=== PATIENT | female | born 1940 | race Caucasian/White ===

== ENCOUNTER 2018-10-16 21:54 | Inpatient (IN) | payer MEDICARE, OTHER ==
[2018-10-16] MEDS ORDERED: Albuterol/Ipratropium 3.0-0.5 MG/3 ML Neb Soln NEB ONE (22:42)
[2018-10-16] MEDS ORDERED: Sodium Chloride 0.9% 10 ML Syringe FLUSH PRN (22:42)
[2018-10-16] MEDS ORDERED: methylPREDNISolone Sodium Succinate 125 MG/2 ML SDV IVPUSH ONE (22:43)
--- NOTE | 2018-10-16 23:05 | CRLCR ---
Indication: Shortness of breath Technique: Chest 1 view Comparison: July 19, 2018 Findings/Impression: Stable cardiomediastinal silhouette. Minimal atelectasis versus infiltrate at the right lung base. There may be a trace amount of left pleural fluid. No pneumothorax. Normal pulmonary vasculature. No acute osseous abnormality. Dictated by Shellie Marin MD @ Oct 16 2018 11:04PM Signed by Dr. Shellie Marin @ Oct 16 2018 11:04PM
[2018-10-16] MEDS ORDERED: LORazepam 2 MG/ML SDV IVPUSH ONE (23:38)
--- NOTE | 2018-10-16 23:44 | EDM.PDOC ---
ED HPI GENERAL MEDICAL PROBLEM - General Chief Complaint: Respiratory Problem Stated Complaint: SOB Time Seen by Provider: 10/16/18 22:25 Source of Information: Reports: Patient, Family History Limitations: Reports: No Limitations - History of Present Illness INITIAL COMMENTS - FREE TEXT/NARRATIVE: pt arrived with increased sob and very wheezy She does not have a fever. She has been very tight all day. She is a home without air conditioning so the humidity really bothered the pt. Onset: Gradual, Other ( She has been sob for several days but today was the worst. ) Duration: Hour(s): Location: Reports: Chest Associated Symptoms: Reports: Cough, Shortness of Breath, Other (pt is very wheezy. ) Treatments [employer]ER: Reports: Oxygen - Related Data Allergies Allergy/AdvReac Type Severity Reaction Status Date / Time No Known Allergies Allergy Verified 10/16/18 23:37 Home Meds: Home Meds ARIPiprazole [Abilify] 10 mg PO DAILY 12/23/15 [History] DULoxetine HCl [Duloxetine HCl] 60 mg PO DAILY 12/23/15 [History] Dexlansoprazole [Dexilant] 60 mg PO DAILY 12/23/15 [History] Ondansetron [IJD: Ondansetron ODT] 4 mg PO .EVERY 6 HOURS PRN 12/23/15 [History] QUEtiapine Fumarate [Seroquel Xr] 400 mg PO DAILY 12/23/15 [History] Pantoprazole [ProTONIX] 40 mg PO DAILY 10/16/18 [History] Past Medical History HEENT History: Reports: Impaired Vision Respiratory History: Reports: COPD, SOB Musculoskeletal History: Reports: Arthritis Psychiatric History: Reports: Anxiety, Depression - Infectious Disease History Infectious Disease History: Reports: Chicken Pox - Past Surgical History Head Surgeries/Procedures: Reports: None Female Surgical History: Reports: Section, Hysterectomy Musculoskeletal Surgical History: Reports: Shoulder Surgery, Other (See Below) Other Musculoskeletal Surgeries/Procedures:: toe surgery Social & Family History - Tobacco Use Smoking Status *Q: Current Every Day Smoker Years of Tobacco use: 60 Packs/Tins Daily: 1.5 Used Tobacco, but Quit: No - Caffeine Use Caffeine Use: Reports: Coffee - Recreational Drug Use Recreational Drug Use: No ED ROS GENERAL - Review of Systems Review Of Systems: See Below Constitutional: Reports: No Symptoms HEENT: Reports: No Symptoms Respiratory: Reports: Shortness of Breath, Wheezing, Cough Cardiovascular: Reports: No Symptoms Endocrine: Reports: No Symptoms GI/Abdominal: Reports: No Symptoms : Reports: No Symptoms Musculoskeletal: Reports: No Symptoms Skin: Reports: No Symptoms Neurological: Reports: Other (pt does seem quite vague ) Psychiatric: Reports: Anxiety ED EXAM, GENERAL - Physical Exam Exam: See Below Free Text/Narrative:: pt arrived with increasing sob. She has been struggling all day. She is very wheezy. She has not been running a fever. Exam Limited By: No Limitations General Appearance: Alert, Anxious, Severe Distress Ears: Normal TMs Nose: Normal Inspection Throat/Mouth: Normal Inspection Head: Atraumatic Neck: Normal Inspection Respiratory/Chest: Decreased Breath Sounds, Rhonchi, Wheezing Cardiovascular: Regular Rate, Rhythm, Tachycardia GI/Abdominal: Soft, Non-Tender (Female) Exam: Deferred Rectal (Female) Exam: Deferred Back Exam: Normal Inspection Extremities: Other (no edema) Neurological: Alert, Oriented, Normal Cognition Psychiatric: Anxious Course - Vital Signs Last Recorded V/S: Last Vital Signs Temp 35.7 C 10/16/18 22:27 Pulse 122 H 10/16/18 22:27 Resp 27 H 10/16/18 22:27 BP 158/70 H 10/16/18 22:27 Pulse Ox 96 10/16/18 22:27 - Orders/Labs/Meds Orders: Active Orders 24 hr Category Date Time Status BIPAP Adult [RT BiPAP/CPAP] [RC] ASDIRECTED Care 10/16/18 22:50 Active EKG Documentation Completion [RC] ASDIRECTED Care 10/16/18 23:16 Active Kennedy Catheter Insertion [Insert Urinary Catheter] [OM. Care 10/16/18 23:30 Ordered PC] Q24H RT Aerosol Therapy [RC] ASDIRECTED Care 10/16/18 22:42 Active RT Aerosol Therapy [RC] ASDIRECTED Care 10/16/18 23:55 Ordered Urinary Catheter Assessment [RC] ASDIRECTED Care 10/16/18 23:17 Active UA W/MICROSCOPIC [URIN] Urgent Lab 10/16/18 22:34 Ordered Sodium Chloride 0.9% [Saline Flush] Med 10/16/18 22:42 Active 10 ml FLUSH ASDIRECTED PRN Saline Lock Insert [OM.PC] Routine Oth 10/16/18 22:42 Ordered EKG 12 Lead [EK] Routine Ther 10/16/18 23:15 Ordered Medication Orders Sodium Chloride (Saline Flush) 10 ml FLUSH ASDIRECTED PRN PRN Reason: Keep Vein Open Last Admin: 10/16/18 22:55 Dose: 10 ml Labs: Laboratory Tests 10/16/18 10/16/18 10/16/18 Range/Units 22:40 22:40 22:40 WBC 9.0 (4.5-11.0) K/uL RBC 4.09 (3.30-5.50) M/uL Hgb 12.4 (12.0-15.0) g/dL Hct 38.4 (36.0-48.0) % MCV 94 (80-98) fL MCH 30 (27-31) pg MCHC 32 (32-36) % Plt Count 185 (150-400) K/uL Neut % (Auto) 81 H (36-66) % Lymph % (Auto) 13 L (24-44) % [place] % (Auto) 6 (2-6) % Eos % (Auto) 0 L (2-4) % Baso % (Auto) 0 (0-1) % Puncture Site L radial ABG pH 7.246 L (7.350-7.450) ABG pCO2 83.2 H* (35.0-42.0) mmHg ABG pO2 74.9 L (75.0-100.0) mmHg ABG HCO3 34.9 H (22.0-26.0) mmol/L ABG Total CO2 32.6 H (21.0-25.0) mmol/L ABG O2 Saturation 92.8 L (95.0-98.0) % ABG O2 Content 15.7 (15.0-23.0) %vol ABG Base Excess 5.2 mm/L ABG Hemoglobin 12.7 (12.0-16.0) g/dL ABG Oxyhemoglobin 88.1 % ABG Carboxyhemoglobin 4.1 H (0.0-1.6) % ABG Methemoglobin 1.0 % Timmy Test Ok O2 Delivery Device Room air Oxygen Flow Rate 3 L Sodium 135 L (140-148) mmol/L Potassium 4.2 (3.6-5.2) mmol/L Chloride 95 L (100-108) mmol/L Carbon Dioxide 35 H (21-32) mmol/L Anion Gap 9.2 (5.0-14.0) mmol/L BUN 5 L (7-18) mg/dL Creatinine 0.4 L (0.6-1.0) mg/dL Est Cr Clr Drug Dosing 81.92 mL/min Estimated GFR (MDRD) > 60 (>60) Glucose 155 H (74-106) mg/dL Calcium 9.0 (8.5-10.1) mg/dL Total Bilirubin 0.3 (0.2-1.0) mg/dL AST 19 (15-37) U/L ALT 21 (12-78) U/L Alkaline Phosphatase 44 L (46-116) U/L Troponin I (0.000-0.056) ng/mL NT-Pro-B Natriuret Pep (5-450) pg/mL Total Protein 7.3 (6.4-8.2) g/dL Albumin 3.3 L (3.4-5.0) g/dL Globulin 4.0 H (2.3-3.5) g/dL Albumin/Globulin Ratio 0.8 L (1.2-2.2) 10/16/18 10/16/18 Range/Units 22:40 23:25 WBC (4.5-11.0) K/uL RBC (3.30-5.50) M/uL Hgb (12.0-15.0) g/dL Hct (36.0-48.0) % MCV (80-98) fL MCH (27-31) pg MCHC (32-36) % Plt Count (150-400) K/uL Neut % (Auto) (36-66) % Lymph % (Auto) (24-44) % [place] % (Auto) (2-6) % Eos % (Auto) (2-4) % Baso % (Auto) (0-1) % Puncture Site ABG pH (7.350-7.450) ABG pCO2 (35.0-42.0) mmHg ABG pO2 (75.0-100.0) mmHg ABG HCO3 (22.0-26.0) mmol/L ABG Total CO2 (21.0-25.0) mmol/L ABG O2 Saturation (95.0-98.0) % ABG O2 Content (15.0-23.0) %vol ABG Base Excess mm/L ABG Hemoglobin (12.0-16.0) g/dL ABG Oxyhemoglobin % ABG Carboxyhemoglobin (0.0-1.6) % ABG Methemoglobin % Timmy Test O2 Delivery Device Oxygen Flow Rate L Sodium (140-148) mmol/L Potassium (3.6-5.2) mmol/L Chloride (100-108) mmol/L Carbon Dioxide (21-32) mmol/L Anion Gap (5.0-14.0) mmol/L BUN (7-18) mg/dL Creatinine (0.6-1.0) mg/dL Est Cr Clr Drug Dosing mL/min Estimated GFR (MDRD) (>60) Glucose (74-106) mg/dL Calcium (8.5-10.1) mg/dL Total Bilirubin (0.2-1.0) mg/dL AST (15-37) U/L ALT (12-78) U/L Alkaline Phosphatase (46-116) U/L Troponin I < 0.017 (0.000-0.056) ng/mL NT-Pro-B Natriuret Pep 336 (5-450) pg/mL Total Protein (6.4-8.2) g/dL Albumin (3.4-5.0) g/dL Globulin (2.3-3.5) g/dL Albumin/Globulin Ratio (1.2-2.2) Meds: Medications Generic Name Dose Route Start Last Admin Trade Name Freq PRN Reason Stop Dose Admin Sodium Chloride 10 ml 10/16/18 22:42 10/16/18 22:55 Saline Flush FLUSH 10 ml ASDIRECTED PRN Administration Keep Vein Open Discontinued Medications Generic Name Dose Route Start Last Admin Trade Name Freq PRN Reason Stop Dose Admin Albuterol 2.5 mg 10/16/18 23:55 Proventil Neb Soln [facility] 10/16/18 23:56 ONETIME ONE Albuterol/Ipratropium 3 ml 10/16/18 22:42 10/16/18 22:47 Duoneb 3.0-0.5 Mg/3 Ml [facility] 10/16/18 22:43 3 ml ONETIME ONE Administration Lorazepam 0.5 mg 10/16/18 23:38 10/16/18 23:44 Ativan IVPUSH 10/16/18 23:39 0.5 mg ONETIME ONE Administration Methylprednisolone Sodium Succinate 125 mg 10/16/18 22:43 10/16/18 22:55 Solu-Medrol IVPUSH 10/16/18 22:44 125 mg ONETIME ONE Administration - Re-Assessments/Exams Free Text/Narrative Re-Assessment/Exam: 10/16/18 23:47 pt had blood gases with a pco2 greater than 80. She does not have a fever. Her wbc is normal. Her chest xray does not have definite infiltrate. 10/16/18 23:56 pt was placed on bipap and she contiues to struggle to maintain her o2 sats. She was given a duoneb and will starte a albuterol neb. Departure - Departure Time of Disposition: 23:48 Disposition: Admitted As Inpatient 65 Condition: Fair Clinical Impression: Respiratory failure, COPD (chronic obstructive pulmonary disease) - Discharge Information Referrals: Rich Lopez Sr, MD [Primary Care Provider] - Forms: ED Department Discharge Care Plan Goals: admit to Dr Lopez - My Orders Last 24 Hours: My Active Orders 10/16/18 22:34 UA W/MICROSCOPIC [URIN] Urgent 10/16/18 22:42 RT Aerosol Therapy [RC] ASDIRECTED Sodium Chloride 0.9% [Saline Flush] 10 ml FLUSH ASDIRECTED PRN Saline Lock Insert [OM.PC] Routine 10/16/18 22:50 BIPAP Adult [RT BiPAP/CPAP] [RC] ASDIRECTED 10/16/18 23:15 EKG 12 Lead [EK] Routine 10/16/18 23:16 EKG Documentation Completion [RC] ASDIRECTED 10/16/18 23:17 Urinary Catheter Assessment [RC] ASDIRECTED 10/16/18 23:30 Kennedy Catheter Insertion [Insert Urinary Catheter] [OM.PC] Q24H 10/16/18 23:55 RT Aerosol Therapy [RC] ASDIRECTED - Assessment/Plan Last 24 Hours: My Active Orders 10/16/18 22:34 UA W/MICROSCOPIC [URIN] Urgent 10/16/18 22:42 RT Aerosol Therapy [RC] ASDIRECTED Sodium Chloride 0.9% [Saline Flush] 10 ml FLUSH ASDIRECTED PRN Saline Lock Insert [OM.PC] Routine 10/16/18 22:50 BIPAP Adult [RT BiPAP/CPAP] [RC] ASDIRECTED 10/16/18 23:15 EKG 12 Lead [EK] Routine 10/16/18 23:16 EKG Documentation Completion [RC] ASDIRECTED 10/16/18 23:17 Urinary Catheter Assessment [RC] ASDIRECTED 10/16/18 23:30 Kennedy Catheter Insertion [Insert Urinary Catheter] [OM.PC] Q24H 10/16/18 23:55 RT Aerosol Therapy [RC] ASDIRECTED
[2018-10-16] MEDS ORDERED: Albuterol 0.083% 2.5 MG/3 ML Neb Soln NEB ONE (23:55)
[2018-10-16] MEDS ORDERED: Albuterol 0.021% 0.63 MG/3 ML Neb Soln ONE (23:55)
[2018-10-17] MEDS ORDERED: Ondansetron 4 MG Tab.DIS PO PRN (00:35)
--- NOTE | 2018-10-17 00:43 | PCM.HP ---
H&P History of Present Illness - General Date of Service: 10/17/18 Admit Problem/Dx: Admission Diagnosis/Problem Admission Diagnosis/Problem Respiratory failure Source of Information: EMS, Family History Limitations: Reports: Respiratory Distress - History of Present Illness Initial Comments - Free Text/Narative: This is a 78 year old female with a history of COPD brought on by smoking for years. recently 1/2 + pack/day and is on 24 hr oxygen. I had seen her in the office 12 hrs ago and she wanted to change her inhaler so gave her Stiolto Resimat 2 puffs/24 hrs. She became increased Shortness of breath and was brought to the ER and was admitted. Onset of Symptoms: Reports: Gradual Symptom Onset Date: 10/16/18 Duration of Symptoms: Reports: Day(s): Location: Reports: Chest Associated Symptoms: Reports: Cough - Related Data Allergies/Adverse Reactions: Allergies Allergy/AdvReac Type Severity Reaction Status Date / Time No Known Allergies Allergy Verified 10/16/18 23:37 Home Medications: Home Meds ARIPiprazole [Abilify] 10 mg PO DAILY 12/23/15 [History] DULoxetine HCl [Duloxetine HCl] 60 mg PO DAILY 12/23/15 [History] Dexlansoprazole [Dexilant] 60 mg PO DAILY 12/23/15 [History] Ondansetron [IJD: Ondansetron ODT] 4 mg PO .EVERY 6 HOURS PRN 12/23/15 [History] QUEtiapine Fumarate [Seroquel Xr] 400 mg PO DAILY 12/23/15 [History] Pantoprazole [ProTONIX] 40 mg PO DAILY 10/16/18 [History] Past Medical History HEENT History: Reports: Impaired Vision Respiratory History: Reports: COPD, SOB Musculoskeletal History: Reports: Arthritis Psychiatric History: Reports: Anxiety, Depression - Infectious Disease History Infectious Disease History: Reports: Chicken Pox - Past Surgical History Head Surgeries/Procedures: Reports: None Female Surgical History: Reports: Section, Hysterectomy Musculoskeletal Surgical History: Reports: Shoulder Surgery, Other (See Below) Other Musculoskeletal Surgeries/Procedures:: toe surgery Social & Family History - Tobacco Use Smoking Status *Q: Current Every Day Smoker Years of Tobacco use: 60 Packs/Tins Daily: 1.5 Used Tobacco, but Quit: No - Caffeine Use Caffeine Use: Reports: Coffee - Recreational Drug Use Recreational Drug Use: No H&P Review of Systems - Review of Systems: Review Of Systems: See Below General: Reports: Weakness, Fatigue HEENT: Reports: Post Nasal Drip, Sore Throat Pulmonary: Reports: Shortness of Breath, Wheezing, Cough Cardiovascular: Reports: No Symptoms Gastrointestinal: Reports: No Symptoms Genitourinary: Reports: No Symptoms Musculoskeletal: Reports: No Symptoms Skin: Reports: No Symptoms Psychiatric: Reports: Anxiety Neurological: Reports: Trouble Speaking, Difficulty Walking, Weakness Exam - Exam Exam: See Below - Vital Signs Vital Signs: Last Vital Signs Temp 96.3 F 10/16/18 22:27 Pulse 139 H 10/17/18 00:15 Resp 22 H 10/17/18 00:15 BP 207/62 H 10/17/18 00:15 Pulse Ox 91 L 10/17/18 00:15 Weight: 145 lb - Exam General: Oriented, Cooperative, Severe Distress, Lethargic HEENT: PERRLA, Hearing Intact, Mucosa Moist & [place], Nares Patent, Normal Nasal Septum, Posterior Pharynx Clear, Conjunctiva Clear, EOMI, EACs Clear, TMs Clear Neck: Supple, Trachea Midline, 2 Lungs: Decreased Breath Sounds, Wheezing Cardiovascular: Regular Rate, Tachycardia GI/Abdominal Exam: Normal Bowel Sounds, Soft, No Distention Extremities: Normal Inspection Peripheral Pulses: 1+: Radial (L), Radial (R) Skin: Warm, Dry Neurological: Cranial Nerves Intact, Reflexes Equal Bilateral, Strength Equal Bilateral, Abnormal Gait Neuro Extensive - Mental Status: Other (In respiratory distress) DTR: 1+: Bicep (L), Bicep (R) Psychiatric: Anxious - Patient Data Lab Results Last 24 hrs: Laboratory Results - last 24 hr 10/16/18 10/16/18 10/16/18 Range/Units 22:40 22:40 22:40 WBC 9.0 (4.5-11.0) K/uL RBC 4.09 (3.30-5.50) M/uL Hgb 12.4 (12.0-15.0) g/dL Hct 38.4 (36.0-48.0) % MCV 94 (80-98) fL MCH 30 (27-31) pg MCHC 32 (32-36) % Plt Count 185 (150-400) K/uL Neut % (Auto) 81 H (36-66) % Lymph % (Auto) 13 L (24-44) % [place] % (Auto) 6 (2-6) % Eos % (Auto) 0 L (2-4) % Baso % (Auto) 0 (0-1) % Puncture Site L radial ABG pH 7.246 L (7.350-7.450) ABG pCO2 83.2 H* (35.0-42.0) mmHg ABG pO2 74.9 L (75.0-100.0) mmHg ABG HCO3 34.9 H (22.0-26.0) mmol/L ABG Total CO2 32.6 H (21.0-25.0) mmol/L ABG O2 Saturation 92.8 L (95.0-98.0) % ABG O2 Content 15.7 (15.0-23.0) %vol ABG Base Excess 5.2 mm/L ABG Hemoglobin 12.7 (12.0-16.0) g/dL ABG Oxyhemoglobin 88.1 % ABG Carboxyhemoglobin 4.1 H (0.0-1.6) % ABG Methemoglobin 1.0 % Timmy Test Ok O2 Delivery Device Room air Oxygen Flow Rate 3 L Sodium 135 L (140-148) mmol/L Potassium 4.2 (3.6-5.2) mmol/L Chloride 95 L (100-108) mmol/L Carbon Dioxide 35 H (21-32) mmol/L Anion Gap 9.2 (5.0-14.0) mmol/L BUN 5 L (7-18) mg/dL Creatinine 0.4 L (0.6-1.0) mg/dL Est Cr Clr Drug Dosing 81.92 mL/min Estimated GFR (MDRD) > 60 (>60) Glucose 155 H (74-106) mg/dL Calcium 9.0 (8.5-10.1) mg/dL Total Bilirubin 0.3 (0.2-1.0) mg/dL AST 19 (15-37) U/L ALT 21 (12-78) U/L Alkaline Phosphatase 44 L (46-116) U/L Troponin I (0.000-0.056) ng/mL NT-Pro-B Natriuret Pep (5-450) pg/mL Total Protein 7.3 (6.4-8.2) g/dL Albumin 3.3 L (3.4-5.0) g/dL Globulin 4.0 H (2.3-3.5) g/dL Albumin/Globulin Ratio 0.8 L (1.2-2.2) Urine Color Urine Appearance Urine pH (4.5-8.0) Ur Specific [place] (1.008-1.030) Urine Protein (NEGATIVE) mg/dL Urine Glucose (UA) (NEGATIVE) mg/dL Urine Ketones (NEGATIVE) mg/dL Urine Occult Blood (NEGATIVE) Urine Nitrite (NEGATIVE) Urine Bilirubin (NEGATIVE) Urine Urobilinogen (NORMAL) mg/dL Ur Leukocyte Esterase (NEGATIVE) Urine RBC (0-5) Urine WBC (0-5) Ur Epithelial Cells Amorphous Sediment Urine Bacteria Urine Mucus 10/16/18 10/16/18 10/17/18 Range/Units 22:40 23:25 00:11 WBC (4.5-11.0) K/uL RBC (3.30-5.50) M/uL Hgb (12.0-15.0) g/dL Hct (36.0-48.0) % MCV (80-98) fL MCH (27-31) pg MCHC (32-36) % Plt Count (150-400) K/uL Neut % (Auto) (36-66) % Lymph % (Auto) (24-44) % [place] % (Auto) (2-6) % Eos % (Auto) (2-4) % Baso % (Auto) (0-1) % Puncture Site ABG pH (7.350-7.450) ABG pCO2 (35.0-42.0) mmHg ABG pO2 (75.0-100.0) mmHg ABG HCO3 (22.0-26.0) mmol/L ABG Total CO2 (21.0-25.0) mmol/L ABG O2 Saturation (95.0-98.0) % ABG O2 Content (15.0-23.0) %vol ABG Base Excess mm/L ABG Hemoglobin (12.0-16.0) g/dL ABG Oxyhemoglobin % ABG Carboxyhemoglobin (0.0-1.6) % ABG Methemoglobin % Timmy Test O2 Delivery Device Oxygen Flow Rate L Sodium (140-148) mmol/L Potassium (3.6-5.2) mmol/L Chloride (100-108) mmol/L Carbon Dioxide (21-32) mmol/L Anion Gap (5.0-14.0) mmol/L BUN (7-18) mg/dL Creatinine (0.6-1.0) mg/dL Est Cr Clr Drug Dosing mL/min Estimated GFR (MDRD) (>60) Glucose (74-106) mg/dL Calcium (8.5-10.1) mg/dL Total Bilirubin (0.2-1.0) mg/dL AST (15-37) U/L ALT (12-78) U/L Alkaline Phosphatase (46-116) U/L Troponin I < 0.017 (0.000-0.056) ng/mL NT-Pro-B Natriuret Pep 336 (5-450) pg/mL Total Protein (6.4-8.2) g/dL Albumin (3.4-5.0) g/dL Globulin (2.3-3.5) g/dL Albumin/Globulin Ratio (1.2-2.2) Urine Color Yellow Urine Appearance Clear Urine pH 6.5 (4.5-8.0) Ur Specific [place] 1.020 (1.008-1.030) Urine Protein 100 H (NEGATIVE) mg/dL Urine Glucose (UA) 100 H (NEGATIVE) mg/dL Urine Ketones Negative (NEGATIVE) mg/dL Urine Occult Blood Moderate (NEGATIVE) Urine Nitrite Negative (NEGATIVE) Urine Bilirubin Negative (NEGATIVE) Urine Urobilinogen Normal (NORMAL) mg/dL Ur Leukocyte Esterase Negative (NEGATIVE) Urine RBC 0-5 (0-5) Urine WBC 0-5 (0-5) Ur Epithelial Cells Rare Amorphous Sediment Few Urine Bacteria Few Urine Mucus Not seen Result Diagrams: 10/17/18 05:14 10/17/18 05:14 Problem List Initiated/Reviewed/Updated: Yes Orders Last 24hrs: Active Orders 24 hr Category Date Time Status Admission Status [Patient Status] [ADT] Routine ADT 10/16/18 23:50 Active Patient Status [ADT] Routine ADT 10/17/18 00:21 Ordered BIPAP Adult [RT BiPAP/CPAP] [RC] ASDIRECTED Care 10/16/18 22:50 Active Bedrest Bedside Commode [RC] ASDIRECTED Care 10/17/18 00:21 Ordered EKG Documentation Completion [RC] ASDIRECTED Care 10/16/18 23:16 Active Kennedy Catheter Insertion [Insert Urinary Catheter] [OM. Care 10/16/18 23:30 Ordered PC] Q24H Height and Weight [RC] UPON Care 10/17/18 00:21 Ordered Intake and Output [RC] QSHIFT Care 10/17/18 00:25 Ordered Oxygen Therapy [RC] PRN Care 10/17/18 00:21 Ordered RT Aerosol Therapy [RC] ASDIRECTED Care 10/16/18 22:42 Active RT Aerosol Therapy [RC] ASDIRECTED Care 10/16/18 23:55 Active Up With Assistance [RC] ASDIRECTED Care 10/17/18 00:21 Ordered Up to Chair [RC] QID Care 10/17/18 00:21 Ordered Urinary Catheter Assessment [RC] ASDIRECTED Care 10/16/18 23:17 Active VTE/DVT Education [RC] Per Unit Routine Care 10/17/18 00:21 Ordered Vital Signs [RC] Q4H Care 10/17/18 00:21 Ordered Regular Diet [DIET] Diet 10/17/18 Breakfast Ordered BASIC METABOLIC PANEL,BMP [CHEM] Routine Lab 10/17/18 05:11 Ordered CBC WITH AUTO DIFF [HEME] Routine Lab 10/17/18 05:11 Ordered ARIPiprazole [Abilify] Med 10/17/18 09:00 Ordered 10 mg PO DAILY DULoxetine HCl [Duloxetine HCl] Med 10/17/18 09:00 Ordered 60 mg PO DAILY Dexlansoprazole [Dexilant] Med 10/17/18 09:00 Ordered 60 mg PO DAILY Ondansetron [Zofran ODT] Med 10/17/18 00:35 Ordered 4 mg PO .EVERY 6 HOURS PRN QUEtiapine Fumarate [Seroquel Xr] Med 10/17/18 09:00 Ordered 400 mg PO DAILY Sodium Chloride 0.9% [Normal Saline] 1,000 ml Med 10/17/18 00:30 Ordered IV ASDIRECTED Sodium Chloride 0.9% [Saline Flush] Med 10/16/18 22:42 Active 10 ml FLUSH ASDIRECTED PRN Saline Lock Insert [OM.PC] Routine Oth 10/16/18 22:42 Ordered Sequential Compression Device [OM.PC] Per Unit Routine Oth 10/17/18 00:25 Ordered Resuscitation Status Routine Resus Stat 10/17/18 00:21 Ordered EKG 12 Lead [EK] Routine Ther 10/16/18 23:15 Ordered Medication Orders Sodium Chloride (Saline Flush) 10 ml FLUSH ASDIRECTED PRN PRN Reason: Keep Vein Open Last Admin: 10/16/18 22:55 Dose: 10 ml Assessment/Plan Comment:: Assessment/Plan: #1. COPD: She will be in the ICU on Bipap and will monitor O2 levels and respiratory stasis. Continue with steroids. #2. Emphysema: #3. Hypothyroidism: Continue with meds. #4. Nicotine addiction:
[2018-10-17] MEDS ORDERED: methylPREDNISolone Sodium Succinate 125 MG/2 ML SDV IVPUSH SCH (01:00)
[2018-10-17] MEDS: Sodium Chloride 0.9% 1,000 ML IV SCH ×2 (01:30→13:54)
[2018-10-17] MEDS ORDERED: Sodium Chloride 0.9% 500 ML IV ONE (05:28)
[2018-10-17] MEDS ORDERED: Heparin Sodium 5,000 Units/ML Vial IVPUSH ONE (05:31)
[2018-10-17] MEDS: methylPREDNISolone Sodium Succinate 125 MG/2 ML SDV IVPUSH SCH ×4 (05:45→23:45)
--- NOTE | 2018-10-17 06:16 | PCM.HP ---
H&P History of Present Illness - General Admit Problem/Dx: Admission Diagnosis/Problem Admission Diagnosis/Problem Respiratory failure - Related Data Allergies/Adverse Reactions: Allergies Allergy/AdvReac Type Severity Reaction Status Date / Time No Known Allergies Allergy Verified 10/16/18 23:37 Home Medications: Home Meds ARIPiprazole [Abilify] 10 mg PO DAILY 12/23/15 [History] DULoxetine HCl [Duloxetine HCl] 60 mg PO DAILY 12/23/15 [History] Dexlansoprazole [Dexilant] 60 mg PO DAILY 12/23/15 [History] Ondansetron [IJD: Ondansetron ODT] 4 mg PO .EVERY 6 HOURS PRN 12/23/15 [History] QUEtiapine Fumarate [Seroquel Xr] 400 mg PO DAILY 12/23/15 [History] Pantoprazole [ProTONIX] 40 mg PO DAILY 10/16/18 [History] Past Medical History HEENT History: Reports: Impaired Vision Respiratory History: Reports: COPD, SOB Musculoskeletal History: Reports: Arthritis Psychiatric History: Reports: Anxiety, Depression - Infectious Disease History Infectious Disease History: Reports: Chicken Pox - Past Surgical History Head Surgeries/Procedures: Reports: None Female Surgical History: Reports: Section, Hysterectomy Musculoskeletal Surgical History: Reports: Shoulder Surgery, Other (See Below) Other Musculoskeletal Surgeries/Procedures:: toe surgery Social & Family History - Tobacco Use Smoking Status *Q: Current Every Day Smoker Years of Tobacco use: 60 Packs/Tins Daily: 1.5 Used Tobacco, but Quit: No - Caffeine Use Caffeine Use: Reports: Coffee - Recreational Drug Use Recreational Drug Use: No H&P Review of Systems - Review of Systems: Review Of Systems: See Below Exam - Exam Exam: See Below - Vital Signs Vital Signs: Last Vital Signs Temp 98 F 10/17/18 05:00 Pulse 139 H 10/17/18 00:15 Resp 17 10/17/18 05:00 BP 129/75 10/17/18 05:00 Pulse Ox 94 L 10/17/18 05:00 Weight: 145 lb - Exam General: Moderate Distress HEENT: Pupils Equal Neck: Supple Lungs: Decreased Breath Sounds, Wheezing Cardiovascular: Regular Rate GI/Abdominal Exam: Soft Back Exam: Normal Inspection Extremities: Normal Inspection Peripheral Pulses: 1+: Radial (L), Radial (R) Skin: Warm, Dry, Intact Neurological: Cranial Nerves Intact DTR: 1+: Bicep (L), Bicep (R) Psychiatric: Anxious - Patient Data Lab Results Last 24 hrs: Laboratory Results - last 24 hr 10/16/18 10/16/18 10/16/18 Range/Units 22:40 22:40 22:40 WBC 9.0 (4.5-11.0) K/uL RBC 4.09 (3.30-5.50) M/uL Hgb 12.4 (12.0-15.0) g/dL Hct 38.4 (36.0-48.0) % MCV 94 (80-98) fL MCH 30 (27-31) pg MCHC 32 (32-36) % Plt Count 185 (150-400) K/uL Neut % (Auto) 81 H (36-66) % Lymph % (Auto) 13 L (24-44) % [place] % (Auto) 6 (2-6) % Eos % (Auto) 0 L (2-4) % Baso % (Auto) 0 (0-1) % Puncture Site L radial ABG pH 7.246 L (7.350-7.450) ABG pCO2 83.2 H* (35.0-42.0) mmHg ABG pO2 74.9 L (75.0-100.0) mmHg ABG HCO3 34.9 H (22.0-26.0) mmol/L ABG Total CO2 32.6 H (21.0-25.0) mmol/L ABG O2 Saturation 92.8 L (95.0-98.0) % ABG O2 Content 15.7 (15.0-23.0) %vol ABG Base Excess 5.2 mm/L ABG Hemoglobin 12.7 (12.0-16.0) g/dL ABG Oxyhemoglobin 88.1 % ABG Carboxyhemoglobin 4.1 H (0.0-1.6) % ABG Methemoglobin 1.0 % Timmy Test Ok O2 Delivery Device Room air Oxygen Flow Rate 3 L Sodium 135 L (140-148) mmol/L Potassium 4.2 (3.6-5.2) mmol/L Chloride 95 L (100-108) mmol/L Carbon Dioxide 35 H (21-32) mmol/L Anion Gap 9.2 (5.0-14.0) mmol/L BUN 5 L (7-18) mg/dL Creatinine 0.4 L (0.6-1.0) mg/dL Est Cr Clr Drug Dosing 81.92 mL/min Estimated GFR (MDRD) > 60 (>60) Glucose 155 H (74-106) mg/dL Calcium 9.0 (8.5-10.1) mg/dL Total Bilirubin 0.3 (0.2-1.0) mg/dL AST 19 (15-37) U/L ALT 21 (12-78) U/L Alkaline Phosphatase 44 L (46-116) U/L Troponin I (0.000-0.056) ng/mL NT-Pro-B Natriuret Pep (5-450) pg/mL Total Protein 7.3 (6.4-8.2) g/dL Albumin 3.3 L (3.4-5.0) g/dL Globulin 4.0 H (2.3-3.5) g/dL Albumin/Globulin Ratio 0.8 L (1.2-2.2) Urine Color Urine Appearance Urine pH (4.5-8.0) Ur Specific [place] (1.008-1.030) Urine Protein (NEGATIVE) mg/dL Urine Glucose (UA) (NEGATIVE) mg/dL Urine Ketones (NEGATIVE) mg/dL Urine Occult Blood (NEGATIVE) Urine Nitrite (NEGATIVE) Urine Bilirubin (NEGATIVE) Urine Urobilinogen (NORMAL) mg/dL Ur Leukocyte Esterase (NEGATIVE) Urine RBC (0-5) Urine WBC (0-5) Ur Epithelial Cells Amorphous Sediment Urine Bacteria Urine Mucus 10/16/18 10/16/18 10/17/18 Range/Units 22:40 23:25 00:11 WBC (4.5-11.0) K/uL RBC (3.30-5.50) M/uL Hgb (12.0-15.0) g/dL Hct (36.0-48.0) % MCV (80-98) fL MCH (27-31) pg MCHC (32-36) % Plt Count (150-400) K/uL Neut % (Auto) (36-66) % Lymph % (Auto) (24-44) % [place] % (Auto) (2-6) % Eos % (Auto) (2-4) % Baso % (Auto) (0-1) % Puncture Site ABG pH (7.350-7.450) ABG pCO2 (35.0-42.0) mmHg ABG pO2 (75.0-100.0) mmHg ABG HCO3 (22.0-26.0) mmol/L ABG Total CO2 (21.0-25.0) mmol/L ABG O2 Saturation (95.0-98.0) % ABG O2 Content (15.0-23.0) %vol ABG Base Excess mm/L ABG Hemoglobin (12.0-16.0) g/dL ABG Oxyhemoglobin % ABG Carboxyhemoglobin (0.0-1.6) % ABG Methemoglobin % Timmy Test O2 Delivery Device Oxygen Flow Rate L Sodium (140-148) mmol/L Potassium (3.6-5.2) mmol/L Chloride (100-108) mmol/L Carbon Dioxide (21-32) mmol/L Anion Gap (5.0-14.0) mmol/L BUN (7-18) mg/dL Creatinine (0.6-1.0) mg/dL Est Cr Clr Drug Dosing mL/min Estimated GFR (MDRD) (>60) Glucose (74-106) mg/dL Calcium (8.5-10.1) mg/dL Total Bilirubin (0.2-1.0) mg/dL AST (15-37) U/L ALT (12-78) U/L Alkaline Phosphatase (46-116) U/L Troponin I < 0.017 (0.000-0.056) ng/mL NT-Pro-B Natriuret Pep 336 (5-450) pg/mL Total Protein (6.4-8.2) g/dL Albumin (3.4-5.0) g/dL Globulin (2.3-3.5) g/dL Albumin/Globulin Ratio (1.2-2.2) Urine Color Yellow Urine Appearance Clear Urine pH 6.5 (4.5-8.0) Ur Specific [place] 1.020 (1.008-1.030) Urine Protein 100 H (NEGATIVE) mg/dL Urine Glucose (UA) 100 H (NEGATIVE) mg/dL Urine Ketones Negative (NEGATIVE) mg/dL Urine Occult Blood Moderate (NEGATIVE) Urine Nitrite Negative (NEGATIVE) Urine Bilirubin Negative (NEGATIVE) Urine Urobilinogen Normal (NORMAL) mg/dL Ur Leukocyte Esterase Negative (NEGATIVE) Urine RBC 0-5 (0-5) Urine WBC 0-5 (0-5) Ur Epithelial Cells Rare Amorphous Sediment Few Urine Bacteria Few Urine Mucus Not seen 10/17/18 10/17/18 10/17/18 Range/Units 05:14 05:14 05:14 WBC 9.4 (4.5-11.0) K/uL RBC 3.90 (3.30-5.50) M/uL Hgb 11.8 L (12.0-15.0) g/dL Hct 37.8 (36.0-48.0) % MCV 97 (80-98) fL MCH 30 (27-31) pg MCHC 31 L (32-36) % Plt Count 239 (150-400) K/uL Neut % (Auto) 97 H (36-66) % Lymph % (Auto) 2 L (24-44) % [place] % (Auto) 1 L (2-6) % Eos % (Auto) 0 L (2-4) % Baso % (Auto) 0 (0-1) % Puncture Site R radial ABG pH 7.184 L* (7.350-7.450) ABG pCO2 102.0 H* (35.0-42.0) mmHg ABG pO2 67.7 L (75.0-100.0) mmHg ABG HCO3 37.0 H (22.0-26.0) mmol/L ABG Total CO2 35.4 H (21.0-25.0) mmol/L ABG O2 Saturation 90.4 L (95.0-98.0) % ABG O2 Content 14.8 L (15.0-23.0) %vol ABG Base Excess 5.6 mm/L ABG Hemoglobin 12.1 (12.0-16.0) g/dL ABG Oxyhemoglobin 87.0 % ABG Carboxyhemoglobin 2.6 H (0.0-1.6) % ABG Methemoglobin 1.2 % Timmy Test Ok O2 Delivery Device Bipap Oxygen Flow Rate L Sodium 136 L (140-148) mmol/L Potassium 4.6 (3.6-5.2) mmol/L Chloride 97 L (100-108) mmol/L Carbon Dioxide 34 H (21-32) mmol/L Anion Gap 9.6 (5.0-14.0) mmol/L BUN 7 (7-18) mg/dL Creatinine 0.5 L (0.6-1.0) mg/dL Est Cr Clr Drug Dosing 65.53 mL/min Estimated GFR (MDRD) > 60 (>60) Glucose 133 H (74-106) mg/dL Calcium 8.9 (8.5-10.1) mg/dL Total Bilirubin (0.2-1.0) mg/dL AST (15-37) U/L ALT (12-78) U/L Alkaline Phosphatase (46-116) U/L Troponin I (0.000-0.056) ng/mL NT-Pro-B Natriuret Pep (5-450) pg/mL Total Protein (6.4-8.2) g/dL Albumin (3.4-5.0) g/dL Globulin (2.3-3.5) g/dL Albumin/Globulin Ratio (1.2-2.2) Urine Color Urine Appearance Urine pH (4.5-8.0) Ur Specific [place] (1.008-1.030) Urine Protein (NEGATIVE) mg/dL Urine Glucose (UA) (NEGATIVE) mg/dL Urine Ketones (NEGATIVE) mg/dL Urine Occult Blood (NEGATIVE) Urine Nitrite (NEGATIVE) Urine Bilirubin (NEGATIVE) Urine Urobilinogen (NORMAL) mg/dL Ur Leukocyte Esterase (NEGATIVE) Urine RBC (0-5) Urine WBC (0-5) Ur Epithelial Cells Amorphous Sediment Urine Bacteria Urine Mucus Result Diagrams: 10/17/18 05:14 10/17/18 05:14 Orders Last 24hrs: Active Orders 24 hr Category Date Time Status Admission Status [Patient Status] [ADT] Routine ADT 10/16/18 23:50 Active Patient Status [ADT] Routine ADT 10/17/18 00:21 Active BIPAP Adult [RT BiPAP/CPAP] [RC] ASDIRECTED Care 10/16/18 22:50 Active Bedrest Bedside Commode [RC] ASDIRECTED Care 10/17/18 00:21 Active [place] Catheter Insertion [Insert Urinary Catheter] [OM. Care 10/16/18 23:30 Ordered PC] Q24H Height and Weight [RC] UPON Care 10/17/18 00:21 Active Intake and Output [RC] QSHIFT Care 10/17/18 00:25 Active Oxygen Therapy [RC] PRN Care 10/17/18 00:21 Active RASS Sedation Scale [RC] ASDIRECTED Care 10/17/18 06:00 Ordered RT Aerosol Therapy [RC] ASDIRECTED Care 10/16/18 22:42 Active RT Aerosol Therapy [RC] ASDIRECTED Care 10/16/18 23:55 Active Up With Assistance [RC] ASDIRECTED Care 10/17/18 00:21 Active Up to Chair [RC] QID Care 10/17/18 00:21 Active Urinary Catheter Assessment [RC] ASDIRECTED Care 10/16/18 23:17 Active Vital Signs [RC] Q4H Care 10/17/18 00:21 Active Regular Diet [DIET] Diet 10/17/18 Breakfast Active Chest 1V Frontal [CR] Routine Exams 10/17/18 05:32 Ordered ARIPiprazole [Abilify] Med 10/17/18 09:00 Active 10 mg PO DAILY DULoxetine [Cymbalta] Med 10/17/18 09:00 Active 60 mg PO DAILY LORazepam [Ativan] Med 10/17/18 01:10 Active 0.25 mg IVPUSH Q2H PRN Levothyroxine Med 10/17/18 07:30 Active 112 mcg PO ACBREAKFAST Ondansetron [Zofran ODT] Med 10/17/18 00:35 Active 4 mg PO Q6H PRN Pantoprazole [ProTONIX] Med 10/17/18 07:30 Active 40 mg PO ACBREAKFAST Pneumococcal Polyvalent-23 Vac [Pneumovax 23] Med 10/20/18 08:00 Once 0.5 ml IM .ONCE ONE Propofol Drip @ 5 MCG/KG/MIN(100ml) Med 10/17/18 06:00 Ordered Propofol [Diprivan 100 ML] 100 ml IV TITRATE QUEtiapine [SEROquel XR] Med 10/17/18 09:00 Active 400 mg PO DAILY Sodium Chloride 0.9% [Normal Saline] 1,000 ml Med 10/17/18 00:30 Active IV ASDIRECTED Sodium Chloride 0.9% [Normal Saline] 500 ml Med 10/17/18 05:28 Active IV .BOLUS Sodium Chloride 0.9% [Saline Flush] Med 10/16/18 22:42 Active 10 ml FLUSH ASDIRECTED PRN methylPREDNISolone Sod Succ [Solu-MEDROL] Med 10/17/18 06:00 Active 125 mg IVPUSH Q6H Arterial Line Insertion [OM.PC] Stat Ot 10/17/18 05:27 Ordered Arterial Line Management [OM.PC] Routine Oth 10/17/18 05:27 Ordered Desired Level of Sedation (RASS) [AST] Click to Edit Oth 10/17/18 06:00 Ordered Saline Lock Insert [OM.PC] Routine Oth 10/16/18 22:42 Ordered Sequential Compression Device [OM.PC] Per Unit Routine Oth 10/17/18 00:25 Ordered Resuscitation Status Routine Resus Stat 10/17/18 00:21 Ordered EKG 12 Lead [EK] Routine Ther 10/16/18 23:15 Ordered Medication Orders Aripiprazole (Abilify) 10 mg PO DAILY OLAMIDE Duloxetine HCl (Cymbalta) 60 mg PO DAILY OLAMIDE Sodium Chloride (Normal Saline) 1,000 mls @ 75 mls/hr IV ASDIRECTED OLAMIDE Last Admin: 10/17/18 01:30 Dose: 75 mls/hr Sodium Chloride (Normal Saline) 500 mls @ 1 mls/hr IV .BOLUS ONE Stop: 11/07/18 01:27 Last Admin: 10/17/18 05:47 Dose: 1 mls/hr Propofol (Diprivan 100 Ml) 100 mls @ 1.973 mls/hr IV TITRATE OLAMIDE; Protocol Levothyroxine Sodium (Levothyroxine) 112 mcg PO ACBREAKFAST OLAMIDE Lorazepam (Ativan) 0.25 mg IVPUSH Q2H PRN PRN Reason: Anxiety Methylprednisolone Sodium Succinate (Solu-Medrol) 125 mg IVPUSH Q6H OLAMIDE Last Admin: 10/17/18 05:45 Dose: 125 mg Ondansetron HCl (Zofran Odt) 4 mg PO Q6H PRN PRN Reason: Nausea Pantoprazole Sodium (Protonix) 40 mg PO ACBREAKFAST OLAMIDE Pneumococcal Polyvalent Vaccine (Pneumovax 23) 0.5 ml IM .ONCE ONE Stop: 10/20/18 08:01 Quetiapine Fumarate (Seroquel Xr) 400 mg PO DAILY OLAMIDE Sodium Chloride (Saline Flush) 10 ml FLUSH ASDIRECTED PRN PRN Reason: Keep Vein Open Last Admin: 10/16/18 22:55 Dose: 10 ml Assessment/Plan Comment:: Assessment/Plan: #1. COPD: She will be in the ICU on Bipap and will monitor O2 levels and respiratory stasis. Continue with steroids. #2. Emphysema: #3. Hypothyroidism: Continue with meds. #4. Nicotine addiction:
--- NOTE | 2018-10-17 06:21 | PCM.PN ---
- General Info Date of Service: 10/17/18 Subjective Update: Patient lethergic and PCO2 102. Was lethergic without Ativan. - Review of Systems HEENT: Reports: No Symptoms Pulmonary: Reports: Wheezing Cardiovascular: Reports: No Symptoms Gastrointestinal: Reports: No Symptoms Genitourinary: Reports: No Symptoms Musculoskeletal: Reports: No Symptoms Neurological: Reports: No Symptoms Psychiatric: Reports: Anxiety - Patient Data Vitals - Most Recent: Last Vital Signs Temp 98 F 10/17/18 05:00 Pulse 139 H 10/17/18 00:15 Resp 17 10/17/18 05:00 BP 129/75 10/17/18 05:00 Pulse Ox 94 L 10/17/18 05:00 Weight - Most Recent: 145 lb Lab Results Last 24 Hours: Laboratory Results - last 24 hr 10/16/18 10/16/18 10/16/18 Range/Units 22:40 22:40 22:40 WBC 9.0 (4.5-11.0) K/uL RBC 4.09 (3.30-5.50) M/uL Hgb 12.4 (12.0-15.0) g/dL Hct 38.4 (36.0-48.0) % MCV 94 (80-98) fL MCH 30 (27-31) pg MCHC 32 (32-36) % Plt Count 185 (150-400) K/uL Neut % (Auto) 81 H (36-66) % Lymph % (Auto) 13 L (24-44) % [place] % (Auto) 6 (2-6) % Eos % (Auto) 0 L (2-4) % Baso % (Auto) 0 (0-1) % Puncture Site L radial ABG pH 7.246 L (7.350-7.450) ABG pCO2 83.2 H* (35.0-42.0) mmHg ABG pO2 74.9 L (75.0-100.0) mmHg ABG HCO3 34.9 H (22.0-26.0) mmol/L ABG Total CO2 32.6 H (21.0-25.0) mmol/L ABG O2 Saturation 92.8 L (95.0-98.0) % ABG O2 Content 15.7 (15.0-23.0) %vol ABG Base Excess 5.2 mm/L ABG Hemoglobin 12.7 (12.0-16.0) g/dL ABG Oxyhemoglobin 88.1 % ABG Carboxyhemoglobin 4.1 H (0.0-1.6) % ABG Methemoglobin 1.0 % Timmy Test Ok O2 Delivery Device Room air Oxygen Flow Rate 3 L Sodium 135 L (140-148) mmol/L Potassium 4.2 (3.6-5.2) mmol/L Chloride 95 L (100-108) mmol/L Carbon Dioxide 35 H (21-32) mmol/L Anion Gap 9.2 (5.0-14.0) mmol/L BUN 5 L (7-18) mg/dL Creatinine 0.4 L (0.6-1.0) mg/dL Est Cr Clr Drug Dosing 81.92 mL/min Estimated GFR (MDRD) > 60 (>60) Glucose 155 H (74-106) mg/dL Calcium 9.0 (8.5-10.1) mg/dL Total Bilirubin 0.3 (0.2-1.0) mg/dL AST 19 (15-37) U/L ALT 21 (12-78) U/L Alkaline Phosphatase 44 L (46-116) U/L Troponin I (0.000-0.056) ng/mL NT-Pro-B Natriuret Pep (5-450) pg/mL Total Protein 7.3 (6.4-8.2) g/dL Albumin 3.3 L (3.4-5.0) g/dL Globulin 4.0 H (2.3-3.5) g/dL Albumin/Globulin Ratio 0.8 L (1.2-2.2) Urine Color Urine Appearance Urine pH (4.5-8.0) Ur Specific [place] (1.008-1.030) Urine Protein (NEGATIVE) mg/dL Urine Glucose (UA) (NEGATIVE) mg/dL Urine Ketones (NEGATIVE) mg/dL Urine Occult Blood (NEGATIVE) Urine Nitrite (NEGATIVE) Urine Bilirubin (NEGATIVE) Urine Urobilinogen (NORMAL) mg/dL Ur Leukocyte Esterase (NEGATIVE) Urine RBC (0-5) Urine WBC (0-5) Ur Epithelial Cells Amorphous Sediment Urine Bacteria Urine Mucus 10/16/18 10/16/18 10/17/18 Range/Units 22:40 23:25 00:11 WBC (4.5-11.0) K/uL RBC (3.30-5.50) M/uL Hgb (12.0-15.0) g/dL Hct (36.0-48.0) % MCV (80-98) fL MCH (27-31) pg MCHC (32-36) % Plt Count (150-400) K/uL Neut % (Auto) (36-66) % Lymph % (Auto) (24-44) % [place] % (Auto) (2-6) % Eos % (Auto) (2-4) % Baso % (Auto) (0-1) % Puncture Site ABG pH (7.350-7.450) ABG pCO2 (35.0-42.0) mmHg ABG pO2 (75.0-100.0) mmHg ABG HCO3 (22.0-26.0) mmol/L ABG Total CO2 (21.0-25.0) mmol/L ABG O2 Saturation (95.0-98.0) % ABG O2 Content (15.0-23.0) %vol ABG Base Excess mm/L ABG Hemoglobin (12.0-16.0) g/dL ABG Oxyhemoglobin % ABG Carboxyhemoglobin (0.0-1.6) % ABG Methemoglobin % Timmy Test O2 Delivery Device Oxygen Flow Rate L Sodium (140-148) mmol/L Potassium (3.6-5.2) mmol/L Chloride (100-108) mmol/L Carbon Dioxide (21-32) mmol/L Anion Gap (5.0-14.0) mmol/L BUN (7-18) mg/dL Creatinine (0.6-1.0) mg/dL Est Cr Clr Drug Dosing mL/min Estimated GFR (MDRD) (>60) Glucose (74-106) mg/dL Calcium (8.5-10.1) mg/dL Total Bilirubin (0.2-1.0) mg/dL AST (15-37) U/L ALT (12-78) U/L Alkaline Phosphatase (46-116) U/L Troponin I < 0.017 (0.000-0.056) ng/mL NT-Pro-B Natriuret Pep 336 (5-450) pg/mL Total Protein (6.4-8.2) g/dL Albumin (3.4-5.0) g/dL Globulin (2.3-3.5) g/dL Albumin/Globulin Ratio (1.2-2.2) Urine Color Yellow Urine Appearance Clear Urine pH 6.5 (4.5-8.0) Ur Specific [place] 1.020 (1.008-1.030) Urine Protein 100 H (NEGATIVE) mg/dL Urine Glucose (UA) 100 H (NEGATIVE) mg/dL Urine Ketones Negative (NEGATIVE) mg/dL Urine Occult Blood Moderate (NEGATIVE) Urine Nitrite Negative (NEGATIVE) Urine Bilirubin Negative (NEGATIVE) Urine Urobilinogen Normal (NORMAL) mg/dL Ur Leukocyte Esterase Negative (NEGATIVE) Urine RBC 0-5 (0-5) Urine WBC 0-5 (0-5) Ur Epithelial Cells Rare Amorphous Sediment Few Urine Bacteria Few Urine Mucus Not seen 10/17/18 10/17/18 10/17/18 Range/Units 05:14 05:14 05:14 WBC 9.4 (4.5-11.0) K/uL RBC 3.90 (3.30-5.50) M/uL Hgb 11.8 L (12.0-15.0) g/dL Hct 37.8 (36.0-48.0) % MCV 97 (80-98) fL MCH 30 (27-31) pg MCHC 31 L (32-36) % Plt Count 239 (150-400) K/uL Neut % (Auto) 97 H (36-66) % Lymph % (Auto) 2 L (24-44) % [place] % (Auto) 1 L (2-6) % Eos % (Auto) 0 L (2-4) % Baso % (Auto) 0 (0-1) % Puncture Site R radial ABG pH 7.184 L* (7.350-7.450) ABG pCO2 102.0 H* (35.0-42.0) mmHg ABG pO2 67.7 L (75.0-100.0) mmHg ABG HCO3 37.0 H (22.0-26.0) mmol/L ABG Total CO2 35.4 H (21.0-25.0) mmol/L ABG O2 Saturation 90.4 L (95.0-98.0) % ABG O2 Content 14.8 L (15.0-23.0) %vol ABG Base Excess 5.6 mm/L ABG Hemoglobin 12.1 (12.0-16.0) g/dL ABG Oxyhemoglobin 87.0 % ABG Carboxyhemoglobin 2.6 H (0.0-1.6) % ABG Methemoglobin 1.2 % Timmy Test Ok O2 Delivery Device Bipap Oxygen Flow Rate L Sodium 136 L (140-148) mmol/L Potassium 4.6 (3.6-5.2) mmol/L Chloride 97 L (100-108) mmol/L Carbon Dioxide 34 H (21-32) mmol/L Anion Gap 9.6 (5.0-14.0) mmol/L BUN 7 (7-18) mg/dL Creatinine 0.5 L (0.6-1.0) mg/dL Est Cr Clr Drug Dosing 65.53 mL/min Estimated GFR (MDRD) > 60 (>60) Glucose 133 H (74-106) mg/dL Calcium 8.9 (8.5-10.1) mg/dL Total Bilirubin (0.2-1.0) mg/dL AST (15-37) U/L ALT (12-78) U/L Alkaline Phosphatase (46-116) U/L Troponin I (0.000-0.056) ng/mL NT-Pro-B Natriuret Pep (5-450) pg/mL Total Protein (6.4-8.2) g/dL Albumin (3.4-5.0) g/dL Globulin (2.3-3.5) g/dL Albumin/Globulin Ratio (1.2-2.2) Urine Color Urine Appearance Urine pH (4.5-8.0) Ur Specific [place] (1.008-1.030) Urine Protein (NEGATIVE) mg/dL Urine Glucose (UA) (NEGATIVE) mg/dL Urine Ketones (NEGATIVE) mg/dL Urine Occult Blood (NEGATIVE) Urine Nitrite (NEGATIVE) Urine Bilirubin (NEGATIVE) Urine Urobilinogen (NORMAL) mg/dL Ur Leukocyte Esterase (NEGATIVE) Urine RBC (0-5) Urine WBC (0-5) Ur Epithelial Cells Amorphous Sediment Urine Bacteria Urine Mucus Med Orders - Current: Current Medications Aripiprazole (Abilify) 10 mg PO DAILY [facility] Duloxetine HCl (Cymbalta) 60 mg PO DAILY OLAMIDE Sodium Chloride (Normal Saline) 1,000 mls @ 75 mls/hr IV ASDIRECTED OLAMIDE Last Admin: 10/17/18 01:30 Dose: 75 mls/hr Sodium Chloride (Normal Saline) 500 mls @ 1 mls/hr IV .BOLUS ONE Stop: 11/07/18 01:27 Last Admin: 10/17/18 05:47 Dose: 1 mls/hr Propofol (Diprivan 100 Ml) 100 mls @ 1.973 mls/hr IV TITRATE OLAMIDE; Protocol Levothyroxine Sodium (Levothyroxine) 112 mcg PO ACBREAKFAST OLAMIDE Lorazepam (Ativan) 0.25 mg IVPUSH Q2H PRN PRN Reason: Anxiety Methylprednisolone Sodium Succinate (Solu-Medrol) 125 mg IVPUSH Q6H OLAMIDE Last Admin: 10/17/18 05:45 Dose: 125 mg Ondansetron HCl (Zofran Odt) 4 mg PO Q6H PRN PRN Reason: Nausea Pantoprazole Sodium (Protonix) 40 mg PO ACBREAKFAST [facility] Pneumococcal Polyvalent Vaccine (Pneumovax 23) 0.5 ml IM .ONCE ONE Stop: 10/20/18 08:01 Quetiapine Fumarate (Seroquel Xr) 400 mg PO DAILY [facility] Sodium Chloride (Saline Flush) 10 ml FLUSH ASDIRECTED PRN PRN Reason: Keep Vein Open Last Admin: 10/16/18 22:55 Dose: 10 ml Discontinued Medications Albuterol (Proventil Neb Soln) 2.5 mg NEB ONETIME ONE Stop: 10/16/18 23:56 Last Admin: 10/16/18 23:57 Dose: 2.5 mg Albuterol (Proventil Neb Soln) Confirm Administered Dose 0.63 mg .ROUTE .STK- MED ONE Stop: 10/16/18 23:56 Last Admin: 10/17/18 02:24 Dose: Not Given Albuterol/Ipratropium (Duoneb 3.0-0.5 Mg/3 Ml) 3 ml NEB ONETIME ONE Stop: 10/16/18 22:43 Last Admin: 10/16/18 22:47 Dose: 3 ml Heparin Sodium (Porcine) (Heparin Sodium) 5,000 units IVPUSH ONETIME ONE Stop: 10/17/18 05:32 Last Admin: 10/17/18 05:46 Dose: 5,000 units Lorazepam (Ativan) 0.5 mg IVPUSH ONETIME ONE Stop: 10/16/18 23:39 Last Admin: 10/16/18 23:44 Dose: 0.5 mg Methylprednisolone Sodium Succinate (Solu-Medrol) 125 mg IVPUSH ONETIME ONE Stop: 10/16/18 22:44 Last Admin: 10/16/18 22:55 Dose: 125 mg Methylprednisolone Sodium Succinate (Solu-Medrol) 125 mg IVPUSH Q6H OLAMIDE - Exam General: Severe Distress, Obtunded HEENT: Other (pupils pin point) Lungs: Wheezing Cardiovascular: Regular Rate GI/Abdominal Exam: Distended Extremities: Normal Inspection Peripheral Pulses: 1+: Radial (L), Radial (R) Skin: Warm, Dry Neurological: Other (lethergic) - Problem List Review Problem List Initiated/Reviewed/Updated: Yes - My Orders Last 24 Hours: My Active Orders 10/16/18 23:50 Admission Status [Patient Status] [ADT] Routine 10/17/18 00:21 Patient Status [ADT] Routine Bedrest Bedside Commode [RC] ASDIRECTED Height and Weight [RC] UPON Oxygen Therapy [RC] PRN Up With Assistance [RC] ASDIRECTED Up to Chair [RC] QID Vital Signs [RC] Q4H Resuscitation Status Routine 10/17/18 00:25 Intake and Output [RC] QSHIFT Sequential Compression Device [OM.PC] Per Unit Routine 10/17/18 00:30 Sodium Chloride 0.9% [Normal Saline] 1,000 ml IV ASDIRECTED 10/17/18 00:35 Ondansetron [Zofran ODT] 4 mg PO Q6H PRN 10/17/18 01:10 LORazepam [Ativan] 0.25 mg IVPUSH Q2H PRN 10/17/18 05:27 Arterial Line Insertion [OM.PC] Stat Arterial Line Management [OM.PC] Routine 10/17/18 05:28 Sodium Chloride 0.9% [Normal Saline] 500 ml IV .BOLUS 10/17/18 05:32 Chest 1V Frontal [CR] Routine 10/17/18 06:00 RASS Sedation Scale [RC] ASDIRECTED Propofol Drip @ 5 MCG/KG/MIN(100ml) Propofol [Diprivan 100 ML] 100 ml IV TITRATE methylPREDNISolone Sod Succ [Solu-MEDROL] 125 mg IVPUSH Q6H Desired Level of Sedation (RASS) [AST] Click to Edit 10/17/18 07:30 Levothyroxine 112 mcg PO ACBREAKFAST Pantoprazole [ProTONIX] 40 mg PO ACBREAKFAST 10/17/18 09:00 ARIPiprazole [Abilify] 10 mg PO DAILY DULoxetine [Cymbalta] 60 mg PO DAILY QUEtiapine [SEROquel XR] 400 mg PO DAILY 10/17/18 Breakfast Regular Diet [DIET] 10/20/18 08:00 Pneumococcal Polyvalent-23 Vac [Pneumovax 23] 0.5 ml IM .ONCE ONE - Plan Plan:: Assessment/Plan: #1. COPD: PCO2 was 102 so have intubated her. She is a chronic retainer of CO2. While intubation she aspirated a large amount of stomach material. Will culture the material from the lung and start antibiotics. Will check ABG in 1/2 hour. #2. Emphysema: #3. Hypothyroidism: Continue with meds. #4. Nicotine addiction: 1 1/2 hr spent from 5:30 to 6:45 AM.
[2018-10-17] MEDS ORDERED: Propofol 200 MG/20 ML SDV ONE (06:28)
--- NOTE | 2018-10-17 06:55 | CRLCR ---
Indication: Intubation Technique: Chest 1 view Comparison: October 16, 2018 Findings/Impression: Cardiovascular and mediastinum: Endotracheal tube is 3 cm above the mushtaq. NG tube is seen into the stomach. Heart size and pulmonary vasculature are normal. Lungs and pleural space: Lungs are clear. No sign of infiltrate or mass. No sign of pleural effusion. No pneumothorax. Bones and soft tissues: No acute findings. Dictated by Lewis Martinez MD @ Oct 17 2018 6:45AM Signed by Dr. Lewis Martinez @ Oct 17 2018 6:53AM
--- NOTE | 2018-10-17 07:15 | ANES ---
DATE OF SERVICE: 10/17/2018 PROCEDURE PERFORMED: Emergency intubation and an arterial line placement. TECHNIQUE: I was called to the ICU for a stat intubation on a 78-year-old female who was admitted to the ICU for COPD exacerbation. The patient was only responsive to painful stimuli, was on BiPAP and was saturating 93% on arrival. Heart rate was in the one teens. Blood pressure was stable. The room was set up. Suction was at the ready, endotracheal tube was styletted and ready, proceeded to bag-valve mask the patient using 10 L oxygen, O2 saturation did creep up to 95%. A 50 mg of propofol was given and then direct laryngoscopy was done. As soon as direct laryngoscopy was initiated, the patient coughed and immediately had brown gastric contents coming up. The patient was coughing and continual gastric contents came up. The patient was suctioned immediately, O2 saturation did drop down to 72%. The patient mask again using the bag-valve mask at 10 L a minute. O2 saturation was increased to 95%. Second direct laryngoscopy done. The patient did have some more gastric contents coming out, but was able to get a 7.5 endotracheal tube through the vocal cords. Positive change noted on the CO2 monitor. O2 saturation immediately [place] to 100% using the bag-valve mask at 10 L a minute. Bilateral breath sounds were noted even though they were decreased and slightly diminished. Endotracheal tube was immediately suctioned too after confirmation in the right spot. Did get some brown what I would call gastric contents out of the tube. Did suction until it was pretty clear, which was 3 times. Endotracheal tube was secured at 22 at the lip. O2 saturations were anywhere from 91% to 93% on 35% FiO2. The patient was hooked up to the ventilator via respiratory therapy. I then turned my attention to arterial line placement. Right radial pulse was easily palpable. Right wrist was cleaned with chlorhexidine. Sterile gloves were donned. A 22-gauge Arrow catheter was inserted in her right radial pulse attempt x1. Good blood return. Blood pressure tubing hooked up. It was noticed that the correct arterial waveform was on the monitor. A line secured with using 2-0 Prolene and taped down using Tegaderm and tape. Dr. Rich Lopez is aware of the patient's aspiration. Chest x-ray was done. Endotracheal tube look like it was in the correct position. We will monitor the patient as needed. Dax Peña CRNA /[id number]
[2018-10-17] MEDS ORDERED: Pantoprazole 40 MG Tab.CR PO SCH (07:30)
[2018-10-17] MEDS: Levothyroxine 112 MCG Tab PO SCH (07:36)
[2018-10-17] MEDS ORDERED: Heparin Sodium 5,000 UNITS in Sodium Chloride 0.9% 500 ML IV SCH (07:45)
[2018-10-17] MEDS: Piperacillin/Tazobactam 4.5 GM in Sodium Chloride 0.9% 100 ML IV SCH ×3 (07:46→23:48)
[2018-10-17] MEDS: ARIPiprazole 10 MG Tab PO SCH (09:03)
[2018-10-17] MEDS: QUEtiapine 50 MG Tab.SR PO SCH (09:03)
[2018-10-17] MEDS: DULoxetine 30 MG Cap PO SCH (09:03)
[2018-10-17] MEDS ORDERED: Albuterol 0.083% 2.5 MG/3 ML Neb Soln NEB PRN (10:11)
[2018-10-17] MEDS: Albuterol/Ipratropium 3.0-0.5 MG/3 ML Neb Soln NEB SCH ×3 (10:39→21:15)
--- NOTE | 2018-10-17 13:30 | PCM.PN ---
- General Info Date of Service: 10/17/18 Functional Status: Reports: Pain Controlled - Review of Systems General: Reports: No Symptoms HEENT: Reports: No Symptoms Pulmonary: Reports: Wheezing Cardiovascular: Reports: No Symptoms Gastrointestinal: Reports: No Symptoms Genitourinary: Reports: No Symptoms Musculoskeletal: Reports: No Symptoms Skin: Reports: No Symptoms Neurological: Reports: No Symptoms Psychiatric: Reports: Other (She is intubated and on Propofol) - Patient Data Vitals - Most Recent: Last Vital Signs Temp 98.3 F 10/17/18 13:00 Pulse 108 H 10/17/18 13:00 Resp 12 10/17/18 13:00 BP 119/56 L 10/17/18 13:00 Pulse Ox 92 L 10/17/18 13:00 Weight - Most Recent: 145 lb I&O - Last 24 Hours: Intake & Output 10/16/18 10/17/18 10/17/18 22:59 06:59 14:59 Output Total 1225 Balance -1225 Lab Results Last 24 Hours: Laboratory Results - last 24 hr 10/16/18 10/16/18 10/16/18 Range/Units 22:40 22:40 22:40 WBC 9.0 (4.5-11.0) K/uL RBC 4.09 (3.30-5.50) M/uL Hgb 12.4 (12.0-15.0) g/dL Hct 38.4 (36.0-48.0) % MCV 94 (80-98) fL MCH 30 (27-31) pg MCHC 32 (32-36) % Plt Count 185 (150-400) K/uL Neut % (Auto) 81 H (36-66) % Lymph % (Auto) 13 L (24-44) % [place] % (Auto) 6 (2-6) % Eos % (Auto) 0 L (2-4) % Baso % (Auto) 0 (0-1) % Puncture Site L radial ABG pH 7.246 L (7.350-7.450) ABG pCO2 83.2 H* (35.0-42.0) mmHg ABG pO2 74.9 L (75.0-100.0) mmHg ABG HCO3 34.9 H (22.0-26.0) mmol/L ABG Total CO2 32.6 H (21.0-25.0) mmol/L ABG O2 Saturation 92.8 L (95.0-98.0) % ABG O2 Content 15.7 (15.0-23.0) %vol ABG Base Excess 5.2 mm/L ABG Hemoglobin 12.7 (12.0-16.0) g/dL ABG Oxyhemoglobin 88.1 % ABG Carboxyhemoglobin 4.1 H (0.0-1.6) % ABG Methemoglobin 1.0 % Timmy Test Ok O2 Delivery Device Room air Oxygen Flow Rate 3 L Sodium 135 L (140-148) mmol/L Potassium 4.2 (3.6-5.2) mmol/L Chloride 95 L (100-108) mmol/L Carbon Dioxide 35 H (21-32) mmol/L Anion Gap 9.2 (5.0-14.0) mmol/L BUN 5 L (7-18) mg/dL Creatinine 0.4 L (0.6-1.0) mg/dL Est Cr Clr Drug Dosing 81.92 mL/min Estimated GFR (MDRD) > 60 (>60) Glucose 155 H (74-106) mg/dL Calcium 9.0 (8.5-10.1) mg/dL Total Bilirubin 0.3 (0.2-1.0) mg/dL AST 19 (15-37) U/L ALT 21 (12-78) U/L Alkaline Phosphatase 44 L (46-116) U/L Troponin I (0.000-0.056) ng/mL NT-Pro-B Natriuret Pep (5-450) pg/mL Total Protein 7.3 (6.4-8.2) g/dL Albumin 3.3 L (3.4-5.0) g/dL Globulin 4.0 H (2.3-3.5) g/dL Albumin/Globulin Ratio 0.8 L (1.2-2.2) Urine Color Urine Appearance Urine pH (4.5-8.0) Ur Specific [place] (1.008-1.030) Urine Protein (NEGATIVE) mg/dL Urine Glucose (UA) (NEGATIVE) mg/dL Urine Ketones (NEGATIVE) mg/dL Urine Occult Blood (NEGATIVE) Urine Nitrite (NEGATIVE) Urine Bilirubin (NEGATIVE) Urine Urobilinogen (NORMAL) mg/dL Ur Leukocyte Esterase (NEGATIVE) Urine RBC (0-5) Urine WBC (0-5) Ur Epithelial Cells Amorphous Sediment Urine Bacteria Urine Mucus 10/16/18 10/16/18 10/17/18 Range/Units 22:40 23:25 00:11 WBC (4.5-11.0) K/uL RBC (3.30-5.50) M/uL Hgb (12.0-15.0) g/dL Hct (36.0-48.0) % MCV (80-98) fL MCH (27-31) pg MCHC (32-36) % Plt Count (150-400) K/uL Neut % (Auto) (36-66) % Lymph % (Auto) (24-44) % [place] % (Auto) (2-6) % Eos % (Auto) (2-4) % Baso % (Auto) (0-1) % Puncture Site ABG pH (7.350-7.450) ABG pCO2 (35.0-42.0) mmHg ABG pO2 (75.0-100.0) mmHg ABG HCO3 (22.0-26.0) mmol/L ABG Total CO2 (21.0-25.0) mmol/L ABG O2 Saturation (95.0-98.0) % ABG O2 Content (15.0-23.0) %vol ABG Base Excess mm/L ABG Hemoglobin (12.0-16.0) g/dL ABG Oxyhemoglobin % ABG Carboxyhemoglobin (0.0-1.6) % ABG Methemoglobin % Timmy Test O2 Delivery Device Oxygen Flow Rate L Sodium (140-148) mmol/L Potassium (3.6-5.2) mmol/L Chloride (100-108) mmol/L Carbon Dioxide (21-32) mmol/L Anion Gap (5.0-14.0) mmol/L BUN (7-18) mg/dL Creatinine (0.6-1.0) mg/dL Est Cr Clr Drug Dosing mL/min Estimated GFR (MDRD) (>60) Glucose (74-106) mg/dL Calcium (8.5-10.1) mg/dL Total Bilirubin (0.2-1.0) mg/dL AST (15-37) U/L ALT (12-78) U/L Alkaline Phosphatase (46-116) U/L Troponin I < 0.017 (0.000-0.056) ng/mL NT-Pro-B Natriuret Pep 336 (5-450) pg/mL Total Protein (6.4-8.2) g/dL Albumin (3.4-5.0) g/dL Globulin (2.3-3.5) g/dL Albumin/Globulin Ratio (1.2-2.2) Urine Color Yellow Urine Appearance Clear Urine pH 6.5 (4.5-8.0) Ur Specific [place] 1.020 (1.008-1.030) Urine Protein 100 H (NEGATIVE) mg/dL Urine Glucose (UA) 100 H (NEGATIVE) mg/dL Urine Ketones Negative (NEGATIVE) mg/dL Urine Occult Blood Moderate (NEGATIVE) Urine Nitrite Negative (NEGATIVE) Urine Bilirubin Negative (NEGATIVE) Urine Urobilinogen Normal (NORMAL) mg/dL Ur Leukocyte Esterase Negative (NEGATIVE) Urine RBC 0-5 (0-5) Urine WBC 0-5 (0-5) Ur Epithelial Cells Rare Amorphous Sediment Few Urine Bacteria Few Urine Mucus Not seen 10/17/18 10/17/18 10/17/18 Range/Units 04:30 05:14 05:14 WBC 9.4 (4.5-11.0) K/uL RBC 3.90 (3.30-5.50) M/uL Hgb 11.8 L (12.0-15.0) g/dL Hct 37.8 (36.0-48.0) % MCV 97 (80-98) fL MCH 30 (27-31) pg MCHC 31 L (32-36) % Plt Count 239 (150-400) K/uL Neut % (Auto) 97 H (36-66) % Lymph % (Auto) 2 L (24-44) % [place] % (Auto) 1 L (2-6) % Eos % (Auto) 0 L (2-4) % Baso % (Auto) 0 (0-1) % Puncture Site ABG pH (7.350-7.450) ABG pCO2 (35.0-42.0) mmHg ABG pO2 (75.0-100.0) mmHg ABG HCO3 (22.0-26.0) mmol/L ABG Total CO2 (21.0-25.0) mmol/L ABG O2 Saturation (95.0-98.0) % ABG O2 Content (15.0-23.0) %vol ABG Base Excess mm/L ABG Hemoglobin (12.0-16.0) g/dL ABG Oxyhemoglobin % ABG Carboxyhemoglobin (0.0-1.6) % ABG Methemoglobin % Timmy Test O2 Delivery Device Oxygen Flow Rate L Sodium 136 L (140-148) mmol/L Potassium 4.6 (3.6-5.2) mmol/L Chloride 97 L (100-108) mmol/L Carbon Dioxide 34 H (21-32) mmol/L Anion Gap 9.6 (5.0-14.0) mmol/L BUN 7 (7-18) mg/dL Creatinine 0.5 L (0.6-1.0) mg/dL Est Cr Clr Drug Dosing 65.53 mL/min Estimated GFR (MDRD) > 60 (>60) Glucose 133 H (74-106) mg/dL Calcium 8.9 (8.5-10.1) mg/dL Total Bilirubin (0.2-1.0) mg/dL AST (15-37) U/L ALT (12-78) U/L Alkaline Phosphatase (46-116) U/L Troponin I < 0.017 (0.000-0.056) ng/mL NT-Pro-B Natriuret Pep (5-450) pg/mL Total Protein (6.4-8.2) g/dL Albumin (3.4-5.0) g/dL Globulin (2.3-3.5) g/dL Albumin/Globulin Ratio (1.2-2.2) Urine Color Urine Appearance Urine pH (4.5-8.0) Ur Specific [place] (1.008-1.030) Urine Protein (NEGATIVE) mg/dL Urine Glucose (UA) (NEGATIVE) mg/dL Urine Ketones (NEGATIVE) mg/dL Urine Occult Blood (NEGATIVE) Urine Nitrite (NEGATIVE) Urine Bilirubin (NEGATIVE) Urine Urobilinogen (NORMAL) mg/dL Ur Leukocyte Esterase (NEGATIVE) Urine RBC (0-5) Urine WBC (0-5) Ur Epithelial Cells Amorphous Sediment Urine Bacteria Urine Mucus 10/17/18 10/17/18 Range/Units 05:14 07:09 WBC (4.5-11.0) K/uL RBC (3.30-5.50) M/uL Hgb (12.0-15.0) g/dL Hct (36.0-48.0) % MCV (80-98) fL MCH (27-31) pg MCHC (32-36) % Plt Count (150-400) K/uL Neut % (Auto) (36-66) % Lymph % (Auto) (24-44) % [place] % (Auto) (2-6) % Eos % (Auto) (2-4) % Baso % (Auto) (0-1) % Puncture Site R radial A-line ABG pH 7.184 L* 7.339 L (7.350-7.450) ABG pCO2 102.0 H* 67.4 H (35.0-42.0) mmHg ABG pO2 67.7 L 59.6 L (75.0-100.0) mmHg ABG HCO3 37.0 H 35.3 H (22.0-26.0) mmol/L ABG Total CO2 35.4 H 32.6 H (21.0-25.0) mmol/L ABG O2 Saturation 90.4 L 91.2 L (95.0-98.0) % ABG O2 Content 14.8 L 14.5 L (15.0-23.0) %vol ABG Base Excess 5.6 7.9 mm/L ABG Hemoglobin 12.1 11.7 L (12.0-16.0) g/dL ABG Oxyhemoglobin 87.0 88.1 % ABG Carboxyhemoglobin 2.6 H 2.4 H (0.0-1.6) % ABG Methemoglobin 1.2 1.0 % Timmy Test Ok A-line O2 Delivery Device Bipap Ventilator Oxygen Flow Rate L Sodium (140-148) mmol/L Potassium (3.6-5.2) mmol/L Chloride (100-108) mmol/L Carbon Dioxide (21-32) mmol/L Anion Gap (5.0-14.0) mmol/L BUN (7-18) mg/dL Creatinine (0.6-1.0) mg/dL Est Cr Clr Drug Dosing mL/min Estimated GFR (MDRD) (>60) Glucose (74-106) mg/dL Calcium (8.5-10.1) mg/dL Total Bilirubin (0.2-1.0) mg/dL AST (15-37) U/L ALT (12-78) U/L Alkaline Phosphatase (46-116) U/L Troponin I (0.000-0.056) ng/mL NT-Pro-B Natriuret Pep (5-450) pg/mL Total Protein (6.4-8.2) g/dL Albumin (3.4-5.0) g/dL Globulin (2.3-3.5) g/dL Albumin/Globulin Ratio (1.2-2.2) Urine Color Urine Appearance Urine pH (4.5-8.0) Ur Specific [place] (1.008-1.030) Urine Protein (NEGATIVE) mg/dL Urine Glucose (UA) (NEGATIVE) mg/dL Urine Ketones (NEGATIVE) mg/dL Urine Occult Blood (NEGATIVE) Urine Nitrite (NEGATIVE) Urine Bilirubin (NEGATIVE) Urine Urobilinogen (NORMAL) mg/dL Ur Leukocyte Esterase (NEGATIVE) Urine RBC (0-5) Urine WBC (0-5) Ur Epithelial Cells Amorphous Sediment Urine Bacteria Urine Mucus Med Orders - Current: Current Medications Albuterol (Proventil Neb Soln) 2.5 mg NEB Q4H PRN PRN Reason: Cough Albuterol/Ipratropium (Duoneb 3.0-0.5 Mg/3 Ml) 3 ml NEB QIDRT [facility] Last Admin: 10/17/18 10:39 Dose: 3 ml Aripiprazole (Abilify) 10 mg PO DAILY [facility] Last Admin: 10/17/18 09:03 Dose: Not Given Duloxetine HCl (Cymbalta) 60 mg PO DAILY [facility] Last Admin: 10/17/18 09:03 Dose: Not Given Sodium Chloride (Normal Saline) 1,000 mls @ 75 mls/hr IV ASDIRECTED [facility] Last Admin: 10/17/18 01:30 Dose: 75 mls/hr Propofol (Diprivan 100 Ml) 100 mls @ 1.973 mls/hr IV TITRATE [facility]AM[facility]; Protocol Last Titration: 10/17/18 10:08 Dose: 20 mcg/kg/min, 7.893 mls/hr Piperacillin Sod/Tazobactam (Sod 4.5 gm/ Sodium Chloride) 100 mls @ 200 mls/hr IV Q8H [facility] Last Admin: 10/17/18 07:46 Dose: 200 mls/hr Vancomycin HCl 1 gm/ Sodium (Chloride) 250 mls @ 250 mls/hr IV Q12H [facility] Last Admin: 10/17/18 08:21 Dose: 250 mls/hr Heparin Sodium (Porcine) 5,000 (units/ Sodium Chloride) 501 mls @ 0 mls/hr IV ASDIRECTED [facility]; Protocol Levothyroxine Sodium (Levothyroxine) 112 mcg PO ACBREAKFAST [facility] Last Admin: 10/17/18 07:36 Dose: Not Given Lorazepam (Ativan) 0.25 mg IVPUSH Q2H PRN PRN Reason: Anxiety Methylprednisolone Sodium Succinate (Solu-Medrol) 125 mg IVPUSH Q6H [facility] Last Admin: 10/17/18 11:50 Dose: 125 mg Ondansetron HCl (Zofran Odt) 4 mg PO Q6H PRN PRN Reason: Nausea Pantoprazole Sodium (Protonix) 40 mg PO ACBREAKFAST [facility] Last Admin: 10/17/18 07:36 Dose: Not Given Pantoprazole Sodium (Protonix Iv) 40 mg IVPUSH Q12H [facility] Pneumococcal Polyvalent Vaccine (Pneumovax 23) 0.5 ml IM .ONCE ONE Stop: 10/20/18 08:01 Quetiapine Fumarate (Seroquel Xr) 400 mg PO DAILY [facility] Last Admin: 10/17/18 09:03 Dose: Not Given Sodium Chloride (Saline Flush) 10 ml FLUSH ASDIRECTED PRN PRN Reason: Keep Vein Open Last Admin: 10/16/18 22:55 Dose: 10 ml Discontinued Medications Albuterol (Proventil Neb Soln) 2.5 mg NEB ONETIME ONE Stop: 10/16/18 23:56 Last Admin: 10/16/18 23:57 Dose: 2.5 mg Albuterol (Proventil Neb Soln) Confirm Administered Dose 0.63 mg .ROUTE .STK- MED ONE Stop: 10/16/18 23:56 Last Admin: 10/17/18 02:24 Dose: Not Given Albuterol/Ipratropium (Duoneb 3.0-0.5 Mg/3 Ml) 3 ml NEB ONETIME ONE Stop: 10/16/18 22:43 Last Admin: 10/16/18 22:47 Dose: 3 ml Heparin Sodium (Porcine) (Heparin Sodium) 5,000 units IVPUSH ONETIME ONE Stop: 10/17/18 05:32 Last Admin: 10/17/18 05:46 Dose: 5,000 units Sodium Chloride (Normal Saline) 500 mls @ 1 mls/hr IV .BOLUS ONE Stop: 11/07/18 01:27 Last Admin: 10/17/18 05:47 Dose: 1 mls/hr Lorazepam (Ativan) 0.5 mg IVPUSH ONETIME ONE Stop: 10/16/18 23:39 Last Admin: 10/16/18 23:44 Dose: 0.5 mg Methylprednisolone Sodium Succinate (Solu-Medrol) 125 mg IVPUSH ONETIME ONE Stop: 10/16/18 22:44 Last Admin: 10/16/18 22:55 Dose: 125 mg Methylprednisolone Sodium Succinate (Solu-Medrol) 125 mg IVPUSH Q6H [facility] Propofol (Diprivan 20 Ml) Confirm Administered Dose 200 mg .ROUTE .STK-MED ONE Stop: 10/17/18 06:29 - Problem List Review Problem List Initiated/Reviewed/Updated: Yes - My Orders Last 24 Hours: My Active Orders 10/16/18 23:50 Admission Status [Patient Status] [ADT] Routine 10/17/18 00:21 Patient Status [ADT] Routine Bedrest Bedside Commode [RC] ASDIRECTED Height and Weight [RC] UPON Oxygen Therapy [RC] PRN Up With Assistance [RC] ASDIRECTED Up to Chair [RC] QID Vital Signs [RC] Q1H Resuscitation Status Routine 10/17/18 00:25 Intake and Output [RC] Q6H Sequential Compression Device [OM.PC] Per Unit Routine 10/17/18 00:30 Sodium Chloride 0.9% [Normal Saline] 1,000 ml IV ASDIRECTED 10/17/18 00:35 Ondansetron [Zofran ODT] 4 mg PO Q6H PRN 10/17/18 01:10 LORazepam [Ativan] 0.25 mg IVPUSH Q2H PRN 10/17/18 05:27 Arterial Line Insertion [OM.PC] Stat Arterial Line Management [OM.PC] Routine 10/17/18 06:00 RASS Sedation Scale [RC] ASDIRECTED Propofol [Diprivan 100 ML] 100 ml IV TITRATE methylPREDNISolone Sod Succ [Solu-MEDROL] 125 mg IVPUSH Q6H Desired Level of Sedation (RASS) [AST] Click to Edit 10/17/18 07:30 Levothyroxine 112 mcg PO ACBREAKFAST Pantoprazole [ProTONIX] 40 mg PO ACBREAKFAST 10/17/18 07:45 Heparin Sodium 5,000 units Sodium Chloride 0.9% [Normal Saline] 500 ml IV ASDIRECTED 10/17/18 08:00 Piperacillin/Tazobactam [Zosyn] 4.5 gm Sodium Chloride 0.9% [Normal Saline] 100 ml IV Q8H 10/17/18 08:10 EKG 12 Lead [EK] Routine 10/17/18 09:00 ARIPiprazole [Abilify] 10 mg PO DAILY DULoxetine [Cymbalta] 60 mg PO DAILY QUEtiapine [SEROquel XR] 400 mg PO DAILY Vancomycin 1 gm Sodium Chloride 0.9% [Normal Saline] 250 ml IV Q12H 10/17/18 10:08 RT Aerosol Therapy [RC] ASDIRECTED Albuterol [Proventil Neb Soln] 2.5 mg NEB Q4H PRN 10/17/18 10:09 RT Aerosol Therapy [RC] ASDIRECTED 10/17/18 10:11 RT Aerosol Therapy [RC] ASDIRECTED 10/17/18 11:00 Albuterol/Ipratropium [DuoNeb 3.0-0.5 MG/3 ML] 3 ml NEB QIDRT 10/17/18 13:21 CULTURE RESPIRATORY + SMEAR [RM] Routine 10/17/18 13:30 Pantoprazole [ProTONIX IV] 40 mg IVPUSH Q12H 10/17/18 Breakfast Regular Diet [DIET] 10/20/18 08:00 Pneumococcal Polyvalent-23 Vac [Pneumovax 23] 0.5 ml IM .ONCE ONE - Plan Plan:: Assessment/Plan: #1. COPD: PCO2 was 102 now 67. She is a chronic retainer of CO2. While intubation she aspirated a large amount of stomach material. Culture the material from the lung if pending. Will check ABG at 6 PM #2. Emphysema: #3. Hypothyroidism: Continue with meds. #4. Nicotine addiction: This is afternoon rounds.
[2018-10-17] MEDS: Pantoprazole 40 MG Vial IVPUSH SCH (14:52)
[2018-10-18] MEDS: LORazepam 2 MG/ML SDV IVPUSH PRN ×2 (02:16→13:54)
[2018-10-18] MEDS: Sodium Chloride 0.9% 1,000 ML IV SCH ×3 (02:41→19:56)
--- NOTE | 2018-10-18 03:16 | CRLCR ---
INDICATION: Intubated TECHNIQUE: Chest 1 views COMPARISON: Chest x-ray 10/17/2018 FINDINGS: Cardiovascular and mediastinum: Upper normal heart size with endotracheal tube at the distal trachea. Orogastric tube extends below the hemidiaphragm. Lungs and pleural spaces: Minimal basilar discoid atelectasis. No pneumothorax. Bones and soft tissues: No significant findings. IMPRESSION: 1. Basilar discoid atelectasis, no significant interval change compared to the study of 1 day prior. Dictated by Tapan Shaw MD @ Oct 18 2018 3:12AM Signed by Dr. Tapan Shaw @ Oct 18 2018 3:13AM
[2018-10-18] MEDS: Pantoprazole 40 MG Vial IVPUSH SCH ×2 (03:22→14:02)
[2018-10-18] MEDS: Albuterol/Ipratropium 3.0-0.5 MG/3 ML Neb Soln NEB SCH ×4 (07:03→20:35)
[2018-10-18] MEDS: methylPREDNISolone Sodium Succinate 125 MG/2 ML SDV IVPUSH SCH ×4 (07:25→23:17)
[2018-10-18] MEDS: Levothyroxine 112 MCG Tab PO SCH (07:50)
[2018-10-18] MEDS: Piperacillin/Tazobactam 4.5 GM in Sodium Chloride 0.9% 100 ML IV SCH (07:57)
[2018-10-18] MEDS: ARIPiprazole 10 MG Tab PO SCH (09:15)
[2018-10-18] MEDS: DULoxetine 30 MG Cap PO SCH (09:15)
[2018-10-18] MEDS: QUEtiapine 50 MG Tab.SR PO SCH (09:16)
--- NOTE | 2018-10-18 12:26 | PCM.PN ---
- General Info Date of Service: 10/18/18 Admission Dx/Problem (Free Text): She is on medication for pain so is not responsive Functional Status: Reports: Pain Controlled - Review of Systems General: Reports: Weakness HEENT: Reports: No Symptoms Pulmonary: Reports: Wheezing Cardiovascular: Reports: No Symptoms Genitourinary: Reports: No Symptoms Musculoskeletal: Reports: No Symptoms Skin: Reports: No Symptoms Neurological: Reports: No Symptoms - Patient Data Vitals - Most Recent: Last Vital Signs Temp 97.4 F 10/18/18 12:00 Pulse 95 10/18/18 12:00 Resp 16 10/18/18 12:00 BP 159/71 H 10/18/18 12:00 Pulse Ox 95 10/18/18 12:00 Weight - Most Recent: 145 lb I&O - Last 24 Hours: Intake & Output 10/17/18 10/18/18 10/18/18 22:59 06:59 14:59 Intake Total 1383 1489 Output Total 575 600 40 Balance 808 889 -40 Lab Results Last 24 Hours: Laboratory Results - last 24 hr 10/17/18 10/18/18 Range/Units 17:56 06:00 Puncture Site Line A-line ABG pH 7.428 7.441 (7.350-7.450) ABG pCO2 52.0 H 48.3 H (35.0-42.0) mmHg ABG pO2 67.3 L 69.0 L (75.0-100.0) mmHg ABG HCO3 33.7 H 32.4 H (22.0-26.0) mmol/L ABG Total CO2 30.6 H 29.5 H (21.0-25.0) mmol/L ABG O2 Saturation 93.8 L 93.8 L (95.0-98.0) % ABG O2 Content 14.8 L 14.2 L (15.0-23.0) %vol ABG Base Excess 8.4 7.6 mm/L ABG Hemoglobin 11.5 L 10.9 L (12.0-16.0) g/dL ABG Oxyhemoglobin 91.8 92.2 % ABG Carboxyhemoglobin 1.1 0.7 (0.0-1.6) % ABG Methemoglobin 1.0 1.0 % Timmy Test TNP A-line O2 Delivery Device Ventilator Ventilator Oxygen Flow Rate L Castro Results Last 24 Hours: Microbiology 10/17/18 13:21 Gram Stain - Final Endotrachael Aspirate Med Orders - Current: Current Medications Albuterol (Proventil Neb Soln) 2.5 mg NEB Q4H PRN PRN Reason: Cough Albuterol/Ipratropium (Duoneb 3.0-0.5 Mg/3 Ml) 3 ml NEB QIDRT [facility] Last Admin: 10/18/18 10:56 Dose: 3 ml Aripiprazole (Abilify) 10 mg PO DAILY [facility] Last Admin: 10/18/18 09:15 Dose: Not Given Duloxetine HCl (Cymbalta) 60 mg PO DAILY [facility] Last Admin: 10/18/18 09:15 Dose: Not Given Propofol (Diprivan 100 Ml) 100 mls @ 1.973 mls/hr IV TITRATE [facility]; Protocol Last Admin: 10/18/18 09:50 Dose: 50 mcg/kg/min, 19.731 mls/hr Vancomycin HCl 1 gm/ Sodium (Chloride) 250 mls @ 250 mls/hr IV Q12H [facility] Last Admin: 10/18/18 03:00 Dose: 250 mls/hr Heparin Sodium (Porcine) 5,000 (units/ Sodium Chloride) 501 mls @ 0 mls/hr IV ASDIRECTED [facility]; Protocol Sodium Chloride (Normal Saline) 1,000 mls @ 125 mls/hr IV ASDIRECTED [facility] Piperacillin/Tazobactam/ (Dextrose 4.5 gm/ Premix) 100 mls @ 200 mls/hr IV Q8H [facility] Levothyroxine Sodium (Levothyroxine) 112 mcg PO ACBREAKFAST [facility] Last Admin: 10/18/18 07:50 Dose: Not Given Lorazepam (Ativan) 0.25 mg IVPUSH Q2H PRN PRN Reason: Anxiety Last Admin: 10/18/18 02:16 Dose: 0.25 mg Methylprednisolone Sodium Succinate (Solu-Medrol) 125 mg IVPUSH Q6H [facility] Last Admin: 10/18/18 11:21 Dose: 125 mg Ondansetron HCl (Zofran Odt) 4 mg PO Q6H PRN PRN Reason: Nausea Pantoprazole Sodium (Protonix Iv) 40 mg IVPUSH Q12H [facility] Last Admin: 10/18/18 03:22 Dose: 40 mg Pneumococcal Polyvalent Vaccine (Pneumovax 23) 0.5 ml IM .ONCE ONE Stop: 10/20/18 08:01 Quetiapine Fumarate (Seroquel Xr) 400 mg PO DAILY [facility] Last Admin: 10/18/18 09:16 Dose: Not Given Sodium Chloride (Saline Flush) 10 ml FLUSH ASDIRECTED PRN PRN Reason: Keep Vein Open Last Admin: 10/16/18 22:55 Dose: 10 ml Discontinued Medications Albuterol (Proventil Neb Soln) 2.5 mg NEB ONETIME ONE Stop: 10/16/18 23:56 Last Admin: 10/16/18 23:57 Dose: 2.5 mg Albuterol (Proventil Neb Soln) Confirm Administered Dose 0.63 mg .ROUTE .STK- MED ONE Stop: 10/16/18 23:56 Last Admin: 10/17/18 02:24 Dose: Not Given Albuterol/Ipratropium (Duoneb 3.0-0.5 Mg/3 Ml) 3 ml NEB ONETIME ONE Stop: 10/16/18 22:43 Last Admin: 10/16/18 22:47 Dose: 3 ml Heparin Sodium (Porcine) (Heparin Sodium) 5,000 units IVPUSH ONETIME ONE Stop: 10/17/18 05:32 Last Admin: 10/17/18 05:46 Dose: 5,000 units Sodium Chloride (Normal Saline) 1,000 mls @ 75 mls/hr IV ASDIRECTED [facility] Last Admin: 10/18/18 02:41 Dose: 75 mls/hr Sodium Chloride (Normal Saline) 500 mls @ 1 mls/hr IV .BOLUS ONE Stop: 11/07/18 01:27 Last Admin: 10/17/18 05:47 Dose: 1 mls/hr Piperacillin Sod/Tazobactam (Sod 4.5 gm/ Sodium Chloride) 100 mls @ 200 mls/hr IV Q8H [facility] Last Admin: 10/18/18 07:57 Dose: 200 mls/hr Lorazepam (Ativan) 0.5 mg IVPUSH ONETIME ONE Stop: 10/16/18 23:39 Last Admin: 10/16/18 23:44 Dose: 0.5 mg Methylprednisolone Sodium Succinate (Solu-Medrol) 125 mg IVPUSH ONETIME ONE Stop: 10/16/18 22:44 Last Admin: 10/16/18 22:55 Dose: 125 mg Methylprednisolone Sodium Succinate (Solu-Medrol) 125 mg IVPUSH Q6H [facility] Pantoprazole Sodium (Protonix) 40 mg PO ACBREAKFAST [facility] Last Admin: 10/17/18 07:36 Dose: Not Given Propofol (Diprivan 20 Ml) Confirm Administered Dose 200 mg .ROUTE .STK-MED ONE Stop: 10/17/18 06:29 - Exam General: Sedated HEENT: Other (pin point pupils) Lungs: Wheezing GI/Abdominal Exam: Normal Bowel Sounds, Soft, Non-Tender, No Organomegaly, No Distention, No Abnormal Bruit, No Mass, Pelvis Stable Extremities: Normal Inspection, No Pedal Edema Peripheral Pulses: 1+: Radial (L), Radial (R) Skin: Warm, Dry, Intact - Problem List Review Problem List Initiated/Reviewed/Updated: Yes - My Orders Last 24 Hours: My Active Orders 10/17/18 13:21 CULTURE RESPIRATORY + SMEAR [RM] Routine 10/17/18 15:00 Pantoprazole [ProTONIX IV] 40 mg IVPUSH Q12H 10/18/18 08:45 Sodium Chloride 0.9% [Normal Saline] 1,000 ml IV ASDIRECTED 10/18/18 16:00 Piperacillin/Tazobactam/Dext [Zosyn in Dextrose Iso-Osmotic] 4.5 gm Premix Bag 1 bag IV Q8H 10/19/18 08:30 CREATININE W/GFR [CHEM] Routine VANCOMYCIN TROUGH [CHEM] Timed 10/20/18 08:00 Pneumococcal Polyvalent-23 Vac [Pneumovax 23] 0.5 ml IM .ONCE ONE - Plan Plan:: Assessment/Plan: #1. COPD: PCO2 was 48 today on AControl. She is a chronic retainer of CO2. While intubation she aspirated a large amount of stomach material. Culture the material from the lung if pending. #2. Emphysema: #3. Hypothyroidism: Continue with meds. #4. Nicotine addiction: Unable to extubate today. Will try tomorrow again.
[2018-10-18] MEDS: Piperacillin/Tazobactam/Dext 4.5 GM in Premix Bag 1 BAG IV SCH ×2 (15:37→23:18)
[2018-10-18] MEDS ORDERED: Diltiazem 25 MG/5 ML SDV IVPUSH SCH (22:00)
[2018-10-19] MEDS: Pantoprazole 40 MG Vial IVPUSH SCH ×2 (02:07→15:00)
[2018-10-19] MEDS: Sodium Chloride 0.9% 1,000 ML IV SCH ×2 (03:54→11:51)
--- NOTE | 2018-10-19 04:14 | CRLCR ---
INDICATION: Intubated TECHNIQUE: Chest 1 views COMPARISON: Chest x-ray 10/18/2018 FINDINGS: Cardiovascular and mediastinum: Upper normal heart size with endotracheal tube at the distal trachea. Orogastric tube extends below the hemidiaphragm. Lungs and pleural spaces: Trace bilateral pleural effusions with minimal bibasilar airspace disease. Bones and soft tissues: No significant findings. IMPRESSION: 1. Trace bilateral pleural effusions with bibasilar airspace disease, likely atelectasis. This is minimally increased compared to the prior exam. Dictated by Tapan Shaw MD @ Oct 19 2018 4:12AM Signed by Dr. Tapan Shaw @ Oct 19 2018 4:13AM
[2018-10-19] MEDS: methylPREDNISolone Sodium Succinate 125 MG/2 ML SDV IVPUSH SCH ×3 (05:37→18:04)
[2018-10-19] MEDS: Albuterol/Ipratropium 3.0-0.5 MG/3 ML Neb Soln NEB SCH ×4 (06:58→20:52)
[2018-10-19] MEDS ORDERED: methylPREDNISolone Sodium Succinate 125 MG/2 ML SDV IVPUSH SCH (07:00)
[2018-10-19] MEDS: Levothyroxine 112 MCG Tab PO SCH (07:31)
[2018-10-19] MEDS: Piperacillin/Tazobactam/Dext 4.5 GM in Premix Bag 1 BAG IV SCH ×2 (07:33→15:50)
[2018-10-19] MEDS ORDERED: Diltiazem 25 MG/5 ML SDV IVPUSH SCH (08:00)
[2018-10-19] MEDS: ARIPiprazole 10 MG Tab PO SCH (08:32)
[2018-10-19] MEDS: DULoxetine 30 MG Cap PO SCH (08:32)
[2018-10-19] MEDS: QUEtiapine 50 MG Tab.SR PO SCH (08:32)
[2018-10-19] MEDS ORDERED: hydrALAZINE 20 MG/ML SDV IVPUSH SCH (12:00)
--- NOTE | 2018-10-19 13:50 | PCM.PN ---
- General Info Date of Service: 10/19/18 Functional Status: Reports: Pain Controlled - Review of Systems General: Reports: Other (she is intubated and on Propofol) HEENT: Reports: No Symptoms Pulmonary: Reports: No Symptoms Cardiovascular: Reports: No Symptoms Gastrointestinal: Reports: No Symptoms - Patient Data Vitals - Most Recent: Last Vital Signs Temp 98.3 F 10/19/18 13:00 Pulse 91 10/19/18 10:39 Resp 25 H 10/19/18 13:00 BP 148/72 H 10/19/18 13:00 Pulse Ox 92 L 10/19/18 13:00 Weight - Most Recent: 172 lb 6.424 oz I&O - Last 24 Hours: Intake & Output 10/18/18 10/19/18 10/19/18 22:59 06:59 14:59 Intake Total 2064 2043 Output Total 103 354 7941 Balance 1489 1693 -1200 Lab Results Last 24 Hours: Laboratory Results - last 24 hr 10/19/18 10/19/18 Range/Units 07:01 08:46 Puncture Site A-line ABG pH 7.447 (7.350-7.450) ABG pCO2 43.7 H (35.0-42.0) mmHg ABG pO2 60.6 L (75.0-100.0) mmHg ABG HCO3 29.7 H (22.0-26.0) mmol/L ABG Total CO2 26.9 H (21.0-25.0) mmol/L ABG O2 Saturation 90.6 L (95.0-98.0) % ABG O2 Content 14.3 L (15.0-23.0) %vol ABG Base Excess 5.4 mm/L ABG Hemoglobin 11.3 L (12.0-16.0) g/dL ABG Oxyhemoglobin 89.3 % ABG Carboxyhemoglobin 0.5 (0.0-1.6) % ABG Methemoglobin 0.9 % Timmy Test A-line O2 Delivery Device Ventilator Oxygen Flow Rate L Creatinine 0.5 L (0.6-1.0) mg/dL Est Cr Clr Drug Dosing 65.53 mL/min Estimated GFR (MDRD) > 60 (>60) Vancomycin Trough 9.9 L (10.0-20.0) ug/mL Castro Results Last 24 Hours: Microbiology 10/17/18 13:21 Gram Stain - Final Endotrachael Aspirate Respiratory Culture - Preliminary Yeast Isolated Med Orders - Current: Current Medications Albuterol (Proventil Neb Soln) 2.5 mg NEB Q4H PRN PRN Reason: Cough Albuterol/Ipratropium (Duoneb 3.0-0.5 Mg/3 Ml) 3 ml NEB QIDRT [facility] Last Admin: 10/19/18 10:39 Dose: 3 ml Aripiprazole (Abilify) 10 mg PO DAILY [facility] Last Admin: 10/19/18 08:32 Dose: Not Given Duloxetine HCl (Cymbalta) 60 mg PO DAILY [facility] Last Admin: 10/19/18 08:32 Dose: Not Given Hydralazine HCl (Apresoline) 10 mg IVPUSH Q4H [facility] Last Admin: 10/19/18 11:32 Dose: 10 mg Propofol (Diprivan 100 Ml) 100 mls @ 1.973 mls/hr IV TITRATE [facility]; Protocol Last Admin: 10/19/18 12:18 Dose: 60 mcg/kg/min, 23.678 mls/hr Heparin Sodium (Porcine) 5,000 (units/ Sodium Chloride) 501 mls @ 0 mls/hr IV ASDIRECTED [facility]; Protocol Sodium Chloride (Normal Saline) 1,000 mls @ 125 mls/hr IV ASDIRECTED [facility] Last Admin: 10/19/18 11:51 Dose: 125 mls/hr Piperacillin/Tazobactam/ (Dextrose 4.5 gm/ Premix) 100 mls @ 200 mls/hr IV Q8H [facility] Last Admin: 10/19/18 07:33 Dose: 200 mls/hr Vancomycin HCl 1.25 gm/ Sodium (Chloride) 250 mls @ 250 mls/hr IV Q12H [facility] Levothyroxine Sodium (Levothyroxine) 112 mcg PO ACBREAKFAST [facility] Last Admin: 10/19/18 07:31 Dose: Not Given Lorazepam (Ativan) 0.25 mg IVPUSH Q2H PRN PRN Reason: Anxiety Last Admin: 10/18/18 13:54 Dose: 0.25 mg Methylprednisolone Sodium Succinate (Solu-Medrol) 100 mg IVPUSH Q6H [facility] Last Admin: 10/19/18 11:23 Dose: 100 mg Ondansetron HCl (Zofran Odt) 4 mg PO Q6H PRN PRN Reason: Nausea Pantoprazole Sodium (Protonix Iv) 40 mg IVPUSH Q12H [facility] Last Admin: 10/19/18 02:07 Dose: 40 mg Pneumococcal Polyvalent Vaccine (Pneumovax 23) 0.5 ml IM .ONCE ONE Stop: 10/20/18 08:01 Quetiapine Fumarate (Seroquel Xr) 400 mg PO DAILY [facility] Last Admin: 10/19/18 08:32 Dose: Not Given Sodium Chloride (Saline Flush) 10 ml FLUSH ASDIRECTED PRN PRN Reason: Keep Vein Open Last Admin: 10/16/18 22:55 Dose: 10 ml Discontinued Medications Albuterol (Proventil Neb Soln) 2.5 mg NEB ONETIME ONE Stop: 10/16/18 23:56 Last Admin: 10/16/18 23:57 Dose: 2.5 mg Albuterol (Proventil Neb Soln) Confirm Administered Dose 0.63 mg .ROUTE .STK- MED ONE Stop: 10/16/18 23:56 Last Admin: 10/17/18 02:24 Dose: Not Given Albuterol/Ipratropium (Duoneb 3.0-0.5 Mg/3 Ml) 3 ml NEB ONETIME ONE Stop: 10/16/18 22:43 Last Admin: 10/16/18 22:47 Dose: 3 ml Diltiazem HCl (Diltiazem) 20 mg IVPUSH Q12H [facility] Last Admin: 10/18/18 22:00 Dose: 20 mg Diltiazem HCl (Diltiazem) 20 mg IVPUSH Q6H [facility] Last Admin: 10/19/18 08:08 Dose: 20 mg Heparin Sodium (Porcine) (Heparin Sodium) 5,000 units IVPUSH ONETIME ONE Stop: 10/17/18 05:32 Last Admin: 10/17/18 05:46 Dose: 5,000 units Sodium Chloride (Normal Saline) 1,000 mls @ 75 mls/hr IV ASDIRECTED [facility] Last Admin: 10/18/18 02:41 Dose: 75 mls/hr Sodium Chloride (Normal Saline) 500 mls @ 1 mls/hr IV .BOLUS ONE Stop: 11/07/18 01:27 Last Admin: 10/17/18 05:47 Dose: 1 mls/hr Piperacillin Sod/Tazobactam (Sod 4.5 gm/ Sodium Chloride) 100 mls @ 200 mls/hr IV Q8H [facility] Last Admin: 10/18/18 07:57 Dose: 200 mls/hr Vancomycin HCl 1 gm/ Sodium (Chloride) 250 mls @ 250 mls/hr IV Q12H [facility] Last Admin: 10/19/18 09:57 Dose: 250 mls/hr Lorazepam (Ativan) 0.5 mg IVPUSH ONETIME ONE Stop: 10/16/18 23:39 Last Admin: 10/16/18 23:44 Dose: 0.5 mg Methylprednisolone Sodium Succinate (Solu-Medrol) 125 mg IVPUSH ONETIME ONE Stop: 10/16/18 22:44 Last Admin: 10/16/18 22:55 Dose: 125 mg Methylprednisolone Sodium Succinate (Solu-Medrol) 125 mg IVPUSH Q6H [facility] Methylprednisolone Sodium Succinate (Solu-Medrol) 125 mg IVPUSH Q6H [facility] Last Admin: 10/19/18 05:37 Dose: 125 mg Methylprednisolone Sodium Succinate (Solu-Medrol) 100 mg IVPUSH Q6H [facility] Last Admin: 10/19/18 08:46 Dose: Not Given Pantoprazole Sodium (Protonix) 40 mg PO ACBREAKFAST [facility] Last Admin: 10/17/18 07:36 Dose: Not Given Propofol (Diprivan 20 Ml) Confirm Administered Dose 200 mg .ROUTE .STK-MED ONE Stop: 10/17/18 06:29 - Exam General: Sedated HEENT: Pupils Equal, Pupils Reactive, EOMI, Mucous Membr. Moist/[place] Neck: Supple Lungs: Clear to Auscultation Cardiovascular: Regular Rate GI/Abdominal Exam: Normal Bowel Sounds Extremities: Normal Inspection Peripheral Pulses: 1+: Radial (L), Radial (R) Skin: Warm, Dry, Intact Neurological: No New Focal Deficit Psy/Mental Status: Other (sedated) - Problem List Review Problem List Initiated/Reviewed/Updated: Yes - My Orders Last 24 Hours: My Active Orders 10/18/18 16:00 Piperacillin/Tazobactam/Dext [Zosyn in Dextrose Iso-Osmotic] 4.5 gm Premix Bag 1 bag IV Q8H 10/19/18 12:00 hydrALAZINE [Apresoline] 10 mg IVPUSH Q4H methylPREDNISolone Sod Succ [Solu-MEDROL] 100 mg IVPUSH Q6H 10/19/18 20:00 Vancomycin 1.25 gm Sodium Chloride 0.9% [Normal Saline] 250 ml IV Q12H 10/20/18 04:00 CXR [Chest 1V Frontal] [CR] DAILY 10/20/18 08:00 Pneumococcal Polyvalent-23 Vac [Pneumovax 23] 0.5 ml IM .ONCE ONE 10/21/18 04:00 CXR [Chest 1V Frontal] [CR] DAILY 10/22/18 04:00 CXR [Chest 1V Frontal] [CR] DAILY - Plan Plan:: Assessment/Plan: #1. COPD: PCO2 stable on AControl. She is a chronic retainer of CO2. While intubation she aspirated a large amount of stomach material. Culture the material from the lung if pending. #2. Emphysema: #3. Hypothyroidism: Continue with meds. #4. Nicotine addiction: Unable to extubate today. Will get perimeters daily.
[2018-10-19] MEDS: Diltiazem 125 MG in Sodium Chloride 0.9% 100 ML IV SCH (15:05)
[2018-10-19] MEDS ORDERED: Furosemide 20 MG/2 ML VIAL IVPUSH ONE (17:00)
[2018-10-20] MEDS: methylPREDNISolone Sodium Succinate 125 MG/2 ML SDV IVPUSH SCH ×4 (00:09→17:37)
[2018-10-20] MEDS: Piperacillin/Tazobactam/Dext 4.5 GM in Premix Bag 1 BAG IV SCH ×3 (00:09→15:48)
[2018-10-20] MEDS: Diltiazem 125 MG in Sodium Chloride 0.9% 100 ML IV SCH ×3 (00:44→17:37)
[2018-10-20] MEDS: Sodium Chloride 0.9% 1,000 ML IV SCH (01:40)
[2018-10-20] MEDS: Pantoprazole 40 MG Vial IVPUSH SCH ×2 (02:56→14:04)
--- NOTE | 2018-10-20 04:49 | CRLCR ---
INDICATION: Intubation, COPD exacerbation. TECHNIQUE: Chest 1 views COMPARISON: Chest x-ray 10/19/2018 FINDINGS: Cardiovascular and mediastinum: Upper normal heart size with endotracheal tube at the mid trachea an orogastric tube in the body of the stomach. Atherosclerosis. Lungs and pleural spaces: Trace bilateral pleural effusions with bibasilar airspace opacities. Bones and soft tissues: No significant findings. IMPRESSION: Trace bilateral pleural effusion with bilateral basilar airspace opacities, slightly improved in the right lung base and slightly worsened in the left lung base compared to the prior exam. Dictated by Tapan Shaw MD @ Oct 20 2018 4:46AM Signed by Dr. Tapan Shaw @ Oct 20 2018 4:47AM
[2018-10-20] MEDS ORDERED: [UNRECOGNIZED DRUG - OTHER] IV SCH (06:00)
[2018-10-20] MEDS ORDERED: POTASSIUM CHLORIDE IV SCH ×2 (06:00)
--- NOTE | 2018-10-20 06:51 | PCM.PN ---
- General Info Date of Service: 10/20/18 Admission Dx/Problem (Free Text): She is getting Propofol and is unresponsive. - Patient Data Vitals - Most Recent: Last Vital Signs Temp 96.6 F 10/20/18 04:28 Pulse 78 10/20/18 06:00 Resp 17 10/20/18 06:00 BP 145/65 H 10/20/18 06:00 Pulse Ox 91 L 10/20/18 06:00 Weight - Most Recent: 169 lb 4.8 oz I&O - Last 24 Hours: Intake & Output 10/19/18 10/19/18 10/20/18 14:59 22:59 06:59 Intake Total 2087 1634 Output Total 1200 3300 1150 Balance -1200 -923 484 Lab Results Last 24 Hours: Laboratory Results - last 24 hr 10/19/18 10/19/18 10/20/18 Range/Units 07:01 08:46 04:37 WBC 9.7 (4.5-11.0) K/uL RBC 3.84 (3.30-5.50) M/uL Hgb 11.2 L (12.0-15.0) g/dL Hct 36.2 (36.0-48.0) % MCV 94 (80-98) fL MCH 29 (27-31) pg MCHC 31 L (32-36) % Plt Count 282 (150-400) K/uL Puncture Site A-line ABG pH 7.447 (7.350-7.450) ABG pCO2 43.7 H (35.0-42.0) mmHg ABG pO2 60.6 L (75.0-100.0) mmHg ABG HCO3 29.7 H (22.0-26.0) mmol/L ABG Total CO2 26.9 H (21.0-25.0) mmol/L ABG O2 Saturation 90.6 L (95.0-98.0) % ABG O2 Content 14.3 L (15.0-23.0) %vol ABG Base Excess 5.4 mm/L ABG Hemoglobin 11.3 L (12.0-16.0) g/dL ABG Oxyhemoglobin 89.3 % ABG Carboxyhemoglobin 0.5 (0.0-1.6) % ABG Methemoglobin 0.9 % Timmy Test A-line O2 Delivery Device Ventilator Oxygen Flow Rate L Sodium (140-148) mmol/L Potassium (3.6-5.2) mmol/L Chloride (100-108) mmol/L Carbon Dioxide (21-32) mmol/L Anion Gap (5.0-14.0) mmol/L BUN (7-18) mg/dL Creatinine 0.5 L (0.6-1.0) mg/dL Est Cr Clr Drug Dosing 65.53 mL/min Estimated GFR (MDRD) > 60 (>60) Glucose (74-106) mg/dL Calcium (8.5-10.1) mg/dL Vancomycin Trough 9.9 L (10.0-20.0) ug/mL 10/20/18 10/20/18 Range/Units 04:37 04:37 WBC (4.5-11.0) K/uL RBC (3.30-5.50) M/uL Hgb (12.0-15.0) g/dL Hct (36.0-48.0) % MCV (80-98) fL MCH (27-31) pg MCHC (32-36) % Plt Count (150-400) K/uL Puncture Site Line ABG pH 7.519 H (7.350-7.450) ABG pCO2 39.5 (35.0-42.0) mmHg ABG pO2 69.0 L (75.0-100.0) mmHg ABG HCO3 32.0 H (22.0-26.0) mmol/L ABG Total CO2 28.5 H (21.0-25.0) mmol/L ABG O2 Saturation 94.3 L (95.0-98.0) % ABG O2 Content 15.0 (15.0-23.0) %vol ABG Base Excess 8.6 mm/L ABG Hemoglobin 11.5 L (12.0-16.0) g/dL ABG Oxyhemoglobin 92.5 % ABG Carboxyhemoglobin 0.9 (0.0-1.6) % ABG Methemoglobin 1.0 % Timmy Test O2 Delivery Device Ventilator Oxygen Flow Rate L Sodium 148 (140-148) mmol/L Potassium 2.2 L* (3.6-5.2) mmol/L Chloride 108 (100-108) mmol/L Carbon Dioxide 31 (21-32) mmol/L Anion Gap 11.2 (5.0-14.0) mmol/L BUN 13 D (7-18) mg/dL Creatinine 0.6 (0.6-1.0) mg/dL Est Cr Clr Drug Dosing 54.61 mL/min Estimated GFR (MDRD) > 60 (>60) Glucose 137 H (74-106) mg/dL Calcium 7.1 L D (8.5-10.1) mg/dL Vancomycin Trough (10.0-20.0) ug/mL Castro Results Last 24 Hours: Microbiology 10/17/18 13:21 Gram Stain - Final Endotrachael Aspirate Respiratory Culture - Final Yeast Isolated Med Orders - Current: Current Medications Albuterol (Proventil Neb Soln) 2.5 mg NEB Q4H PRN PRN Reason: Cough Albuterol/Ipratropium (Duoneb 3.0-0.5 Mg/3 Ml) 3 ml NEB QIDRT [facility] Last Admin: 10/19/18 20:52 Dose: 3 ml Aripiprazole (Abilify) 10 mg PO DAILY [facility] Last Admin: 10/19/18 08:32 Dose: Not Given Duloxetine HCl (Cymbalta) 60 mg PO DAILY [facility] Last Admin: 10/19/18 08:32 Dose: Not Given Propofol (Diprivan 100 Ml) 100 mls @ 1.973 mls/hr IV TITRATE [facility]; Protocol Last Titration: 10/20/18 06:06 Dose: 55 mcg/kg/min, 21.704 mls/hr Heparin Sodium (Porcine) 5,000 (units/ Sodium Chloride) 501 mls @ 0 mls/hr IV ASDIRECTED [facility]; Protocol Sodium Chloride (Normal Saline) 1,000 mls @ 75 mls/hr IV ASDIRECTED [facility] Last Admin: 10/20/18 01:40 Dose: 125 mls/hr Piperacillin/Tazobactam/ (Dextrose 4.5 gm/ Premix) 100 mls @ 200 mls/hr IV Q8H [facility] Last Admin: 10/20/18 00:09 Dose: 200 mls/hr Vancomycin HCl 1.25 gm/ Sodium (Chloride) 250 mls @ 250 mls/hr IV Q12H [facility] Last Admin: 10/19/18 20:17 Dose: 250 mls/hr Diltiazem HCl 125 mg/ Sodium (Chloride) 125 mls @ 5 mls/hr IV TITRATE [facility]; Protocol Last Admin: 10/20/18 00:44 Dose: 15 mg/hr, 15 mls/hr Premix 1 bag/ Potassium (Chloride) 100 mls @ 50 mls/hr IV Q2H [facility] Stop: 10/20/18 15:59 Last Admin: 10/20/18 05:54 Dose: 50 mls/hr Levothyroxine Sodium (Levothyroxine) 112 mcg PO ACBREAKFAST [facility] Last Admin: 10/19/18 07:31 Dose: Not Given Lorazepam (Ativan) 0.25 mg IVPUSH Q2H PRN PRN Reason: Anxiety Last Admin: 10/18/18 13:54 Dose: 0.25 mg Methylprednisolone Sodium Succinate (Solu-Medrol) 100 mg IVPUSH Q6H [facility] Last Admin: 10/20/18 05:41 Dose: 100 mg Ondansetron HCl (Zofran Odt) 4 mg PO Q6H PRN PRN Reason: Nausea Pantoprazole Sodium (Protonix Iv) 40 mg IVPUSH Q12H [facility] Last Admin: 10/20/18 02:56 Dose: 40 mg Pneumococcal Polyvalent Vaccine (Pneumovax 23) 0.5 ml IM .ONCE ONE Stop: 10/20/18 08:01 Quetiapine Fumarate (Seroquel Xr) 400 mg PO DAILY [facility] Last Admin: 10/19/18 08:32 Dose: Not Given Sodium Chloride (Saline Flush) 10 ml FLUSH ASDIRECTED PRN PRN Reason: Keep Vein Open Last Admin: 10/16/18 22:55 Dose: 10 ml Discontinued Medications Albuterol (Proventil Neb Soln) 2.5 mg NEB ONETIME ONE Stop: 10/16/18 23:56 Last Admin: 10/16/18 23:57 Dose: 2.5 mg Albuterol (Proventil Neb Soln) Confirm Administered Dose 0.63 mg .ROUTE .STK- MED ONE Stop: 10/16/18 23:56 Last Admin: 10/17/18 02:24 Dose: Not Given Albuterol/Ipratropium (Duoneb 3.0-0.5 Mg/3 Ml) 3 ml NEB ONETIME ONE Stop: 10/16/18 22:43 Last Admin: 10/16/18 22:47 Dose: 3 ml Diltiazem HCl (Diltiazem) 20 mg IVPUSH Q12H [facility] Last Admin: 10/18/18 22:00 Dose: 20 mg Diltiazem HCl (Diltiazem) 20 mg IVPUSH Q6H [facility] Last Admin: 10/19/18 08:08 Dose: 20 mg Furosemide (Lasix) 20 mg IVPUSH ONETIME ONE Stop: 10/19/18 17:01 Last Admin: 10/19/18 17:12 Dose: 20 mg Heparin Sodium (Porcine) (Heparin Sodium) 5,000 units IVPUSH ONETIME ONE Stop: 10/17/18 05:32 Last Admin: 10/17/18 05:46 Dose: 5,000 units Hydralazine HCl (Apresoline) 10 mg IVPUSH Q4H [facility] Last Admin: 10/19/18 11:32 Dose: 10 mg Sodium Chloride (Normal Saline) 1,000 mls @ 75 mls/hr IV ASDIRECTED [facility] Last Admin: 10/18/18 02:41 Dose: 75 mls/hr Sodium Chloride (Normal Saline) 500 mls @ 1 mls/hr IV .BOLUS ONE Stop: 11/07/18 01:27 Last Admin: 10/17/18 05:47 Dose: 1 mls/hr Piperacillin Sod/Tazobactam (Sod 4.5 gm/ Sodium Chloride) 100 mls @ 200 mls/hr IV Q8H [facility] Last Admin: 10/18/18 07:57 Dose: 200 mls/hr Vancomycin HCl 1 gm/ Sodium (Chloride) 250 mls @ 250 mls/hr IV Q12H [facility] Last Admin: 10/19/18 09:57 Dose: 250 mls/hr Potassium Chloride 20 meq/ (Premix) 0 mls @ 50 mls/hr IV ONETIME [facility] Stop: 10/24/18 06:01 Lidocaine HCl (Xylocaine-Mpf 1%) 2 ml INJECT ONETIME ONE Stop: 10/20/18 05:30 Last Admin: 10/20/18 05:54 Dose: 2 ml Lorazepam (Ativan) 0.5 mg IVPUSH ONETIME ONE Stop: 10/16/18 23:39 Last Admin: 10/16/18 23:44 Dose: 0.5 mg Methylprednisolone Sodium Succinate (Solu-Medrol) 125 mg IVPUSH ONETIME ONE Stop: 10/16/18 22:44 Last Admin: 10/16/18 22:55 Dose: 125 mg Methylprednisolone Sodium Succinate (Solu-Medrol) 125 mg IVPUSH Q6H [facility] Methylprednisolone Sodium Succinate (Solu-Medrol) 125 mg IVPUSH Q6H [facility] Last Admin: 10/19/18 05:37 Dose: 125 mg Methylprednisolone Sodium Succinate (Solu-Medrol) 100 mg IVPUSH Q6H [facility] Last Admin: 10/19/18 08:46 Dose: Not Given Pantoprazole Sodium (Protonix) 40 mg PO ACBREAKFAST [facility] Last Admin: 10/17/18 07:36 Dose: Not Given Propofol (Diprivan 20 Ml) Confirm Administered Dose 200 mg .ROUTE .STK-MED ONE Stop: 10/17/18 06:29 - Exam General: Sedated HEENT: Other ([place] and equal) Lungs: Clear to Auscultation Cardiovascular: Regular Rate Peripheral Pulses: 1+: Radial (L), Radial (R) Skin: Warm, Dry, Intact - Problem List Review Problem List Initiated/Reviewed/Updated: Yes - My Orders Last 24 Hours: My Active Orders 10/19/18 12:00 methylPREDNISolone Sod Succ [Solu-MEDROL] 100 mg IVPUSH Q6H 10/19/18 14:45 Diltiazem 125 mg Sodium Chloride 0.9% [Normal Saline] 100 ml IV TITRATE 10/19/18 16:15 Code Status [Resuscitation Status] Routine 10/19/18 20:00 Vancomycin 1.25 gm Sodium Chloride 0.9% [Normal Saline] 250 ml IV Q12H 10/20/18 06:00 Premix Bag 1 bag Potassium Chloride [KCL 20 MEQ in Water 100 ML] 100 ml IV Q2H 10/20/18 08:00 Pneumococcal Polyvalent-23 Vac [Pneumovax 23] 0.5 ml IM .ONCE ONE 10/21/18 04:00 CXR [Chest 1V Frontal] [CR] DAILY 10/22/18 04:00 CXR [Chest 1V Frontal] [CR] DAILY - Plan Plan:: Assessment/Plan: #1. COPD: PCO2 stable on AControl. She is a chronic retainer of CO2. While intubation she aspirated a large amount of stomach material. Culture the material from the lung grew out fungus. #2. Emphysema: #3. Hypothyroidism: Continue with meds. #4. Nicotine addiction: Will get perimeters daily.
[2018-10-20] MEDS: Albuterol/Ipratropium 3.0-0.5 MG/3 ML Neb Soln NEB SCH ×4 (07:06→20:44)
[2018-10-20] MEDS: Levothyroxine 112 MCG Tab PO SCH (07:24)
[2018-10-20] MEDS: Potassium Chloride 20 MEQ, Lidocaine 1% 2 ML in Sodium Chloride 0.9% 100 ML IV SCH ×4 (07:57→14:04)
[2018-10-20] MEDS ORDERED: Pneumococcal Polyvalent-23 Vaccine 0.5 ML SDV IM ONE (08:00)
[2018-10-20] MEDS: ARIPiprazole 10 MG Tab PO SCH (08:25)
[2018-10-20] MEDS: QUEtiapine 50 MG Tab.SR PO SCH (08:26)
[2018-10-20] MEDS: DULoxetine 30 MG Cap PO SCH (08:26)
[2018-10-20] MEDS: Potassium Chloride 20 MEQ in Premix Bag 1 BAG IV SCH ×3 (18:16→22:22)
[2018-10-20] MEDS: Lidocaine 1% 50 ML MDV INJECT PRN ×2 (20:00→22:23)
[2018-10-20] MEDS: Ketorolac 30 MG/ML SDV IVPUSH PRN (22:26)
[2018-10-21] MEDS: methylPREDNISolone Sodium Succinate 125 MG/2 ML SDV IVPUSH SCH ×5 (01:03→23:17)
[2018-10-21] MEDS: Potassium Chloride 20 MEQ in Premix Bag 1 BAG IV SCH ×2 (01:06→03:17)
[2018-10-21] MEDS: Piperacillin/Tazobactam/Dext 4.5 GM in Premix Bag 1 BAG IV SCH ×4 (01:06→23:17)
[2018-10-21] MEDS: Lidocaine 1% 50 ML MDV INJECT PRN ×2 (01:07→03:17)
[2018-10-21] MEDS: Diltiazem 125 MG in Sodium Chloride 0.9% 100 ML IV SCH ×2 (01:40→09:55)
[2018-10-21] MEDS: Pantoprazole 40 MG Vial IVPUSH SCH (03:16)
--- NOTE | 2018-10-21 04:49 | CRLCR ---
INDICATION: Intubation, COPD exacerbation. TECHNIQUE: Chest 1 views COMPARISON: Chest x-ray 10/20/2018 FINDINGS: Cardiovascular and mediastinum: Normal heart size with endotracheal tube at the distal trachea. Orogastric tube in the proximal stomach. Atherosclerosis. Lungs and pleural spaces: Trace bilateral pleural effusions with mild bibasilar opacities. Bones and soft tissues: No significant findings. IMPRESSION: Trace bilateral pleural effusions with bibasilar opacities, similar to the study 1 day prior. Dictated by Tapan Shaw MD @ Oct 21 2018 4:45AM Signed by Dr. Tapan Shaw @ Oct 21 2018 4:47AM
[2018-10-21] MEDS: Albuterol/Ipratropium 3.0-0.5 MG/3 ML Neb Soln NEB SCH ×4 (07:08→20:55)
[2018-10-21] MEDS: Levothyroxine 112 MCG Tab PO SCH ×2 (07:49→11:20)
--- NOTE | 2018-10-21 10:13 | PCM.PN ---
- General Info Date of Service: 10/21/18 Subjective Update: She is intubated and will extubate Functional Status: Reports: Pain Controlled - Review of Systems General: Reports: Weakness - Patient Data Vitals - Most Recent: Last Vital Signs Temp 98.9 F 10/21/18 07:00 Pulse 102 H 10/21/18 07:08 Resp 23 H 10/21/18 09:00 BP 157/74 H 10/21/18 09:00 Pulse Ox 93 L 10/21/18 09:00 Weight - Most Recent: 185 lb 10.067 oz I&O - Last 24 Hours: Intake & Output 10/20/18 10/21/18 10/21/18 22:59 06:59 14:59 Intake Total 2591 1548 Output Total 1300 1150 Balance 1291 398 Lab Results Last 24 Hours: Laboratory Results - last 24 hr 10/20/18 10/20/18 10/21/18 Range/Units 16:53 18:13 04:15 WBC 7.9 (4.5-11.0) K/uL RBC 4.03 (3.30-5.50) M/uL Hgb 11.9 L (12.0-15.0) g/dL Hct 38.0 (36.0-48.0) % MCV 94 (80-98) fL MCH 30 (27-31) pg MCHC 31 L (32-36) % Plt Count 286 (150-400) K/uL Neut % (Auto) 91 H (36-66) % Lymph % (Auto) 5 L (24-44) % [place] % (Auto) 4 (2-6) % Eos % (Auto) 0 L (2-4) % Baso % (Auto) 0 (0-1) % Puncture Site ABG pH (7.350-7.450) ABG pCO2 (35.0-42.0) mmHg ABG pO2 (75.0-100.0) mmHg ABG HCO3 (22.0-26.0) mmol/L ABG Total CO2 (21.0-25.0) mmol/L ABG O2 Saturation (95.0-98.0) % ABG O2 Content (15.0-23.0) %vol ABG Base Excess mm/L ABG Hemoglobin (12.0-16.0) g/dL ABG Oxyhemoglobin % ABG Carboxyhemoglobin (0.0-1.6) % ABG Methemoglobin % O2 Delivery Device Oxygen Flow Rate L Sodium (140-148) mmol/L Potassium 2.9 L* (3.6-5.2) mmol/L Chloride (100-108) mmol/L Carbon Dioxide (21-32) mmol/L Anion Gap (5.0-14.0) mmol/L BUN (7-18) mg/dL Creatinine (0.6-1.0) mg/dL Est Cr Clr Drug Dosing mL/min Estimated GFR (MDRD) (>60) Glucose (74-106) mg/dL Calcium (8.5-10.1) mg/dL Magnesium 2.0 (1.8-2.4) mg/dL 10/21/18 10/21/18 Range/Units 04:15 04:15 WBC (4.5-11.0) K/uL RBC (3.30-5.50) M/uL Hgb (12.0-15.0) g/dL Hct (36.0-48.0) % MCV (80-98) fL MCH (27-31) pg MCHC (32-36) % Plt Count (150-400) K/uL Neut % (Auto) (36-66) % Lymph % (Auto) (24-44) % [place] % (Auto) (2-6) % Eos % (Auto) (2-4) % Baso % (Auto) (0-1) % Puncture Site Line ABG pH 7.491 H (7.350-7.450) ABG pCO2 36.4 (35.0-42.0) mmHg ABG pO2 74.5 L (75.0-100.0) mmHg ABG HCO3 27.6 H (22.0-26.0) mmol/L ABG Total CO2 24.4 (21.0-25.0) mmol/L ABG O2 Saturation 95.0 (95.0-98.0) % ABG O2 Content 16.1 (15.0-23.0) %vol ABG Base Excess 4.5 mm/L ABG Hemoglobin 12.2 (12.0-16.0) g/dL ABG Oxyhemoglobin 93.2 % ABG Carboxyhemoglobin 0.6 (0.0-1.6) % ABG Methemoglobin 1.3 % O2 Delivery Device Ventilator Oxygen Flow Rate L Sodium 147 (140-148) mmol/L Potassium 3.8 (3.6-5.2) mmol/L Chloride 111 H (100-108) mmol/L Carbon Dioxide 28 (21-32) mmol/L Anion Gap 11.8 (5.0-14.0) mmol/L BUN 17 (7-18) mg/dL Creatinine 0.5 L (0.6-1.0) mg/dL Est Cr Clr Drug Dosing 65.53 mL/min Estimated GFR (MDRD) > 60 (>60) Glucose 139 H (74-106) mg/dL Calcium 7.1 L (8.5-10.1) mg/dL Magnesium (1.8-2.4) mg/dL Castro Results Last 24 Hours: Microbiology 10/17/18 13:21 Gram Stain - Final Endotrachael Aspirate Respiratory Culture - Final Yeast Isolated Med Orders - Current: Current Medications Albuterol (Proventil Neb Soln) 2.5 mg NEB Q4H PRN PRN Reason: Cough Albuterol/Ipratropium (Duoneb 3.0-0.5 Mg/3 Ml) 3 ml NEB QIDRT [facility] Last Admin: 10/21/18 07:08 Dose: 3 ml Aripiprazole (Abilify) 10 mg PO DAILY [facility] Last Admin: 10/20/18 08:25 Dose: Not Given Duloxetine HCl (Cymbalta) 60 mg PO DAILY [facility] Last Admin: 10/20/18 08:26 Dose: Not Given Propofol (Diprivan 100 Ml) 100 mls @ 1.973 mls/hr IV TITRATE [facility]; Protocol Last Titration: 10/21/18 06:52 Dose: 20 mcg/kg/min, 7.893 mls/hr Heparin Sodium (Porcine) 5,000 (units/ Sodium Chloride) 501 mls @ 0 mls/hr IV ASDIRECTED [facility]; Protocol Last Admin: 10/20/18 09:48 Dose: 1 unit/hr, 0.1 mls/hr Sodium Chloride (Normal Saline) 1,000 mls @ 75 mls/hr IV ASDIRECTED [facility] Last Admin: 10/20/18 01:40 Dose: 125 mls/hr Piperacillin/Tazobactam/ (Dextrose 4.5 gm/ Premix) 100 mls @ 200 mls/hr IV Q8H [facility] Last Admin: 10/21/18 07:49 Dose: 200 mls/hr Vancomycin HCl 1.25 gm/ Sodium (Chloride) 250 mls @ 250 mls/hr IV Q12H [facility] Last Admin: 10/21/18 08:09 Dose: 250 mls/hr Diltiazem HCl 125 mg/ Sodium (Chloride) 125 mls @ 5 mls/hr IV TITRATE [facility]; Protocol Last Admin: 10/21/18 09:55 Dose: 15 mg/hr, 15 mls/hr Ketorolac Tromethamine (Toradol) 30 mg IVPUSH Q8H PRN PRN Reason: Pain Stop: 10/25/18 08:15 Last Admin: 10/20/18 22:26 Dose: 30 mg Levothyroxine Sodium (Levothyroxine) 112 mcg PO ACBREAKFAST [facility] Last Admin: 10/21/18 07:49 Dose: Not Given Lidocaine HCl (Xylocaine 1%) 2 ml INJECT ASDIRECTED PRN PRN Reason: add to potassium Last Admin: 10/21/18 03:17 Dose: 2 ml Lorazepam (Ativan) 0.25 mg IVPUSH Q2H PRN PRN Reason: Anxiety Last Admin: 10/18/18 13:54 Dose: 0.25 mg Methylprednisolone Sodium Succinate (Solu-Medrol) 100 mg IVPUSH Q6H [facility] Last Admin: 10/21/18 05:39 Dose: 100 mg Ondansetron HCl (Zofran Odt) 4 mg PO Q6H PRN PRN Reason: Nausea Pantoprazole Sodium (Protonix Iv) 40 mg IVPUSH Q12H [facility] Last Admin: 10/21/18 03:16 Dose: 40 mg Pneumococcal Polyvalent Vaccine (Pneumovax 23) 0.5 ml IM .ONCE ONE Stop: 10/23/18 11:01 Quetiapine Fumarate (Seroquel Xr) 400 mg PO DAILY [facility] Last Admin: 10/20/18 08:26 Dose: Not Given Sodium Chloride (Saline Flush) 10 ml FLUSH ASDIRECTED PRN PRN Reason: Keep Vein Open Last Admin: 10/16/18 22:55 Dose: 10 ml Discontinued Medications Albuterol (Proventil Neb Soln) 2.5 mg NEB ONETIME ONE Stop: 10/16/18 23:56 Last Admin: 10/16/18 23:57 Dose: 2.5 mg Albuterol (Proventil Neb Soln) Confirm Administered Dose 0.63 mg .ROUTE .STK- MED ONE Stop: 10/16/18 23:56 Last Admin: 10/17/18 02:24 Dose: Not Given Albuterol/Ipratropium (Duoneb 3.0-0.5 Mg/3 Ml) 3 ml NEB ONETIME ONE Stop: 10/16/18 22:43 Last Admin: 10/16/18 22:47 Dose: 3 ml Diltiazem HCl (Diltiazem) 20 mg IVPUSH Q12H [facility] Last Admin: 10/18/18 22:00 Dose: 20 mg Diltiazem HCl (Diltiazem) 20 mg IVPUSH Q6H [facility] Last Admin: 10/19/18 08:08 Dose: 20 mg Furosemide (Lasix) 20 mg IVPUSH ONETIME ONE Stop: 10/19/18 17:01 Last Admin: 10/19/18 17:12 Dose: 20 mg Heparin Sodium (Porcine) (Heparin Sodium) 5,000 units IVPUSH ONETIME ONE Stop: 10/17/18 05:32 Last Admin: 10/17/18 05:46 Dose: 5,000 units Hydralazine HCl (Apresoline) 10 mg IVPUSH Q4H [facility] Last Admin: 10/19/18 11:32 Dose: 10 mg Sodium Chloride (Normal Saline) 1,000 mls @ 75 mls/hr IV ASDIRECTED [facility] Last Admin: 10/18/18 02:41 Dose: 75 mls/hr Sodium Chloride (Normal Saline) 500 mls @ 1 mls/hr IV .BOLUS ONE Stop: 11/07/18 01:27 Last Admin: 10/17/18 05:47 Dose: 1 mls/hr Piperacillin Sod/Tazobactam (Sod 4.5 gm/ Sodium Chloride) 100 mls @ 200 mls/hr IV Q8H [facility] Last Admin: 10/18/18 07:57 Dose: 200 mls/hr Vancomycin HCl 1 gm/ Sodium (Chloride) 250 mls @ 250 mls/hr IV Q12H [facility] Last Admin: 10/19/18 09:57 Dose: 250 mls/hr Potassium Chloride 20 meq/ (Premix) 0 mls @ 50 mls/hr IV ONETIME [facility] Stop: 10/24/18 06:01 Premix 1 bag/ Potassium (Chloride) 100 mls @ 50 mls/hr IV Q2H [facility] Stop: 10/20/18 15:59 Last Admin: 10/20/18 05:54 Dose: 50 mls/hr Potassium Chloride 20 meq/Lidocaine HCl 2 ml/ Sodium Chloride 112 mls @ 56 mls/ hr IV Q2H [facility] Stop: 10/20/18 15:59 Last Admin: 10/20/18 14:04 Dose: 56 mls/hr Potassium Chloride 20 meq/ (Premix) 100 mls @ 50 mls/hr IV Q2H [facility] Stop: 10/21/18 03:59 Last Admin: 10/21/18 03:17 Dose: 50 mls/hr Lidocaine HCl (Xylocaine-Mpf 1%) 2 ml INJECT ONETIME ONE Stop: 10/20/18 05:30 Last Admin: 10/20/18 05:54 Dose: 2 ml Lorazepam (Ativan) 0.5 mg IVPUSH ONETIME ONE Stop: 10/16/18 23:39 Last Admin: 10/16/18 23:44 Dose: 0.5 mg Methylprednisolone Sodium Succinate (Solu-Medrol) 125 mg IVPUSH ONETIME ONE Stop: 10/16/18 22:44 Last Admin: 10/16/18 22:55 Dose: 125 mg Methylprednisolone Sodium Succinate (Solu-Medrol) 125 mg IVPUSH Q6H [facility] Methylprednisolone Sodium Succinate (Solu-Medrol) 125 mg IVPUSH Q6H [facility] Last Admin: 10/19/18 05:37 Dose: 125 mg Methylprednisolone Sodium Succinate (Solu-Medrol) 100 mg IVPUSH Q6H [facility] Last Admin: 10/19/18 08:46 Dose: Not Given Pantoprazole Sodium (Protonix) 40 mg PO ACBREAKFAST [facility] Last Admin: 10/17/18 07:36 Dose: Not Given Pneumococcal Polyvalent Vaccine (Pneumovax 23) 0.5 ml IM .ONCE ONE Stop: 10/20/18 08:01 Last Admin: 10/20/18 08:25 Dose: Not Given Propofol (Diprivan 20 Ml) Confirm Administered Dose 200 mg .ROUTE .STK-MED ONE Stop: 10/17/18 06:29 - Exam General: Sedated HEENT: Pupils Equal, Pupils Reactive, EOMI, Mucous Membr. Moist/[place] Neck: Supple Lungs: Clear to Auscultation, Normal Respiratory Effort Cardiovascular: Regular Rate, Regular Rhythm GI/Abdominal Exam: Normal Bowel Sounds, Soft, Non-Tender, No Organomegaly, No Distention, No Abnormal Bruit, No Mass, Pelvis Stable Peripheral Pulses: 1+: Radial (L), Radial (R) Skin: Warm, Dry, Intact - Problem List Review Problem List Initiated/Reviewed/Updated: Yes - My Orders Last 24 Hours: My Active Orders 10/20/18 20:00 Lidocaine 1% [Xylocaine 1%] 2 ml INJECT ASDIRECTED PRN 10/22/18 04:00 CXR [Chest 1V Frontal] [CR] DAILY 10/23/18 11:00 Pneumococcal Polyvalent-23 Vac [Pneumovax 23] 0.5 ml IM .ONCE ONE - Plan Plan:: Assessment/Plan: #1. COPD: Has been extubated and appears alert and has no complaints. She is glad the tube is out. She is a chronic retainer of CO2. The NG tube has been removed as well. #2. Emphysema: #3. Hypothyroidism: Continue with meds. #4. Nicotine addiction: She is stable and mentally stable presently. The amily are all here.
[2018-10-21] MEDS: QUEtiapine 50 MG Tab.SR PO SCH (11:20)
[2018-10-21] MEDS: Diltiazem 180 MG Cap.CD PO SCH ×2 (11:20→20:55)
[2018-10-21] MEDS: DULoxetine 30 MG Cap PO SCH (11:20)
[2018-10-21] MEDS: ARIPiprazole 10 MG Tab PO SCH (11:20)
[2018-10-21] MEDS: LORazepam 0.5 MG Tab PO PRN ×2 (13:41→20:55)
[2018-10-21] MEDS: Nicotine 14 MG/24 Hr Patch TRDERM SCH (13:42)
[2018-10-21] MEDS: Sodium Chloride 0.9% 1,000 ML IV SCH (14:37)
[2018-10-21] MEDS: Morphine 2 MG/ML Syringe IVPUSH PRN ×5 (15:01→22:24)
[2018-10-21] MEDS: LORazepam 2 MG/ML SDV IVPUSH PRN (22:43)
[2018-10-21] MEDS: Albuterol 0.083% 2.5 MG/3 ML Neb Soln NEB PRN (23:17)
[2018-10-22] MEDS: LORazepam 2 MG/ML SDV IVPUSH PRN ×3 (00:47→21:05)
[2018-10-22] MEDS: Morphine 2 MG/ML Syringe IVPUSH PRN ×2 (01:12→05:56)
[2018-10-22] MEDS: methylPREDNISolone Sodium Succinate 125 MG/2 ML SDV IVPUSH SCH ×3 (05:24→17:39)
[2018-10-22] MEDS: Sodium Chloride 0.9% 1,000 ML IV SCH ×2 (06:06→21:05)
[2018-10-22] MEDS: Albuterol/Ipratropium 3.0-0.5 MG/3 ML Neb Soln NEB SCH ×4 (07:51→20:38)
[2018-10-22] MEDS: Piperacillin/Tazobactam/Dext 4.5 GM in Premix Bag 1 BAG IV SCH (08:06)
[2018-10-22] MEDS: Pantoprazole 40 MG Tab.CR PO SCH (08:08)
[2018-10-22] MEDS: Levothyroxine 112 MCG Tab PO SCH (08:08)
[2018-10-22] MEDS: ARIPiprazole 10 MG Tab PO SCH (08:09)
[2018-10-22] MEDS: Diltiazem 180 MG Cap.CD PO SCH ×2 (08:09→20:37)
[2018-10-22] MEDS: Nicotine 14 MG/24 Hr Patch TRDERM SCH (08:09)
[2018-10-22] MEDS: DULoxetine 30 MG Cap PO SCH (08:09)
[2018-10-22] MEDS: QUEtiapine 50 MG Tab.SR PO SCH (08:09)
[2018-10-22] MEDS: Albuterol 0.083% 2.5 MG/3 ML Neb Soln NEB PRN (09:25)
[2018-10-22] MEDS ORDERED: Magnesium Hydroxide 400 MG/5 ML Susp 30 ML Cup PO PRN (09:55)
[2018-10-22] MEDS ORDERED: Diltiazem 120 MG Cap.CD PO SCH (10:30)
[2018-10-22] MEDS: Potassium Chloride 10 MEQ Cap.ER PO SCH ×2 (14:18→20:38)
[2018-10-22] MEDS: Piperacillin/Tazobactam 4.5 GM in Sodium Chloride 0.9% 100 ML IV SCH (17:03)
--- NOTE | 2018-10-22 18:32 | PCM.PN ---
- General Info Date of Service: 10/22/18 Subjective Update: She is resting but on a bi-pap Functional Status: Reports: Pain Controlled - Review of Systems General: Reports: Weakness HEENT: Reports: No Symptoms Pulmonary: Reports: Shortness of Breath, Wheezing Cardiovascular: Reports: No Symptoms Gastrointestinal: Reports: No Symptoms Genitourinary: Reports: No Symptoms Musculoskeletal: Reports: No Symptoms Skin: Reports: No Symptoms Neurological: Reports: No Symptoms Psychiatric: Reports: Anxiety - Patient Data Vitals - Most Recent: Last Vital Signs Temp 96.6 F 10/22/18 14:00 Pulse 96 10/22/18 16:51 Resp 22 H 10/22/18 16:51 BP 131/52 L 10/22/18 16:51 Pulse Ox 94 L 10/22/18 16:51 Weight - Most Recent: 172 lb 6.424 oz I&O - Last 24 Hours: Intake & Output 10/22/18 10/22/18 10/22/18 06:59 14:59 22:59 Intake Total 1586 710 990 Output Total 1325 850 Balance 261 710 140 Lab Results Last 24 Hours: Laboratory Results - last 24 hr 10/21/18 10/22/18 10/22/18 Range/Units 18:03 07:45 07:45 WBC 18.0 H (4.5-11.0) K/uL RBC 4.13 (3.30-5.50) M/uL Hgb 12.1 (12.0-15.0) g/dL Hct 39.5 (36.0-48.0) % MCV 96 (80-98) fL MCH 29 (27-31) pg MCHC 31 L (32-36) % Plt Count 265 (150-400) K/uL Puncture Site ABG pH (7.350-7.450) ABG pCO2 (35.0-42.0) mmHg ABG pO2 (75.0-100.0) mmHg ABG HCO3 (22.0-26.0) mmol/L ABG Total CO2 (21.0-25.0) mmol/L ABG O2 Saturation (95.0-98.0) % ABG O2 Content (15.0-23.0) %vol ABG Base Excess mm/L ABG Hemoglobin (12.0-16.0) g/dL ABG Oxyhemoglobin % ABG Carboxyhemoglobin (0.0-1.6) % ABG Methemoglobin % Timmy Test O2 Delivery Device Sodium 148 147 (140-148) mmol/L Potassium 3.2 L 3.2 L (3.6-5.2) mmol/L Chloride 109 H 108 (100-108) mmol/L Carbon Dioxide 29 31 (21-32) mmol/L Anion Gap 13.2 11.2 (5.0-14.0) mmol/L BUN 17 21 H (7-18) mg/dL Creatinine 0.5 L 0.5 L (0.6-1.0) mg/dL Est Cr Clr Drug Dosing 65.53 65.53 mL/min Estimated GFR (MDRD) > 60 > 60 (>60) Glucose 149 H 134 H (74-106) mg/dL Calcium 7.4 L 7.1 L (8.5-10.1) mg/dL Vancomycin Trough (10.0-20.0) ug/mL 10/22/18 10/22/18 Range/Units 07:47 09:52 WBC (4.5-11.0) K/uL RBC (3.30-5.50) M/uL Hgb (12.0-15.0) g/dL Hct (36.0-48.0) % MCV (80-98) fL MCH (27-31) pg MCHC (32-36) % Plt Count (150-400) K/uL Puncture Site A-line ABG pH 7.375 (7.350-7.450) ABG pCO2 53.0 H (35.0-42.0) mmHg ABG pO2 80.6 (75.0-100.0) mmHg ABG HCO3 30.3 H (22.0-26.0) mmol/L ABG Total CO2 27.5 H (21.0-25.0) mmol/L ABG O2 Saturation 94.8 L (95.0-98.0) % ABG O2 Content 15.8 (15.0-23.0) %vol ABG Base Excess 4.5 mm/L ABG Hemoglobin 12.0 (12.0-16.0) g/dL ABG Oxyhemoglobin 93.3 % ABG Carboxyhemoglobin 0.6 (0.0-1.6) % ABG Methemoglobin 1.0 % Timmy Test Not performed O2 Delivery Device Bipap Sodium (140-148) mmol/L Potassium (3.6-5.2) mmol/L Chloride (100-108) mmol/L Carbon Dioxide (21-32) mmol/L Anion Gap (5.0-14.0) mmol/L BUN (7-18) mg/dL Creatinine (0.6-1.0) mg/dL Est Cr Clr Drug Dosing mL/min Estimated GFR (MDRD) (>60) Glucose (74-106) mg/dL Calcium (8.5-10.1) mg/dL Vancomycin Trough 11.3 (10.0-20.0) ug/mL Med Orders - Current: Current Medications Albuterol (Proventil Neb Soln) 2.5 mg NEB Q4H PRN PRN Reason: Cough Last Admin: 10/22/18 09:25 Dose: 2.5 mg Albuterol/Ipratropium (Duoneb 3.0-0.5 Mg/3 Ml) 3 ml NEB QIDRT [facility] Last Admin: 10/22/18 14:06 Dose: 3 ml Aripiprazole (Abilify) 10 mg PO DAILY [facility] Last Admin: 10/22/18 08:09 Dose: 10 mg Diltiazem HCl (Cardizem Cd) 240 mg PO BID [facility] Last Admin: 10/22/18 10:36 Dose: Not Given Duloxetine HCl (Cymbalta) 60 mg PO DAILY [facility] Last Admin: 10/22/18 08:09 Dose: 60 mg Heparin Sodium (Porcine) 5,000 (units/ Sodium Chloride) 501 mls @ 0 mls/hr IV ASDIRECTED [facility]; Protocol Last Admin: 10/20/18 09:48 Dose: 1 unit/hr, 0.1 mls/hr Sodium Chloride (Normal Saline) 1,000 mls @ 75 mls/hr IV ASDIRECTED [facility] Last Admin: 10/22/18 06:06 Dose: 125 mls/hr Vancomycin HCl 1.5 gm/ Sodium (Chloride) 250 mls @ 250 mls/hr IV Q12H [facility] Piperacillin Sod/Tazobactam (Sod 4.5 gm/ Sodium Chloride) 100 mls @ 200 mls/hr IV Q8H [facility] Last Admin: 10/22/18 17:03 Dose: 200 mls/hr Ketorolac Tromethamine (Toradol) 30 mg IVPUSH Q8H PRN PRN Reason: Pain Stop: 10/25/18 08:15 Last Admin: 10/20/18 22:26 Dose: 30 mg Levothyroxine Sodium (Levothyroxine) 112 mcg PO ACBREAKFAST [facility] Last Admin: 10/22/18 08:08 Dose: 112 mcg Lorazepam (Ativan) 0.5 mg PO Q4H PRN PRN Reason: Anxiety Last Admin: 10/21/18 20:55 Dose: 0.5 mg Lorazepam (Ativan) 0.5 mg IVPUSH Q2H PRN PRN Reason: Anxiety Last Admin: 10/22/18 11:06 Dose: 0.5 mg Magnesium Hydroxide (Milk Of Magnesia) 30 ml PO DAILY PRN PRN Reason: Constipation Methylprednisolone Sodium Succinate (Solu-Medrol) 100 mg IVPUSH Q8H [facility] Stop: 10/23/18 18:01 Methylprednisolone Sodium Succinate (Solu-Medrol) 100 mg IVPUSH Q12H [facility] Stop: 10/24/18 18:01 Morphine Sulfate (Morphine) 2 mg IVPUSH Q1H PRN PRN Reason: Pain Last Admin: 10/22/18 05:56 Dose: 2 mg Nicotine (Habitrol) 14 mg TRDERM DAILY [facility] Last Admin: 10/22/18 08:09 Dose: 14 mg Ondansetron HCl (Zofran Odt) 4 mg PO Q6H PRN PRN Reason: Nausea Pantoprazole Sodium (Protonix) 40 mg PO ACBREAKFAST [facility] Last Admin: 10/22/18 08:08 Dose: 40 mg Pneumococcal Polyvalent Vaccine (Pneumovax 23) 0.5 ml IM .ONCE ONE Stop: 10/23/18 11:01 Potassium Chloride (Potassium Chloride) 20 meq PO BID [facility] Last Admin: 10/22/18 14:18 Dose: 20 meq Quetiapine Fumarate (Seroquel Xr) 400 mg PO DAILY [facility] Last Admin: 10/22/18 08:09 Dose: 400 mg Sodium Chloride (Saline Flush) 10 ml FLUSH ASDIRECTED PRN PRN Reason: Keep Vein Open Last Admin: 10/16/18 22:55 Dose: 10 ml Discontinued Medications Albuterol (Proventil Neb Soln) 2.5 mg NEB ONETIME ONE Stop: 10/16/18 23:56 Last Admin: 10/16/18 23:57 Dose: 2.5 mg Albuterol (Proventil Neb Soln) Confirm Administered Dose 0.63 mg .ROUTE .STK- MED ONE Stop: 10/16/18 23:56 Last Admin: 10/17/18 02:24 Dose: Not Given Albuterol/Ipratropium (Duoneb 3.0-0.5 Mg/3 Ml) 3 ml NEB ONETIME ONE Stop: 10/16/18 22:43 Last Admin: 10/16/18 22:47 Dose: 3 ml Diltiazem HCl (Diltiazem) 20 mg IVPUSH Q12H [facility] Last Admin: 10/18/18 22:00 Dose: 20 mg Diltiazem HCl (Diltiazem) 20 mg IVPUSH Q6H [facility] Last Admin: 10/19/18 08:08 Dose: 20 mg Diltiazem HCl (Cardizem Cd) 180 mg PO BID [facility] Last Admin: 10/22/18 08:09 Dose: 180 mg Furosemide (Lasix) 20 mg IVPUSH ONETIME ONE Stop: 10/19/18 17:01 Last Admin: 10/19/18 17:12 Dose: 20 mg Heparin Sodium (Porcine) (Heparin Sodium) 5,000 units IVPUSH ONETIME ONE Stop: 10/17/18 05:32 Last Admin: 10/17/18 05:46 Dose: 5,000 units Hydralazine HCl (Apresoline) 10 mg IVPUSH Q4H [facility] Last Admin: 10/19/18 11:32 Dose: 10 mg Sodium Chloride (Normal Saline) 1,000 mls @ 75 mls/hr IV ASDIRECTED [facility] Last Admin: 10/18/18 02:41 Dose: 75 mls/hr Sodium Chloride (Normal Saline) 500 mls @ 1 mls/hr IV .BOLUS ONE Stop: 11/07/18 01:27 Last Admin: 10/17/18 05:47 Dose: 1 mls/hr Propofol (Diprivan 100 Ml) 100 mls @ 1.973 mls/hr IV TITRATE [facility]; Protocol Last Titration: 10/21/18 06:52 Dose: 20 mcg/kg/min, 7.893 mls/hr Piperacillin Sod/Tazobactam (Sod 4.5 gm/ Sodium Chloride) 100 mls @ 200 mls/hr IV Q8H [facility] Last Admin: 10/18/18 07:57 Dose: 200 mls/hr Vancomycin HCl 1 gm/ Sodium (Chloride) 250 mls @ 250 mls/hr IV Q12H [facility] Last Admin: 10/19/18 09:57 Dose: 250 mls/hr Piperacillin/Tazobactam/ (Dextrose 4.5 gm/ Premix) 100 mls @ 200 mls/hr IV Q8H [facility] Last Admin: 10/22/18 08:06 Dose: 200 mls/hr Vancomycin HCl 1.25 gm/ Sodium (Chloride) 250 mls @ 250 mls/hr IV Q12H [facility] Stop: 10/22/18 12:00 Last Admin: 10/22/18 08:10 Dose: 250 mls/hr Diltiazem HCl 125 mg/ Sodium (Chloride) 125 mls @ 5 mls/hr IV TITRATE [facility]; Protocol Last Titration: 10/21/18 12:21 Dose: 0 mg/hr, 0 mls/hr Potassium Chloride 20 meq/ (Premix) 0 mls @ 50 mls/hr IV ONETIME [facility] Stop: 10/24/18 06:01 Premix 1 bag/ Potassium (Chloride) 100 mls @ 50 mls/hr IV Q2H [facility] Stop: 10/20/18 15:59 Last Admin: 10/20/18 05:54 Dose: 50 mls/hr Potassium Chloride 20 meq/Lidocaine HCl 2 ml/ Sodium Chloride 112 mls @ 56 mls/ hr IV Q2H [facility] Stop: 10/20/18 15:59 Last Admin: 10/20/18 14:04 Dose: 56 mls/hr Potassium Chloride 20 meq/ (Premix) 100 mls @ 50 mls/hr IV Q2H [facility] Stop: 10/21/18 03:59 Last Admin: 10/21/18 03:17 Dose: 50 mls/hr Lidocaine HCl (Xylocaine-Mpf 1%) 2 ml INJECT ONETIME ONE Stop: 10/20/18 05:30 Last Admin: 10/20/18 05:54 Dose: 2 ml Lidocaine HCl (Xylocaine 1%) 2 ml INJECT ASDIRECTED PRN PRN Reason: add to potassium Last Admin: 10/21/18 03:17 Dose: 2 ml Lorazepam (Ativan) 0.5 mg IVPUSH ONETIME ONE Stop: 10/16/18 23:39 Last Admin: 10/16/18 23:44 Dose: 0.5 mg Lorazepam (Ativan) 0.25 mg IVPUSH Q2H PRN PRN Reason: Anxiety Last Admin: 10/18/18 13:54 Dose: 0.25 mg Methylprednisolone Sodium Succinate (Solu-Medrol) 125 mg IVPUSH ONETIME ONE Stop: 10/16/18 22:44 Last Admin: 10/16/18 22:55 Dose: 125 mg Methylprednisolone Sodium Succinate (Solu-Medrol) 125 mg IVPUSH Q6H [facility] Methylprednisolone Sodium Succinate (Solu-Medrol) 125 mg IVPUSH Q6H [facility] Last Admin: 10/19/18 05:37 Dose: 125 mg Methylprednisolone Sodium Succinate (Solu-Medrol) 100 mg IVPUSH Q6H [facility] Last Admin: 10/19/18 08:46 Dose: Not Given Methylprednisolone Sodium Succinate (Solu-Medrol) 100 mg IVPUSH Q6H [facility] Last Admin: 10/22/18 17:39 Dose: 100 mg Pantoprazole Sodium (Protonix) 40 mg PO ACBREAKFAST [facility] Last Admin: 10/17/18 07:36 Dose: Not Given Pantoprazole Sodium (Protonix Iv) 40 mg IVPUSH Q12H [facility] Last Admin: 10/21/18 03:16 Dose: 40 mg Pneumococcal Polyvalent Vaccine (Pneumovax 23) 0.5 ml IM .ONCE ONE Stop: 10/20/18 08:01 Last Admin: 10/20/18 08:25 Dose: Not Given Propofol (Diprivan 20 Ml) Confirm Administered Dose 200 mg .ROUTE .STK-MED ONE Stop: 10/17/18 06:29 - Exam General: Alert, Oriented Neck: Supple Lungs: Wheezing Cardiovascular: Regular Rate GI/Abdominal Exam: Soft Extremities: Normal Inspection Skin: Warm, Dry, Intact Psy/Mental Status: Anxious, Depressed - Problem List Review Problem List Initiated/Reviewed/Updated: Yes - My Orders Last 24 Hours: My Active Orders 10/22/18 07:30 Pantoprazole [ProTONIX] 40 mg PO ACBREAKFAST 10/22/18 09:55 Magnesium Hydroxide [Milk of Magnesia] 30 ml PO DAILY PRN 10/22/18 10:30 Diltiazem [Cardizem CD] 240 mg PO BID 10/22/18 12:00 Potassium Chloride 20 meq PO BID 10/22/18 14:36 Consult to Physical Therapy [PT Evaluation and Treatment] [CONS] Routine 10/22/18 16:00 Piperacillin/Tazobactam [Zosyn] 4.5 gm Sodium Chloride 0.9% [Normal Saline] 100 ml IV Q8H 10/22/18 18:21 Code Status [Resuscitation Status] Routine 10/22/18 20:00 Vancomycin 1.5 gm Sodium Chloride 0.9% [Normal Saline] 250 ml IV Q12H 10/23/18 02:00 methylPREDNISolone Sod Succ [Solu-MEDROL] 100 mg IVPUSH Q8H 10/23/18 05:00 ABG [BLOOD GAS ARTERIAL] [BG] Routine BASIC METABOLIC PANEL,BMP [CHEM] Routine CBC W/O DIFF,HEMOGRAM [HEME] Routine 10/23/18 11:00 Pneumococcal Polyvalent-23 Vac [Pneumovax 23] 0.5 ml IM .ONCE ONE 10/24/18 06:00 methylPREDNISolone Sod Succ [Solu-MEDROL] 100 mg IVPUSH Q12H - Plan Plan:: Assessment/Plan: #1. COPD: Has been extubated and appears alert and has no complaints. She is a chronic retainer of CO2. The NG tube has been removed as well. She is off and on Bi-Pap. She asked never to be intubated again. Will start to [place] cortisone. #2. Emphysema: #3. Hypothyroidism: Continue with meds. #4. Nicotine addiction: She is stable and mentally stable presently.
[2018-10-23] MEDS: Piperacillin/Tazobactam 4.5 GM in Sodium Chloride 0.9% 100 ML IV SCH ×4 (00:19→23:35)
[2018-10-23] MEDS: methylPREDNISolone Sodium Succinate 125 MG/2 ML SDV IVPUSH SCH ×3 (02:25→17:06)
[2018-10-23] MEDS: LORazepam 2 MG/ML SDV IVPUSH PRN ×3 (02:31→23:35)
[2018-10-23] MEDS: Albuterol 0.083% 2.5 MG/3 ML Neb Soln NEB PRN (02:31)
[2018-10-23] MEDS: Albuterol/Ipratropium 3.0-0.5 MG/3 ML Neb Soln NEB SCH ×4 (07:04→22:06)
--- NOTE | 2018-10-23 07:29 | PCM.PN ---
- General Info Date of Service: 10/23/18 Functional Status: Reports: Pain Controlled - Review of Systems General: Reports: Weakness HEENT: Reports: No Symptoms Pulmonary: Reports: Wheezing Cardiovascular: Reports: No Symptoms Gastrointestinal: Reports: Decreased Appetite Genitourinary: Reports: No Symptoms Neurological: Reports: Trouble Speaking Psychiatric: Reports: Anxiety - Patient Data Vitals - Most Recent: Last Vital Signs Temp 95.7 F 10/23/18 04:00 Pulse 84 10/23/18 07:12 Resp 20 10/23/18 06:00 BP 122/49 L 10/23/18 06:00 Pulse Ox 93 L 10/23/18 06:00 Weight - Most Recent: 172 lb 6.424 oz I&O - Last 24 Hours: Intake & Output 10/22/18 10/23/18 10/23/18 22:59 06:59 14:59 Intake Total 990 1227 Output Total 1150 600 Balance -160 627 Lab Results Last 24 Hours: Laboratory Results - last 24 hr 10/22/18 10/22/18 10/22/18 Range/Units 07:45 07:45 07:47 WBC 18.0 H (4.5-11.0) K/uL RBC 4.13 (3.30-5.50) M/uL Hgb 12.1 (12.0-15.0) g/dL Hct 39.5 (36.0-48.0) % MCV 96 (80-98) fL MCH 29 (27-31) pg MCHC 31 L (32-36) % Plt Count 265 (150-400) K/uL Puncture Site ABG pH (7.350-7.450) ABG pCO2 (35.0-42.0) mmHg ABG pO2 (75.0-100.0) mmHg ABG HCO3 (22.0-26.0) mmol/L ABG Total CO2 (21.0-25.0) mmol/L ABG O2 Saturation (95.0-98.0) % ABG O2 Content (15.0-23.0) %vol ABG Base Excess mm/L ABG Hemoglobin (12.0-16.0) g/dL ABG Oxyhemoglobin % ABG Carboxyhemoglobin (0.0-1.6) % ABG Methemoglobin % Timmy Test O2 Delivery Device Oxygen Flow Rate L Sodium 147 (140-148) mmol/L Potassium 3.2 L (3.6-5.2) mmol/L Chloride 108 (100-108) mmol/L Carbon Dioxide 31 (21-32) mmol/L Anion Gap 11.2 (5.0-14.0) mmol/L BUN 21 H (7-18) mg/dL Creatinine 0.5 L (0.6-1.0) mg/dL Est Cr Clr Drug Dosing 65.53 mL/min Estimated GFR (MDRD) > 60 (>60) Glucose 134 H (74-106) mg/dL Calcium 7.1 L (8.5-10.1) mg/dL Vancomycin Trough 11.3 (10.0-20.0) ug/mL 10/22/18 10/23/18 10/23/18 Range/Units 09:52 04:10 04:10 WBC 11.7 H (4.5-11.0) K/uL RBC 3.93 (3.30-5.50) M/uL Hgb 11.5 L (12.0-15.0) g/dL Hct 37.2 (36.0-48.0) % MCV 95 (80-98) fL MCH 29 (27-31) pg MCHC 31 L (32-36) % Plt Count 256 (150-400) K/uL Puncture Site A-line A-line ABG pH 7.375 7.449 (7.350-7.450) ABG pCO2 53.0 H 44.2 H (35.0-42.0) mmHg ABG pO2 80.6 80.7 (75.0-100.0) mmHg ABG HCO3 30.3 H 30.2 H (22.0-26.0) mmol/L ABG Total CO2 27.5 H 27.2 H (21.0-25.0) mmol/L ABG O2 Saturation 94.8 L 96.2 (95.0-98.0) % ABG O2 Content 15.8 15.6 (15.0-23.0) %vol ABG Base Excess 4.5 5.9 mm/L ABG Hemoglobin 12.0 11.7 L (12.0-16.0) g/dL ABG Oxyhemoglobin 93.3 93.9 % ABG Carboxyhemoglobin 0.6 1.4 (0.0-1.6) % ABG Methemoglobin 1.0 1.0 % Timmy Test Not performed A-line O2 Delivery Device Bipap Bipap Oxygen Flow Rate L Sodium (140-148) mmol/L Potassium (3.6-5.2) mmol/L Chloride (100-108) mmol/L Carbon Dioxide (21-32) mmol/L Anion Gap (5.0-14.0) mmol/L BUN (7-18) mg/dL Creatinine (0.6-1.0) mg/dL Est Cr Clr Drug Dosing mL/min Estimated GFR (MDRD) (>60) Glucose (74-106) mg/dL Calcium (8.5-10.1) mg/dL Vancomycin Trough (10.0-20.0) ug/mL 10/23/18 Range/Units 04:10 WBC (4.5-11.0) K/uL RBC (3.30-5.50) M/uL Hgb (12.0-15.0) g/dL Hct (36.0-48.0) % MCV (80-98) fL MCH (27-31) pg MCHC (32-36) % Plt Count (150-400) K/uL Puncture Site ABG pH (7.350-7.450) ABG pCO2 (35.0-42.0) mmHg ABG pO2 (75.0-100.0) mmHg ABG HCO3 (22.0-26.0) mmol/L ABG Total CO2 (21.0-25.0) mmol/L ABG O2 Saturation (95.0-98.0) % ABG O2 Content (15.0-23.0) %vol ABG Base Excess mm/L ABG Hemoglobin (12.0-16.0) g/dL ABG Oxyhemoglobin % ABG Carboxyhemoglobin (0.0-1.6) % ABG Methemoglobin % Timmy Test O2 Delivery Device Oxygen Flow Rate L Sodium 148 (140-148) mmol/L Potassium 3.2 L (3.6-5.2) mmol/L Chloride 110 H (100-108) mmol/L Carbon Dioxide 30 (21-32) mmol/L Anion Gap 11.2 (5.0-14.0) mmol/L BUN 21 H (7-18) mg/dL Creatinine 0.4 L (0.6-1.0) mg/dL Est Cr Clr Drug Dosing 81.92 mL/min Estimated GFR (MDRD) > 60 (>60) Glucose 145 H (74-106) mg/dL Calcium 7.3 L (8.5-10.1) mg/dL Vancomycin Trough (10.0-20.0) ug/mL Med Orders - Current: Current Medications Albuterol (Proventil Neb Soln) 2.5 mg NEB Q4H PRN PRN Reason: Cough Last Admin: 10/23/18 02:31 Dose: 2.5 mg Albuterol/Ipratropium (Duoneb 3.0-0.5 Mg/3 Ml) 3 ml NEB QIDRT [facility] Last Admin: 10/23/18 07:04 Dose: 3 ml Aripiprazole (Abilify) 10 mg PO DAILY [facility] Last Admin: 10/22/18 08:09 Dose: 10 mg Diltiazem HCl (Cardizem Cd) 180 mg PO BID [facility] Last Admin: 10/22/18 20:37 Dose: 180 mg Duloxetine HCl (Cymbalta) 60 mg PO DAILY [facility] Last Admin: 10/22/18 08:09 Dose: 60 mg Heparin Sodium (Porcine) 5,000 (units/ Sodium Chloride) 501 mls @ 0 mls/hr IV ASDIRECTED [facility]; Protocol Last Admin: 10/20/18 09:48 Dose: 1 unit/hr, 0.1 mls/hr Sodium Chloride (Normal Saline) 1,000 mls @ 75 mls/hr IV ASDIRECTED [facility] Last Admin: 10/22/18 21:05 Dose: 125 mls/hr Vancomycin HCl 1.5 gm/ Sodium (Chloride) 250 mls @ 250 mls/hr IV Q12H [facility] Last Admin: 10/22/18 19:55 Dose: 250 mls/hr Piperacillin Sod/Tazobactam (Sod 4.5 gm/ Sodium Chloride) 100 mls @ 200 mls/hr IV Q8H [facility] Last Admin: 10/23/18 00:19 Dose: 200 mls/hr Ketorolac Tromethamine (Toradol) 30 mg IVPUSH Q8H PRN PRN Reason: Pain Stop: 10/25/18 08:15 Last Admin: 10/20/18 22:26 Dose: 30 mg Levothyroxine Sodium (Levothyroxine) 112 mcg PO ACBREAKFAST [facility] Last Admin: 10/22/18 08:08 Dose: 112 mcg Lorazepam (Ativan) 0.5 mg PO Q4H PRN PRN Reason: Anxiety Last Admin: 10/21/18 20:55 Dose: 0.5 mg Lorazepam (Ativan) 0.5 mg IVPUSH Q2H PRN PRN Reason: Anxiety Last Admin: 10/23/18 02:31 Dose: 0.5 mg Magnesium Hydroxide (Milk Of Magnesia) 30 ml PO DAILY PRN PRN Reason: Constipation Methylprednisolone Sodium Succinate (Solu-Medrol) 100 mg IVPUSH Q8H [facility] Stop: 10/23/18 18:01 Last Admin: 10/23/18 02:25 Dose: 100 mg Methylprednisolone Sodium Succinate (Solu-Medrol) 100 mg IVPUSH Q12H [facility] Stop: 10/24/18 18:01 Morphine Sulfate (Morphine) 2 mg IVPUSH Q1H PRN PRN Reason: Pain Last Admin: 10/22/18 05:56 Dose: 2 mg Nicotine (Habitrol) 14 mg TRDERM DAILY [facility] Last Admin: 10/22/18 08:09 Dose: 14 mg Ondansetron HCl (Zofran Odt) 4 mg PO Q6H PRN PRN Reason: Nausea Pantoprazole Sodium (Protonix) 40 mg PO ACBREAKFAST [facility] Last Admin: 10/22/18 08:08 Dose: 40 mg Pneumococcal Polyvalent Vaccine (Pneumovax 23) 0.5 ml IM .ONCE ONE Stop: 10/23/18 11:01 Potassium Chloride (Potassium Chloride) 20 meq PO BID [facility] Last Admin: 10/22/18 20:38 Dose: 20 meq Quetiapine Fumarate (Seroquel Xr) 400 mg PO DAILY [facility] Last Admin: 10/22/18 08:09 Dose: 400 mg Sodium Chloride (Saline Flush) 10 ml FLUSH ASDIRECTED PRN PRN Reason: Keep Vein Open Last Admin: 10/16/18 22:55 Dose: 10 ml Discontinued Medications Albuterol (Proventil Neb Soln) 2.5 mg NEB ONETIME ONE Stop: 10/16/18 23:56 Last Admin: 10/16/18 23:57 Dose: 2.5 mg Albuterol (Proventil Neb Soln) Confirm Administered Dose 0.63 mg .ROUTE .STK- MED ONE Stop: 10/16/18 23:56 Last Admin: 10/17/18 02:24 Dose: Not Given Albuterol/Ipratropium (Duoneb 3.0-0.5 Mg/3 Ml) 3 ml NEB ONETIME ONE Stop: 10/16/18 22:43 Last Admin: 10/16/18 22:47 Dose: 3 ml Diltiazem HCl (Diltiazem) 20 mg IVPUSH Q12H [facility] Last Admin: 10/18/18 22:00 Dose: 20 mg Diltiazem HCl (Diltiazem) 20 mg IVPUSH Q6H [facility] Last Admin: 10/19/18 08:08 Dose: 20 mg Diltiazem HCl (Cardizem Cd) 180 mg PO BID [facility] Last Admin: 10/22/18 08:09 Dose: 180 mg Diltiazem HCl (Cardizem Cd) 240 mg PO BID [facility] Last Admin: 10/22/18 10:36 Dose: Not Given Furosemide (Lasix) 20 mg IVPUSH ONETIME ONE Stop: 10/19/18 17:01 Last Admin: 10/19/18 17:12 Dose: 20 mg Heparin Sodium (Porcine) (Heparin Sodium) 5,000 units IVPUSH ONETIME ONE Stop: 10/17/18 05:32 Last Admin: 10/17/18 05:46 Dose: 5,000 units Hydralazine HCl (Apresoline) 10 mg IVPUSH Q4H [facility] Last Admin: 10/19/18 11:32 Dose: 10 mg Sodium Chloride (Normal Saline) 1,000 mls @ 75 mls/hr IV ASDIRECTED [facility] Last Admin: 10/18/18 02:41 Dose: 75 mls/hr Sodium Chloride (Normal Saline) 500 mls @ 1 mls/hr IV .BOLUS ONE Stop: 11/07/18 01:27 Last Admin: 10/17/18 05:47 Dose: 1 mls/hr Propofol (Diprivan 100 Ml) 100 mls @ 1.973 mls/hr IV TITRATE [facility]; Protocol Last Titration: 10/21/18 06:52 Dose: 20 mcg/kg/min, 7.893 mls/hr Piperacillin Sod/Tazobactam (Sod 4.5 gm/ Sodium Chloride) 100 mls @ 200 mls/hr IV Q8H [facility] Last Admin: 10/18/18 07:57 Dose: 200 mls/hr Vancomycin HCl 1 gm/ Sodium (Chloride) 250 mls @ 250 mls/hr IV Q12H [facility] Last Admin: 10/19/18 09:57 Dose: 250 mls/hr Piperacillin/Tazobactam/ (Dextrose 4.5 gm/ Premix) 100 mls @ 200 mls/hr IV Q8H [facility] Last Admin: 10/22/18 08:06 Dose: 200 mls/hr Vancomycin HCl 1.25 gm/ Sodium (Chloride) 250 mls @ 250 mls/hr IV Q12H [facility] Stop: 10/22/18 12:00 Last Admin: 10/22/18 08:10 Dose: 250 mls/hr Diltiazem HCl 125 mg/ Sodium (Chloride) 125 mls @ 5 mls/hr IV TITRATE [facility]; Protocol Last Titration: 10/21/18 12:21 Dose: 0 mg/hr, 0 mls/hr Potassium Chloride 20 meq/ (Premix) 0 mls @ 50 mls/hr IV ONETIME [facility] Stop: 10/24/18 06:01 Premix 1 bag/ Potassium (Chloride) 100 mls @ 50 mls/hr IV Q2H [facility] Stop: 10/20/18 15:59 Last Admin: 10/20/18 05:54 Dose: 50 mls/hr Potassium Chloride 20 meq/Lidocaine HCl 2 ml/ Sodium Chloride 112 mls @ 56 mls/ hr IV Q2H [facility] Stop: 10/20/18 15:59 Last Admin: 10/20/18 14:04 Dose: 56 mls/hr Potassium Chloride 20 meq/ (Premix) 100 mls @ 50 mls/hr IV Q2H [facility] Stop: 10/21/18 03:59 Last Admin: 10/21/18 03:17 Dose: 50 mls/hr Lidocaine HCl (Xylocaine-Mpf 1%) 2 ml INJECT ONETIME ONE Stop: 10/20/18 05:30 Last Admin: 10/20/18 05:54 Dose: 2 ml Lidocaine HCl (Xylocaine 1%) 2 ml INJECT ASDIRECTED PRN PRN Reason: add to potassium Last Admin: 10/21/18 03:17 Dose: 2 ml Lorazepam (Ativan) 0.5 mg IVPUSH ONETIME ONE Stop: 10/16/18 23:39 Last Admin: 10/16/18 23:44 Dose: 0.5 mg Lorazepam (Ativan) 0.25 mg IVPUSH Q2H PRN PRN Reason: Anxiety Last Admin: 10/18/18 13:54 Dose: 0.25 mg Methylprednisolone Sodium Succinate (Solu-Medrol) 125 mg IVPUSH ONETIME ONE Stop: 10/16/18 22:44 Last Admin: 10/16/18 22:55 Dose: 125 mg Methylprednisolone Sodium Succinate (Solu-Medrol) 125 mg IVPUSH Q6H [facility] Methylprednisolone Sodium Succinate (Solu-Medrol) 125 mg IVPUSH Q6H [facility] Last Admin: 10/19/18 05:37 Dose: 125 mg Methylprednisolone Sodium Succinate (Solu-Medrol) 100 mg IVPUSH Q6H [facility] Last Admin: 10/19/18 08:46 Dose: Not Given Methylprednisolone Sodium Succinate (Solu-Medrol) 100 mg IVPUSH Q6H [facility] Last Admin: 10/22/18 17:39 Dose: 100 mg Pantoprazole Sodium (Protonix) 40 mg PO ACBREAKFAST [facility] Last Admin: 10/17/18 07:36 Dose: Not Given Pantoprazole Sodium (Protonix Iv) 40 mg IVPUSH Q12H [facility] Last Admin: 10/21/18 03:16 Dose: 40 mg Pneumococcal Polyvalent Vaccine (Pneumovax 23) 0.5 ml IM .ONCE ONE Stop: 10/20/18 08:01 Last Admin: 10/20/18 08:25 Dose: Not Given Propofol (Diprivan 20 Ml) Confirm Administered Dose 200 mg .ROUTE .STK-MED ONE Stop: 10/17/18 06:29 - Exam General: Cooperative, Moderate Distress HEENT: Pupils Equal Neck: No JVD Lungs: Wheezing Cardiovascular: Regular Rate GI/Abdominal Exam: Normal Bowel Sounds Back Exam: Normal Inspection, Full Range of Motion Extremities: Normal Inspection Skin: Warm, Dry, Intact Neurological: No New Focal Deficit Psy/Mental Status: Anxious - Problem List Review Problem List Initiated/Reviewed/Updated: Yes - My Orders Last 24 Hours: My Active Orders 10/22/18 07:30 Pantoprazole [ProTONIX] 40 mg PO ACBREAKFAST 10/22/18 09:55 Magnesium Hydroxide [Milk of Magnesia] 30 ml PO DAILY PRN 10/22/18 12:00 Potassium Chloride 20 meq PO BID 10/22/18 14:36 Consult to Physical Therapy [PT Evaluation and Treatment] [CONS] Routine 10/22/18 16:00 Piperacillin/Tazobactam [Zosyn] 4.5 gm Sodium Chloride 0.9% [Normal Saline] 100 ml IV Q8H 10/22/18 18:21 Code Status [Resuscitation Status] Routine 10/22/18 18:43 Communication Order [RC] ASDIRECTED 10/22/18 20:00 Vancomycin 1.5 gm Sodium Chloride 0.9% [Normal Saline] 250 ml IV Q12H 10/22/18 21:00 Diltiazem [Cardizem CD] 180 mg PO BID 10/23/18 02:00 methylPREDNISolone Sod Succ [Solu-MEDROL] 100 mg IVPUSH Q8H 10/23/18 11:00 Pneumococcal Polyvalent-23 Vac [Pneumovax 23] 0.5 ml IM .ONCE ONE 10/24/18 06:00 methylPREDNISolone Sod Succ [Solu-MEDROL] 100 mg IVPUSH Q12H - Plan Plan:: Assessment/Plan: #1. COPD: Appears alert and has no complaints. She is a chronic retainer of CO2. She is off and on Bi-Pap. She asked never to be intubated again. Will continue to kaleigh cortisone. #2. Emphysema: #3. Hypothyroidism: Continue with meds. #4. Nicotine addiction: She is stable and mentally stable presently.
[2018-10-23] MEDS: Pantoprazole 40 MG Tab.CR PO SCH (07:51)
[2018-10-23] MEDS: Levothyroxine 112 MCG Tab PO SCH (07:51)
[2018-10-23] MEDS: DULoxetine 30 MG Cap PO SCH (08:13)
[2018-10-23] MEDS: Nicotine 14 MG/24 Hr Patch TRDERM SCH (08:13)
[2018-10-23] MEDS: ARIPiprazole 10 MG Tab PO SCH (08:13)
[2018-10-23] MEDS: QUEtiapine 50 MG Tab.SR PO SCH (08:14)
[2018-10-23] MEDS: Potassium Chloride 10 MEQ Cap.ER PO SCH ×4 (08:14→22:06)
[2018-10-23] MEDS: Diltiazem 180 MG Cap.CD PO SCH ×2 (09:51→22:06)
[2018-10-23] MEDS ORDERED: Pneumococcal Polyvalent-23 Vaccine 0.5 ML SDV IM ONE (11:00)
[2018-10-23] MEDS: Sodium Chloride 0.9% 1,000 ML IV SCH (12:26)
[2018-10-23] MEDS: Morphine 2 MG/ML Syringe IVPUSH PRN (12:30)
[2018-10-24] MEDS: Sodium Chloride 0.9% 1,000 ML IV SCH (03:39)
--- NOTE | 2018-10-24 05:08 | CRLCR ---
INDICATION: Congestion. Oxygen requirement. COMPARISON: 10/21/2018. FINDINGS/IMPRESSION: Interval removal of previously seen endotracheal tube and nasogastric tube. No significant change in bibasilar opacities consistent with mild atelectasis and/or consolidation. Unchanged blunting of the costophrenic angles suggesting trace bilateral pleural effusions. Stable upper normal heart size. No acute osseous findings. Dictated by Dipak Roberts MD @ 10/24/2018 5:08:05 AM Dictated by: Dipak Roberts MD @ 10/24/2018 05:08:11 (Electronically Signed)
[2018-10-24] MEDS ORDERED: methylPREDNISolone Sodium Succinate 125 MG/2 ML SDV IVPUSH SCH (06:00)
[2018-10-24] MEDS: LORazepam 2 MG/ML SDV IVPUSH PRN ×2 (06:20→23:50)
[2018-10-24] MEDS: Albuterol/Ipratropium 3.0-0.5 MG/3 ML Neb Soln NEB SCH ×4 (07:04→20:13)
[2018-10-24] MEDS: Piperacillin/Tazobactam 4.5 GM in Sodium Chloride 0.9% 100 ML IV SCH (07:29)
[2018-10-24] MEDS ORDERED: Potassium Chloride 10 MEQ Cap.ER PO SCH (08:00)
[2018-10-24] MEDS: Pantoprazole 40 MG Tab.CR PO SCH (08:11)
[2018-10-24] MEDS: Levothyroxine 112 MCG Tab PO SCH (08:12)
[2018-10-24] MEDS: Nicotine 14 MG/24 Hr Patch TRDERM SCH (08:12)
[2018-10-24] MEDS: QUEtiapine 50 MG Tab.SR PO SCH (08:18)
[2018-10-24] MEDS: methylPREDNISolone Sodium Succinate 125 MG/2 ML SDV IVPUSH SCH ×2 (08:19→20:11)
[2018-10-24] MEDS: Potassium Chloride 10 MEQ Cap.ER PO SCH ×4 (08:19→22:51)
[2018-10-24] MEDS: ARIPiprazole 10 MG Tab PO SCH (08:20)
[2018-10-24] MEDS: Furosemide 20 MG/2 ML VIAL IVPUSH SCH ×2 (08:21→20:14)
[2018-10-24] MEDS: Diltiazem 180 MG Cap.CD PO SCH ×2 (08:21→22:54)
[2018-10-24] MEDS: DULoxetine 30 MG Cap PO SCH (08:21)
[2018-10-24] MEDS: cefTRIAXone 1 GM in Sodium Chloride 0.9% 50 ML IV SCH (16:45)
[2018-10-24] MEDS: LORazepam 0.5 MG Tab PO PRN (17:49)
--- NOTE | 2018-10-24 19:26 | PCM.PN ---
- General Info Date of Service: 10/24/18 Admission Dx/Problem (Free Text): Has been on bipap today and does better in the mornings. She is more fatigued in the morning. Functional Status: Reports: Pain Controlled, Tolerating Diet - Review of Systems General: Reports: Weakness HEENT: Reports: No Symptoms Pulmonary: Reports: Shortness of Breath, Wheezing Cardiovascular: Reports: No Symptoms Gastrointestinal: Reports: No Symptoms, Decreased Appetite Genitourinary: Reports: No Symptoms Musculoskeletal: Reports: Joint Pain Skin: Reports: No Symptoms Neurological: Reports: No Symptoms Psychiatric: Reports: Depression - Patient Data Vitals - Most Recent: Last Vital Signs Temp 97.6 F 10/24/18 17:51 Pulse 103 H 10/24/18 17:51 Resp 30 H 10/24/18 17:51 BP 137/63 10/24/18 16:00 Pulse Ox 85 L 10/24/18 17:51 Weight - Most Recent: 178 lb 11.2 oz I&O - Last 24 Hours: Intake & Output 10/24/18 10/24/18 10/24/18 06:59 14:59 22:59 Intake Total 946 550 862 Output Total 525 1825 475 Balance 421 -0666 387 Lab Results Last 24 Hours: Laboratory Results - last 24 hr 10/24/18 10/24/18 10/24/18 Range/Units 05:00 05:00 05:40 WBC 17.2 H (4.5-11.0) K/uL RBC 3.97 (3.30-5.50) M/uL Hgb 11.5 L (12.0-15.0) g/dL Hct 37.8 (36.0-48.0) % MCV 95 (80-98) fL MCH 29 (27-31) pg MCHC 30 L (32-36) % Plt Count 256 (150-400) K/uL Puncture Site Rt radial ABG pH 7.401 (7.350-7.450) ABG pCO2 52.5 H (35.0-42.0) mmHg ABG pO2 59.2 L (75.0-100.0) mmHg ABG HCO3 31.9 H (22.0-26.0) mmol/L ABG Total CO2 29.1 H (21.0-25.0) mmol/L ABG O2 Saturation 89.4 L (95.0-98.0) % ABG O2 Content 14.4 L (15.0-23.0) %vol ABG Base Excess 6.4 mm/L ABG Hemoglobin 11.7 L (12.0-16.0) g/dL ABG Oxyhemoglobin 87.9 % ABG Carboxyhemoglobin 0.7 (0.0-1.6) % ABG Methemoglobin 1.0 % Timmy Test Pass O2 Delivery Device Bipap Oxygen Flow Rate L Sodium 149 H (140-148) mmol/L Potassium 3.5 L (3.6-5.2) mmol/L Chloride 111 H (100-108) mmol/L Carbon Dioxide 32 (21-32) mmol/L Anion Gap 9.5 (5.0-14.0) mmol/L BUN 22 H (7-18) mg/dL Creatinine 0.6 (0.6-1.0) mg/dL Est Cr Clr Drug Dosing 54.61 mL/min Estimated GFR (MDRD) > 60 (>60) Glucose 146 H (74-106) mg/dL Calcium 7.4 L (8.5-10.1) mg/dL Med Orders - Current: Current Medications Albuterol (Proventil Neb Soln) 2.5 mg NEB Q4H PRN PRN Reason: Cough Last Admin: 10/23/18 02:31 Dose: 2.5 mg Albuterol/Ipratropium (Duoneb 3.0-0.5 Mg/3 Ml) 3 ml NEB QIDRT [facility] Last Admin: 10/24/18 14:26 Dose: 3 ml Aripiprazole (Abilify) 10 mg PO DAILY [facility] Last Admin: 10/24/18 08:20 Dose: 10 mg Azithromycin (Zithromax) 500 mg PO DAILY [facility] Diltiazem HCl (Cardizem Cd) 180 mg PO BID [facility] Last Admin: 10/24/18 08:21 Dose: 180 mg Duloxetine HCl (Cymbalta) 60 mg PO DAILY [facility] Last Admin: 10/24/18 08:21 Dose: 60 mg Furosemide (Lasix) 20 mg IVPUSH BID [facility] Stop: 10/25/18 21:01 Last Admin: 10/24/18 08:21 Dose: 20 mg Sodium Chloride (Normal Saline) 1,000 mls @ 0 mls/hr IV ASDIRECTED [facility] Last Admin: 10/24/18 03:39 Dose: 125 mls/hr Ceftriaxone Sodium 1 gm/ (Sodium Chloride) 50 mls @ 100 mls/hr IV Q24H [facility] Last Admin: 10/24/18 16:45 Dose: 100 mls/hr Ketorolac Tromethamine (Toradol) 30 mg IVPUSH Q8H PRN PRN Reason: Pain Stop: 10/25/18 08:15 Last Admin: 10/20/18 22:26 Dose: 30 mg Levothyroxine Sodium (Levothyroxine) 112 mcg PO ACBREAKFAST [facility] Last Admin: 10/24/18 08:12 Dose: 112 mcg Lorazepam (Ativan) 0.5 mg PO Q4H PRN PRN Reason: Anxiety Last Admin: 10/24/18 17:49 Dose: 0.5 mg Lorazepam (Ativan) 0.5 mg IVPUSH Q2H PRN PRN Reason: Anxiety Last Admin: 10/24/18 06:20 Dose: 0.5 mg Magnesium Hydroxide (Milk Of Magnesia) 30 ml PO DAILY PRN PRN Reason: Constipation Last Admin: 10/23/18 07:51 Dose: 30 ml Methylprednisolone Sodium Succinate (Solu-Medrol) 75 mg IVPUSH Q12H [facility] Stop: 10/24/18 20:01 Last Admin: 10/24/18 08:19 Dose: 75 mg Methylprednisolone Sodium Succinate (Solu-Medrol) 50 mg IVPUSH Q12H [facility] Stop: 10/25/18 20:01 Morphine Sulfate (Morphine) 2 mg IVPUSH Q1H PRN PRN Reason: Pain Last Admin: 10/23/18 12:30 Dose: 2 mg Nicotine (Habitrol) 14 mg TRDERM DAILY [facility] Last Admin: 10/24/18 08:12 Dose: 14 mg Ondansetron HCl (Zofran Odt) 4 mg PO Q6H PRN PRN Reason: Nausea Pantoprazole Sodium (Protonix) 40 mg PO ACBREAKFAST [facility] Last Admin: 10/24/18 08:11 Dose: 40 mg Pneumococcal Polyvalent Vaccine (Pneumovax 23) 0.5 ml IM .ONCE ONE Stop: 10/25/18 10:01 Potassium Chloride (Potassium Chloride) 20 meq PO QID [facility] Last Admin: 10/24/18 16:38 Dose: 20 meq Quetiapine Fumarate (Seroquel Xr) 400 mg PO DAILY [facility] Last Admin: 10/24/18 08:18 Dose: 400 mg Sodium Chloride (Saline Flush) 10 ml FLUSH ASDIRECTED PRN PRN Reason: Keep Vein Open Last Admin: 10/16/18 22:55 Dose: 10 ml Discontinued Medications Albuterol (Proventil Neb Soln) 2.5 mg NEB ONETIME ONE Stop: 10/16/18 23:56 Last Admin: 10/16/18 23:57 Dose: 2.5 mg Albuterol (Proventil Neb Soln) Confirm Administered Dose 0.63 mg .ROUTE .STK- MED ONE Stop: 10/16/18 23:56 Last Admin: 10/17/18 02:24 Dose: Not Given Albuterol/Ipratropium (Duoneb 3.0-0.5 Mg/3 Ml) 3 ml NEB ONETIME ONE Stop: 10/16/18 22:43 Last Admin: 10/16/18 22:47 Dose: 3 ml Diltiazem HCl (Diltiazem) 20 mg IVPUSH Q12H [facility] Last Admin: 10/18/18 22:00 Dose: 20 mg Diltiazem HCl (Diltiazem) 20 mg IVPUSH Q6H [facility] Last Admin: 10/19/18 08:08 Dose: 20 mg Diltiazem HCl (Cardizem Cd) 180 mg PO BID [facility] Last Admin: 10/22/18 08:09 Dose: 180 mg Diltiazem HCl (Cardizem Cd) 240 mg PO BID [facility] Last Admin: 10/22/18 10:36 Dose: Not Given Furosemide (Lasix) 20 mg IVPUSH ONETIME ONE Stop: 10/19/18 17:01 Last Admin: 10/19/18 17:12 Dose: 20 mg Heparin Sodium (Porcine) (Heparin Sodium) 5,000 units IVPUSH ONETIME ONE Stop: 10/17/18 05:32 Last Admin: 10/17/18 05:46 Dose: 5,000 units Hydralazine HCl (Apresoline) 10 mg IVPUSH Q4H [facility] Last Admin: 10/19/18 11:32 Dose: 10 mg Sodium Chloride (Normal Saline) 1,000 mls @ 75 mls/hr IV ASDIRECTED [facility] Last Admin: 10/18/18 02:41 Dose: 75 mls/hr Sodium Chloride (Normal Saline) 500 mls @ 1 mls/hr IV .BOLUS ONE Stop: 11/07/18 01:27 Last Admin: 10/17/18 05:47 Dose: 1 mls/hr Propofol (Diprivan 100 Ml) 100 mls @ 1.973 mls/hr IV TITRATE [facility]; Protocol Last Titration: 10/21/18 06:52 Dose: 20 mcg/kg/min, 7.893 mls/hr Piperacillin Sod/Tazobactam (Sod 4.5 gm/ Sodium Chloride) 100 mls @ 200 mls/hr IV Q8H [facility] Last Admin: 10/18/18 07:57 Dose: 200 mls/hr Vancomycin HCl 1 gm/ Sodium (Chloride) 250 mls @ 250 mls/hr IV Q12H [facility] Last Admin: 10/19/18 09:57 Dose: 250 mls/hr Heparin Sodium (Porcine) 5,000 (units/ Sodium Chloride) 501 mls @ 0 mls/hr IV ASDIRECTED [facility]; Protocol Last Admin: 10/20/18 09:48 Dose: 1 unit/hr, 0.1 mls/hr Piperacillin/Tazobactam/ (Dextrose 4.5 gm/ Premix) 100 mls @ 200 mls/hr IV Q8H [facility] Last Admin: 10/22/18 08:06 Dose: 200 mls/hr Vancomycin HCl 1.25 gm/ Sodium (Chloride) 250 mls @ 250 mls/hr IV Q12H [facility] Stop: 10/22/18 12:00 Last Admin: 10/22/18 08:10 Dose: 250 mls/hr Diltiazem HCl 125 mg/ Sodium (Chloride) 125 mls @ 5 mls/hr IV TITRATE [facility]; Protocol Last Titration: 10/21/18 12:21 Dose: 0 mg/hr, 0 mls/hr Potassium Chloride 20 meq/ (Premix) 0 mls @ 50 mls/hr IV ONETIME [facility] Stop: 10/24/18 06:01 Premix 1 bag/ Potassium (Chloride) 100 mls @ 50 mls/hr IV Q2H [facility] Stop: 10/20/18 15:59 Last Admin: 10/20/18 05:54 Dose: 50 mls/hr Potassium Chloride 20 meq/Lidocaine HCl 2 ml/ Sodium Chloride 112 mls @ 56 mls/ hr IV Q2H [facility] Stop: 10/20/18 15:59 Last Admin: 10/20/18 14:04 Dose: 56 mls/hr Potassium Chloride 20 meq/ (Premix) 100 mls @ 50 mls/hr IV Q2H [facility] Stop: 10/21/18 03:59 Last Admin: 10/21/18 03:17 Dose: 50 mls/hr Vancomycin HCl 1.5 gm/ Sodium (Chloride) 250 mls @ 250 mls/hr IV Q12H [facility] Last Admin: 10/24/18 08:05 Dose: 250 mls/hr Piperacillin Sod/Tazobactam (Sod 4.5 gm/ Sodium Chloride) 100 mls @ 200 mls/hr IV Q8H [facility] Last Admin: 10/24/18 07:29 Dose: 200 mls/hr Lidocaine HCl (Xylocaine-Mpf 1%) 2 ml INJECT ONETIME ONE Stop: 10/20/18 05:30 Last Admin: 10/20/18 05:54 Dose: 2 ml Lidocaine HCl (Xylocaine 1%) 2 ml INJECT ASDIRECTED PRN PRN Reason: add to potassium Last Admin: 10/21/18 03:17 Dose: 2 ml Lorazepam (Ativan) 0.5 mg IVPUSH ONETIME ONE Stop: 10/16/18 23:39 Last Admin: 10/16/18 23:44 Dose: 0.5 mg Lorazepam (Ativan) 0.25 mg IVPUSH Q2H PRN PRN Reason: Anxiety Last Admin: 10/18/18 13:54 Dose: 0.25 mg Methylprednisolone Sodium Succinate (Solu-Medrol) 125 mg IVPUSH ONETIME ONE Stop: 10/16/18 22:44 Last Admin: 10/16/18 22:55 Dose: 125 mg Methylprednisolone Sodium Succinate (Solu-Medrol) 125 mg IVPUSH Q6H [facility] Methylprednisolone Sodium Succinate (Solu-Medrol) 125 mg IVPUSH Q6H [facility] Last Admin: 10/19/18 05:37 Dose: 125 mg Methylprednisolone Sodium Succinate (Solu-Medrol) 100 mg IVPUSH Q6H [facility] Last Admin: 10/19/18 08:46 Dose: Not Given Methylprednisolone Sodium Succinate (Solu-Medrol) 100 mg IVPUSH Q6H [facility] Last Admin: 10/22/18 17:39 Dose: 100 mg Methylprednisolone Sodium Succinate (Solu-Medrol) 100 mg IVPUSH Q8H [facility] Stop: 10/23/18 18:01 Last Admin: 10/23/18 17:06 Dose: 100 mg Methylprednisolone Sodium Succinate (Solu-Medrol) 100 mg IVPUSH Q12H [facility] Stop: 10/24/18 18:01 Last Admin: 10/24/18 06:06 Dose: 100 mg Pantoprazole Sodium (Protonix) 40 mg PO ACBREAKFAST [facility] Last Admin: 10/17/18 07:36 Dose: Not Given Pantoprazole Sodium (Protonix Iv) 40 mg IVPUSH Q12H [facility] Last Admin: 10/21/18 03:16 Dose: 40 mg Pneumococcal Polyvalent Vaccine (Pneumovax 23) 0.5 ml IM .ONCE ONE Stop: 10/20/18 08:01 Last Admin: 10/20/18 08:25 Dose: Not Given Potassium Chloride (Potassium Chloride) 20 meq PO BID [facility] Last Admin: 10/22/18 20:38 Dose: 20 meq Potassium Chloride (Potassium Chloride) 20 meq PO TID [facility] Last Admin: 10/23/18 22:06 Dose: 20 meq Potassium Chloride (Potassium Chloride) 20 meq PO QID [facility] Propofol (Diprivan 20 Ml) Confirm Administered Dose 200 mg .ROUTE .STK-MED ONE Stop: 10/17/18 06:29 - Exam General: Cooperative, Moderate Distress HEENT: Pupils Equal, Pupils Reactive Neck: No JVD Lungs: Wheezing Cardiovascular: Regular Rate GI/Abdominal Exam: Normal Bowel Sounds, Soft, Non-Tender, No Organomegaly, No Distention Peripheral Pulses: 1+: Carotid (L), Carotid (R), Radial (L), Radial (R) Skin: Warm, Dry, Intact Neurological: No New Focal Deficit Psy/Mental Status: Anxious - Problem List Review Problem List Initiated/Reviewed/Updated: Yes - My Orders Last 24 Hours: My Active Orders 10/24/18 08:00 methylPREDNISolone Sod Succ [Solu-MEDROL] 75 mg IVPUSH Q12H 10/24/18 08:15 Potassium Chloride 20 meq PO QID 10/24/18 09:00 Furosemide [Lasix] 20 mg IVPUSH BID 10/24/18 10:34 Dietary Supplements [RC] BIDMEALS 10/24/18 16:00 cefTRIAXone [Rocephin] 1 gm Sodium Chloride 0.9% [Normal Saline] 50 ml IV Q24H 10/25/18 05:11 BLOOD GAS ARTERIAL [BG] Routine CBC WITH AUTO DIFF [HEME] Routine COMPREHENSIVE METABOLIC PN,CMP [CHEM] Routine 10/25/18 08:00 methylPREDNISolone Sod Succ [Solu-MEDROL] 50 mg IVPUSH Q12H 10/25/18 09:00 Azithromycin [Zithromax] 500 mg PO DAILY 10/25/18 10:00 Pneumococcal Polyvalent-23 Vac [Pneumovax 23] 0.5 ml IM .ONCE ONE - Plan Plan:: Assessment/Plan: #1. COPD: Appears alert and has no complaints. She is a chronic retainer of CO2. She is off and on Bi-Pap. She asked never to be intubated again. Will continue to kaleigh cortisone. #2. Emphysema: #3. Hypothyroidism: Continue with meds. #4. Nicotine addiction: She is stable and mentally stable presently. She was over loaded with fluid but stable presently and meds. The CXR Showed no significant change in bibasilar opacities consistent with mild atelectasis and/or consolidation. Unchanged blunting of the costophrenic angles suggesting trace bilateral pleural effusions. I & O showed O/I at 652/ 457. WBC up to 17.2 with Hb 11.5. K up to 3.5 creat. stable. Overall prognosis guarded. She will need more care than what she can get at home.
[2018-10-24] MEDS: Morphine 2 MG/ML Syringe IVPUSH PRN (22:50)
[2018-10-25] MEDS: Morphine 2 MG/ML Syringe IVPUSH PRN ×5 (01:11→13:20)
[2018-10-25] MEDS: LORazepam 2 MG/ML SDV IVPUSH PRN ×3 (02:00→22:57)
[2018-10-25] MEDS: Potassium Chloride 10 MEQ Cap.ER PO SCH ×4 (06:06→20:08)
[2018-10-25] MEDS: Albuterol/Ipratropium 3.0-0.5 MG/3 ML Neb Soln NEB SCH ×4 (07:02→20:19)
[2018-10-25] MEDS: Levothyroxine 112 MCG Tab PO SCH (08:15)
[2018-10-25] MEDS: Pantoprazole 40 MG Tab.CR PO SCH (08:15)
[2018-10-25] MEDS: methylPREDNISolone Sodium Succinate 125 MG/2 ML SDV IVPUSH SCH ×2 (08:20→20:10)
[2018-10-25] MEDS: LORazepam 0.5 MG Tab PO PRN ×2 (08:23→20:09)
[2018-10-25] MEDS: DULoxetine 30 MG Cap PO SCH (08:51)
[2018-10-25] MEDS: ARIPiprazole 10 MG Tab PO SCH (08:51)
[2018-10-25] MEDS: Azithromycin 250 MG Tab PO SCH (08:51)
[2018-10-25] MEDS: Nicotine 14 MG/24 Hr Patch TRDERM SCH (08:52)
[2018-10-25] MEDS: Furosemide 20 MG/2 ML VIAL IVPUSH SCH ×2 (08:56→20:16)
[2018-10-25] MEDS: QUEtiapine 50 MG Tab.SR PO SCH (08:59)
[2018-10-25] MEDS: Ketorolac 30 MG/ML SDV IVPUSH PRN ×3 (09:10→22:58)
[2018-10-25] MEDS: Diltiazem 120 MG Cap.CD PO SCH ×2 (09:51→20:09)
[2018-10-25] MEDS: Sodium Chloride 0.9% 1,000 ML IV SCH (09:52)
[2018-10-25] MEDS ORDERED: Pneumococcal Polyvalent-23 Vaccine 0.5 ML SDV IM ONE (10:00)
[2018-10-25] MEDS: cefTRIAXone 1 GM in Sodium Chloride 0.9% 50 ML IV SCH (15:58)
--- NOTE | 2018-10-25 17:25 | PCM.PN ---
- General Info Date of Service: 10/25/18 Admission Dx/Problem (Free Text): She is very weak with little energy. Unable to get out of bed without help. Functional Status: Reports: Pain Controlled - Review of Systems General: Reports: Weakness, Fatigue HEENT: Reports: No Symptoms Pulmonary: Reports: No Symptoms, Shortness of Breath, Wheezing Cardiovascular: Reports: No Symptoms Gastrointestinal: Reports: No Symptoms Genitourinary: Reports: No Symptoms Neurological: Reports: Weakness, Gait Disturbance - Patient Data Vitals - Most Recent: Last Vital Signs Temp 97.0 F 10/25/18 15:59 Pulse 97 10/25/18 15:59 Resp 16 10/25/18 15:59 BP 152/65 H 10/25/18 15:59 Pulse Ox 92 L 10/25/18 15:59 Weight - Most Recent: 194 lb 0.208 oz I&O - Last 24 Hours: Intake & Output 10/25/18 10/25/18 10/25/18 06:59 14:59 22:59 Intake Total 306 30 Output Total 2550 1800 Balance -2244 -1770 Lab Results Last 24 Hours: Laboratory Results - last 24 hr 10/25/18 10/25/18 10/25/18 Range/Units 05:11 05:30 05:30 WBC 17.7 H (4.5-11.0) K/uL RBC 3.67 (3.30-5.50) M/uL Hgb 11.0 L (12.0-15.0) g/dL Hct 34.5 L (36.0-48.0) % MCV 94 (80-98) fL MCH 30 (27-31) pg MCHC 32 (32-36) % Plt Count 255 (150-400) K/uL Neut % (Auto) 93 H (36-66) % Lymph % (Auto) 2 L (24-44) % [place] % (Auto) 5 (2-6) % Eos % (Auto) 0 L (2-4) % Baso % (Auto) 0 (0-1) % Puncture Site R radial ABG pH 7.440 (7.350-7.450) ABG pCO2 55.1 H (35.0-42.0) mmHg ABG pO2 57.4 L (75.0-100.0) mmHg ABG HCO3 36.8 H (22.0-26.0) mmol/L ABG Total CO2 33.5 H (21.0-25.0) mmol/L ABG O2 Saturation 88.8 L (95.0-98.0) % ABG O2 Content 13.6 L (15.0-23.0) %vol ABG Base Excess 11.1 mm/L ABG Hemoglobin 11.1 L (12.0-16.0) g/dL ABG Oxyhemoglobin 87.2 % ABG Carboxyhemoglobin 0.8 (0.0-1.6) % ABG Methemoglobin 1.0 % Timmy Test Ok O2 Delivery Device Bipap Oxygen Flow Rate L Sodium 150 H (140-148) mmol/L Potassium 3.3 L (3.6-5.2) mmol/L Chloride 110 H (100-108) mmol/L Carbon Dioxide 36 H (21-32) mmol/L Anion Gap 7.3 (5.0-14.0) mmol/L BUN 24 H (7-18) mg/dL Creatinine 0.6 (0.6-1.0) mg/dL Est Cr Clr Drug Dosing 54.61 mL/min Estimated GFR (MDRD) > 60 (>60) Glucose 150 H (74-106) mg/dL Calcium 7.7 L (8.5-10.1) mg/dL Total Bilirubin 0.6 D (0.2-1.0) mg/dL AST 33 (15-37) U/L ALT 121 H (12-78) U/L Alkaline Phosphatase 26 L (46-116) U/L Total Protein 5.7 L (6.4-8.2) g/dL Albumin 2.4 L (3.4-5.0) g/dL Globulin 3.3 (2.3-3.5) g/dL Albumin/Globulin Ratio 0.7 L (1.2-2.2) Med Orders - Current: Current Medications Albuterol (Proventil Neb Soln) 2.5 mg NEB Q4H PRN PRN Reason: Cough Last Admin: 10/23/18 02:31 Dose: 2.5 mg Albuterol/Ipratropium (Duoneb 3.0-0.5 Mg/3 Ml) 3 ml NEB QIDRT [facility] Last Admin: 10/25/18 14:43 Dose: 3 ml Aripiprazole (Abilify) 10 mg PO DAILY [facility] Last Admin: 10/25/18 08:51 Dose: 10 mg Azithromycin (Zithromax) 500 mg PO DAILY [facility] Last Admin: 10/25/18 08:51 Dose: 500 mg Diltiazem HCl (Cardizem Cd) 240 mg PO BID [facility] Last Admin: 10/25/18 09:51 Dose: 240 mg Duloxetine HCl (Cymbalta) 60 mg PO DAILY [facility] Last Admin: 10/25/18 08:51 Dose: 60 mg Furosemide (Lasix) 20 mg IVPUSH BID [facility] Stop: 10/25/18 21:01 Last Admin: 10/25/18 08:56 Dose: 20 mg Sodium Chloride (Normal Saline) 1,000 mls @ 0 mls/hr IV ASDIRECTED [facility] Last Admin: 10/25/18 09:52 Dose: 125 mls/hr Ceftriaxone Sodium 1 gm/ (Sodium Chloride) 50 mls @ 100 mls/hr IV Q24H [facility] Last Admin: 10/25/18 15:58 Dose: 100 mls/hr Ketorolac Tromethamine (Toradol) 30 mg IVPUSH Q6H PRN PRN Reason: pain Stop: 10/30/18 13:08 Last Admin: 10/25/18 16:10 Dose: 30 mg Levothyroxine Sodium (Levothyroxine) 112 mcg PO ACBREAKFAST [facility] Last Admin: 10/25/18 08:15 Dose: 112 mcg Lorazepam (Ativan) 0.5 mg PO Q4H PRN PRN Reason: Anxiety Last Admin: 10/25/18 08:23 Dose: 0.5 mg Lorazepam (Ativan) 0.5 mg IVPUSH Q2H PRN PRN Reason: Anxiety Last Admin: 10/25/18 06:06 Dose: 0.5 mg Magnesium Hydroxide (Milk Of Magnesia) 30 ml PO DAILY PRN PRN Reason: Constipation Last Admin: 10/23/18 07:51 Dose: 30 ml Methylprednisolone Sodium Succinate (Solu-Medrol) 50 mg IVPUSH Q12H [facility] Stop: 10/25/18 20:01 Last Admin: 10/25/18 08:20 Dose: 50 mg Morphine Sulfate (Morphine) 2 mg IVPUSH Q1H PRN PRN Reason: Pain Last Admin: 10/25/18 13:20 Dose: 2 mg Nicotine (Habitrol) 14 mg TRDERM DAILY [facility] Last Admin: 10/25/18 08:52 Dose: 14 mg Ondansetron HCl (Zofran Odt) 4 mg PO Q6H PRN PRN Reason: Nausea Pantoprazole Sodium (Protonix) 40 mg PO ACBREAKFAST [facility] Last Admin: 10/25/18 08:15 Dose: 40 mg Pneumococcal Polyvalent Vaccine (Pneumovax 23) 0.5 ml IM .ONCE ONE Stop: 10/27/18 14:01 Potassium Chloride (Potassium Chloride) 20 meq PO QID [facility] Last Admin: 10/25/18 15:52 Dose: 20 meq Quetiapine Fumarate (Seroquel Xr) 400 mg PO DAILY [facility] Last Admin: 10/25/18 08:59 Dose: 400 mg Sodium Chloride (Saline Flush) 10 ml FLUSH ASDIRECTED PRN PRN Reason: Keep Vein Open Last Admin: 10/16/18 22:55 Dose: 10 ml Discontinued Medications Albuterol (Proventil Neb Soln) 2.5 mg NEB ONETIME ONE Stop: 10/16/18 23:56 Last Admin: 10/16/18 23:57 Dose: 2.5 mg Albuterol (Proventil Neb Soln) Confirm Administered Dose 0.63 mg .ROUTE .STK- MED ONE Stop: 10/16/18 23:56 Last Admin: 10/17/18 02:24 Dose: Not Given Albuterol/Ipratropium (Duoneb 3.0-0.5 Mg/3 Ml) 3 ml NEB ONETIME ONE Stop: 10/16/18 22:43 Last Admin: 10/16/18 22:47 Dose: 3 ml Diltiazem HCl (Diltiazem) 20 mg IVPUSH Q12H [facility] Last Admin: 10/18/18 22:00 Dose: 20 mg Diltiazem HCl (Diltiazem) 20 mg IVPUSH Q6H [facility] Last Admin: 10/19/18 08:08 Dose: 20 mg Diltiazem HCl (Cardizem Cd) 180 mg PO BID [facility] Last Admin: 10/22/18 08:09 Dose: 180 mg Diltiazem HCl (Cardizem Cd) 240 mg PO BID [facility] Last Admin: 10/22/18 10:36 Dose: Not Given Diltiazem HCl (Cardizem Cd) 180 mg PO BID [facility] Last Admin: 10/24/18 22:54 Dose: 180 mg Furosemide (Lasix) 20 mg IVPUSH ONETIME ONE Stop: 10/19/18 17:01 Last Admin: 10/19/18 17:12 Dose: 20 mg Heparin Sodium (Porcine) (Heparin Sodium) 5,000 units IVPUSH ONETIME ONE Stop: 10/17/18 05:32 Last Admin: 10/17/18 05:46 Dose: 5,000 units Hydralazine HCl (Apresoline) 10 mg IVPUSH Q4H [facility] Last Admin: 10/19/18 11:32 Dose: 10 mg Sodium Chloride (Normal Saline) 1,000 mls @ 75 mls/hr IV ASDIRECTED [facility] Last Admin: 10/18/18 02:41 Dose: 75 mls/hr Sodium Chloride (Normal Saline) 500 mls @ 1 mls/hr IV .BOLUS ONE Stop: 11/07/18 01:27 Last Admin: 10/17/18 05:47 Dose: 1 mls/hr Propofol (Diprivan 100 Ml) 100 mls @ 1.973 mls/hr IV TITRATE [facility]; Protocol Last Titration: 10/21/18 06:52 Dose: 20 mcg/kg/min, 7.893 mls/hr Piperacillin Sod/Tazobactam (Sod 4.5 gm/ Sodium Chloride) 100 mls @ 200 mls/hr IV Q8H [facility] Last Admin: 10/18/18 07:57 Dose: 200 mls/hr Vancomycin HCl 1 gm/ Sodium (Chloride) 250 mls @ 250 mls/hr IV Q12H [facility] Last Admin: 10/19/18 09:57 Dose: 250 mls/hr Heparin Sodium (Porcine) 5,000 (units/ Sodium Chloride) 501 mls @ 0 mls/hr IV ASDIRECTED [facility]; Protocol Last Admin: 10/20/18 09:48 Dose: 1 unit/hr, 0.1 mls/hr Piperacillin/Tazobactam/ (Dextrose 4.5 gm/ Premix) 100 mls @ 200 mls/hr IV Q8H [facility] Last Admin: 10/22/18 08:06 Dose: 200 mls/hr Vancomycin HCl 1.25 gm/ Sodium (Chloride) 250 mls @ 250 mls/hr IV Q12H [facility] Stop: 10/22/18 12:00 Last Admin: 10/22/18 08:10 Dose: 250 mls/hr Diltiazem HCl 125 mg/ Sodium (Chloride) 125 mls @ 5 mls/hr IV TITRATE [facility]; Protocol Last Titration: 10/21/18 12:21 Dose: 0 mg/hr, 0 mls/hr Potassium Chloride 20 meq/ (Premix) 0 mls @ 50 mls/hr IV ONETIME [facility] Stop: 10/24/18 06:01 Premix 1 bag/ Potassium (Chloride) 100 mls @ 50 mls/hr IV Q2H [facility] Stop: 10/20/18 15:59 Last Admin: 10/20/18 05:54 Dose: 50 mls/hr Potassium Chloride 20 meq/Lidocaine HCl 2 ml/ Sodium Chloride 112 mls @ 56 mls/ hr IV Q2H [facility] Stop: 10/20/18 15:59 Last Admin: 10/20/18 14:04 Dose: 56 mls/hr Potassium Chloride 20 meq/ (Premix) 100 mls @ 50 mls/hr IV Q2H [facility] Stop: 10/21/18 03:59 Last Admin: 10/21/18 03:17 Dose: 50 mls/hr Vancomycin HCl 1.5 gm/ Sodium (Chloride) 250 mls @ 250 mls/hr IV Q12H [facility] Last Admin: 10/24/18 08:05 Dose: 250 mls/hr Piperacillin Sod/Tazobactam (Sod 4.5 gm/ Sodium Chloride) 100 mls @ 200 mls/hr IV Q8H [facility] Last Admin: 10/24/18 07:29 Dose: 200 mls/hr Ketorolac Tromethamine (Toradol) 30 mg IVPUSH Q8H PRN PRN Reason: Pain Stop: 10/25/18 08:15 Last Admin: 10/25/18 09:10 Dose: 30 mg Lidocaine HCl (Xylocaine-Mpf 1%) 2 ml INJECT ONETIME ONE Stop: 10/20/18 05:30 Last Admin: 10/20/18 05:54 Dose: 2 ml Lidocaine HCl (Xylocaine 1%) 2 ml INJECT ASDIRECTED PRN PRN Reason: add to potassium Last Admin: 10/21/18 03:17 Dose: 2 ml Lorazepam (Ativan) 0.5 mg IVPUSH ONETIME ONE Stop: 10/16/18 23:39 Last Admin: 10/16/18 23:44 Dose: 0.5 mg Lorazepam (Ativan) 0.25 mg IVPUSH Q2H PRN PRN Reason: Anxiety Last Admin: 10/18/18 13:54 Dose: 0.25 mg Methylprednisolone Sodium Succinate (Solu-Medrol) 125 mg IVPUSH ONETIME ONE Stop: 10/16/18 22:44 Last Admin: 10/16/18 22:55 Dose: 125 mg Methylprednisolone Sodium Succinate (Solu-Medrol) 125 mg IVPUSH Q6H [facility] Methylprednisolone Sodium Succinate (Solu-Medrol) 125 mg IVPUSH Q6H [facility] Last Admin: 10/19/18 05:37 Dose: 125 mg Methylprednisolone Sodium Succinate (Solu-Medrol) 100 mg IVPUSH Q6H [facility] Last Admin: 10/19/18 08:46 Dose: Not Given Methylprednisolone Sodium Succinate (Solu-Medrol) 100 mg IVPUSH Q6H [facility] Last Admin: 10/22/18 17:39 Dose: 100 mg Methylprednisolone Sodium Succinate (Solu-Medrol) 100 mg IVPUSH Q8H [facility] Stop: 10/23/18 18:01 Last Admin: 10/23/18 17:06 Dose: 100 mg Methylprednisolone Sodium Succinate (Solu-Medrol) 100 mg IVPUSH Q12H [facility] Stop: 10/24/18 18:01 Last Admin: 10/24/18 06:06 Dose: 100 mg Methylprednisolone Sodium Succinate (Solu-Medrol) 75 mg IVPUSH Q12H [facility] Stop: 10/24/18 20:01 Last Admin: 10/24/18 20:11 Dose: 75 mg Pantoprazole Sodium (Protonix) 40 mg PO ACBREAKFAST [facility] Last Admin: 10/17/18 07:36 Dose: Not Given Pantoprazole Sodium (Protonix Iv) 40 mg IVPUSH Q12H [facility] Last Admin: 10/21/18 03:16 Dose: 40 mg Pneumococcal Polyvalent Vaccine (Pneumovax 23) 0.5 ml IM .ONCE ONE Stop: 10/20/18 08:01 Last Admin: 10/20/18 08:25 Dose: Not Given Pneumococcal Polyvalent Vaccine (Pneumovax 23) 0.5 ml IM .ONCE ONE Stop: 10/25/18 10:01 Last Admin: 10/25/18 12:50 Dose: Not Given Potassium Chloride (Potassium Chloride) 20 meq PO BID [facility] Last Admin: 10/22/18 20:38 Dose: 20 meq Potassium Chloride (Potassium Chloride) 20 meq PO TID [facility] Last Admin: 10/23/18 22:06 Dose: 20 meq Potassium Chloride (Potassium Chloride) 20 meq PO QID [facility] Propofol (Diprivan 20 Ml) Confirm Administered Dose 200 mg .ROUTE .STK-MED ONE Stop: 10/17/18 06:29 - Exam General: Cooperative HEENT: Pupils Equal, Pupils Reactive Neck: Supple Lungs: Decreased Breath Sounds, Wheezing Cardiovascular: Regular Rhythm GI/Abdominal Exam: Normal Bowel Sounds, Soft, No Abnormal Bruit Extremities: Normal Inspection Peripheral Pulses: 1+: Brachial (L), Brachial (R) Skin: Warm, Dry, Intact Psy/Mental Status: Normal Affect - Problem List Review Problem List Initiated/Reviewed/Updated: Yes - My Orders Last 24 Hours: My Active Orders 10/25/18 08:00 methylPREDNISolone Sod Succ [Solu-MEDROL] 50 mg IVPUSH Q12H 10/25/18 09:00 Azithromycin [Zithromax] 500 mg PO DAILY Diltiazem [Cardizem CD] 240 mg PO BID Ketorolac [Toradol] 30 mg IVPUSH Q6H PRN 10/25/18 09:54 Admission Status [Patient Status] [ADT] Routine Cardiac Monitoring [RC] .As Directed 10/27/18 14:00 Pneumococcal Polyvalent-23 Vac [Pneumovax 23] 0.5 ml IM .ONCE ONE - Plan Plan:: Assessment/Plan: #1. COPD: Appears alert and has no complaints. She is a chronic retainer of CO2. She is off and on Bi-Pap. She asked never to be intubated again. Will continue to [place] cortisone. #2. Emphysema: #3. Hypothyroidism: Continue with meds. #4. Nicotine addiction: She is stable and mentally stable presently. She was over loaded with fluid but stable presently and meds. The CXR Showed no significant change in bibasilar opacities consistent with mild atelectasis and/or consolidation. Unchanged blunting of the costophrenic angles suggesting trace bilateral pleural effusions. I & O showed O/I good output. WBC up to 17.7 with Hb 11.5. K up to 3.5 creat. stable. Overall prognosis guarded. She will need more care than what she can get at home.
[2018-10-26] MEDS: Morphine 2 MG/ML Syringe IVPUSH PRN ×4 (00:32→22:42)
[2018-10-26] MEDS: LORazepam 2 MG/ML SDV IVPUSH PRN ×2 (02:54→23:24)
[2018-10-26] MEDS: Albuterol/Ipratropium 3.0-0.5 MG/3 ML Neb Soln NEB SCH ×4 (07:02→20:36)
[2018-10-26] MEDS: Sodium Chloride 0.9% 1,000 ML IV SCH (08:00)
[2018-10-26] MEDS: Levothyroxine 112 MCG Tab PO SCH (08:12)
[2018-10-26] MEDS: Pantoprazole 40 MG Tab.CR PO SCH (08:12)
[2018-10-26] MEDS: Azithromycin 250 MG Tab PO SCH (08:13)
[2018-10-26] MEDS: Diltiazem 120 MG Cap.CD PO SCH ×2 (08:15→20:26)
[2018-10-26] MEDS: QUEtiapine 50 MG Tab.SR PO SCH (08:17)
[2018-10-26] MEDS: LORazepam 0.5 MG Tab PO PRN (08:29)
[2018-10-26] MEDS: ARIPiprazole 10 MG Tab PO SCH (08:48)
[2018-10-26] MEDS: DULoxetine 30 MG Cap PO SCH (08:48)
[2018-10-26] MEDS: Nicotine 14 MG/24 Hr Patch TRDERM SCH (08:49)
[2018-10-26] MEDS: Potassium Chloride 10 MEQ Cap.ER PO SCH ×3 (08:49→20:26)
[2018-10-26] MEDS ORDERED: Docusate Sodium 100 MG Cap PO PRN (09:04)
[2018-10-26] MEDS: Doxazosin 4 MG Tab PO SCH (09:18)
[2018-10-26] MEDS: Magnesium Hydroxide 400 MG/5 ML Susp 30 ML Cup PO PRN ×2 (09:19→14:59)
[2018-10-26] MEDS: Ketorolac 30 MG/ML SDV IVPUSH PRN (11:04)
[2018-10-26] MEDS: cefTRIAXone 1 GM in Sodium Chloride 0.9% 50 ML IV SCH (15:00)
--- NOTE | 2018-10-26 15:15 | PCM.PN ---
- General Info Date of Service: 10/26/18 Subjective Update: She is laying in bed very difficult for her to get up she can stand she can't even move around in the bed without at least 2 people helping her. - Review of Systems General: Reports: Weakness, Fatigue HEENT: Reports: Dysphasia Pulmonary: Reports: Shortness of Breath, Wheezing Cardiovascular: Reports: No Symptoms Gastrointestinal: Reports: No Symptoms Skin: Reports: No Symptoms Neurological: Reports: Difficulty Walking, Gait Disturbance Psychiatric: Reports: Depression - Patient Data Vitals - Most Recent: Last Vital Signs Temp 97.7 F 10/26/18 12:00 Pulse 107 H 10/26/18 14:27 Resp 17 10/26/18 12:00 BP 139/80 10/26/18 12:00 Pulse Ox 96 10/26/18 12:00 Weight - Most Recent: 184 lb 8 oz I&O - Last 24 Hours: Intake & Output 10/26/18 10/26/18 10/26/18 06:59 14:59 22:59 Intake Total 734 Output Total 2350 Balance -1616 Med Orders - Current: Current Medications Albuterol (Proventil Neb Soln) 2.5 mg NEB Q4H PRN PRN Reason: Cough Last Admin: 10/23/18 02:31 Dose: 2.5 mg Albuterol/Ipratropium (Duoneb 3.0-0.5 Mg/3 Ml) 3 ml NEB QIDRT [facility] Last Admin: 10/26/18 14:27 Dose: 3 ml Aripiprazole (Abilify) 10 mg PO DAILY [facility] [place] Last Admin: 10/26/18 08:48 Dose: 10 mg Azithromycin (Zithromax) 500 mg PO DAILY [facility] [place] Last Admin: 10/26/18 08:13 Dose: 500 mg Diltiazem HCl (Cardizem Cd) 240 mg PO BID [facility] [place] Last Admin: 10/26/18 08:15 Dose: 240 mg Docusate Sodium (Colace) 100 mg PO BID PRN PRN Reason: Constipation Last Admin: 10/26/18 09:19 Dose: 100 mg Doxazosin Mesylate (Cardura) 2 mg PO DAILY [facility] [place] Last Admin: 10/26/18 09:18 Dose: 2 mg Duloxetine HCl (Cymbalta) 60 mg PO DAILY [facility] [place] Last Admin: 10/26/18 08:48 Dose: 60 mg Sodium Chloride (Normal Saline) 1,000 mls @ 0 mls/hr IV ASDIRECTED [facility] [place] Last Admin: 10/25/18 09:52 Dose: 125 mls/hr Ceftriaxone Sodium 1 gm/ (Sodium Chloride) 50 mls @ 100 mls/hr IV Q24H [facility] [place] Last Admin: 10/26/18 15:00 Dose: 100 mls/hr Ketorolac Tromethamine (Toradol) 30 mg IVPUSH Q6H PRN PRN Reason: pain Stop: 10/30/18 13:08 Last Admin: 10/26/18 11:04 Dose: 30 mg Levothyroxine Sodium (Levothyroxine) 112 mcg PO ACBREAKFAST [facility] [place] Last Admin: 10/26/18 08:12 Dose: 112 mcg Lorazepam (Ativan) 0.5 mg PO Q4H PRN PRN Reason: Anxiety Last Admin: 10/26/18 08:29 Dose: 0.5 mg Lorazepam (Ativan) 0.5 mg IVPUSH Q2H PRN PRN Reason: Anxiety Last Admin: 10/26/18 02:54 Dose: 0.5 mg Magnesium Hydroxide (Milk Of Magnesia) 30 ml PO BID PRN PRN Reason: Constipation Last Admin: 10/26/18 14:59 Dose: 30 ml Morphine Sulfate (Morphine) 2 mg IVPUSH Q1H PRN PRN Reason: Pain Last Admin: 10/26/18 14:40 Dose: 2 mg Nicotine (Habitrol) 14 mg TRDERM DAILY [facility] [place] Last Admin: 10/26/18 08:49 Dose: 14 mg Ondansetron HCl (Zofran Odt) 4 mg PO Q6H PRN PRN Reason: Nausea Pantoprazole Sodium (Protonix) 40 mg PO ACBREAKFAST [facility] [place] Last Admin: 10/26/18 08:12 Dose: 40 mg Pneumococcal Polyvalent Vaccine (Pneumovax 23) 0.5 ml IM .ONCE ONE Stop: 10/27/18 14:01 Potassium Chloride (Potassium Chloride) 40 meq PO TID [facility] [place] Last Admin: 10/26/18 14:47 Dose: 40 meq Quetiapine Fumarate (Seroquel Xr) 400 mg PO DAILY [facility] [place] Last Admin: 10/26/18 08:17 Dose: 400 mg Sodium Chloride (Saline Flush) 10 ml FLUSH ASDIRECTED PRN PRN Reason: Keep Vein Open Last Admin: 10/16/18 22:55 Dose: 10 ml Discontinued Medications Albuterol (Proventil Neb Soln) 2.5 mg NEB ONETIME ONE Stop: 10/16/18 23:56 Last Admin: 10/16/18 23:57 Dose: 2.5 mg Albuterol (Proventil Neb Soln) Confirm Administered Dose 0.63 mg .ROUTE .STK- MED ONE Stop: 10/16/18 23:56 Last Admin: 10/17/18 02:24 Dose: Not Given Albuterol/Ipratropium (Duoneb 3.0-0.5 Mg/3 Ml) 3 ml NEB ONETIME ONE Stop: 10/16/18 22:43 Last Admin: 10/16/18 22:47 Dose: 3 ml Diltiazem HCl (Diltiazem) 20 mg IVPUSH Q12H [facility] [place] Last Admin: 10/18/18 22:00 Dose: 20 mg Diltiazem HCl (Diltiazem) 20 mg IVPUSH Q6H [facility] [place] Last Admin: 10/19/18 08:08 Dose: 20 mg Diltiazem HCl (Cardizem Cd) 180 mg PO BID [facility] [place] Last Admin: 10/22/18 08:09 Dose: 180 mg Diltiazem HCl (Cardizem Cd) 240 mg PO BID [facility] [place] Last Admin: 10/22/18 10:36 Dose: Not Given Diltiazem HCl (Cardizem Cd) 180 mg PO BID [facility] [place] Last Admin: 10/24/18 22:54 Dose: 180 mg Furosemide (Lasix) 20 mg IVPUSH ONETIME ONE Stop: 10/19/18 17:01 Last Admin: 10/19/18 17:12 Dose: 20 mg Furosemide (Lasix) 20 mg IVPUSH BID [facility] Stop: 10/25/18 21:01 Last Admin: 10/25/18 20:16 Dose: 20 mg Heparin Sodium (Porcine) (Heparin Sodium) 5,000 units IVPUSH ONETIME ONE Stop: 10/17/18 05:32 Last Admin: 10/17/18 05:46 Dose: 5,000 units Hydralazine HCl (Apresoline) 10 mg IVPUSH Q4H [facility] [place] Last Admin: 10/19/18 11:32 Dose: 10 mg Sodium Chloride (Normal Saline) 1,000 mls @ 75 mls/hr IV ASDIRECTED [facility] Last Admin: 10/18/18 02:41 Dose: 75 mls/hr Sodium Chloride (Normal Saline) 500 mls @ 1 mls/hr IV .BOLUS ONE Stop: 11/07/18 01:27 Last Admin: 10/17/18 05:47 Dose: 1 mls/hr Propofol (Diprivan 100 Ml) 100 mls @ 1.973 mls/hr IV TITRATE [facility]; Protocol Last Titration: 10/21/18 06:52 Dose: 20 mcg/kg/min, 7.893 mls/hr Piperacillin Sod/Tazobactam (Sod 4.5 gm/ Sodium Chloride) 100 mls @ 200 mls/hr IV Q8H [facility] Last Admin: 10/18/18 07:57 Dose: 200 mls/hr Vancomycin HCl 1 gm/ Sodium (Chloride) 250 mls @ 250 mls/hr IV Q12H [facility] Last Admin: 10/19/18 09:57 Dose: 250 mls/hr Heparin Sodium (Porcine) 5,000 (units/ Sodium Chloride) 501 mls @ 0 mls/hr IV ASDIRECTED [facility]; Protocol Last Admin: 10/20/18 09:48 Dose: 1 unit/hr, 0.1 mls/hr Piperacillin/Tazobactam/ (Dextrose 4.5 gm/ Premix) 100 mls @ 200 mls/hr IV Q8H [facility] Last Admin: 10/22/18 08:06 Dose: 200 mls/hr Vancomycin HCl 1.25 gm/ Sodium (Chloride) 250 mls @ 250 mls/hr IV Q12H [facility] Stop: 10/22/18 12:00 Last Admin: 10/22/18 08:10 Dose: 250 mls/hr Diltiazem HCl 125 mg/ Sodium (Chloride) 125 mls @ 5 mls/hr IV TITRATE [facility]; Protocol Last Titration: 10/21/18 12:21 Dose: 0 mg/hr, 0 mls/hr Potassium Chloride 20 meq/ (Premix) 0 mls @ 50 mls/hr IV ONETIME [facility] Stop: 10/24/18 06:01 Premix 1 bag/ Potassium (Chloride) 100 mls @ 50 mls/hr IV Q2H [facility] Stop: 10/20/18 15:59 Last Admin: 10/20/18 05:54 Dose: 50 mls/hr Potassium Chloride 20 meq/Lidocaine HCl 2 ml/ Sodium Chloride 112 mls @ 56 mls/ hr IV Q2H [facility] [place] Stop: 10/20/18 15:59 Last Admin: 10/20/18 14:04 Dose: 56 mls/hr Potassium Chloride 20 meq/ (Premix) 100 mls @ 50 mls/hr IV Q2H [facility] Stop: 10/21/18 03:59 Last Admin: 10/21/18 03:17 Dose: 50 mls/hr Vancomycin HCl 1.5 gm/ Sodium (Chloride) 250 mls @ 250 mls/hr IV Q12H [facility] Last Admin: 10/24/18 08:05 Dose: 250 mls/hr Piperacillin Sod/Tazobactam (Sod 4.5 gm/ Sodium Chloride) 100 mls @ 200 mls/hr IV Q8H [facility] Last Admin: 10/24/18 07:29 Dose: 200 mls/hr Ketorolac Tromethamine (Toradol) 30 mg IVPUSH Q8H PRN PRN Reason: Pain Stop: 10/25/18 08:15 Last Admin: 10/25/18 09:10 Dose: 30 mg Lidocaine HCl (Xylocaine-Mpf 1%) 2 ml INJECT ONETIME ONE Stop: 10/20/18 05:30 Last Admin: 10/20/18 05:54 Dose: 2 ml Lidocaine HCl (Xylocaine 1%) 2 ml INJECT ASDIRECTED PRN PRN Reason: add to potassium Last Admin: 10/21/18 03:17 Dose: 2 ml Lorazepam (Ativan) 0.5 mg IVPUSH ONETIME ONE Stop: 10/16/18 23:39 Last Admin: 10/16/18 23:44 Dose: 0.5 mg Lorazepam (Ativan) 0.25 mg IVPUSH Q2H PRN PRN Reason: Anxiety Last Admin: 10/18/18 13:54 Dose: 0.25 mg Magnesium Hydroxide (Milk Of Magnesia) 30 ml PO DAILY PRN PRN Reason: Constipation Last Admin: 10/23/18 07:51 Dose: 30 ml Methylprednisolone Sodium Succinate (Solu-Medrol) 125 mg IVPUSH ONETIME ONE Stop: 10/16/18 22:44 Last Admin: 10/16/18 22:55 Dose: 125 mg Methylprednisolone Sodium Succinate (Solu-Medrol) 125 mg IVPUSH Q6H [facility] Methylprednisolone Sodium Succinate (Solu-Medrol) 125 mg IVPUSH Q6H [facility] [place] Last Admin: 10/19/18 05:37 Dose: 125 mg Methylprednisolone Sodium Succinate (Solu-Medrol) 100 mg IVPUSH Q6H [facility] [place] Last Admin: 10/19/18 08:46 Dose: Not Given Methylprednisolone Sodium Succinate (Solu-Medrol) 100 mg IVPUSH Q6H [facility] [place] Last Admin: 10/22/18 17:39 Dose: 100 mg Methylprednisolone Sodium Succinate (Solu-Medrol) 100 mg IVPUSH Q8H [facility] [place] Stop: 10/23/18 18:01 Last Admin: 10/23/18 17:06 Dose: 100 mg Methylprednisolone Sodium Succinate (Solu-Medrol) 100 mg IVPUSH Q12H [facility] [place] Stop: 10/24/18 18:01 Last Admin: 10/24/18 06:06 Dose: 100 mg Methylprednisolone Sodium Succinate (Solu-Medrol) 75 mg IVPUSH Q12H [facility] [place] Stop: 10/24/18 20:01 Last Admin: 10/24/18 20:11 Dose: 75 mg Methylprednisolone Sodium Succinate (Solu-Medrol) 50 mg IVPUSH Q12H [facility] [place] Stop: 10/25/18 20:01 Last Admin: 10/25/18 20:10 Dose: 50 mg Pantoprazole Sodium (Protonix) 40 mg PO ACBREAKFAST [facility] [place] Last Admin: 10/17/18 07:36 Dose: Not Given Pantoprazole Sodium (Protonix Iv) 40 mg IVPUSH Q12H [facility] [place] Last Admin: 10/21/18 03:16 Dose: 40 mg Pneumococcal Polyvalent Vaccine (Pneumovax 23) 0.5 ml IM .ONCE ONE Stop: 10/20/18 08:01 Last Admin: 10/20/18 08:25 Dose: Not Given Pneumococcal Polyvalent Vaccine (Pneumovax 23) 0.5 ml IM .ONCE ONE Stop: 10/25/18 10:01 Last Admin: 10/25/18 12:50 Dose: Not Given Potassium Chloride (Potassium Chloride) 20 meq PO BID [facility] [place] Last Admin: 10/22/18 20:38 Dose: 20 meq Potassium Chloride (Potassium Chloride) 20 meq PO TID [facility] [place] Last Admin: 10/23/18 22:06 Dose: 20 meq Potassium Chloride (Potassium Chloride) 20 meq PO QID [facility] Potassium Chloride (Potassium Chloride) 20 meq PO QID [facility] Last Admin: 10/25/18 15:52 Dose: 20 meq Propofol (Diprivan 20 Ml) Confirm Administered Dose 200 mg .ROUTE .STK-MED ONE Stop: 10/17/18 06:29 - Problem List Review Problem List Initiated/Reviewed/Updated: Yes - My Orders Last 24 Hours: My Active Orders 10/25/18 21:00 Potassium Chloride 40 meq PO TID 10/26/18 09:00 Doxazosin [Cardura] 2 mg PO DAILY 10/26/18 09:02 Magnesium Hydroxide [Milk of Magnesia] 30 ml PO BID PRN 10/26/18 09:04 Docusate Sodium [Colace] 100 mg PO BID PRN 10/27/18 14:00 Pneumococcal Polyvalent-23 Vac [Pneumovax 23] 0.5 ml IM .ONCE ONE - Plan Plan:: Assessment/Plan: #1. COPD: Appears alert and has no complaints. She is a chronic retainer of CO2. She is off and on Bi-Pap. She asked never to be intubated again. Will continue to [place] cortisone. #2. Emphysema: #3. Hypothyroidism: Continue with meds. #4. Nicotine addiction: She is stable and mentally stable presently. She was over loaded with fluid but stable presently and meds. The CXR Showed no significant change in bibasilar opacities consistent with mild atelectasis and/or consolidation. Unchanged blunting of the costophrenic angles suggesting trace bilateral pleural effusions. I & O showed O/I good output. WBC up to 17.7 with Hb 11.5. K up to 3.5 creat. stable. Overall prognosis guarded. She will need more care than what she can get at home. We'll schedule a meeting next week and try to make some difficult decisions with the family.
[2018-10-27] MEDS: LORazepam 2 MG/ML SDV IVPUSH PRN ×2 (02:39→21:47)
[2018-10-27] MEDS: Morphine 2 MG/ML Syringe IVPUSH PRN (03:23)
[2018-10-27] MEDS: Albuterol/Ipratropium 3.0-0.5 MG/3 ML Neb Soln NEB SCH ×4 (07:25→20:49)
[2018-10-27] MEDS: Levothyroxine 112 MCG Tab PO SCH (08:20)
[2018-10-27] MEDS: Pantoprazole 40 MG Tab.CR PO SCH (08:20)
[2018-10-27] MEDS: ARIPiprazole 10 MG Tab PO SCH (08:50)
[2018-10-27] MEDS: DULoxetine 30 MG Cap PO SCH (08:51)
[2018-10-27] MEDS: Diltiazem 120 MG Cap.CD PO SCH ×2 (08:52→20:45)
[2018-10-27] MEDS: Doxazosin 4 MG Tab PO SCH (08:53)
[2018-10-27] MEDS: Azithromycin 250 MG Tab PO SCH (08:54)
[2018-10-27] MEDS: Nicotine 14 MG/24 Hr Patch TRDERM SCH (08:55)
[2018-10-27] MEDS: QUEtiapine 50 MG Tab.SR PO SCH (08:56)
[2018-10-27] MEDS: Potassium Chloride 10 MEQ Cap.ER PO SCH (09:34)
[2018-10-27] MEDS: LORazepam 0.5 MG Tab PO PRN (11:53)
--- NOTE | 2018-10-27 13:32 | PCM.PN ---
- General Info Date of Service: 10/27/18 Admission Dx/Problem (Free Text): SheIs on the BiPAP less than she was yesterday she appears a little bit more alert. Functional Status: Reports: Pain Controlled - Review of Systems General: Reports: Weakness, Fatigue HEENT: Reports: No Symptoms Pulmonary: Reports: Shortness of Breath Cardiovascular: Reports: Dyspnea on Exertion Gastrointestinal: Reports: No Symptoms Genitourinary: Reports: No Symptoms Musculoskeletal: Reports: No Symptoms Skin: Reports: No Symptoms Neurological: Reports: No Symptoms Psychiatric: Reports: No Symptoms - Patient Data Vitals - Most Recent: Last Vital Signs Temp 97.8 F 10/27/18 12:00 Pulse 103 H 10/27/18 12:00 Resp 22 H 10/27/18 12:00 BP 106/42 L 10/27/18 12:00 Pulse Ox 92 L 10/27/18 12:00 Weight - Most Recent: 194 lb 0.208 oz I&O - Last 24 Hours: Intake & Output 10/26/18 10/27/18 10/27/18 22:59 06:59 14:59 Intake Total 550 771 Output Total 850 2550 Balance -300 -1779 Lab Results Last 24 Hours: Laboratory Results - last 24 hr 10/27/18 10/27/18 10/27/18 Range/Units 07:05 07:05 07:05 WBC Cancelled RBC Cancelled Hgb Cancelled Hct Cancelled MCV Cancelled MCH Cancelled MCHC Cancelled Plt Count Cancelled Add Manual Diff Neutrophils % (Manual) (36-66) % Band Neutrophils % (5-11) % Lymphocytes % (Manual) (24-44) % Monocytes % (Manual) (2-6) % Puncture Site Left radial ABG pH 7.489 H (7.350-7.450) ABG pCO2 41.1 (35.0-42.0) mmHg ABG pO2 73.9 L (75.0-100.0) mmHg ABG HCO3 30.9 H (22.0-26.0) mmol/L ABG Total CO2 28.4 H (21.0-25.0) mmol/L ABG O2 Saturation 95.6 (95.0-98.0) % ABG O2 Content 12.7 L (15.0-23.0) %vol ABG Base Excess 7.2 mm/L ABG Hemoglobin 9.6 L (12.0-16.0) g/dL ABG Oxyhemoglobin 93.6 % ABG Carboxyhemoglobin 1.4 (0.0-1.6) % ABG Methemoglobin 0.7 % Timmy Test Passed O2 Delivery Device Bipap Oxygen Flow Rate 30 L Sodium 154 H (140-148) mmol/L Potassium 5.0 (3.6-5.2) mmol/L Chloride 117 H (100-108) mmol/L Carbon Dioxide 31 (21-32) mmol/L Anion Gap 11.0 (5.0-14.0) mmol/L BUN 20 H (7-18) mg/dL Creatinine 0.6 (0.6-1.0) mg/dL Est Cr Clr Drug Dosing 54.61 mL/min Estimated GFR (MDRD) > 60 (>60) Glucose 120 H (74-106) mg/dL Calcium 8.3 L (8.5-10.1) mg/dL Total Bilirubin 0.5 (0.2-1.0) mg/dL AST 26 (15-37) U/L ALT 88 H (12-78) U/L Alkaline Phosphatase 29 L (46-116) U/L Total Protein 6.1 L (6.4-8.2) g/dL Albumin 2.8 L (3.4-5.0) g/dL Globulin 3.3 (2.3-3.5) g/dL Albumin/Globulin Ratio 0.9 L (1.2-2.2) 10/27/18 10/27/18 Range/Units 08:30 09:38 WBC 21.3 H RBC 3.21 L Hgb 9.5 L Hct 31.7 L MCV 99 H MCH 30 MCHC 30 L Plt Count 144 L Add Manual Diff Yes Neutrophils % (Manual) 89 H (36-66) % Band Neutrophils % 2 L (5-11) % Lymphocytes % (Manual) 5 L (24-44) % Monocytes % (Manual) 4 (2-6) % Puncture Site Lt brachial ABG pH 7.475 H (7.350-7.450) ABG pCO2 43.8 H (35.0-42.0) mmHg ABG pO2 53.0 L (75.0-100.0) mmHg ABG HCO3 31.9 H (22.0-26.0) mmol/L ABG Total CO2 29.5 H (21.0-25.0) mmol/L ABG O2 Saturation 87.7 L (95.0-98.0) % ABG O2 Content 11.6 L (15.0-23.0) %vol ABG Base Excess 7.8 mm/L ABG Hemoglobin 9.6 L (12.0-16.0) g/dL ABG Oxyhemoglobin 86.2 % ABG Carboxyhemoglobin 0.9 (0.0-1.6) % ABG Methemoglobin 0.8 % Timmy Test Not performed O2 Delivery Device Nasal cannula Oxygen Flow Rate 3 L Sodium (140-148) mmol/L Potassium (3.6-5.2) mmol/L Chloride (100-108) mmol/L Carbon Dioxide (21-32) mmol/L Anion Gap (5.0-14.0) mmol/L BUN (7-18) mg/dL Creatinine (0.6-1.0) mg/dL Est Cr Clr Drug Dosing mL/min Estimated GFR (MDRD) (>60) Glucose (74-106) mg/dL Calcium (8.5-10.1) mg/dL Total Bilirubin (0.2-1.0) mg/dL AST (15-37) U/L ALT (12-78) U/L Alkaline Phosphatase (46-116) U/L Total Protein (6.4-8.2) g/dL Albumin (3.4-5.0) g/dL Globulin (2.3-3.5) g/dL Albumin/Globulin Ratio (1.2-2.2) Med Orders - Current: Current Medications Albuterol (Proventil Neb Soln) 2.5 mg NEB Q4H PRN PRN Reason: Cough Last Admin: 10/23/18 02:31 Dose: 2.5 mg Albuterol/Ipratropium (Duoneb 3.0-0.5 Mg/3 Ml) 3 ml NEB QIDRT [facility] Last Admin: 10/27/18 10:55 Dose: 3 ml Aripiprazole (Abilify) 10 mg PO DAILY [facility] Last Admin: 10/27/18 08:50 Dose: 10 mg Azithromycin (Zithromax) 500 mg PO DAILY [facility] Last Admin: 10/27/18 08:54 Dose: 500 mg Diltiazem HCl (Cardizem Cd) 240 mg PO BID [facility] Last Admin: 10/27/18 08:52 Dose: 240 mg Docusate Sodium (Colace) 100 mg PO BID PRN PRN Reason: Constipation Last Admin: 10/26/18 09:19 Dose: 100 mg Doxazosin Mesylate (Cardura) 2 mg PO DAILY [facility] Last Admin: 10/27/18 08:53 Dose: 2 mg Duloxetine HCl (Cymbalta) 60 mg PO DAILY [facility] Last Admin: 10/27/18 08:51 Dose: 60 mg Sodium Chloride (Normal Saline) 1,000 mls @ 0 mls/hr IV ASDIRECTED [facility] Last Admin: 10/26/18 08:00 Dose: 125 mls/hr Ceftriaxone Sodium 1 gm/ (Sodium Chloride) 50 mls @ 100 mls/hr IV Q24H [facility] Last Admin: 10/26/18 15:00 Dose: 100 mls/hr Ketorolac Tromethamine (Toradol) 30 mg IVPUSH Q6H PRN PRN Reason: pain Stop: 10/30/18 13:08 Last Admin: 10/26/18 11:04 Dose: 30 mg Levothyroxine Sodium (Levothyroxine) 112 mcg PO ACBREAKFAST [facility] Last Admin: 10/27/18 08:20 Dose: 112 mcg Lorazepam (Ativan) 0.5 mg PO Q4H PRN PRN Reason: Anxiety Last Admin: 10/27/18 11:53 Dose: 0.5 mg Lorazepam (Ativan) 0.5 mg IVPUSH Q2H PRN PRN Reason: Anxiety Last Admin: 10/27/18 02:39 Dose: 0.5 mg Magnesium Hydroxide (Milk Of Magnesia) 30 ml PO BID PRN PRN Reason: Constipation Last Admin: 10/26/18 14:59 Dose: 30 ml Morphine Sulfate (Morphine) 2 mg IVPUSH Q1H PRN PRN Reason: Pain Last Admin: 10/27/18 03:23 Dose: 2 mg Nicotine (Habitrol) 14 mg TRDERM DAILY [facility] Last Admin: 10/27/18 08:55 Dose: 14 mg Ondansetron HCl (Zofran Odt) 4 mg PO Q6H PRN PRN Reason: Nausea Pantoprazole Sodium (Protonix) 40 mg PO ACBREAKFAST [facility] Last Admin: 10/27/18 08:20 Dose: 40 mg Pneumococcal Polyvalent Vaccine (Pneumovax 23) 0.5 ml IM .ONCE ONE Stop: 10/29/18 14:01 Potassium Chloride (Klor-Con M20) 40 meq PO DAILY [facility] Quetiapine Fumarate (Seroquel Xr) 400 mg PO DAILY [facility] Last Admin: 10/27/18 08:56 Dose: 400 mg Sodium Chloride (Saline Flush) 10 ml FLUSH ASDIRECTED PRN PRN Reason: Keep Vein Open Last Admin: 10/16/18 22:55 Dose: 10 ml Discontinued Medications Albuterol (Proventil Neb Soln) 2.5 mg NEB ONETIME ONE Stop: 10/16/18 23:56 Last Admin: 10/16/18 23:57 Dose: 2.5 mg Albuterol (Proventil Neb Soln) Confirm Administered Dose 0.63 mg .ROUTE .STK- MED ONE Stop: 10/16/18 23:56 Last Admin: 10/17/18 02:24 Dose: Not Given Albuterol/Ipratropium (Duoneb 3.0-0.5 Mg/3 Ml) 3 ml NEB ONETIME ONE Stop: 10/16/18 22:43 Last Admin: 10/16/18 22:47 Dose: 3 ml Diltiazem HCl (Diltiazem) 20 mg IVPUSH Q12H [facility] Last Admin: 10/18/18 22:00 Dose: 20 mg Diltiazem HCl (Diltiazem) 20 mg IVPUSH Q6H [facility] Last Admin: 10/19/18 08:08 Dose: 20 mg Diltiazem HCl (Cardizem Cd) 180 mg PO BID [facility] Last Admin: 10/22/18 08:09 Dose: 180 mg Diltiazem HCl (Cardizem Cd) 240 mg PO BID [facility] Last Admin: 10/22/18 10:36 Dose: Not Given Diltiazem HCl (Cardizem Cd) 180 mg PO BID [facility] Last Admin: 10/24/18 22:54 Dose: 180 mg Furosemide (Lasix) 20 mg IVPUSH ONETIME ONE Stop: 10/19/18 17:01 Last Admin: 10/19/18 17:12 Dose: 20 mg Furosemide (Lasix) 20 mg IVPUSH BID [facility] Stop: 10/25/18 21:01 Last Admin: 10/25/18 20:16 Dose: 20 mg Heparin Sodium (Porcine) (Heparin Sodium) 5,000 units IVPUSH ONETIME ONE Stop: 10/17/18 05:32 Last Admin: 10/17/18 05:46 Dose: 5,000 units Hydralazine HCl (Apresoline) 10 mg IVPUSH Q4H [facility] Last Admin: 10/19/18 11:32 Dose: 10 mg Sodium Chloride (Normal Saline) 1,000 mls @ 75 mls/hr IV ASDIRECTED [facility] Last Admin: 10/18/18 02:41 Dose: 75 mls/hr Sodium Chloride (Normal Saline) 500 mls @ 1 mls/hr IV .BOLUS ONE Stop: 11/07/18 01:27 Last Admin: 10/17/18 05:47 Dose: 1 mls/hr Propofol (Diprivan 100 Ml) 100 mls @ 1.973 mls/hr IV TITRATE [facility]; Protocol Last Titration: 10/21/18 06:52 Dose: 20 mcg/kg/min, 7.893 mls/hr Piperacillin Sod/Tazobactam (Sod 4.5 gm/ Sodium Chloride) 100 mls @ 200 mls/hr IV Q8H [facility] Last Admin: 10/18/18 07:57 Dose: 200 mls/hr Vancomycin HCl 1 gm/ Sodium (Chloride) 250 mls @ 250 mls/hr IV Q12H [facility] Last Admin: 10/19/18 09:57 Dose: 250 mls/hr Heparin Sodium (Porcine) 5,000 (units/ Sodium Chloride) 501 mls @ 0 mls/hr IV ASDIRECTED [facility]; Protocol Last Admin: 10/20/18 09:48 Dose: 1 unit/hr, 0.1 mls/hr Piperacillin/Tazobactam/ (Dextrose 4.5 gm/ Premix) 100 mls @ 200 mls/hr IV Q8H [facility] Last Admin: 10/22/18 08:06 Dose: 200 mls/hr Vancomycin HCl 1.25 gm/ Sodium (Chloride) 250 mls @ 250 mls/hr IV Q12H [facility] Stop: 10/22/18 12:00 Last Admin: 10/22/18 08:10 Dose: 250 mls/hr Diltiazem HCl 125 mg/ Sodium (Chloride) 125 mls @ 5 mls/hr IV TITRATE [facility]; Protocol Last Titration: 10/21/18 12:21 Dose: 0 mg/hr, 0 mls/hr Potassium Chloride 20 meq/ (Premix) 0 mls @ 50 mls/hr IV ONETIME [facility] Stop: 10/24/18 06:01 Premix 1 bag/ Potassium (Chloride) 100 mls @ 50 mls/hr IV Q2H [facility] Stop: 10/20/18 15:59 Last Admin: 10/20/18 05:54 Dose: 50 mls/hr Potassium Chloride 20 meq/Lidocaine HCl 2 ml/ Sodium Chloride 112 mls @ 56 mls/ hr IV Q2H [facility] Stop: 10/20/18 15:59 Last Admin: 10/20/18 14:04 Dose: 56 mls/hr Potassium Chloride 20 meq/ (Premix) 100 mls @ 50 mls/hr IV Q2H [facility] Stop: 10/21/18 03:59 Last Admin: 10/21/18 03:17 Dose: 50 mls/hr Vancomycin HCl 1.5 gm/ Sodium (Chloride) 250 mls @ 250 mls/hr IV Q12H [facility] Last Admin: 10/24/18 08:05 Dose: 250 mls/hr Piperacillin Sod/Tazobactam (Sod 4.5 gm/ Sodium Chloride) 100 mls @ 200 mls/hr IV Q8H [facility] Last Admin: 10/24/18 07:29 Dose: 200 mls/hr Ketorolac Tromethamine (Toradol) 30 mg IVPUSH Q8H PRN PRN Reason: Pain Stop: 10/25/18 08:15 Last Admin: 10/25/18 09:10 Dose: 30 mg Lidocaine HCl (Xylocaine-Mpf 1%) 2 ml INJECT ONETIME ONE Stop: 10/20/18 05:30 Last Admin: 10/20/18 05:54 Dose: 2 ml Lidocaine HCl (Xylocaine 1%) 2 ml INJECT ASDIRECTED PRN PRN Reason: add to potassium Last Admin: 10/21/18 03:17 Dose: 2 ml Lorazepam (Ativan) 0.5 mg IVPUSH ONETIME ONE Stop: 10/16/18 23:39 Last Admin: 10/16/18 23:44 Dose: 0.5 mg Lorazepam (Ativan) 0.25 mg IVPUSH Q2H PRN PRN Reason: Anxiety Last Admin: 10/18/18 13:54 Dose: 0.25 mg Magnesium Hydroxide (Milk Of Magnesia) 30 ml PO DAILY PRN PRN Reason: Constipation Last Admin: 10/23/18 07:51 Dose: 30 ml Methylprednisolone Sodium Succinate (Solu-Medrol) 125 mg IVPUSH ONETIME ONE Stop: 10/16/18 22:44 Last Admin: 10/16/18 22:55 Dose: 125 mg Methylprednisolone Sodium Succinate (Solu-Medrol) 125 mg IVPUSH Q6H [facility] Methylprednisolone Sodium Succinate (Solu-Medrol) 125 mg IVPUSH Q6H [facility] Last Admin: 10/19/18 05:37 Dose: 125 mg Methylprednisolone Sodium Succinate (Solu-Medrol) 100 mg IVPUSH Q6H [facility] Last Admin: 10/19/18 08:46 Dose: Not Given Methylprednisolone Sodium Succinate (Solu-Medrol) 100 mg IVPUSH Q6H [facility] Last Admin: 10/22/18 17:39 Dose: 100 mg Methylprednisolone Sodium Succinate (Solu-Medrol) 100 mg IVPUSH Q8H [facility] Stop: 10/23/18 18:01 Last Admin: 10/23/18 17:06 Dose: 100 mg Methylprednisolone Sodium Succinate (Solu-Medrol) 100 mg IVPUSH Q12H [facility] Stop: 10/24/18 18:01 Last Admin: 10/24/18 06:06 Dose: 100 mg Methylprednisolone Sodium Succinate (Solu-Medrol) 75 mg IVPUSH Q12H [facility] Stop: 10/24/18 20:01 Last Admin: 10/24/18 20:11 Dose: 75 mg Methylprednisolone Sodium Succinate (Solu-Medrol) 50 mg IVPUSH Q12H [facility] Stop: 10/25/18 20:01 Last Admin: 10/25/18 20:10 Dose: 50 mg Pantoprazole Sodium (Protonix) 40 mg PO ACBREAKFAST [facility] Last Admin: 10/17/18 07:36 Dose: Not Given Pantoprazole Sodium (Protonix Iv) 40 mg IVPUSH Q12H [facility] Last Admin: 10/21/18 03:16 Dose: 40 mg Pneumococcal Polyvalent Vaccine (Pneumovax 23) 0.5 ml IM .ONCE ONE Stop: 10/20/18 08:01 Last Admin: 10/20/18 08:25 Dose: Not Given Pneumococcal Polyvalent Vaccine (Pneumovax 23) 0.5 ml IM .ONCE ONE Stop: 10/25/18 10:01 Last Admin: 10/25/18 12:50 Dose: Not Given Potassium Chloride (Potassium Chloride) 20 meq PO BID [facility] Last Admin: 10/22/18 20:38 Dose: 20 meq Potassium Chloride (Potassium Chloride) 20 meq PO TID [facility] Last Admin: 10/23/18 22:06 Dose: 20 meq Potassium Chloride (Potassium Chloride) 20 meq PO QID [facility] Potassium Chloride (Potassium Chloride) 20 meq PO QID [facility] Last Admin: 10/25/18 15:52 Dose: 20 meq Potassium Chloride (Potassium Chloride) 40 meq PO TID [facility] Last Admin: 10/27/18 09:34 Dose: 40 meq Propofol (Diprivan 20 Ml) Confirm Administered Dose 200 mg .ROUTE .STK-MED ONE Stop: 10/17/18 06:29 - Exam General: Alert, Oriented HEENT: Pupils Equal, Pupils Reactive, EOMI, Mucous Membr. Moist/[place] Neck: Supple Lungs: Wheezing Cardiovascular: Regular Rate, Regular Rhythm GI/Abdominal Exam: Normal Bowel Sounds, Soft, Non-Tender, No Organomegaly, No Distention, No Abnormal Bruit, No Mass, Pelvis Stable Back Exam: Normal Inspection, Full Range of Motion Extremities: Normal Inspection, Normal Range of Motion, Non-Tender, No Pedal Edema, Normal Capillary Refill Peripheral Pulses: 1+: Radial (L), Radial (R) Skin: Warm, Dry, Intact Neurological: No New Focal Deficit Psy/Mental Status: Depressed - Problem List Review Problem List Initiated/Reviewed/Updated: Yes - My Orders Last 24 Hours: My Active Orders 10/28/18 09:00 Potassium Chloride [Klor-Con M20] 40 meq PO DAILY 10/29/18 14:00 Pneumococcal Polyvalent-23 Vac [Pneumovax 23] 0.5 ml IM .ONCE ONE - Plan Plan:: Assessment/Plan: #1. COPD: Appears alert and has no complaints. She is a chronic retainer of CO2. She is off and on Bi-Pap. She asked never to be intubated again. Will continue to kaleigh cortisone. #2. Emphysema: #3. Hypothyroidism: Continue with meds. #4. Nicotine addiction: She is stable and mentally stable presently. . I & O showed O/I good output. WBC up to 21.3 with Hb 9.5. K up to 5.0 creat. is 0.6. Overall prognosis guarded. She will need more care than what she can get at home.
[2018-10-27] MEDS ORDERED: Pneumococcal Polyvalent-23 Vaccine 0.5 ML SDV IM ONE (14:00)
[2018-10-27] MEDS ORDERED: Sodium Chloride 0.9% 1,000 ML IV SCH (14:45)
[2018-10-27] MEDS ORDERED: Acetaminophen 325 MG Tab PO PRN (20:33)
[2018-10-27] MEDS ORDERED: traMADol 50 MG Tab PO PRN (20:34)
[2018-10-28] MEDS: Albuterol/Ipratropium 3.0-0.5 MG/3 ML Neb Soln NEB SCH ×4 (08:00→20:43)
[2018-10-28] MEDS: Levothyroxine 112 MCG Tab PO SCH (08:14)
[2018-10-28] MEDS: ARIPiprazole 10 MG Tab PO SCH (08:14)
[2018-10-28] MEDS: Pantoprazole 40 MG Tab.CR PO SCH (08:15)
[2018-10-28] MEDS: Potassium Chloride 20 MEQ Tab.ER PO SCH (09:01)
[2018-10-28] MEDS: Diltiazem 120 MG Cap.CD PO SCH ×2 (09:04→20:43)
[2018-10-28] MEDS: Doxazosin 4 MG Tab PO SCH (09:08)
[2018-10-28] MEDS: DULoxetine 30 MG Cap PO SCH (09:09)
[2018-10-28] MEDS: QUEtiapine 50 MG Tab.SR PO SCH (09:10)
[2018-10-28] MEDS: Nicotine 14 MG/24 Hr Patch TRDERM SCH (09:27)
[2018-10-28] MEDS ORDERED: Doxazosin 4 MG Tab PO ONE (09:45)
[2018-10-28] MEDS ORDERED: Dimethicone 20%/Zinc Oxide 25% 56 GM Spray Bottle TOP PRN (23:12)
[2018-10-29] MEDS ORDERED: Dimethicone 20%/Zinc Oxide 25% 56 GM Spray Bottle TOP PRN (07:06)
[2018-10-29] MEDS: Albuterol/Ipratropium 3.0-0.5 MG/3 ML Neb Soln NEB SCH ×4 (07:18→20:29)
[2018-10-29] MEDS: Diltiazem 120 MG Cap.CD PO SCH ×2 (08:01→20:28)
[2018-10-29] MEDS: Levothyroxine 112 MCG Tab PO SCH (08:01)
[2018-10-29] MEDS: Doxazosin 4 MG Tab PO SCH ×2 (08:01→08:02)
[2018-10-29] MEDS: QUEtiapine 50 MG Tab.SR PO SCH (08:01)
[2018-10-29] MEDS: Pantoprazole 40 MG Tab.CR PO SCH (08:01)
[2018-10-29] MEDS: ARIPiprazole 10 MG Tab PO SCH (08:01)
[2018-10-29] MEDS: DULoxetine 30 MG Cap PO SCH (08:02)
[2018-10-29] MEDS: Nicotine 14 MG/24 Hr Patch TRDERM SCH (08:02)
[2018-10-29] MEDS: Potassium Chloride 20 MEQ Tab.ER PO SCH (08:02)
--- NOTE | 2018-10-29 08:46 | PCM.PN ---
- General Info Date of Service: 10/28/18 Functional Status: Reports: Pain Controlled - Review of Systems General: Reports: Weakness, Fatigue HEENT: Reports: No Symptoms Pulmonary: Reports: Shortness of Breath, Wheezing Cardiovascular: Reports: No Symptoms Gastrointestinal: Reports: No Symptoms Genitourinary: Reports: No Symptoms Musculoskeletal: Reports: Leg Pain, Joint Pain Skin: Reports: No Symptoms Neurological: Reports: Difficulty Walking, Weakness Psychiatric: Reports: Depression - Patient Data Vitals - Most Recent: Last Vital Signs Temp 96.2 F 10/29/18 07:54 Pulse 113 H 10/29/18 08:01 Resp 18 10/29/18 07:54 BP 106/50 L 10/29/18 08:02 Pulse Ox 97 10/29/18 07:54 Weight - Most Recent: 194 lb 0.208 oz I&O - Last 24 Hours: Intake & Output 10/28/18 10/29/18 10/29/18 22:59 06:59 14:59 Intake Total 870 Output Total 1000 900 Balance -130 -900 Lab Results Last 24 Hours: Laboratory Results - last 24 hr 10/28/18 10/28/18 10/28/18 Range/Units 09:50 09:50 09:50 WBC 18.3 H (4.5-11.0) K/uL RBC 2.78 L (3.30-5.50) M/uL Hgb 8.4 L (12.0-15.0) g/dL Hct 27.4 L (36.0-48.0) % MCV 99 H (80-98) fL MCH 30 (27-31) pg MCHC 31 L (32-36) % Plt Count 248 (150-400) K/uL Add Manual Diff Yes Neutrophils % (Manual) 90 H (36-66) % Band Neutrophils % 3 L (5-11) % Lymphocytes % (Manual) 3 L (24-44) % Monocytes % (Manual) 3 (2-6) % Eosinophils % (Manual) 1 L (2-4) % Percent Retic 0.9 (0.5-1.5) % Puncture Site ABG pH (7.350-7.450) ABG pCO2 (35.0-42.0) mmHg ABG pO2 (75.0-100.0) mmHg ABG HCO3 (22.0-26.0) mmol/L ABG Total CO2 (21.0-25.0) mmol/L ABG O2 Saturation (95.0-98.0) % ABG O2 Content (15.0-23.0) %vol ABG Base Excess mm/L ABG Hemoglobin (12.0-16.0) g/dL ABG Oxyhemoglobin % ABG Carboxyhemoglobin (0.0-1.6) % ABG Methemoglobin % Timmy Test O2 Delivery Device Oxygen Flow Rate L Sodium 151 H (140-148) mmol/L Potassium 4.2 (3.6-5.2) mmol/L Chloride 111 H (100-108) mmol/L Carbon Dioxide 35 H (21-32) mmol/L Anion Gap 9.2 (5.0-14.0) mmol/L BUN 16 (7-18) mg/dL Creatinine 0.7 (0.6-1.0) mg/dL Est Cr Clr Drug Dosing 46.81 mL/min Estimated GFR (MDRD) > 60 (>60) Glucose 139 H (74-106) mg/dL Calcium 8.5 (8.5-10.1) mg/dL Urine Color Urine Appearance Urine pH (4.5-8.0) Ur Specific [place] (1.008-1.030) Urine Protein (NEGATIVE) mg/dL Urine Glucose (UA) (NEGATIVE) mg/dL Urine Ketones (NEGATIVE) mg/dL Urine Occult Blood (NEGATIVE) Urine Nitrite (NEGATIVE) Urine Bilirubin (NEGATIVE) Urine Urobilinogen (NORMAL) mg/dL Ur Leukocyte Esterase (NEGATIVE) Urine RBC (0-5) Urine WBC (0-5) Ur Epithelial Cells Amorphous Sediment Urine Bacteria Urine Mucus Urine Other 10/29/18 10/29/18 Range/Units 06:00 06:09 WBC (4.5-11.0) K/uL RBC (3.30-5.50) M/uL Hgb (12.0-15.0) g/dL Hct (36.0-48.0) % MCV (80-98) fL MCH (27-31) pg MCHC (32-36) % Plt Count (150-400) K/uL Add Manual Diff Neutrophils % (Manual) (36-66) % Band Neutrophils % (5-11) % Lymphocytes % (Manual) (24-44) % Monocytes % (Manual) (2-6) % Eosinophils % (Manual) (2-4) % Percent Retic (0.5-1.5) % Puncture Site R radial ABG pH 7.512 H (7.350-7.450) ABG pCO2 39.0 (35.0-42.0) mmHg ABG pO2 93.1 (75.0-100.0) mmHg ABG HCO3 31.0 H (22.0-26.0) mmol/L ABG Total CO2 28.8 H (21.0-25.0) mmol/L ABG O2 Saturation 97.7 (95.0-98.0) % ABG O2 Content 11.7 L (15.0-23.0) %vol ABG Base Excess 7.7 mm/L ABG Hemoglobin 8.6 L (12.0-16.0) g/dL ABG Oxyhemoglobin 95.0 % ABG Carboxyhemoglobin 2.1 H (0.0-1.6) % ABG Methemoglobin 0.7 % Timmy Test Pass O2 Delivery Device Nasal cannula Oxygen Flow Rate 2 L Sodium (140-148) mmol/L Potassium (3.6-5.2) mmol/L Chloride (100-108) mmol/L Carbon Dioxide (21-32) mmol/L Anion Gap (5.0-14.0) mmol/L BUN (7-18) mg/dL Creatinine (0.6-1.0) mg/dL Est Cr Clr Drug Dosing mL/min Estimated GFR (MDRD) (>60) Glucose (74-106) mg/dL Calcium (8.5-10.1) mg/dL Urine Color Yellow Urine Appearance Clear Urine pH 8.0 (4.5-8.0) Ur Specific [place] 1.005 L (1.008-1.030) Urine Protein Negative (NEGATIVE) mg/dL Urine Glucose (UA) Normal (NEGATIVE) mg/dL Urine Ketones Negative (NEGATIVE) mg/dL Urine Occult Blood Moderate (NEGATIVE) Urine Nitrite Negative (NEGATIVE) Urine Bilirubin Negative (NEGATIVE) Urine Urobilinogen Normal (NORMAL) mg/dL Ur Leukocyte Esterase Small (NEGATIVE) Urine RBC 0-5 (0-5) Urine WBC 0-5 (0-5) Ur Epithelial Cells Rare Amorphous Sediment Not seen Urine Bacteria Rare Urine Mucus Not seen Urine Other [place] Results Last 24 Hours: Microbiology 10/27/18 20:15 Aerobic Blood Culture - Preliminary Blood - Arm, Left NO GROWTH AFTER 1 DAY Anaerobic Blood Culture - Preliminary NO GROWTH AFTER 1 DAY 10/27/18 20:10 Aerobic Blood Culture - Preliminary Blood - Arm, Left NO GROWTH AFTER 1 DAY Anaerobic Blood Culture - Preliminary NO GROWTH AFTER 1 DAY Med Orders - Current: Current Medications Acetaminophen (Tylenol) 650 mg PO Q4H PRN PRN Reason: Pain Albuterol (Proventil Neb Soln) 2.5 mg NEB Q4H PRN PRN Reason: Cough Last Admin: 10/23/18 02:31 Dose: 2.5 mg Albuterol/Ipratropium (Duoneb 3.0-0.5 Mg/3 Ml) 3 ml NEB QIDRT [facility] Last Admin: 10/29/18 07:18 Dose: 3 ml Aripiprazole (Abilify) 10 mg PO DAILY [facility] Last Admin: 10/29/18 08:01 Dose: 10 mg Diltiazem HCl (Cardizem Cd) 240 mg PO BID [facility] Last Admin: 10/29/18 08:01 Dose: 240 mg Dimethicone/Zinc Oxide (Rash Relief-Zinc Oxide [place]) 0 gm TOP ASDIRECTED PRN PRN Reason: Rash Docusate Sodium (Colace) 100 mg PO BID PRN PRN Reason: Constipation Last Admin: 10/26/18 09:19 Dose: 100 mg Doxazosin Mesylate (Cardura) 4 mg PO DAILY [facility] Last Admin: 10/29/18 08:02 Dose: 4 mg Duloxetine HCl (Cymbalta) 60 mg PO DAILY [facility] Last Admin: 10/29/18 08:02 Dose: 60 mg Ketorolac Tromethamine (Toradol) 30 mg IVPUSH Q6H PRN PRN Reason: pain Stop: 10/30/18 13:08 Last Admin: 10/26/18 11:04 Dose: 30 mg Levothyroxine Sodium (Levothyroxine) 112 mcg PO ACBREAKFAST [facility] Last Admin: 10/29/18 08:01 Dose: 112 mcg Lorazepam (Ativan) 0.5 mg PO Q4H PRN PRN Reason: Anxiety Last Admin: 10/27/18 11:53 Dose: 0.5 mg Lorazepam (Ativan) 0.5 mg IVPUSH Q2H PRN PRN Reason: Anxiety Last Admin: 10/27/18 21:47 Dose: 0.5 mg Magnesium Hydroxide (Milk Of Magnesia) 30 ml PO BID PRN PRN Reason: Constipation Last Admin: 10/26/18 14:59 Dose: 30 ml Morphine Sulfate (Morphine) 2 mg IVPUSH Q1H PRN PRN Reason: Pain Last Admin: 10/27/18 03:23 Dose: 2 mg Nicotine (Habitrol) 14 mg TRDERM DAILY [facility] Last Admin: 10/29/18 08:02 Dose: 14 mg Ondansetron HCl (Zofran Odt) 4 mg PO Q6H PRN PRN Reason: Nausea Pantoprazole Sodium (Protonix) 40 mg PO ACBREAKFAST [facility] Last Admin: 10/29/18 08:01 Dose: 40 mg Pneumococcal Polyvalent Vaccine (Pneumovax 23) 0.5 ml IM .ONCE ONE Stop: 10/29/18 14:01 Potassium Chloride (Klor-Con M20) 40 meq PO DAILY [facility] Last Admin: 10/29/18 08:02 Dose: 40 meq Quetiapine Fumarate (Seroquel Xr) 400 mg PO DAILY [facility] Last Admin: 10/29/18 08:01 Dose: 400 mg Sodium Chloride (Saline Flush) 10 ml FLUSH ASDIRECTED PRN PRN Reason: Keep Vein Open Last Admin: 10/16/18 22:55 Dose: 10 ml Tramadol HCl (Ultram) 50 mg PO Q6H PRN PRN Reason: Pain Last Admin: 10/27/18 21:20 Dose: 50 mg Discontinued Medications Albuterol (Proventil Neb Soln) 2.5 mg NEB ONETIME ONE Stop: 10/16/18 23:56 Last Admin: 10/16/18 23:57 Dose: 2.5 mg Albuterol (Proventil Neb Soln) Confirm Administered Dose 0.63 mg .ROUTE .STK- MED ONE Stop: 10/16/18 23:56 Last Admin: 10/17/18 02:24 Dose: Not Given Albuterol/Ipratropium (Duoneb 3.0-0.5 Mg/3 Ml) 3 ml NEB ONETIME ONE Stop: 10/16/18 22:43 Last Admin: 10/16/18 22:47 Dose: 3 ml Azithromycin (Zithromax) 500 mg PO DAILY [facility] Last Admin: 10/27/18 08:54 Dose: 500 mg Diltiazem HCl (Diltiazem) 20 mg IVPUSH Q12H [facility] Last Admin: 10/18/18 22:00 Dose: 20 mg Diltiazem HCl (Diltiazem) 20 mg IVPUSH Q6H [facility] Last Admin: 10/19/18 08:08 Dose: 20 mg Diltiazem HCl (Cardizem Cd) 180 mg PO BID [facility] Last Admin: 10/22/18 08:09 Dose: 180 mg Diltiazem HCl (Cardizem Cd) 240 mg PO BID [facility] Last Admin: 10/22/18 10:36 Dose: Not Given Diltiazem HCl (Cardizem Cd) 180 mg PO BID [facility] Last Admin: 10/24/18 22:54 Dose: 180 mg Dimethicone/Zinc Oxide (Rash Relief-Zinc Oxide [place]) 15 gm TOP ASDIRECTED PRN PRN Reason: Rash Doxazosin Mesylate (Cardura) 2 mg PO DAILY [facility] Last Admin: 10/28/18 09:08 Dose: 2 mg Doxazosin Mesylate (Cardura) 2 mg PO ONETIME ONE Stop: 10/28/18 09:46 Last Admin: 10/28/18 12:20 Dose: Not Given Furosemide (Lasix) 20 mg IVPUSH ONETIME ONE Stop: 10/19/18 17:01 Last Admin: 10/19/18 17:12 Dose: 20 mg Furosemide (Lasix) 20 mg IVPUSH BID [facility] Stop: 10/25/18 21:01 Last Admin: 10/25/18 20:16 Dose: 20 mg Heparin Sodium (Porcine) (Heparin Sodium) 5,000 units IVPUSH ONETIME ONE Stop: 10/17/18 05:32 Last Admin: 10/17/18 05:46 Dose: 5,000 units Hydralazine HCl (Apresoline) 10 mg IVPUSH Q4H [facility] Last Admin: 10/19/18 11:32 Dose: 10 mg Sodium Chloride (Normal Saline) 1,000 mls @ 75 mls/hr IV ASDIRECTED [facility] Last Admin: 10/18/18 02:41 Dose: 75 mls/hr Sodium Chloride (Normal Saline) 500 mls @ 1 mls/hr IV .BOLUS ONE Stop: 11/07/18 01:27 Last Admin: 10/17/18 05:47 Dose: 1 mls/hr Propofol (Diprivan 100 Ml) 100 mls @ 1.973 mls/hr IV TITRATE [facility]; Protocol Last Titration: 10/21/18 06:52 Dose: 20 mcg/kg/min, 7.893 mls/hr Piperacillin Sod/Tazobactam (Sod 4.5 gm/ Sodium Chloride) 100 mls @ 200 mls/hr IV Q8H [facility] Last Admin: 10/18/18 07:57 Dose: 200 mls/hr Vancomycin HCl 1 gm/ Sodium (Chloride) 250 mls @ 250 mls/hr IV Q12H [facility] Last Admin: 10/19/18 09:57 Dose: 250 mls/hr Heparin Sodium (Porcine) 5,000 (units/ Sodium Chloride) 501 mls @ 0 mls/hr IV ASDIRECTED [facility]; Protocol Last Admin: 10/20/18 09:48 Dose: 1 unit/hr, 0.1 mls/hr Sodium Chloride (Normal Saline) 1,000 mls @ 0 mls/hr IV ASDIRECTED [facility] Last Admin: 10/26/18 08:00 Dose: 125 mls/hr Piperacillin/Tazobactam/ (Dextrose 4.5 gm/ Premix) 100 mls @ 200 mls/hr IV Q8H [facility] Last Admin: 10/22/18 08:06 Dose: 200 mls/hr Vancomycin HCl 1.25 gm/ Sodium (Chloride) 250 mls @ 250 mls/hr IV Q12H [facility] Stop: 10/22/18 12:00 Last Admin: 10/22/18 08:10 Dose: 250 mls/hr Diltiazem HCl 125 mg/ Sodium (Chloride) 125 mls @ 5 mls/hr IV TITRATE [facility]; Protocol Last Titration: 10/21/18 12:21 Dose: 0 mg/hr, 0 mls/hr Potassium Chloride 20 meq/ (Premix) 0 mls @ 50 mls/hr IV ONETIME [facility] Stop: 10/24/18 06:01 Premix 1 bag/ Potassium (Chloride) 100 mls @ 50 mls/hr IV Q2H [facility] Stop: 10/20/18 15:59 Last Admin: 10/20/18 05:54 Dose: 50 mls/hr Potassium Chloride 20 meq/Lidocaine HCl 2 ml/ Sodium Chloride 112 mls @ 56 mls/ hr IV Q2H [facility] Stop: 10/20/18 15:59 Last Admin: 10/20/18 14:04 Dose: 56 mls/hr Potassium Chloride 20 meq/ (Premix) 100 mls @ 50 mls/hr IV Q2H [facility] Stop: 10/21/18 03:59 Last Admin: 10/21/18 03:17 Dose: 50 mls/hr Vancomycin HCl 1.5 gm/ Sodium (Chloride) 250 mls @ 250 mls/hr IV Q12H [facility] Last Admin: 10/24/18 08:05 Dose: 250 mls/hr Piperacillin Sod/Tazobactam (Sod 4.5 gm/ Sodium Chloride) 100 mls @ 200 mls/hr IV Q8H [facility] Last Admin: 10/24/18 07:29 Dose: 200 mls/hr Ceftriaxone Sodium 1 gm/ (Sodium Chloride) 50 mls @ 100 mls/hr IV Q24H [facility] Last Admin: 10/26/18 15:00 Dose: 100 mls/hr Sodium Chloride (Normal Saline) 1,000 mls @ 25 mls/hr IV ASDIRECTED [facility] Ketorolac Tromethamine (Toradol) 30 mg IVPUSH Q8H PRN PRN Reason: Pain Stop: 10/25/18 08:15 Last Admin: 10/25/18 09:10 Dose: 30 mg Lidocaine HCl (Xylocaine-Mpf 1%) 2 ml INJECT ONETIME ONE Stop: 10/20/18 05:30 Last Admin: 10/20/18 05:54 Dose: 2 ml Lidocaine HCl (Xylocaine 1%) 2 ml INJECT ASDIRECTED PRN PRN Reason: add to potassium Last Admin: 10/21/18 03:17 Dose: 2 ml Lorazepam (Ativan) 0.5 mg IVPUSH ONETIME ONE Stop: 10/16/18 23:39 Last Admin: 10/16/18 23:44 Dose: 0.5 mg Lorazepam (Ativan) 0.25 mg IVPUSH Q2H PRN PRN Reason: Anxiety Last Admin: 10/18/18 13:54 Dose: 0.25 mg Magnesium Hydroxide (Milk Of Magnesia) 30 ml PO DAILY PRN PRN Reason: Constipation Last Admin: 10/23/18 07:51 Dose: 30 ml Methylprednisolone Sodium Succinate (Solu-Medrol) 125 mg IVPUSH ONETIME ONE Stop: 10/16/18 22:44 Last Admin: 10/16/18 22:55 Dose: 125 mg Methylprednisolone Sodium Succinate (Solu-Medrol) 125 mg IVPUSH Q6H [facility] Methylprednisolone Sodium Succinate (Solu-Medrol) 125 mg IVPUSH Q6H [facility] Last Admin: 10/19/18 05:37 Dose: 125 mg Methylprednisolone Sodium Succinate (Solu-Medrol) 100 mg IVPUSH Q6H [facility] Last Admin: 10/19/18 08:46 Dose: Not Given Methylprednisolone Sodium Succinate (Solu-Medrol) 100 mg IVPUSH Q6H [facility] Last Admin: 10/22/18 17:39 Dose: 100 mg Methylprednisolone Sodium Succinate (Solu-Medrol) 100 mg IVPUSH Q8H [facility] Stop: 10/23/18 18:01 Last Admin: 10/23/18 17:06 Dose: 100 mg Methylprednisolone Sodium Succinate (Solu-Medrol) 100 mg IVPUSH Q12H [facility] Stop: 10/24/18 18:01 Last Admin: 10/24/18 06:06 Dose: 100 mg Methylprednisolone Sodium Succinate (Solu-Medrol) 75 mg IVPUSH Q12H [facility] Stop: 10/24/18 20:01 Last Admin: 10/24/18 20:11 Dose: 75 mg Methylprednisolone Sodium Succinate (Solu-Medrol) 50 mg IVPUSH Q12H [facility] Stop: 10/25/18 20:01 Last Admin: 10/25/18 20:10 Dose: 50 mg Pantoprazole Sodium (Protonix) 40 mg PO ACBREAKFAST [facility] Last Admin: 10/17/18 07:36 Dose: Not Given Pantoprazole Sodium (Protonix Iv) 40 mg IVPUSH Q12H [facility] Last Admin: 10/21/18 03:16 Dose: 40 mg Pneumococcal Polyvalent Vaccine (Pneumovax 23) 0.5 ml IM .ONCE ONE Stop: 10/20/18 08:01 Last Admin: 10/20/18 08:25 Dose: Not Given Pneumococcal Polyvalent Vaccine (Pneumovax 23) 0.5 ml IM .ONCE ONE Stop: 10/25/18 10:01 Last Admin: 10/25/18 12:50 Dose: Not Given Potassium Chloride (Potassium Chloride) 20 meq PO BID [facility] Last Admin: 10/22/18 20:38 Dose: 20 meq Potassium Chloride (Potassium Chloride) 20 meq PO TID [facility] Last Admin: 10/23/18 22:06 Dose: 20 meq Potassium Chloride (Potassium Chloride) 20 meq PO QID [facility] Potassium Chloride (Potassium Chloride) 20 meq PO QID [facility] Last Admin: 10/25/18 15:52 Dose: 20 meq Potassium Chloride (Potassium Chloride) 40 meq PO TID [facility] Last Admin: 10/27/18 09:34 Dose: 40 meq Propofol (Diprivan 20 Ml) Confirm Administered Dose 200 mg .ROUTE .STK-MED ONE Stop: 10/17/18 06:29 - Exam General: Cooperative HEENT: Pupils Equal, Pupils Reactive, EOMI, Mucous Membr. Moist/[place] Neck: Supple Lungs: Clear to Auscultation, Normal Respiratory Effort Cardiovascular: Regular Rate, Regular Rhythm GI/Abdominal Exam: Normal Bowel Sounds Back Exam: Normal Inspection, Full Range of Motion Extremities: Normal Inspection, Normal Range of Motion, Non-Tender, No Pedal Edema, Normal Capillary Refill Peripheral Pulses: 1+: Radial (L), Radial (R) Skin: Warm, Dry, Intact Psy/Mental Status: Labile Mood - Problem List Review Problem List Initiated/Reviewed/Updated: Yes - My Orders Last 24 Hours: My Active Orders 10/28/18 09:00 Potassium Chloride [Klor-Con M20] 40 meq PO DAILY 10/28/18 21:03 Transfer Patient (Change bed) [ADT] Routine 10/29/18 07:06 Dimethicone/Zinc Oxide [Rash Relief-Zinc Oxide [place]] 0 gm TOP ASDIRECTED PRN 10/29/18 08:45 CBC WITH AUTO DIFF [HEME] Routine COMPREHENSIVE METABOLIC PN,CMP [CHEM] Routine 10/29/18 09:00 Doxazosin [Cardura] 4 mg PO DAILY 10/29/18 14:00 Pneumococcal Polyvalent-23 Vac [Pneumovax 23] 0.5 ml IM .ONCE ONE - Plan Plan:: Assessment/Plan: #1. COPD: Appears alert and has no complaints. She is a chronic retainer of CO2. She is off and on Bi-Pap. She asked never to be intubated again. Will continue to [place] cortisone. Will not continue with the bi-pap unless necessary. #2. Emphysema: #3. Hypothyroidism: Continue with meds. #4. Nicotine addiction: She is stable and mentally stable presently. . I & O showed O/I good output. WBC up to 18,000 with Hb 8.4 K 4.1 creat. is 0.5. Overall prognosis guarded. She will need more care than what she can get at home.
[2018-10-29] MEDS: LORazepam 2 MG/ML SDV IVPUSH PRN (12:24)
[2018-10-29] MEDS ORDERED: Pneumococcal Polyvalent-23 Vaccine 0.5 ML SDV IM ONE (14:00)
[2018-10-30] MEDS: Albuterol/Ipratropium 3.0-0.5 MG/3 ML Neb Soln NEB SCH ×2 (07:29→10:27)
[2018-10-30] MEDS: Nicotine 14 MG/24 Hr Patch TRDERM SCH (08:18)
[2018-10-30] MEDS: Potassium Chloride 20 MEQ Tab.ER PO SCH (08:18)
[2018-10-30] MEDS: QUEtiapine 50 MG Tab.SR PO SCH (08:18)
[2018-10-30] MEDS: Pantoprazole 40 MG Tab.CR PO SCH (08:18)
[2018-10-30] MEDS: Levothyroxine 112 MCG Tab PO SCH (08:22)
[2018-10-30] MEDS: DULoxetine 30 MG Cap PO SCH (08:22)
[2018-10-30] MEDS: ARIPiprazole 10 MG Tab PO SCH (08:22)
[2018-10-30] MEDS: Diltiazem 120 MG Cap.CD PO SCH (08:23)
--- NOTE | 2018-10-30 11:42 | PCM.PN ---
- General Info Date of Service: 10/30/18 Functional Status: Reports: Pain Controlled - Review of Systems General: Reports: Weakness HEENT: Reports: No Symptoms Pulmonary: Reports: Shortness of Breath, Wheezing Cardiovascular: Reports: Dyspnea on Exertion Gastrointestinal: Reports: No Symptoms Genitourinary: Reports: No Symptoms Musculoskeletal: Reports: Joint Pain Skin: Reports: No Symptoms Neurological: Reports: No Symptoms - Patient Data Vitals - Most Recent: Last Vital Signs Temp 97.5 F 10/30/18 07:46 Pulse 124 H 10/30/18 10:27 Resp 18 10/30/18 07:46 BP 104/58 L 10/30/18 07:46 Pulse Ox 92 L 10/30/18 10:27 Weight - Most Recent: 194 lb 0.208 oz I&O - Last 24 Hours: Intake & Output 10/29/18 10/30/18 10/30/18 22:59 06:59 14:59 Intake Total 0 Balance 0 Lab Results Last 24 Hours: Laboratory Results - last 24 hr 10/30/18 10/30/18 Range/Units 09:28 09:28 WBC 14.1 H (4.5-11.0) K/uL RBC 2.82 L (3.30-5.50) M/uL Hgb 8.3 L (12.0-15.0) g/dL Hct 27.1 L (36.0-48.0) % MCV 96 (80-98) fL MCH 29 (27-31) pg MCHC 31 L (32-36) % Plt Count 196 (150-400) K/uL Neut % (Auto) 88 H (36-66) % Lymph % (Auto) 6 L (24-44) % Sac % (Auto) 4 (2-6) % Eos % (Auto) 2 (2-4) % Baso % (Auto) 0 (0-1) % Sodium 141 (140-148) mmol/L Potassium 4.1 (3.6-5.2) mmol/L Chloride 103 (100-108) mmol/L Carbon Dioxide 33 H (21-32) mmol/L Anion Gap 9.1 (5.0-14.0) mmol/L BUN 16 (7-18) mg/dL Creatinine 0.7 (0.6-1.0) mg/dL Est Cr Clr Drug Dosing 46.81 mL/min Estimated GFR (MDRD) > 60 (>60) Glucose 173 H (74-106) mg/dL Calcium 8.1 L (8.5-10.1) mg/dL Castro Results Last 24 Hours: Microbiology 10/27/18 20:10 Aerobic Blood Culture - Preliminary Blood - Arm, Left NO GROWTH AFTER 2 DAYS Anaerobic Blood Culture - Preliminary NO GROWTH AFTER 2 DAYS 10/27/18 20:15 Aerobic Blood Culture - Preliminary Blood - Arm, Left NO GROWTH AFTER 2 DAYS Anaerobic Blood Culture - Preliminary NO GROWTH AFTER 2 DAYS Med Orders - Current: Current Medications Discontinued Medications Acetaminophen (Tylenol) 650 mg PO Q4H PRN PRN Reason: Pain Albuterol (Proventil Neb Soln) 2.5 mg NEB ONETIME ONE Stop: 10/16/18 23:56 Last Admin: 10/16/18 23:57 Dose: 2.5 mg Albuterol (Proventil Neb Soln) Confirm Administered Dose 0.63 mg .ROUTE .STK- MED ONE Stop: 10/16/18 23:56 Last Admin: 10/17/18 02:24 Dose: Not Given Albuterol (Proventil Neb Soln) 2.5 mg NEB Q4H PRN PRN Reason: Cough Last Admin: 10/23/18 02:31 Dose: 2.5 mg Albuterol/Ipratropium (Duoneb 3.0-0.5 Mg/3 Ml) 3 ml NEB ONETIME ONE Stop: 10/16/18 22:43 Last Admin: 10/16/18 22:47 Dose: 3 ml Albuterol/Ipratropium (Duoneb 3.0-0.5 Mg/3 Ml) 3 ml NEB QIDRT [facility] Last Admin: 10/30/18 10:27 Dose: 3 ml Aripiprazole (Abilify) 10 mg PO DAILY [facility] Last Admin: 10/30/18 08:22 Dose: 10 mg Azithromycin (Zithromax) 500 mg PO DAILY [facility] Last Admin: 10/27/18 08:54 Dose: 500 mg Diltiazem HCl (Diltiazem) 20 mg IVPUSH Q12H [facility] Last Admin: 10/18/18 22:00 Dose: 20 mg Diltiazem HCl (Diltiazem) 20 mg IVPUSH Q6H [facility] Last Admin: 10/19/18 08:08 Dose: 20 mg Diltiazem HCl (Cardizem Cd) 180 mg PO BID [facility] Last Admin: 10/22/18 08:09 Dose: 180 mg Diltiazem HCl (Cardizem Cd) 240 mg PO BID [facility] Last Admin: 10/22/18 10:36 Dose: Not Given Diltiazem HCl (Cardizem Cd) 180 mg PO BID [facility] Last Admin: 10/24/18 22:54 Dose: 180 mg Diltiazem HCl (Cardizem Cd) 240 mg PO BID [facility] Last Admin: 10/30/18 08:23 Dose: Not Given Dimethicone/Zinc Oxide (Rash Relief-Zinc Oxide Welch) 15 gm TOP ASDIRECTED PRN PRN Reason: Rash Dimethicone/Zinc Oxide (Rash Relief-Zinc Oxide Welch) 0 gm TOP ASDIRECTED PRN PRN Reason: Rash Docusate Sodium (Colace) 100 mg PO BID PRN PRN Reason: Constipation Last Admin: 10/26/18 09:19 Dose: 100 mg Doxazosin Mesylate (Cardura) 2 mg PO DAILY [facility] Last Admin: 10/28/18 09:08 Dose: 2 mg Doxazosin Mesylate (Cardura) 4 mg PO DAILY [facility] Last Admin: 10/29/18 08:02 Dose: 4 mg Doxazosin Mesylate (Cardura) 2 mg PO ONETIME ONE Stop: 10/28/18 09:46 Last Admin: 10/28/18 12:20 Dose: Not Given Duloxetine HCl (Cymbalta) 60 mg PO DAILY [facility] Last Admin: 10/30/18 08:22 Dose: 60 mg Furosemide (Lasix) 20 mg IVPUSH ONETIME ONE Stop: 10/19/18 17:01 Last Admin: 10/19/18 17:12 Dose: 20 mg Furosemide (Lasix) 20 mg IVPUSH BID [facility] Stop: 10/25/18 21:01 Last Admin: 10/25/18 20:16 Dose: 20 mg Heparin Sodium (Porcine) (Heparin Sodium) 5,000 units IVPUSH ONETIME ONE Stop: 10/17/18 05:32 Last Admin: 10/17/18 05:46 Dose: 5,000 units Hydralazine HCl (Apresoline) 10 mg IVPUSH Q4H [facility] Last Admin: 10/19/18 11:32 Dose: 10 mg Sodium Chloride (Normal Saline) 1,000 mls @ 75 mls/hr IV ASDIRECTED OLAMIDE Last Admin: 10/18/18 02:41 Dose: 75 mls/hr Sodium Chloride (Normal Saline) 500 mls @ 1 mls/hr IV .BOLUS ONE Stop: 11/07/18 01:27 Last Admin: 10/17/18 05:47 Dose: 1 mls/hr Propofol (Diprivan 100 Ml) 100 mls @ 1.973 mls/hr IV TITRATE OLAMIDE; Protocol Last Titration: 10/21/18 06:52 Dose: 20 mcg/kg/min, 7.893 mls/hr Piperacillin Sod/Tazobactam (Sod 4.5 gm/ Sodium Chloride) 100 mls @ 200 mls/hr IV Q8H [facility] Last Admin: 10/18/18 07:57 Dose: 200 mls/hr Vancomycin HCl 1 gm/ Sodium (Chloride) 250 mls @ 250 mls/hr IV Q12H [facility] Last Admin: 10/19/18 09:57 Dose: 250 mls/hr Heparin Sodium (Porcine) 5,000 (units/ Sodium Chloride) 501 mls @ 0 mls/hr IV ASDIRECTED OLAMIDE; Protocol Last Admin: 10/20/18 09:48 Dose: 1 unit/hr, 0.1 mls/hr Sodium Chloride (Normal Saline) 1,000 mls @ 0 mls/hr IV ASDIRECTED OLAMIDE Last Admin: 10/26/18 08:00 Dose: 125 mls/hr Piperacillin/Tazobactam/ (Dextrose 4.5 gm/ Premix) 100 mls @ 200 mls/hr IV Q8H [facility] Last Admin: 10/22/18 08:06 Dose: 200 mls/hr Vancomycin HCl 1.25 gm/ Sodium (Chloride) 250 mls @ 250 mls/hr IV Q12H [facility] Stop: 10/22/18 12:00 Last Admin: 10/22/18 08:10 Dose: 250 mls/hr Diltiazem HCl 125 mg/ Sodium (Chloride) 125 mls @ 5 mls/hr IV TITRATE OLAMIDE; Protocol Last Titration: 10/21/18 12:21 Dose: 0 mg/hr, 0 mls/hr Potassium Chloride 20 meq/ (Premix) 0 mls @ 50 mls/hr IV ONETIME [facility] Stop: 10/24/18 06:01 Premix 1 bag/ Potassium (Chloride) 100 mls @ 50 mls/hr IV Q2H [facility] Stop: 10/20/18 15:59 Last Admin: 10/20/18 05:54 Dose: 50 mls/hr Potassium Chloride 20 meq/Lidocaine HCl 2 ml/ Sodium Chloride 112 mls @ 56 mls/ hr IV Q2H [facility] Stop: 10/20/18 15:59 Last Admin: 10/20/18 14:04 Dose: 56 mls/hr Potassium Chloride 20 meq/ (Premix) 100 mls @ 50 mls/hr IV Q2H [facility] Stop: 10/21/18 03:59 Last Admin: 10/21/18 03:17 Dose: 50 mls/hr Vancomycin HCl 1.5 gm/ Sodium (Chloride) 250 mls @ 250 mls/hr IV Q12H [facility] Last Admin: 10/24/18 08:05 Dose: 250 mls/hr Piperacillin Sod/Tazobactam (Sod 4.5 gm/ Sodium Chloride) 100 mls @ 200 mls/hr IV Q8H [facility] Last Admin: 10/24/18 07:29 Dose: 200 mls/hr Ceftriaxone Sodium 1 gm/ (Sodium Chloride) 50 mls @ 100 mls/hr IV Q24H [facility] Last Admin: 10/26/18 15:00 Dose: 100 mls/hr Sodium Chloride (Normal Saline) 1,000 mls @ 25 mls/hr IV ASDIRECTED [facility] Ketorolac Tromethamine (Toradol) 30 mg IVPUSH Q8H PRN PRN Reason: Pain Stop: 10/25/18 08:15 Last Admin: 10/25/18 09:10 Dose: 30 mg Ketorolac Tromethamine (Toradol) 30 mg IVPUSH Q6H PRN PRN Reason: pain Stop: 10/30/18 13:08 Last Admin: 10/26/18 11:04 Dose: 30 mg Levothyroxine Sodium (Levothyroxine) 112 mcg PO ACBREAKFAST [facility] Last Admin: 10/30/18 08:22 Dose: 112 mcg Lidocaine HCl (Xylocaine-Mpf 1%) 2 ml INJECT ONETIME ONE Stop: 10/20/18 05:30 Last Admin: 10/20/18 05:54 Dose: 2 ml Lidocaine HCl (Xylocaine 1%) 2 ml INJECT ASDIRECTED PRN PRN Reason: add to potassium Last Admin: 10/21/18 03:17 Dose: 2 ml Lorazepam (Ativan) 0.5 mg IVPUSH ONETIME ONE Stop: 10/16/18 23:39 Last Admin: 10/16/18 23:44 Dose: 0.5 mg Lorazepam (Ativan) 0.25 mg IVPUSH Q2H PRN PRN Reason: Anxiety Last Admin: 10/18/18 13:54 Dose: 0.25 mg Lorazepam (Ativan) 0.5 mg PO Q4H PRN PRN Reason: Anxiety Last Admin: 10/27/18 11:53 Dose: 0.5 mg Lorazepam (Ativan) 0.5 mg IVPUSH Q2H PRN PRN Reason: Anxiety Last Admin: 10/29/18 12:24 Dose: 0.5 mg Magnesium Hydroxide (Milk Of Magnesia) 30 ml PO DAILY PRN PRN Reason: Constipation Last Admin: 10/23/18 07:51 Dose: 30 ml Magnesium Hydroxide (Milk Of Magnesia) 30 ml PO BID PRN PRN Reason: Constipation Last Admin: 10/26/18 14:59 Dose: 30 ml Methylprednisolone Sodium Succinate (Solu-Medrol) 125 mg IVPUSH ONETIME ONE Stop: 10/16/18 22:44 Last Admin: 10/16/18 22:55 Dose: 125 mg Methylprednisolone Sodium Succinate (Solu-Medrol) 125 mg IVPUSH Q6H [facility] Methylprednisolone Sodium Succinate (Solu-Medrol) 125 mg IVPUSH Q6H [facility] Last Admin: 10/19/18 05:37 Dose: 125 mg Methylprednisolone Sodium Succinate (Solu-Medrol) 100 mg IVPUSH Q6H [facility] Last Admin: 10/19/18 08:46 Dose: Not Given Methylprednisolone Sodium Succinate (Solu-Medrol) 100 mg IVPUSH Q6H [facility] Last Admin: 10/22/18 17:39 Dose: 100 mg Methylprednisolone Sodium Succinate (Solu-Medrol) 100 mg IVPUSH Q8H [facility] Stop: 10/23/18 18:01 Last Admin: 10/23/18 17:06 Dose: 100 mg Methylprednisolone Sodium Succinate (Solu-Medrol) 100 mg IVPUSH Q12H [facility] Stop: 10/24/18 18:01 Last Admin: 10/24/18 06:06 Dose: 100 mg Methylprednisolone Sodium Succinate (Solu-Medrol) 75 mg IVPUSH Q12H [facility] Stop: 10/24/18 20:01 Last Admin: 10/24/18 20:11 Dose: 75 mg Methylprednisolone Sodium Succinate (Solu-Medrol) 50 mg IVPUSH Q12H [facility] Stop: 10/25/18 20:01 Last Admin: 10/25/18 20:10 Dose: 50 mg Morphine Sulfate (Morphine) 2 mg IVPUSH Q1H PRN PRN Reason: Pain Last Admin: 10/27/18 03:23 Dose: 2 mg Nicotine (Habitrol) 14 mg TRDERM DAILY [facility] Last Admin: 10/30/18 08:18 Dose: 14 mg Ondansetron HCl (Zofran Odt) 4 mg PO Q6H PRN PRN Reason: Nausea Pantoprazole Sodium (Protonix) 40 mg PO ACBREAKFAST [facility] Last Admin: 10/17/18 07:36 Dose: Not Given Pantoprazole Sodium (Protonix Iv) 40 mg IVPUSH Q12H [facility] Last Admin: 10/21/18 03:16 Dose: 40 mg Pantoprazole Sodium (Protonix) 40 mg PO ACBREAKFAST [facility] Last Admin: 10/30/18 08:18 Dose: 40 mg Pneumococcal Polyvalent Vaccine (Pneumovax 23) 0.5 ml IM .ONCE ONE Stop: 10/20/18 08:01 Last Admin: 10/20/18 08:25 Dose: Not Given Pneumococcal Polyvalent Vaccine (Pneumovax 23) 0.5 ml IM .ONCE ONE Stop: 10/25/18 10:01 Last Admin: 10/25/18 12:50 Dose: Not Given Pneumococcal Polyvalent Vaccine (Pneumovax 23) 0.5 ml IM .ONCE ONE Stop: 10/29/18 14:01 Last Admin: 10/29/18 14:12 Dose: 0.5 ml Potassium Chloride (Potassium Chloride) 20 meq PO BID [facility] Last Admin: 10/22/18 20:38 Dose: 20 meq Potassium Chloride (Potassium Chloride) 20 meq PO TID [facility] Last Admin: 10/23/18 22:06 Dose: 20 meq Potassium Chloride (Potassium Chloride) 20 meq PO QID [facility] Potassium Chloride (Potassium Chloride) 20 meq PO QID [facility] Last Admin: 10/25/18 15:52 Dose: 20 meq Potassium Chloride (Potassium Chloride) 40 meq PO TID [facility] Last Admin: 10/27/18 09:34 Dose: 40 meq Potassium Chloride (Klor-Con M20) 40 meq PO DAILY [facility] Last Admin: 10/30/18 08:18 Dose: 40 meq Propofol (Diprivan 20 Ml) Confirm Administered Dose 200 mg .ROUTE .STK-MED ONE Stop: 10/17/18 06:29 Quetiapine Fumarate (Seroquel Xr) 400 mg PO DAILY [facility] Last Admin: 10/30/18 08:18 Dose: 400 mg Sodium Chloride (Saline Flush) 10 ml FLUSH ASDIRECTED PRN PRN Reason: Keep Vein Open Last Admin: 10/16/18 22:55 Dose: 10 ml Tramadol HCl (Ultram) 50 mg PO Q6H PRN PRN Reason: Pain Last Admin: 10/27/18 21:20 Dose: 50 mg - Exam General: Moderate Distress HEENT: Pupils Equal, Pupils Reactive, EOMI, Mucous Membr. Moist/[place] Lungs: Clear to Auscultation, Decreased Breath Sounds Cardiovascular: Regular Rate, Regular Rhythm GI/Abdominal Exam: Normal Bowel Sounds, Soft, Non-Tender, No Organomegaly, No Distention, No Abnormal Bruit, No Mass, Pelvis Stable Extremities: Normal Inspection, Normal Range of Motion, Non-Tender, No Pedal Edema, Normal Capillary Refill Peripheral Pulses: 1+: Radial (L), Radial (R) Skin: Warm, Dry, Intact Neurological: No New Focal Deficit Psy/Mental Status: Alert, Depressed - Problem List Review Problem List Initiated/Reviewed/Updated: Yes - My Orders Last 24 Hours: My Active Orders 10/30/18 09:27 Ready for Discharge [RC] PER UNIT ROUTINE - Plan Plan:: Assessment/Plan: #1. COPD: Appears alert and has no complaints. She is a chronic retainer of CO2. She is on oxygen per nasal cannula. She asked never to be intubated again. Will continue to [place] cortisone. #2. Emphysema: #3. Hypothyroidism: Continue with meds. #4. Nicotine addiction: She is stable and mentally stable presently. . I & O showed O/I good output. WBC up to 14.1 with Hb 8.3 K 4.1 creat. is 0.7. Overall prognosis guarded. She will been going to a assisted today for rehabilitation.
--- NOTE | 2018-10-30 13:22 | PCM.DCSUM1 ---
Discharge Summary - Hospital Course HPI Initial Comments: Josep came into the emergency room in respiratory distress was intubated. She has a long history of COPD and continues to use tobacco. Diagnosis: Stroke: No - Discharge Data Discharge Date: 10/30/18 Discharge Disposition: DC/Tfer to Inpt Rehab Fac 62 Condition: Fair - Patient Summary/Data Consults: Consultations 10/22/18 14:36 Consult to Physical Therapy [PT Evaluation and Treatment] [CONS] Routine Please Evaluate and Treat. PT Reason for Consult: Strengthening This query below is only for informational purposes and is not editable. Admission Diagnosis/Problem: Respiratory failure Hospital Course: after coming to the emergency room she was admitted to the ICU and had continued respiratory failure and was eventually intubated. At the time of intubation she had a large amount of secretions in her stomach. Eventually she was extubated and put on a BiPAP and eventually on nasal cannula. While in the hospital her blood pressure was a high 160 systolic. Diltiazem was given and finally start her on Cardura and blood pressure came down nicely. She is being [facility] for intensive [facility] before she can go home. - Patient Instructions Diet: Heart Healthy Diet - Discharge Plan *PRESCRIPTION DRUG MONITORING PROGRAM REVIEWED*: No Home Medications: Home Meds ARIPiprazole [Abilify] 10 mg PO DAILY 12/23/15 [History] DULoxetine HCl [Duloxetine HCl] 60 mg PO DAILY 12/23/15 [History] Dexlansoprazole [Dexilant] 60 mg PO DAILY 12/23/15 [History] Ondansetron [IJD: Ondansetron ODT] 4 mg PO .EVERY 6 HOURS PRN 12/23/15 [History] QUEtiapine Fumarate [Seroquel Xr] 400 mg PO DAILY 12/23/15 [History] Pantoprazole [ProTONIX] 40 mg PO DAILY 10/16/18 [History] Tiotropium Br/Olodaterol HCl [Stiolto Respimat Inhal [place]] 2.5 mcg IH BID 10/17 [History] Acetaminophen [Tylenol] 650 mg PO Q4H PRN tablet 10/30/18 [Rx] Albuterol [Proventil Neb Soln] 2.5 mg NEB Q4H PRN neb 10/30/18 [Rx] Albuterol/Ipratropium [DuoNeb 3.0-0.5 MG/3 ML] 3 ml NEB QIDRT neb 10/30/18 [Rx] Doxazosin [Cardura] 2 mg PO DAILY tablet 10/30/18 [Rx] Levothyroxine 112 mcg PO ACBREAKFAST tablet 10/30/18 [Rx] Nicotine [Habitrol] 14 mg TRDERM DAILY patch 10/30/18 [Rx] Pantoprazole [ProTONIX] 40 mg PO ACBREAKFAST tab.cr 10/30/18 [Rx] Potassium Chloride [Klor-Con M20] 40 meq PO DAILY tab.er 10/30/18 [Rx] Oxygen Therapy Mode: Nasal Cannula Oxygen Flow Rate (L/min): 2 Maintain SpO2% greater than: 90 Forms: ED Department Discharge Referrals: Rich Lopez Sr, MD [Primary Care Provider] - - Discharge Summary/Plan Comment DC Time >30 min.: Yes Discharge Summary/Plan Comment: Assessment/Plan: #1. COPD: Appears alert and has no complaints. She is a chronic retainer of CO2. She is on oxygen per nasal cannula. She asked never to be intubated again. Will continue to [place] cortisone. #2. Emphysema: #3. Hypothyroidism: Continue with meds. #4. Nicotine addiction: #5. GERD: On Protonix She is stable and mentally stable presently. . I & O showed O/I good output. WBC up to 14.1 with Hb 8.3 K 4.1 creat. is 0.7. Overall prognosis guarded. She will been going to a [facility] today for rehabilitation. - General Info Date of Service: 10/30/18 Subjective Update: She is laying in bed still has a hard time walking without assistance and she is on a nasal cannula at 2-3 L/m depending on activity. she appears to be mentally alert orientated to place - Review of Systems General: Reports: Weakness HEENT: Reports: No Symptoms Pulmonary: Reports: Shortness of Breath, Wheezing Cardiovascular: Reports: No Symptoms Gastrointestinal: Reports: No Symptoms Genitourinary: Reports: No Symptoms Musculoskeletal: Reports: Joint Pain Skin: Reports: No Symptoms Neurological: Reports: No Symptoms Psychiatric: Reports: Anxiety - Patient Data Vitals - Most Recent: Last Vital Signs Temp 97.5 F 10/30/18 07:46 Pulse 124 H 10/30/18 10:27 Resp 18 10/30/18 07:46 BP 104/58 L 10/30/18 07:46 Pulse Ox 92 L 10/30/18 10:27 Weight - Most Recent: 194 lb 0.208 oz I&O - Last 24 hours: Intake & Output 10/29/18 10/30/18 10/30/18 22:59 06:59 14:59 Intake Total 0 Balance 0 Lab Results - Last 24 hrs: Laboratory Results - last 24 hr 10/30/18 10/30/18 Range/Units 09:28 09:28 WBC 14.1 H (4.5-11.0) K/uL RBC 2.82 L (3.30-5.50) M/uL Hgb 8.3 L (12.0-15.0) g/dL Hct 27.1 L (36.0-48.0) % MCV 96 (80-98) fL MCH 29 (27-31) pg MCHC 31 L (32-36) % Plt Count 196 (150-400) K/uL Neut % (Auto) 88 H (36-66) % Lymph % (Auto) 6 L (24-44) % [place] % (Auto) 4 (2-6) % Eos % (Auto) 2 (2-4) % Baso % (Auto) 0 (0-1) % Sodium 141 (140-148) mmol/L Potassium 4.1 (3.6-5.2) mmol/L Chloride 103 (100-108) mmol/L Carbon Dioxide 33 H (21-32) mmol/L Anion Gap 9.1 (5.0-14.0) mmol/L BUN 16 (7-18) mg/dL Creatinine 0.7 (0.6-1.0) mg/dL Est Cr Clr Drug Dosing 46.81 mL/min Estimated GFR (MDRD) > 60 (>60) Glucose 173 H (74-106) mg/dL Calcium 8.1 L (8.5-10.1) mg/dL [place] Results - Last 24 hrs: Microbiology 10/27/18 20:10 Aerobic Blood Culture - Preliminary Blood - Arm, Left NO GROWTH AFTER 2 DAYS Anaerobic Blood Culture - Preliminary NO GROWTH AFTER 2 DAYS 10/27/18 20:15 Aerobic Blood Culture - Preliminary Blood - Arm, Left NO GROWTH AFTER 2 DAYS Anaerobic Blood Culture - Preliminary NO GROWTH AFTER 2 DAYS Med Orders - Current: Current Medications Discontinued Medications Acetaminophen (Tylenol) 650 mg PO Q4H PRN PRN Reason: Pain Albuterol (Proventil Neb Soln) 2.5 mg NEB ONETIME ONE Stop: 10/16/18 23:56 Last Admin: 10/16/18 23:57 Dose: 2.5 mg Albuterol (Proventil Neb Soln) Confirm Administered Dose 0.63 mg .ROUTE .STK- MED ONE Stop: 10/16/18 23:56 Last Admin: 10/17/18 02:24 Dose: Not Given Albuterol (Proventil Neb Soln) 2.5 mg NEB Q4H PRN PRN Reason: Cough Last Admin: 10/23/18 02:31 Dose: 2.5 mg Albuterol/Ipratropium (Duoneb 3.0-0.5 Mg/3 Ml) 3 ml NEB ONETIME ONE Stop: 10/16/18 22:43 Last Admin: 10/16/18 22:47 Dose: 3 ml Albuterol/Ipratropium (Duoneb 3.0-0.5 Mg/3 Ml) 3 ml NEB QIDRT [facility] Last Admin: 10/30/18 10:27 Dose: 3 ml Aripiprazole (Abilify) 10 mg PO DAILY [facility] Last Admin: 10/30/18 08:22 Dose: 10 mg Azithromycin (Zithromax) 500 mg PO DAILY [facility] Last Admin: 10/27/18 08:54 Dose: 500 mg Diltiazem HCl (Diltiazem) 20 mg IVPUSH Q12H [facility] Last Admin: 10/18/18 22:00 Dose: 20 mg Diltiazem HCl (Diltiazem) 20 mg IVPUSH Q6H [facility] Last Admin: 10/19/18 08:08 Dose: 20 mg Diltiazem HCl (Cardizem Cd) 180 mg PO BID [facility] Last Admin: 10/22/18 08:09 Dose: 180 mg Diltiazem HCl (Cardizem Cd) 240 mg PO BID [facility] Last Admin: 10/22/18 10:36 Dose: Not Given Diltiazem HCl (Cardizem Cd) 180 mg PO BID [facility] Last Admin: 10/24/18 22:54 Dose: 180 mg Diltiazem HCl (Cardizem Cd) 240 mg PO BID [facility] Last Admin: 10/30/18 08:23 Dose: Not Given Dimethicone/Zinc Oxide (Rash Relief-Zinc Oxide [place]) 15 gm TOP ASDIRECTED PRN PRN Reason: Rash Dimethicone/Zinc Oxide (Rash Relief-Zinc Oxide [place]) 0 gm TOP ASDIRECTED PRN PRN Reason: Rash Docusate Sodium (Colace) 100 mg PO BID PRN PRN Reason: Constipation Last Admin: 10/26/18 09:19 Dose: 100 mg Doxazosin Mesylate (Cardura) 2 mg PO DAILY [facility] Last Admin: 10/28/18 09:08 Dose: 2 mg Doxazosin Mesylate (Cardura) 4 mg PO DAILY [facility] Last Admin: 10/29/18 08:02 Dose: 4 mg Doxazosin Mesylate (Cardura) 2 mg PO ONETIME ONE Stop: 10/28/18 09:46 Last Admin: 10/28/18 12:20 Dose: Not Given Duloxetine HCl (Cymbalta) 60 mg PO DAILY [facility] Last Admin: 10/30/18 08:22 Dose: 60 mg Furosemide (Lasix) 20 mg IVPUSH ONETIME ONE Stop: 10/19/18 17:01 Last Admin: 10/19/18 17:12 Dose: 20 mg Furosemide (Lasix) 20 mg IVPUSH BID [facility] Stop: 10/25/18 21:01 Last Admin: 10/25/18 20:16 Dose: 20 mg Heparin Sodium (Porcine) (Heparin Sodium) 5,000 units IVPUSH ONETIME ONE Stop: 10/17/18 05:32 Last Admin: 10/17/18 05:46 Dose: 5,000 units Hydralazine HCl (Apresoline) 10 mg IVPUSH Q4H [facility] Last Admin: 10/19/18 11:32 Dose: 10 mg Sodium Chloride (Normal Saline) 1,000 mls @ 75 mls/hr IV ASDIRECTED [facility] Last Admin: 10/18/18 02:41 Dose: 75 mls/hr Sodium Chloride (Normal Saline) 500 mls @ 1 mls/hr IV .BOLUS ONE Stop: 11/07/18 01:27 Last Admin: 10/17/18 05:47 Dose: 1 mls/hr Propofol (Diprivan 100 Ml) 100 mls @ 1.973 mls/hr IV TITRATE [facility]; Protocol Last Titration: 10/21/18 06:52 Dose: 20 mcg/kg/min, 7.893 mls/hr Piperacillin Sod/Tazobactam (Sod 4.5 gm/ Sodium Chloride) 100 mls @ 200 mls/hr IV Q8H [facility] Last Admin: 10/18/18 07:57 Dose: 200 mls/hr Vancomycin HCl 1 gm/ Sodium (Chloride) 250 mls @ 250 mls/hr IV Q12H [facility] Last Admin: 10/19/18 09:57 Dose: 250 mls/hr Heparin Sodium (Porcine) 5,000 (units/ Sodium Chloride) 501 mls @ 0 mls/hr IV ASDIRECTED [facility]; Protocol Last Admin: 10/20/18 09:48 Dose: 1 unit/hr, 0.1 mls/hr Sodium Chloride (Normal Saline) 1,000 mls @ 0 mls/hr IV ASDIRECTED [facility] Last Admin: 10/26/18 08:00 Dose: 125 mls/hr Piperacillin/Tazobactam/ (Dextrose 4.5 gm/ Premix) 100 mls @ 200 mls/hr IV Q8H [facility] Last Admin: 10/22/18 08:06 Dose: 200 mls/hr Vancomycin HCl 1.25 gm/ Sodium (Chloride) 250 mls @ 250 mls/hr IV Q12H [facility] Stop: 10/22/18 12:00 Last Admin: 10/22/18 08:10 Dose: 250 mls/hr Diltiazem HCl 125 mg/ Sodium (Chloride) 125 mls @ 5 mls/hr IV TITRATE [facility]; Protocol Last Titration: 10/21/18 12:21 Dose: 0 mg/hr, 0 mls/hr Potassium Chloride 20 meq/ (Premix) 0 mls @ 50 mls/hr IV ONETIME [facility] Stop: 10/24/18 06:01 Premix 1 bag/ Potassium (Chloride) 100 mls @ 50 mls/hr IV Q2H [facility] Stop: 10/20/18 15:59 Last Admin: 10/20/18 05:54 Dose: 50 mls/hr Potassium Chloride 20 meq/Lidocaine HCl 2 ml/ Sodium Chloride 112 mls @ 56 mls/ hr IV Q2H [facility] Stop: 10/20/18 15:59 Last Admin: 10/20/18 14:04 Dose: 56 mls/hr Potassium Chloride 20 meq/ (Premix) 100 mls @ 50 mls/hr IV Q2H [facility] Stop: 10/21/18 03:59 Last Admin: 10/21/18 03:17 Dose: 50 mls/hr Vancomycin HCl 1.5 gm/ Sodium (Chloride) 250 mls @ 250 mls/hr IV Q12H [facility] Last Admin: 10/24/18 08:05 Dose: 250 mls/hr Piperacillin Sod/Tazobactam (Sod 4.5 gm/ Sodium Chloride) 100 mls @ 200 mls/hr IV Q8H [facility] Last Admin: 10/24/18 07:29 Dose: 200 mls/hr Ceftriaxone Sodium 1 gm/ (Sodium Chloride) 50 mls @ 100 mls/hr IV Q24H [facility] Last Admin: 10/26/18 15:00 Dose: 100 mls/hr Sodium Chloride (Normal Saline) 1,000 mls @ 25 mls/hr IV ASDIRECTED [facility] Ketorolac Tromethamine (Toradol) 30 mg IVPUSH Q8H PRN PRN Reason: Pain Stop: 10/25/18 08:15 Last Admin: 10/25/18 09:10 Dose: 30 mg Ketorolac Tromethamine (Toradol) 30 mg IVPUSH Q6H PRN PRN Reason: pain Stop: 10/30/18 13:08 Last Admin: 10/26/18 11:04 Dose: 30 mg Levothyroxine Sodium (Levothyroxine) 112 mcg PO ACBREAKFAST [facility] Last Admin: 10/30/18 08:22 Dose: 112 mcg Lidocaine HCl (Xylocaine-Mpf 1%) 2 ml INJECT ONETIME ONE Stop: 10/20/18 05:30 Last Admin: 10/20/18 05:54 Dose: 2 ml Lidocaine HCl (Xylocaine 1%) 2 ml INJECT ASDIRECTED PRN PRN Reason: add to potassium Last Admin: 10/21/18 03:17 Dose: 2 ml Lorazepam (Ativan) 0.5 mg IVPUSH ONETIME ONE Stop: 10/16/18 23:39 Last Admin: 10/16/18 23:44 Dose: 0.5 mg Lorazepam (Ativan) 0.25 mg IVPUSH Q2H PRN PRN Reason: Anxiety Last Admin: 10/18/18 13:54 Dose: 0.25 mg Lorazepam (Ativan) 0.5 mg PO Q4H PRN PRN Reason: Anxiety Last Admin: 10/27/18 11:53 Dose: 0.5 mg Lorazepam (Ativan) 0.5 mg IVPUSH Q2H PRN PRN Reason: Anxiety Last Admin: 10/29/18 12:24 Dose: 0.5 mg Magnesium Hydroxide (Milk Of Magnesia) 30 ml PO DAILY PRN PRN Reason: Constipation Last Admin: 10/23/18 07:51 Dose: 30 ml Magnesium Hydroxide (Milk Of Magnesia) 30 ml PO BID PRN PRN Reason: Constipation Last Admin: 10/26/18 14:59 Dose: 30 ml Methylprednisolone Sodium Succinate (Solu-Medrol) 125 mg IVPUSH ONETIME ONE Stop: 10/16/18 22:44 Last Admin: 10/16/18 22:55 Dose: 125 mg Methylprednisolone Sodium Succinate (Solu-Medrol) 125 mg IVPUSH Q6H [facility] Methylprednisolone Sodium Succinate (Solu-Medrol) 125 mg IVPUSH Q6H [facility] Last Admin: 10/19/18 05:37 Dose: 125 mg Methylprednisolone Sodium Succinate (Solu-Medrol) 100 mg IVPUSH Q6H [facility] Last Admin: 10/19/18 08:46 Dose: Not Given Methylprednisolone Sodium Succinate (Solu-Medrol) 100 mg IVPUSH Q6H [facility] Last Admin: 10/22/18 17:39 Dose: 100 mg Methylprednisolone Sodium Succinate (Solu-Medrol) 100 mg IVPUSH Q8H [facility] Stop: 10/23/18 18:01 Last Admin: 10/23/18 17:06 Dose: 100 mg Methylprednisolone Sodium Succinate (Solu-Medrol) 100 mg IVPUSH Q12H [facility] Stop: 10/24/18 18:01 Last Admin: 10/24/18 06:06 Dose: 100 mg Methylprednisolone Sodium Succinate (Solu-Medrol) 75 mg IVPUSH Q12H [facility] Stop: 10/24/18 20:01 Last Admin: 10/24/18 20:11 Dose: 75 mg Methylprednisolone Sodium Succinate (Solu-Medrol) 50 mg IVPUSH Q12H [facility] Stop: 10/25/18 20:01 Last Admin: 10/25/18 20:10 Dose: 50 mg Morphine Sulfate (Morphine) 2 mg IVPUSH Q1H PRN PRN Reason: Pain Last Admin: 10/27/18 03:23 Dose: 2 mg Nicotine (Habitrol) 14 mg TRDERM DAILY [facility] Last Admin: 10/30/18 08:18 Dose: 14 mg Ondansetron HCl (Zofran Odt) 4 mg PO Q6H PRN PRN Reason: Nausea Pantoprazole Sodium (Protonix) 40 mg PO ACBREAKFAST [facility] Last Admin: 10/17/18 07:36 Dose: Not Given Pantoprazole Sodium (Protonix Iv) 40 mg IVPUSH Q12H [facility] Last Admin: 10/21/18 03:16 Dose: 40 mg Pantoprazole Sodium (Protonix) 40 mg PO ACBREAKFAST [facility] Last Admin: 10/30/18 08:18 Dose: 40 mg Pneumococcal Polyvalent Vaccine (Pneumovax 23) 0.5 ml IM .ONCE ONE Stop: 10/20/18 08:01 Last Admin: 10/20/18 08:25 Dose: Not Given Pneumococcal Polyvalent Vaccine (Pneumovax 23) 0.5 ml IM .ONCE ONE Stop: 10/25/18 10:01 Last Admin: 10/25/18 12:50 Dose: Not Given Pneumococcal Polyvalent Vaccine (Pneumovax 23) 0.5 ml IM .ONCE ONE Stop: 10/29/18 14:01 Last Admin: 10/29/18 14:12 Dose: 0.5 ml Potassium Chloride (Potassium Chloride) 20 meq PO BID [facility] Last Admin: 10/22/18 20:38 Dose: 20 meq Potassium Chloride (Potassium Chloride) 20 meq PO TID [facility] Last Admin: 10/23/18 22:06 Dose: 20 meq Potassium Chloride (Potassium Chloride) 20 meq PO QID [facility] Potassium Chloride (Potassium Chloride) 20 meq PO QID [facility] Last Admin: 10/25/18 15:52 Dose: 20 meq Potassium Chloride (Potassium Chloride) 40 meq PO TID [facility] Last Admin: 10/27/18 09:34 Dose: 40 meq Potassium Chloride (Klor-Con M20) 40 meq PO DAILY [facility] Last Admin: 10/30/18 08:18 Dose: 40 meq Propofol (Diprivan 20 Ml) Confirm Administered Dose 200 mg .ROUTE .STK-MED ONE Stop: 10/17/18 06:29 Quetiapine Fumarate (Seroquel Xr) 400 mg PO DAILY [facility] Last Admin: 10/30/18 08:18 Dose: 400 mg Sodium Chloride (Saline Flush) 10 ml FLUSH ASDIRECTED PRN PRN Reason: Keep Vein Open Last Admin: 10/16/18 22:55 Dose: 10 ml Tramadol HCl (Ultram) 50 mg PO Q6H PRN PRN Reason: Pain Last Admin: 10/27/18 21:20 Dose: 50 mg - Exam General: Reports: Alert, Oriented, Moderate Distress HEENT: Reports: Pupils Equal, Pupils Reactive, EOMI, Mucous Membr. Moist/[place] Neck: Reports: Supple Lungs: Reports: Clear to Auscultation, Normal Respiratory Effort GI/Abdominal Exam: Normal Bowel Sounds, Soft, Non-Tender, No Organomegaly, No Distention, No Abnormal Bruit, No Mass, Pelvis Stable Back Exam: Reports: Normal Inspection, Full Range of Motion Extremities: Normal Inspection, Normal Range of Motion, Non-Tender, No Pedal Edema, Normal Capillary Refill Psy/Mental Status: Reports: Alert, Labile Mood, Depressed
--- NOTE | 2018-11-08 18:17 | PCM.PN ---
- General Info Date of Service: 10/28/18 Subjective Update: Still having shortness of breath and on oxygen not on BiPAP at the present time. - Review of Systems General: Reports: Weakness HEENT: Reports: No Symptoms Pulmonary: Reports: Shortness of Breath Cardiovascular: Reports: No Symptoms Gastrointestinal: Reports: No Symptoms Genitourinary: Reports: No Symptoms Musculoskeletal: Reports: Joint Pain Skin: Reports: No Symptoms Neurological: Reports: No Symptoms Psychiatric: Reports: Depression - Patient Data Vitals - Most Recent: Last Vital Signs Temp 97.5 F 10/30/18 07:46 Pulse 124 H 10/30/18 10:27 Resp 18 10/30/18 07:46 BP 104/58 L 10/30/18 07:46 Pulse Ox 92 L 10/30/18 10:27 Weight - Most Recent: 194 lb 0.208 oz Med Orders - Current: Current Medications Discontinued Medications Acetaminophen (Tylenol) 650 mg PO Q4H PRN PRN Reason: Pain Albuterol (Proventil Neb Soln) 2.5 mg NEB ONETIME ONE Stop: 10/16/18 23:56 Last Admin: 10/16/18 23:57 Dose: 2.5 mg Albuterol (Proventil Neb Soln) Confirm Administered Dose 0.63 mg .ROUTE .STK- MED ONE Stop: 10/16/18 23:56 Last Admin: 10/17/18 02:24 Dose: Not Given Albuterol (Proventil Neb Soln) 2.5 mg NEB Q4H PRN PRN Reason: Cough Last Admin: 10/23/18 02:31 Dose: 2.5 mg Albuterol/Ipratropium (Duoneb 3.0-0.5 Mg/3 Ml) 3 ml NEB ONETIME ONE Stop: 10/16/18 22:43 Last Admin: 10/16/18 22:47 Dose: 3 ml Albuterol/Ipratropium (Duoneb 3.0-0.5 Mg/3 Ml) 3 ml NEB QIDRT [facility] Last Admin: 10/30/18 10:27 Dose: 3 ml Aripiprazole (Abilify) 10 mg PO DAILY [facility] Last Admin: 10/30/18 08:22 Dose: 10 mg Azithromycin (Zithromax) 500 mg PO DAILY [facility] Last Admin: 10/27/18 08:54 Dose: 500 mg Diltiazem HCl (Diltiazem) 20 mg IVPUSH Q12H [facility] Last Admin: 10/18/18 22:00 Dose: 20 mg Diltiazem HCl (Diltiazem) 20 mg IVPUSH Q6H [facility] Last Admin: 10/19/18 08:08 Dose: 20 mg Diltiazem HCl (Cardizem Cd) 180 mg PO BID [facility] Last Admin: 10/22/18 08:09 Dose: 180 mg Diltiazem HCl (Cardizem Cd) 240 mg PO BID [facility] Last Admin: 10/22/18 10:36 Dose: Not Given Diltiazem HCl (Cardizem Cd) 180 mg PO BID [facility] Last Admin: 10/24/18 22:54 Dose: 180 mg Diltiazem HCl (Cardizem Cd) 240 mg PO BID [facility] Last Admin: 10/30/18 08:23 Dose: Not Given Dimethicone/Zinc Oxide (Rash Relief-Zinc Oxide [place]) 15 gm TOP ASDIRECTED PRN PRN Reason: Rash Dimethicone/Zinc Oxide (Rash Relief-Zinc Oxide [place]) 0 gm TOP ASDIRECTED PRN PRN Reason: Rash Docusate Sodium (Colace) 100 mg PO BID PRN PRN Reason: Constipation Last Admin: 10/26/18 09:19 Dose: 100 mg Doxazosin Mesylate (Cardura) 2 mg PO DAILY [facility] Last Admin: 10/28/18 09:08 Dose: 2 mg Doxazosin Mesylate (Cardura) 4 mg PO DAILY [facility] Last Admin: 10/29/18 08:02 Dose: 4 mg Doxazosin Mesylate (Cardura) 2 mg PO ONETIME ONE Stop: 10/28/18 09:46 Last Admin: 10/28/18 12:20 Dose: Not Given Duloxetine HCl (Cymbalta) 60 mg PO DAILY [facility] Last Admin: 10/30/18 08:22 Dose: 60 mg Furosemide (Lasix) 20 mg IVPUSH ONETIME ONE Stop: 10/19/18 17:01 Last Admin: 10/19/18 17:12 Dose: 20 mg Furosemide (Lasix) 20 mg IVPUSH BID [facility] Stop: 10/25/18 21:01 Last Admin: 10/25/18 20:16 Dose: 20 mg Heparin Sodium (Porcine) (Heparin Sodium) 5,000 units IVPUSH ONETIME ONE Stop: 10/17/18 05:32 Last Admin: 10/17/18 05:46 Dose: 5,000 units Hydralazine HCl (Apresoline) 10 mg IVPUSH Q4H [facility] Last Admin: 10/19/18 11:32 Dose: 10 mg Sodium Chloride (Normal Saline) 1,000 mls @ 75 mls/hr IV ASDIRECTED [facility] Last Admin: 10/18/18 02:41 Dose: 75 mls/hr Sodium Chloride (Normal Saline) 500 mls @ 1 mls/hr IV .BOLUS ONE Stop: 11/07/18 01:27 Last Admin: 10/17/18 05:47 Dose: 1 mls/hr Propofol (Diprivan 100 Ml) 100 mls @ 1.973 mls/hr IV TITRATE [facility]; Protocol Last Titration: 10/21/18 06:52 Dose: 20 mcg/kg/min, 7.893 mls/hr Piperacillin Sod/Tazobactam (Sod 4.5 gm/ Sodium Chloride) 100 mls @ 200 mls/hr IV Q8H [facility] Last Admin: 10/18/18 07:57 Dose: 200 mls/hr Vancomycin HCl 1 gm/ Sodium (Chloride) 250 mls @ 250 mls/hr IV Q12H [facility] Last Admin: 10/19/18 09:57 Dose: 250 mls/hr Heparin Sodium (Porcine) 5,000 (units/ Sodium Chloride) 501 mls @ 0 mls/hr IV ASDIRECTED [facility]; Protocol Last Admin: 10/20/18 09:48 Dose: 1 unit/hr, 0.1 mls/hr Sodium Chloride (Normal Saline) 1,000 mls @ 0 mls/hr IV ASDIRECTED [facility] Last Admin: 10/26/18 08:00 Dose: 125 mls/hr Piperacillin/Tazobactam/ (Dextrose 4.5 gm/ Premix) 100 mls @ 200 mls/hr IV Q8H [facility] Last Admin: 10/22/18 08:06 Dose: 200 mls/hr Vancomycin HCl 1.25 gm/ Sodium (Chloride) 250 mls @ 250 mls/hr IV Q12H [facility] Stop: 10/22/18 12:00 Last Admin: 10/22/18 08:10 Dose: 250 mls/hr Diltiazem HCl 125 mg/ Sodium (Chloride) 125 mls @ 5 mls/hr IV TITRATE [facility]; Protocol Last Titration: 10/21/18 12:21 Dose: 0 mg/hr, 0 mls/hr Potassium Chloride 20 meq/ (Premix) 0 mls @ 50 mls/hr IV ONETIME [facility] Stop: 10/24/18 06:01 Premix 1 bag/ Potassium (Chloride) 100 mls @ 50 mls/hr IV Q2H [facility] Stop: 10/20/18 15:59 Last Admin: 10/20/18 05:54 Dose: 50 mls/hr Potassium Chloride 20 meq/Lidocaine HCl 2 ml/ Sodium Chloride 112 mls @ 56 mls/ hr IV Q2H [facility] Stop: 10/20/18 15:59 Last Admin: 10/20/18 14:04 Dose: 56 mls/hr Potassium Chloride 20 meq/ (Premix) 100 mls @ 50 mls/hr IV Q2H [facility] Stop: 10/21/18 03:59 Last Admin: 10/21/18 03:17 Dose: 50 mls/hr Vancomycin HCl 1.5 gm/ Sodium (Chloride) 250 mls @ 250 mls/hr IV Q12H [facility] Last Admin: 10/24/18 08:05 Dose: 250 mls/hr Piperacillin Sod/Tazobactam (Sod 4.5 gm/ Sodium Chloride) 100 mls @ 200 mls/hr IV Q8H [facility] Last Admin: 10/24/18 07:29 Dose: 200 mls/hr Ceftriaxone Sodium 1 gm/ (Sodium Chloride) 50 mls @ 100 mls/hr IV Q24H [facility] Last Admin: 10/26/18 15:00 Dose: 100 mls/hr Sodium Chloride (Normal Saline) 1,000 mls @ 25 mls/hr IV ASDIRECTED [facility] Ketorolac Tromethamine (Toradol) 30 mg IVPUSH Q8H PRN PRN Reason: Pain Stop: 10/25/18 08:15 Last Admin: 10/25/18 09:10 Dose: 30 mg Ketorolac Tromethamine (Toradol) 30 mg IVPUSH Q6H PRN PRN Reason: pain Stop: 10/30/18 13:08 Last Admin: 10/26/18 11:04 Dose: 30 mg Levothyroxine Sodium (Levothyroxine) 112 mcg PO ACBREAKFAST [facility] Last Admin: 10/30/18 08:22 Dose: 112 mcg Lidocaine HCl (Xylocaine-Mpf 1%) 2 ml INJECT ONETIME ONE Stop: 10/20/18 05:30 Last Admin: 10/20/18 05:54 Dose: 2 ml Lidocaine HCl (Xylocaine 1%) 2 ml INJECT ASDIRECTED PRN PRN Reason: add to potassium Last Admin: 10/21/18 03:17 Dose: 2 ml Lorazepam (Ativan) 0.5 mg IVPUSH ONETIME ONE Stop: 10/16/18 23:39 Last Admin: 10/16/18 23:44 Dose: 0.5 mg Lorazepam (Ativan) 0.25 mg IVPUSH Q2H PRN PRN Reason: Anxiety Last Admin: 10/18/18 13:54 Dose: 0.25 mg Lorazepam (Ativan) 0.5 mg PO Q4H PRN PRN Reason: Anxiety Last Admin: 10/27/18 11:53 Dose: 0.5 mg Lorazepam (Ativan) 0.5 mg IVPUSH Q2H PRN PRN Reason: Anxiety Last Admin: 10/29/18 12:24 Dose: 0.5 mg Magnesium Hydroxide (Milk Of Magnesia) 30 ml PO DAILY PRN PRN Reason: Constipation Last Admin: 10/23/18 07:51 Dose: 30 ml Magnesium Hydroxide (Milk Of Magnesia) 30 ml PO BID PRN PRN Reason: Constipation Last Admin: 10/26/18 14:59 Dose: 30 ml Methylprednisolone Sodium Succinate (Solu-Medrol) 125 mg IVPUSH ONETIME ONE Stop: 10/16/18 22:44 Last Admin: 10/16/18 22:55 Dose: 125 mg Methylprednisolone Sodium Succinate (Solu-Medrol) 125 mg IVPUSH Q6H [facility] Methylprednisolone Sodium Succinate (Solu-Medrol) 125 mg IVPUSH Q6H [facility] Last Admin: 10/19/18 05:37 Dose: 125 mg Methylprednisolone Sodium Succinate (Solu-Medrol) 100 mg IVPUSH Q6H [facility] Last Admin: 10/19/18 08:46 Dose: Not Given Methylprednisolone Sodium Succinate (Solu-Medrol) 100 mg IVPUSH Q6H [facility] Last Admin: 10/22/18 17:39 Dose: 100 mg Methylprednisolone Sodium Succinate (Solu-Medrol) 100 mg IVPUSH Q8H [facility] Stop: 10/23/18 18:01 Last Admin: 10/23/18 17:06 Dose: 100 mg Methylprednisolone Sodium Succinate (Solu-Medrol) 100 mg IVPUSH Q12H [facility] Stop: 10/24/18 18:01 Last Admin: 10/24/18 06:06 Dose: 100 mg Methylprednisolone Sodium Succinate (Solu-Medrol) 75 mg IVPUSH Q12H [facility] Stop: 10/24/18 20:01 Last Admin: 10/24/18 20:11 Dose: 75 mg Methylprednisolone Sodium Succinate (Solu-Medrol) 50 mg IVPUSH Q12H [facility] Stop: 10/25/18 20:01 Last Admin: 10/25/18 20:10 Dose: 50 mg Morphine Sulfate (Morphine) 2 mg IVPUSH Q1H PRN PRN Reason: Pain Last Admin: 10/27/18 03:23 Dose: 2 mg Nicotine (Habitrol) 14 mg TRDERM DAILY [facility] Last Admin: 10/30/18 08:18 Dose: 14 mg Ondansetron HCl (Zofran Odt) 4 mg PO Q6H PRN PRN Reason: Nausea Pantoprazole Sodium (Protonix) 40 mg PO ACBREAKFAST [facility] Last Admin: 10/17/18 07:36 Dose: Not Given Pantoprazole Sodium (Protonix Iv) 40 mg IVPUSH Q12H [facility] Last Admin: 10/21/18 03:16 Dose: 40 mg Pantoprazole Sodium (Protonix) 40 mg PO ACBREAKFAST [facility] Last Admin: 10/30/18 08:18 Dose: 40 mg Pneumococcal Polyvalent Vaccine (Pneumovax 23) 0.5 ml IM .ONCE ONE Stop: 10/20/18 08:01 Last Admin: 10/20/18 08:25 Dose: Not Given Pneumococcal Polyvalent Vaccine (Pneumovax 23) 0.5 ml IM .ONCE ONE Stop: 10/25/18 10:01 Last Admin: 10/25/18 12:50 Dose: Not Given Pneumococcal Polyvalent Vaccine (Pneumovax 23) 0.5 ml IM .ONCE ONE Stop: 10/29/18 14:01 Last Admin: 10/29/18 14:12 Dose: 0.5 ml Potassium Chloride (Potassium Chloride) 20 meq PO BID [facility] Last Admin: 10/22/18 20:38 Dose: 20 meq Potassium Chloride (Potassium Chloride) 20 meq PO TID [facility] Last Admin: 10/23/18 22:06 Dose: 20 meq Potassium Chloride (Potassium Chloride) 20 meq PO QID [facility] Potassium Chloride (Potassium Chloride) 20 meq PO QID [facility] Last Admin: 10/25/18 15:52 Dose: 20 meq Potassium Chloride (Potassium Chloride) 40 meq PO TID [facility] Last Admin: 10/27/18 09:34 Dose: 40 meq Potassium Chloride (Klor-Con M20) 40 meq PO DAILY [facility] Last Admin: 10/30/18 08:18 Dose: 40 meq Propofol (Diprivan 20 Ml) Confirm Administered Dose 200 mg .ROUTE .STK-MED ONE Stop: 10/17/18 06:29 Quetiapine Fumarate (Seroquel Xr) 400 mg PO DAILY [facility] Last Admin: 10/30/18 08:18 Dose: 400 mg Sodium Chloride (Saline Flush) 10 ml FLUSH ASDIRECTED PRN PRN Reason: Keep Vein Open Last Admin: 10/16/18 22:55 Dose: 10 ml Tramadol HCl (Ultram) 50 mg PO Q6H PRN PRN Reason: Pain Last Admin: 10/27/18 21:20 Dose: 50 mg - Exam General: Cooperative, Mild Distress HEENT: Pupils Equal, Pupils Reactive, EOMI, Mucous Membr. Moist/[place] Neck: Supple Lungs: Clear to Auscultation, Normal Respiratory Effort Cardiovascular: Regular Rate, Regular Rhythm GI/Abdominal Exam: Normal Bowel Sounds, Soft, Non-Tender, No Organomegaly, No Distention, No Abnormal Bruit, No Mass, Pelvis Stable Extremities: Normal Inspection, Normal Range of Motion, Non-Tender, No Pedal Edema, Normal Capillary Refill Peripheral Pulses: 1+: Radial (L), Radial (R) Skin: Warm, Dry, Intact Neurological: No New Focal Deficit Psy/Mental Status: Labile Mood - Problem List Review Problem List Initiated/Reviewed/Updated: Yes - Plan Plan:: Assessment/Plan: #1. COPD: Appears alert and has no complaints. She is a chronic retainer of CO2. She is off and on Bi-Pap. She asked never to be intubated again. Will continue to [place] cortisone. #2. Emphysema: #3. Hypothyroidism: Continue with meds. #4. Nicotine addiction: She is stable and mentally stable presently. . I & O showed O/I good output. WBC down to 18.3 with Hb 8.4. K up to 4.2 creat. is 0.7. Overall prognosis guarded. She will need more care than what she can get at home.
== END 2018-10-30 11:09 | disposition home or self-care (01) | DRG 208 ==
LOC: JP.ED 21:54 → JP.ICU 23:50 → UNDOADMIN 23:50 → JP.ICU 10-17 00:11 → JP.MS 10-28 11:00 → JP.ICU 10-28 21:00 → UNDODISIN 10-30 11:09
PROVIDERS: ADMIT Internal Medicine; ATTEND Internal Medicine
PROC: 5A09357 Assistance with Respiratory Ventilation, Less than 24 Consecutive Hours, Continuous Positive Airway Pressure (ICD-10-PCS; principal; 2018-10-17)
PROC: 5A1945Z Respiratory Ventilation, 24-96 Consecutive Hours (ICD-10-PCS; 2018-10-17)
PROC: 0BH18EZ Insertion of Endotracheal Airway into Trachea, Via Natural or Artificial Opening Endoscopic (ICD-10-PCS; 2018-10-17)
PROC: 03HB33Z Insertion of Infusion Device into Right Radial Artery, Percutaneous Approach (ICD-10-PCS; 2018-10-17)
PROC: 3E0234Z Introduction of Serum, Toxoid and Vaccine into Muscle, Percutaneous Approach (ICD-10-PCS; 2018-10-29)
DX: J96.20 Acute and chronic respiratory failure, unspecified whether with hypoxia or hypercapnia (principal); J44.1 Chronic obstructive pulmonary disease with (acute) exacerbation; T17 Foreign body in respiratory tract; E87.2 Acidosis; Z66 Do not resuscitate; F17.210 Nicotine dependence, cigarettes, uncomplicated; R06.02 Shortness of breath; Z99.81 Dependence on supplemental oxygen; E03.9 Hypothyroidism, unspecified; T17.920A Food in respiratory tract, part unspecified causing asphyxiation, initial encounter; X58.XXXA Exposure to other specified factors, initial encounter; Y92.230 Patient room in hospital as the place of occurrence of the external cause; E87.70 Fluid overload, unspecified; Z23 Encounter for immunization; M19.90 Unspecified osteoarthritis, unspecified site; H54.7 Unspecified visual loss; F32.9 Major depressive disorder, single episode, unspecified; F41.9 Anxiety disorder, unspecified; Z90.710 Acquired absence of both cervix and uterus
CPT/HCPCS: 36415; 36600; 51702; 71045; 80053; 82803; 83880; 84484; 85025; 94640; 96374; 96375; 99284; 99285; J2060; J2930; 80048; 80202; 81001; 82565; 83735; 84132; 85027; 85045; 87040; 87070; 87077; 87205; 90732; 93005; 94002; 94003; 94660; 94799; 97110-GP; 97163-GP; 97530-GP; 97535-GP; A9270-GY; C9113; G0009; J0360; J0696; J1644; J1885; J1940; J2001; J2270; J2543; J2704; J3370; J3480; J3490; J7030; J7040; J7050; J7620-GY

== ENCOUNTER 2018-12-21 17:43 | Emergency (ER) | payer MEDICARE, OTHER ==
[2018-12-21] MEDS ORDERED: Albuterol/Ipratropium 3.0-0.5 MG/3 ML Neb Soln NEB ONE (18:02)
--- NOTE | 2018-12-21 18:09 | EDM.PDOC ---
ED HPI GENERAL MEDICAL PROBLEM - General Chief Complaint: Respiratory Problem Stated Complaint: HEART TROUBLE, SOB Time Seen by Provider: 12/21/18 18:00 Source of Information: Reports: Patient, EMS, Family History Limitations: Reports: No Limitations - History of Present Illness INITIAL COMMENTS - FREE TEXT/NARRATIVE: 78-year-old female with COPD, increased shortness of breath over the past week was seen by her primary provider today and evaluated. Blood work was done which was relatively reassuring with normal electrolytes, however her hemoglobin is 8.8. She went home and tried her nebulizer 2 or 3 times but seemed to get worse. She has no air conditioning. The humidity is very hard on her. She has no fever. Onset: Unknown/Unsure Associated Symptoms: Reports: Cough, Malaise, Shortness of Breath, Weakness. Denies: Fever/Chills, Headaches, Loss of Appetite Treatments SHIPPING AND RECEIVING CLERK: Reports: IV/IO, Nitroglycerin, Oxygen, Other (see below) Other Treatments SHIPPING AND RECEIVING CLERK: cpap - Related Data Allergies Allergy/AdvReac Type Severity Reaction Status Date / Time No Known Allergies Allergy Verified 10/16/18 23:37 Home Meds: Home Meds ARIPiprazole [Abilify] 10 mg PO DAILY 12/23/15 [History] DULoxetine HCl [Duloxetine HCl] 60 mg PO DAILY 12/23/15 [History] Dexlansoprazole [Dexilant] 60 mg PO DAILY 12/23/15 [History] Ondansetron [IJD: Ondansetron ODT] 4 mg PO .EVERY 6 HOURS PRN 12/23/15 [History] QUEtiapine Fumarate [Seroquel Xr] 400 mg PO DAILY 12/23/15 [History] Pantoprazole [ProTONIX] 40 mg PO DAILY 10/16/18 [History] Tiotropium Br/Olodaterol HCl [Stiolto Respimat Inhal [place]] 2.5 mcg IH BID 10/17 [History] Acetaminophen [Tylenol] 650 mg PO Q4H PRN tablet 10/30/18 [Rx] Albuterol [Proventil Neb Soln] 2.5 mg NEB Q4H PRN neb 10/30/18 [Rx] Albuterol/Ipratropium [DuoNeb 3.0-0.5 MG/3 ML] 3 ml NEB QIDRT neb 10/30/18 [Rx] Doxazosin [Cardura] 2 mg PO DAILY tablet 10/30/18 [Rx] Levothyroxine 112 mcg PO ACBREAKFAST tablet 10/30/18 [Rx] Nicotine [Habitrol] 14 mg TRDERM DAILY patch 10/30/18 [Rx] Pantoprazole [ProTONIX] 40 mg PO ACBREAKFAST tab.cr 10/30/18 [Rx] Potassium Chloride [Klor-Con M20] 40 meq PO DAILY tab.er 10/30/18 [Rx] Past Medical History HEENT History: Reports: Impaired Vision Respiratory History: Reports: COPD, SOB Musculoskeletal History: Reports: Arthritis Psychiatric History: Reports: Anxiety, Depression - Infectious Disease History Infectious Disease History: Reports: Chicken Pox, Measles, Mumps - Past Surgical History Head Surgeries/Procedures: Reports: None Female Surgical History: Reports: Section, Hysterectomy Musculoskeletal Surgical History: Reports: Shoulder Surgery, Other (See Below) Other Musculoskeletal Surgeries/Procedures:: toe surgery Social & Family History - Tobacco Use Smoking Status *Q: Former Smoker Used Tobacco, but Quit: Yes Month/Year Tobacco Last Used: 3 months ago - Caffeine Use Caffeine Use: Reports: Coffee ED ROS GENERAL - Review of Systems Review Of Systems: See Below Constitutional: Reports: Malaise, Weakness. Denies: Fever, Chills HEENT: Denies: Throat Pain Respiratory: Reports: Shortness of Breath, Wheezing, Cough. Denies: Sputum Cardiovascular: Denies: Chest Pain GI/Abdominal: Reports: Nausea. Denies: Abdominal Pain ED EXAM, GENERAL - Physical Exam Exam: See Below Exam Limited By: No Limitations General Appearance: Alert, No Apparent Distress (Patient is uncomfortable but not distressed) Respiratory/Chest: No Respiratory Distress, Wheezing (Diffuse expiratory wheezing, some decreased breath sounds in the bases) Cardiovascular: Regular Rate, Rhythm, Tachycardia GI/Abdominal: Soft, Non-Tender Extremities: Pedal Edema (No significant edema) Neurological: Alert, Oriented Psychiatric: Normal Affect, Normal Mood Skin Exam: Warm, Dry Course - Vital Signs Last Recorded V/S: Last Vital Signs Temp 96.5 F 12/21/18 18:13 Pulse 133 H 12/21/18 18:13 Resp 24 H 12/21/18 18:13 BP 112/54 L 12/21/18 18:13 Pulse Ox 99 12/21/18 18:13 - Orders/Labs/Meds Orders: Active Orders 24 hr Category Date Time Status RT Aerosol Therapy [RC] ASDIRECTED Care 12/21/18 18:02 Active Meds: Medications Discontinued Medications Generic Name Dose Route Start Last Admin Trade Name Lakesha PRN Reason Stop Dose Admin Albuterol/Ipratropium 3 ml 12/21/18 18:02 12/21/18 18:11 Duoneb 3.0-0.5 Mg/3 Ml NEB 12/21/18 18:03 3 ml ONETIME ONE Administration Methylprednisolone Sodium Succinate 62.5 mg 12/21/18 18:57 12/21/18 19:07 Solu-Medrol IVPUSH 12/21/18 18:58 62.5 mg ONETIME ONE Administration - Re-Assessments/Exams Free Text/Narrative Re-Assessment/Exam: 12/21/18 18:59 Patient was given a DuoNeb, which provided her some subjective improvement, objectively she had less wheezing. She was still wheezing and short of breath. A 1 view chest x-ray shows some chronic basilar changes which were on her previous x-rays, unchanged. I discussed her situation with Dr. Lopez who saw her in clinic earlier today, labs were reassuring at that time. She responded well to a Medrol course 2 weeks ago. We discussed transferring to another hospital as we are full, she wanted to try outpatient treatment so was given 62.5 mg of IV Solu-Medrol and given a Medrol Dosepak. Recheck early next week with Dr. Lopez or return to the emergency room this weekend if not improving. Departure - Departure Time of Disposition: 19:55 Disposition: Home, Self-Care 01 Condition: Fair Clinical Impression: COPD with exacerbation - Discharge Information Instructions: Chronic Obstructive Pulmonary Disease Referrals: Rich Lopez Sr, MD [Primary Care Provider] - Forms: ED Department Discharge Care Plan Goals: Continue your current medications and add Medrol Dosepak as prescribed. Return anytime if worsening or not improving satisfactorily, otherwise recheck early next week with Dr. Lopez. - My Orders Last 24 Hours: My Active Orders 12/21/18 18:02 RT Aerosol Therapy [RC] ASDIRECTED - Assessment/Plan Last 24 Hours: My Active Orders 12/21/18 18:02 RT Aerosol Therapy [RC] ASDIRECTED
--- NOTE | 2018-12-21 18:53 | CRLCR ---
Indication: Shortness of breath. Technique: PA and lateral views suggest routine. Comparison: October 24, 2018. Findings: Heart is normal in size. Bibasilar atelectasis identified. Trace bilateral pleural effusions are seen. No pneumothorax is identified. Impression: Trace bilateral pleural effusions. Bibasilar atelectasis and/or infiltrates Dictated by Rebecca Bacon MD @ Dec 21 2018 6:51PM Signed by Dr. Rebecca Bacon @ Dec 21 2018 6:52PM
[2018-12-21] MEDS ORDERED: methylPREDNISolone Sodium Succinate 125 MG/2 ML SDV IVPUSH ONE (18:57)
== END 2018-12-21 21:02 | disposition home or self-care (01) ==
LOC: JP.ED 17:43
DX: J44.1 Chronic obstructive pulmonary disease with (acute) exacerbation (principal); F41.9 Anxiety disorder, unspecified; F32.9 Major depressive disorder, single episode, unspecified; M19.90 Unspecified osteoarthritis, unspecified site; Z87.891 Personal history of nicotine dependence; Z79.899 Other long term (current) drug therapy
CPT/HCPCS: 71045; 94640; 96374; 99284; J2930; J7620-GY

== ENCOUNTER 2018-12-27 12:03 | Inpatient (IN) | payer MEDICARE, OTHER ==
[2018-12-27] MEDS ORDERED: Albuterol/Ipratropium 3.0-0.5 MG/3 ML Neb Soln NEB ONE ×3 (13:02→14:27)
[2018-12-27] MEDS ORDERED: Sodium Chloride 0.9% 10 ML Syringe FLUSH PRN (13:08)
--- NOTE | 2018-12-27 13:53 | EDM.PDOC ---
ED HPI GENERAL MEDICAL PROBLEM - General Chief Complaint: Respiratory Problem Stated Complaint: TROUBLE BREATHING Time Seen by Provider: 12/27/18 12:29 Source of Information: Reports: Patient, Family History Limitations: Reports: Physical Impairment - History of Present Illness INITIAL COMMENTS - FREE TEXT/NARRATIVE: Patient is brought for evaluation of worsening shortness of breath in the context of known COPD. She recently has been on seen a couple times for breathing-related issues. She saw Dr. Brewster in his clinic earlier this month and was prescribed a 5 day course of prednisone in addition to her usual medications. She uses an inhaler at home periodically. She didn't completely resolve her symptoms and was seen in this department subsequent to that visit. It was recommended that she be hospitalized but she declined and was sent home with what sounds like a Medrol Dosepak. She uses oxygen at home all the time and currently came in using it at 3 L/m. She has been going to what sounds like pulmonary rehabilitation twice a week since hospitalization for her symptoms earlier this summer. She was sent here from rehabilitation today because of symptoms. Her is the primary historian. Onset: Today Duration: Day(s):, Week(s):, Chronic Location: Reports: Chest Severity: Moderate Improves with: Reports: None Context: Reports: Activity Associated Symptoms: Reports: No Other Symptoms - Related Data Allergies Allergy/AdvReac Type Severity Reaction Status Date / Time No Known Allergies Allergy Verified 12/27/18 12:34 Home Meds: Home Meds ARIPiprazole [Abilify] 10 mg PO DAILY 12/23/15 [History] DULoxetine HCl [Duloxetine HCl] 60 mg PO DAILY 12/23/15 [History] Dexlansoprazole [Dexilant] 60 mg PO DAILY 12/23/15 [History] Ondansetron [IJD: Ondansetron ODT] 4 mg PO .EVERY 6 HOURS PRN 12/23/15 [History] QUEtiapine Fumarate [Seroquel Xr] 400 mg PO DAILY 12/23/15 [History] Tiotropium Br/Olodaterol HCl [Stiolto Respimat Inhal [place]] 2.5 mcg IH BID 10/17 [History] Acetaminophen [Tylenol] 650 mg PO Q4H PRN tablet 10/30/18 [Rx] Albuterol [Proventil Neb Soln] 2.5 mg NEB Q4H PRN neb 10/30/18 [Rx] Albuterol/Ipratropium [DuoNeb 3.0-0.5 MG/3 ML] 3 ml NEB QIDRT neb 10/30/18 [Rx] Doxazosin [Cardura] 2 mg PO DAILY tablet 10/30/18 [Rx] Levothyroxine 112 mcg PO ACBREAKFAST tablet 10/30/18 [Rx] Pantoprazole [ProTONIX] 40 mg PO ACBREAKFAST tab.cr 10/30/18 [Rx] Potassium Chloride [Klor-Con M20] 40 meq PO DAILY tab.er 10/30/18 [Rx] Digoxin 1 tab PO DAILY 12/27/18 [History] Spironolact/Hydrochlorothiazid [Spironolactone-HCTZ 25-25] 1 tab PO DAILY [History] Past Medical History HEENT History: Reports: Impaired Vision Respiratory History: Reports: COPD, SOB Musculoskeletal History: Reports: Arthritis Psychiatric History: Reports: Anxiety, Depression - Infectious Disease History Infectious Disease History: Reports: Chicken Pox, Measles, Mumps - Past Surgical History Head Surgeries/Procedures: Reports: None Female Surgical History: Reports: Section, Hysterectomy Musculoskeletal Surgical History: Reports: Shoulder Surgery, Other (See Below) Other Musculoskeletal Surgeries/Procedures:: toe surgery Social & Family History - Tobacco Use Smoking Status *Q: Former Smoker Used Tobacco, but Quit: Yes Month/Year Tobacco Last Used: 10/2018 - Caffeine Use Caffeine Use: Reports: Coffee - Recreational Drug Use Recreational Drug Use: No ED ROS GENERAL - Review of Systems Review Of Systems: See Below Constitutional: Reports: Malaise, Weakness. Denies: Fever, Chills Respiratory: Reports: Shortness of Breath, Wheezing, Cough. Denies: Pleuritic Chest Pain Cardiovascular: Reports: No Symptoms. Denies: Chest Pain GI/Abdominal: Reports: No Symptoms Musculoskeletal: Reports: No Symptoms ED EXAM, GENERAL - Physical Exam Exam: See Below Exam Limited By: Physical Impairment (Responses to questions are limited by breathing rate.) General Appearance: Moderate Distress Throat/Mouth: Normal Inspection Respiratory/Chest: Respiratory Distress, Wheezing (Harsh wheezing in all lung ramesh.) Cardiovascular: Regular Rate, Rhythm, Tachycardia GI/Abdominal: Normal Bowel Sounds, Non-Tender Extremities: No Pedal Edema Course - Vital Signs Last Recorded V/S: Last Vital Signs Temp 36.5 C 12/27/18 12:27 Pulse 121 H 12/27/18 15:27 Resp 26 H 12/27/18 14:26 BP 133/71 12/27/18 15:27 Pulse Ox 98 12/27/18 15:27 - Orders/Labs/Meds Orders: Active Orders 24 hr Category Date Time Status Patient Status Manage Transfer [TRANSFER] Routine ADT 12/27/18 16:02 Active BIPAP [RT BiPAP/CPAP] [RC] ASDIRECTED Care 12/27/18 14:15 Ordered EKG Documentation Completion [RC] ASDIRECTED Care 12/27/18 16:01 Active RT Aerosol Therapy [RC] ASDIRECTED Care 12/27/18 13:06 Ordered RT Aerosol Therapy [RC] ASDIRECTED Care 12/27/18 14:06 Ordered RT Aerosol Therapy [RC] ASDIRECTED Care 12/27/18 14:08 Ordered Doxycycline [Vibramycin] 100 mg Med 12/27/18 16:30 Active Sodium Chloride 0.9% [Normal Saline] 100 ml IV ONETIME Sodium Chloride 0.9% [Saline Flush] Med 12/27/18 13:08 Ordered 10 ml FLUSH ASDIRECTED PRN Saline Lock Insert [OM.PC] Routine Oth 12/27/18 13:08 Ordered Resuscitation Status Routine Resus Stat 12/27/18 16:04 Ordered EKG 12 Lead [EK] Urgent Ther 12/27/18 16:01 Ordered Medication Orders Doxycycline Hyclate 100 mg/ (Sodium Chloride) 100 mls @ 100 mls/hr IV ONETIME ONE Stop: 12/27/18 17:29 Sodium Chloride (Saline Flush) 10 ml FLUSH ASDIRECTED PRN PRN Reason: Keep Vein Open Last Admin: 12/27/18 13:25 Dose: 10 ml Labs: Laboratory Tests 12/27/18 12/27/18 12/27/18 Range/Units 13:02 13:23 13:23 WBC 15.5 H (4.5-11.0) K/uL RBC 3.90 (3.30-5.50) M/uL Hgb 9.8 L (12.0-15.0) g/dL Hct 33.6 L (36.0-48.0) % MCV 86 (80-98) fL MCH 25 L (27-31) pg MCHC 29 L (32-36) % Plt Count 448 H (150-400) K/uL Neut % (Auto) 87 H (36-66) % Lymph % (Auto) 6 L (24-44) % [place] % (Auto) 7 H (2-6) % Eos % (Auto) 0 L (2-4) % Baso % (Auto) 0 (0-1) % Puncture Site Lt radial ABG pH 7.432 (7.350-7.450) ABG pCO2 59.2 H (35.0-42.0) mmHg ABG pO2 79.7 (75.0-100.0) mmHg ABG HCO3 38.8 H (22.0-26.0) mmol/L ABG Total CO2 35.9 H (21.0-25.0) mmol/L ABG O2 Saturation 96.3 (95.0-98.0) % ABG O2 Content 12.8 L (15.0-23.0) %vol ABG Base Excess 12.8 mm/L ABG Hemoglobin 9.7 L (12.0-16.0) g/dL ABG Oxyhemoglobin 93.3 % ABG Carboxyhemoglobin 2.2 H (0.0-1.6) % ABG Methemoglobin 0.9 % Timmy Test Passed O2 Delivery Device Nasal cannula Oxygen Flow Rate 2 L Sodium 134 L (140-148) mmol/L Potassium 3.9 (3.6-5.2) mmol/L Chloride 92 L (100-108) mmol/L Carbon Dioxide 39 H (21-32) mmol/L Anion Gap 6.9 (5.0-14.0) mmol/L BUN 16 (7-18) mg/dL Creatinine 0.5 L (0.6-1.0) mg/dL Est Cr Clr Drug Dosing 65.53 mL/min Estimated GFR (MDRD) > 60 (>60) Glucose 117 H (74-106) mg/dL Calcium 8.5 (8.5-10.1) mg/dL Total Bilirubin 0.4 (0.2-1.0) mg/dL AST 10 L (15-37) U/L ALT 15 (12-78) U/L Alkaline Phosphatase 34 L (46-116) U/L Troponin I < 0.017 (0.000-0.056) ng/mL Total Protein 7.2 (6.4-8.2) g/dL Albumin 3.3 L (3.4-5.0) g/dL Globulin 3.9 H (2.3-3.5) g/dL Albumin/Globulin Ratio 0.9 L (1.2-2.2) Digoxin 0.27 L (0.90-2.00) ng/mL Meds: Medications Generic Name Dose Route Start Last Admin Trade Name Freq PRN Reason Stop Dose Admin Doxycycline Hyclate 100 mg/ 100 mls @ 100 mls/hr 12/27/18 16:30 Sodium Chloride IV 12/27/18 17:29 ONETIME ONE Sodium Chloride 10 ml 12/27/18 13:08 12/27/18 13:25 Saline Flush FLUSH 10 ml ASDIRECTED PRN Administration Keep Vein Open Discontinued Medications Generic Name Dose Route Start Last Admin Trade Name Freq PRN Reason Stop Dose Admin Albuterol/Ipratropium 3 ml 12/27/18 13:02 12/27/18 13:25 Duoneb 3.0-0.5 Mg/3 Ml [facility] 12/27/18 13:03 3 ml ONETIME ONE Administration Albuterol/Ipratropium 3 ml 12/27/18 14:06 12/27/18 14:23 Duoneb 3.0-0.5 Mg/3 Ml [facility] 12/27/18 14:07 3 ml ONETIME ONE Administration Albuterol/Ipratropium 3 ml 12/27/18 14:27 12/27/18 14:43 Duoneb 3.0-0.5 Mg/3 Ml [facility] 12/27/18 14:28 3 ml ONETIME ONE Administration Methylprednisolone Sodium Succinate 125 mg 12/27/18 15:42 12/27/18 16:08 Solu-Medrol IVPUSH 12/27/18 15:43 125 mg ONETIME ONE Administration - Re-Assessments/Exams Free Text/Narrative Re-Assessment/Exam: 12/27/18 13:58 Patient will be given DuoNeb treatments to attempt to improve breathing and less and wheezing. I discussed with her that she may need to be in the hospital for current symptoms. 12/27/18 15:42 Patient had 3 DuoNeb treatments and still was wheezing. She will be placed on BiPAP to help her rest. Discussed her case with the hospital service to arrange admission. She will receive ethyl prednisolone 125 mg IV. Departure - Departure Time of Disposition: 15:21 Disposition: Admitted As Inpatient 65 Condition: Poor Clinical Impression: COPD with exacerbation, Tachycardia - Discharge Information *PRESCRIPTION DRUG MONITORING PROGRAM REVIEWED*: Not Applicable *COPY OF PRESCRIPTION DRUG MONITORING REPORT IN PATIENT URIEL: Not Applicable Referrals: Rich Lopez Sr, MD [Primary Care Provider] - - My Orders Last 24 Hours: My Active Orders 12/27/18 13:06 RT Aerosol Therapy [RC] ASDIRECTED 12/27/18 13:08 Sodium Chloride 0.9% [Saline Flush] 10 ml FLUSH ASDIRECTED PRN Saline Lock Insert [OM.PC] Routine 12/27/18 14:06 RT Aerosol Therapy [RC] ASDIRECTED 12/27/18 14:08 RT Aerosol Therapy [RC] ASDIRECTED 12/27/18 14:15 BIPAP [RT BiPAP/CPAP] [RC] ASDIRECTED - Assessment/Plan Last 24 Hours: My Active Orders 12/27/18 13:06 RT Aerosol Therapy [RC] ASDIRECTED 12/27/18 13:08 Sodium Chloride 0.9% [Saline Flush] 10 ml FLUSH ASDIRECTED PRN Saline Lock Insert [OM.PC] Routine 12/27/18 14:06 RT Aerosol Therapy [RC] ASDIRECTED 12/27/18 14:08 RT Aerosol Therapy [RC] ASDIRECTED 12/27/18 14:15 BIPAP [RT BiPAP/CPAP] [RC] ASDIRECTED
--- NOTE | 2018-12-27 14:15 | CRLCR ---
INDICATION: Severe wheezing, dyspnea TECHNIQUE: Chest radiograph 2 views COMPARISON: 12/21/2018 FINDINGS: Mediastinum: The mediastinum is normal in appearance. The heart silhouette is normal in size and morphology. Lung: Bilateral pulmonary hyperinflation and lucency noted, suggestive of moderate pulmonary emphysema. Mild bibasilar subsegmental atelectasis is seen. No sign of pleural effusion seen. No pneumothorax is identified. Bone and Soft tissue: Unremarkable for age. IMPRESSIONS: 1. Bilateral pulmonary hyperinflation and lucency noted, suggestive of moderate pulmonary emphysema. 2. Mild bibasilar subsegmental atelectasis is seen. Dictated by Victor Hugo Noriega MD @ 12/27/2018 2:13:49 PM Dictated by: Victor Hugo Noriega MD @ 12/27/2018 14:13:52 (Electronically Signed)
[2018-12-27] MEDS ORDERED: methylPREDNISolone Sodium Succinate 125 MG/2 ML SDV IVPUSH ONE (15:42)
[2018-12-27] MEDS ORDERED: Doxycycline 100 MG in Sodium Chloride 0.9% 100 ML IV ONE ×2 (16:00→16:30)
--- NOTE | 2018-12-27 16:59 | PCM.HP.2 ---
H&P History of Present Illness - General Date of Service: 12/27/18 Admit Problem/Dx: Admission Diagnosis/Problem Admission Diagnosis/Problem Acute exacerbation of chronic obstructive airways disease Source of Information: Patient, Family, Provider History Limitations: Reports: No Limitations - History of Present Illness Initial Comments - Free Text/Narative: CC: I'm short of breath HPI: Josep presents to the emergency room today with progressive shortness of breath. She was seen in the clinic about 2 weeks ago and started on prednisone. Initially she started to improve but then worsened again. She came to the emergency room 6 days ago and was started on a Medrol Dosepak. Initially she started to improve but then over the past 2 days has worsened. She has increased shortness of breath. She only has a mild cough which is not dramatically different than baseline. She doesn't think she's had any fevers. She is extremely winded even at rest at this time. She does not complain of any chest pain. No complaints of abdominal pain. She has been using her respiratory treatments regularly without much improvement. She did have some nausea and a couple episodes of vomiting today. She does have a sick contact with the who has an upper respiratory infection. Workup in the emergency room revealed respiratory distress and sinus tachycardia. Chest x-ray was clear other than hyperinflation. Laboratory studies revealed a normal pH on her blood gases but showed a PCO2 of more than 60 and a PO2 of around 60. She has received several nebulizer treatments as well as IV Solu-Medrol. Respiratory status was labile enough that she was started on noninvasive ventilation. She will be admitted to the intensive care unit for management of bronchitis with a COPD exacerbation and respiratory failure. - Related Data Allergies/Adverse Reactions: Allergies Allergy/AdvReac Type Severity Reaction Status Date / Time No Known Allergies Allergy Verified 12/27/18 12:34 Home Medications: Home Meds ARIPiprazole [Abilify] 10 mg PO DAILY 12/23/15 [History] DULoxetine HCl [Duloxetine HCl] 60 mg PO DAILY 12/23/15 [History] Dexlansoprazole [Dexilant] 60 mg PO DAILY 12/23/15 [History] Ondansetron [IJD: Ondansetron ODT] 4 mg PO .EVERY 6 HOURS PRN 12/23/15 [History] QUEtiapine Fumarate [Seroquel Xr] 400 mg PO DAILY 12/23/15 [History] Tiotropium Br/Olodaterol HCl [Stiolto Respimat Inhal [place]] 2.5 mcg IH BID 10/17 [History] Acetaminophen [Tylenol] 650 mg PO Q4H PRN tablet 10/30/18 [Rx] Albuterol [Proventil Neb Soln] 2.5 mg NEB Q4H PRN neb 10/30/18 [Rx] Albuterol/Ipratropium [DuoNeb 3.0-0.5 MG/3 ML] 3 ml NEB QIDRT neb 10/30/18 [Rx] Doxazosin [Cardura] 2 mg PO DAILY tablet 10/30/18 [Rx] Levothyroxine 112 mcg PO ACBREAKFAST tablet 10/30/18 [Rx] Pantoprazole [ProTONIX] 40 mg PO ACBREAKFAST tab.cr 10/30/18 [Rx] Potassium Chloride [Klor-Con M20] 40 meq PO DAILY tab.er 10/30/18 [Rx] Digoxin 1 tab PO DAILY 12/27/18 [History] Spironolact/Hydrochlorothiazid [Spironolactone-HCTZ 25-25] 1 tab PO DAILY [History] Past Medical History HEENT History: Reports: Impaired Vision Respiratory History: Reports: COPD, SOB Musculoskeletal History: Reports: Arthritis Psychiatric History: Reports: Anxiety, Depression - Infectious Disease History Infectious Disease History: Reports: Chicken Pox, Measles, Mumps - Past Surgical History Head Surgeries/Procedures: Reports: None Female Surgical History: Reports: Section, Hysterectomy Musculoskeletal Surgical History: Reports: Shoulder Surgery, Other (See Below) Other Musculoskeletal Surgeries/Procedures:: toe surgery Social & Family History - Family History Respiratory: Reports: COPD - Tobacco Use Smoking Status *Q: Former Smoker Used Tobacco, but Quit: Yes Month/Year Tobacco Last Used: 10/2018 - Caffeine Use Caffeine Use: Reports: Coffee - Alcohol Use Alcohol Use History: No - Recreational Drug Use Recreational Drug Use: No H&P Review of Systems - Review of Systems: Review Of Systems: See Below Free Text/Narrative: A complete 12 point review of systems was obtained. Pertinent positives and negatives are noted in the history of present illness. All other systems were reviewed and were negative except as noted. Exam - Exam Exam: See Below - Vital Signs Vital Signs: Last Vital Signs Temp 36.5 C 12/27/18 12:27 Pulse 121 H 12/27/18 15:27 Resp 26 H 12/27/18 14:26 BP 133/71 12/27/18 15:27 Pulse Ox 98 12/27/18 15:27 Weight: 64.41 kg - Exam Quality Assessment: Supplemental Oxygen General: Alert, Oriented, Cooperative, Mild Distress HEENT: Conjunctiva Clear. No: Mucosa Moist & [place] (dry), Scleral Icterus Neck: Supple, Trachea Midline. No: Lymphadenopathy Lungs: Rhonchi (Diffuse, especially in upper lungs), Other (Poor air movement). No: Normal Respiratory Effort (Increased work of breathing), Wheezing Cardiovascular: Regular Rhythm, Tachycardia. No: Systolic Murmur GI/Abdominal Exam: Normal Bowel Sounds, Soft, No Distention, Tender (Mild generalized tenderness) Extremities: No Pedal Edema. No: Increased Warmth Peripheral Pulses: 2+: Dorsalis Pedis (L), Dorsalis Pedis (R) Skin: Warm, Dry Neuro Extensive - Mental Status: Alert, Oriented x3, Nl Response to Commands Neuro Extensive - Motor, Sensory, Reflexes: No: Dysarthria, Abnormal Motor, Tremor Psychiatric: Alert, Normal Affect - Patient Data Lab Results Last 24 hrs: Laboratory Results - last 24 hr 12/27/18 12/27/18 12/27/18 Range/Units 13:02 13:23 13:23 WBC 15.5 H (4.5-11.0) K/uL RBC 3.90 (3.30-5.50) M/uL Hgb 9.8 L (12.0-15.0) g/dL Hct 33.6 L (36.0-48.0) % MCV 86 (80-98) fL MCH 25 L (27-31) pg MCHC 29 L (32-36) % Plt Count 448 H (150-400) K/uL Neut % (Auto) 87 H (36-66) % Lymph % (Auto) 6 L (24-44) % [place] % (Auto) 7 H (2-6) % Eos % (Auto) 0 L (2-4) % Baso % (Auto) 0 (0-1) % Puncture Site Lt radial ABG pH 7.432 (7.350-7.450) ABG pCO2 59.2 H (35.0-42.0) mmHg ABG pO2 79.7 (75.0-100.0) mmHg ABG HCO3 38.8 H (22.0-26.0) mmol/L ABG Total CO2 35.9 H (21.0-25.0) mmol/L ABG O2 Saturation 96.3 (95.0-98.0) % ABG O2 Content 12.8 L (15.0-23.0) %vol ABG Base Excess 12.8 mm/L ABG Hemoglobin 9.7 L (12.0-16.0) g/dL ABG Oxyhemoglobin 93.3 % ABG Carboxyhemoglobin 2.2 H (0.0-1.6) % ABG Methemoglobin 0.9 % Timmy Test Passed O2 Delivery Device Nasal cannula Oxygen Flow Rate 2 L Sodium 134 L (140-148) mmol/L Potassium 3.9 (3.6-5.2) mmol/L Chloride 92 L (100-108) mmol/L Carbon Dioxide 39 H (21-32) mmol/L Anion Gap 6.9 (5.0-14.0) mmol/L BUN 16 (7-18) mg/dL Creatinine 0.5 L (0.6-1.0) mg/dL Est Cr Clr Drug Dosing 65.53 mL/min Estimated GFR (MDRD) > 60 (>60) Glucose 117 H (74-106) mg/dL Calcium 8.5 (8.5-10.1) mg/dL Total Bilirubin 0.4 (0.2-1.0) mg/dL AST 10 L (15-37) U/L ALT 15 (12-78) U/L Alkaline Phosphatase 34 L (46-116) U/L Troponin I < 0.017 (0.000-0.056) ng/mL Total Protein 7.2 (6.4-8.2) g/dL Albumin 3.3 L (3.4-5.0) g/dL Globulin 3.9 H (2.3-3.5) g/dL Albumin/Globulin Ratio 0.9 L (1.2-2.2) Digoxin 0.27 L (0.90-2.00) ng/mL Result Diagrams: 12/27/18 13:23 12/27/18 13:23 Imaging Impressions Last 24 hrs: Chest x-ray - images personally reviewed - there is evidence for hyperinflation. Heart size is normal. No obvious mass, infiltrate or effusion. EKG INTERPRETATION EKG Date: 12/27/18 Rhythm: Other (Sinus tachycardia) [place]: Normal P-Wave: Present QRS: Normal ST-T: Normal QT: Normal *Q Meaningful Use (ADM) - VTE Risk Assess *Q Each Risk Factor Represents 1 Point: Obesity ( BMI > 25 kg/m2), Serious lung disease including pneumonia, Abnormal Pulmonary Function (COPD) Total Score 1 Point Risk Factors: 3 Each Risk Factor Represents 2 Points: None Total Score 2 Point Risk Factors: 0 Each Risk Factor Represents 3 Points: Age 75 Years or Greater Total Score 3 Point Risk Factors: 3 Each Risk Factor Represents 5 Points: None Total Score 5 Point Risk Factors: 0 Venous Thromboembolism Risk Factor Score *Q: 6 - Problem List (1) Acute bronchitis SNOMED Code(s): 69075417 ICD Code: J20.9 - ACUTE BRONCHITIS, UNSPECIFIED Status: Acute Current Visit: Yes Qualifiers: Bronchitis organism: unspecified organism Qualified Code(s): J20.9 - Acute bronchitis, unspecified (2) Acute respiratory failure with hypoxia and hypercapnia SNOMED Code(s): 244122444 ICD Code: J96.01 - ACUTE RESPIRATORY FAILURE WITH HYPOXIA; J96.02 - ACUTE RESPIRATORY FAILURE WITH HYPERCAPNIA Status: Acute Current Visit: Yes (3) COPD with exacerbation SNOMED Code(s): 260436530 ICD Code: J44.1 - CHRONIC OBSTRUCTIVE PULMONARY DISEASE W (ACUTE) EXACERBATION Status: Acute Current Visit: Yes Problem List Initiated/Reviewed/Updated: Yes Orders Last 24hrs: Active Orders 24 hr Category Date Time Status Patient Status Manage Transfer [TRANSFER] Routine ADT 12/27/18 16:02 Active BIPAP [RT BiPAP/CPAP] [RC] ASDIRECTED Care 12/27/18 14:15 Active EKG Documentation Completion [RC] ASDIRECTED Care 12/27/18 16:01 Active RT Aerosol Therapy [RC] ASDIRECTED Care 12/27/18 13:06 Active RT Aerosol Therapy [RC] ASDIRECTED Care 12/27/18 14:06 Active RT Aerosol Therapy [RC] ASDIRECTED Care 12/27/18 14:08 Active Doxycycline [Vibramycin] 100 mg Med 12/27/18 16:30 Active Sodium Chloride 0.9% [Normal Saline] 100 ml IV ONETIME Sodium Chloride 0.9% [Saline Flush] Med 12/27/18 13:08 Active 10 ml FLUSH ASDIRECTED PRN Saline Lock Insert [OM.PC] Routine Oth 12/27/18 13:08 Ordered Resuscitation Status Routine Resus Stat 12/27/18 16:04 Ordered EKG 12 Lead [EK] Urgent Ther 12/27/18 16:01 Ordered Medication Orders Doxycycline Hyclate 100 mg/ (Sodium Chloride) 100 mls @ 100 mls/hr IV ONETIME ONE Stop: 12/27/18 17:29 Last Admin: 12/27/18 16:43 Dose: 100 mls/hr Sodium Chloride (Saline Flush) 10 ml FLUSH ASDIRECTED PRN PRN Reason: Keep Vein Open Last Admin: 12/27/18 13:25 Dose: 10 ml Assessment/Plan Comment:: ASSESSMENT AND PLAN - Acute bronchitis - complicated by acute respiratory failure with hypoxia and hypercapnia. She is currently requiring noninvasive ventilation. Symptoms have progressed despite outpatient management with steroids. Worsening despite using respiratory treatments at home. -ICU admission with respiratory distress -Doxycycline -IV steroids -Scheduled and as needed nebulizers -Noninvasive ventilation as tolerated through the day, wean as able -Sputum culture if able Oxygen-dependent COPD - complicated by acute exacerbation secondary to bronchitis. Currently requiring NIPPV. -Management as above -Supplement oxygen -Review control her medications prior to discharge Maintenance issues - - DVT prophylaxis - enoxaparin - GI prophylaxis - PPI - Nutrition - regular - Kennedy catheter - not indicated CODE STATUS - patient wishes to be full code Admission justification - This patient will be admitted for inpatient services and is medically appropriate meeting medical necessity for inpatient admission as outlined in my documentation. I reasonably expect the patient will require inpatient services that span a period time over 2 midnights. I reasonably expect this patient to be discharged or transferred within 96 hours [facility]. Disposition - I would anticipate discharge home after the hospital stay Primary care physician - Dr. John Hurd M.D. - Mortality Measure Prognosis:: Poor
[2018-12-27] MEDS ORDERED: Sodium Chloride 0.9% 1,000 ML IV SCH (18:15)
[2018-12-27] MEDS ORDERED: Magnesium Hydroxide 400 MG/5 ML Susp 30 ML Cup PO PRN (18:15)
[2018-12-27] MEDS ORDERED: Acetaminophen 325 MG Tab PO PRN (18:15)
[2018-12-27] MEDS ORDERED: Codeine/guaiFENesin 100mg-10 MG/5 ML Syrup 10 ML Cup PO PRN (18:15)
[2018-12-27] MEDS ORDERED: Ondansetron 4 MG Tab.DIS PO PRN (18:15)
[2018-12-27] MEDS: Melatonin 3 MG Tab PO SCH (21:35)
[2018-12-27] MEDS: Albuterol/Ipratropium 3.0-0.5 MG/3 ML Neb Soln NEB SCH (21:35)
[2018-12-27] MEDS: methylPREDNISolone Sodium Succinate 125 MG/2 ML SDV IVPUSH SCH (23:32)
[2018-12-28] MEDS ORDERED: Doxycycline 100 MG Vial ONE (03:50)
[2018-12-28] MEDS: Doxycycline 100 MG in Sodium Chloride 0.9% 100 ML IV SCH ×2 (04:04→16:00)
[2018-12-28] MEDS: Albuterol/Ipratropium 3.0-0.5 MG/3 ML Neb Soln NEB SCH ×4 (07:00→20:44)
[2018-12-28] MEDS ORDERED: Pantoprazole 40 MG Tab.CR PO SCH (07:30)
[2018-12-28] MEDS: Levothyroxine 112 MCG Tab PO SCH (08:01)
[2018-12-28] MEDS: methylPREDNISolone Sodium Succinate 125 MG/2 ML SDV IVPUSH SCH ×3 (08:03→23:26)
[2018-12-28] MEDS ORDERED: Enoxaparin 40 MG/0.4 ML Syringe SUBCUT SCH (09:00)
[2018-12-28] MEDS: ARIPiprazole 10 MG Tab PO SCH (09:21)
[2018-12-28] MEDS: Spironolactone 25 MG Tab PO SCH (09:22)
[2018-12-28] MEDS: Doxazosin 4 MG Tab PO SCH (09:22)
[2018-12-28] MEDS: DULoxetine 30 MG Cap PO SCH (09:23)
[2018-12-28] MEDS: Hydrochlorothiazide 25 MG Tab PO SCH (09:24)
[2018-12-28] MEDS: QUEtiapine 50 MG Tab.SR PO SCH (09:25)
[2018-12-28] MEDS: Ondansetron 4 MG/2 ML SDV IV PRN ×2 (09:54→13:32)
[2018-12-28] MEDS: STIOLTO RESPIMAT IH SCH ×2 (10:57→20:44)
[2018-12-28] MEDS ORDERED: Sodium Chloride 0.9% 500 ML IV SCH ×2 (12:30→14:15)
[2018-12-28] MEDS: Sodium Chloride 0.9% 100 ML with Pantoprazole 80 MG IV SCH ×4 (12:47→22:00)
[2018-12-28] MEDS ORDERED: Pantoprazole 40 MG Vial IVPUSH ONE (13:00)
[2018-12-28] MEDS: Dextrose 5%-Lact Ringers w/KCl 1,000 ML IV SCH (13:05)
--- NOTE | 2018-12-28 15:55 | PCM.PN ---
- General Info Date of Service: 12/28/18 Subjective Update: No acute events overnight. Respiratory status improved and she was off the noninvasive ventilation this morning. Shortness of breath has improved dramatically. Still has a mild cough. This morning after pills and some breakfast she developed nausea and then had no episode of vomiting. Shortly thereafter she had another round of emesis which was bloody. She has had multiple episodes of vomiting since that time. She has become tachycardic with heart rates in the 140s. No complaints of abdominal pain. She does report a history of a bleeding ulcer. Functional Status: Reports: Pain Controlled. Denies: Tolerating Diet - Patient Data Vitals - Most Recent: Last Vital Signs Temp 36.8 C 12/28/18 08:00 Pulse 136 H 12/28/18 15:00 Resp 14 12/28/18 14:00 BP 114/55 L 12/28/18 14:00 Pulse Ox 99 12/28/18 15:00 Weight - Most Recent: 64.41 kg I&O - Last 24 Hours: Intake & Output 12/28/18 12/28/18 12/28/18 06:59 14:59 22:59 Intake Total 1192 Output Total 250 Balance 942 Lab Results Last 24 Hours: Laboratory Results - last 24 hr 12/28/18 12/28/18 12/28/18 Range/Units 05:06 05:06 14:45 WBC 11.0 (4.5-11.0) K/uL RBC 3.69 (3.30-5.50) M/uL Hgb 9.0 L (12.0-15.0) g/dL Hct 32.2 L (36.0-48.0) % MCV 87 (80-98) fL MCH 24 L (27-31) pg MCHC 28 L (32-36) % Plt Count 448 H (150-400) K/uL Sodium 136 L (140-148) mmol/L Potassium 4.3 (3.6-5.2) mmol/L Chloride 96 L (100-108) mmol/L Carbon Dioxide 37 H (21-32) mmol/L Anion Gap 7.3 (5.0-14.0) mmol/L BUN 17 (7-18) mg/dL Creatinine 0.6 (0.6-1.0) mg/dL Est Cr Clr Drug Dosing 54.61 mL/min Estimated GFR (MDRD) > 60 (>60) Glucose 129 H (74-106) mg/dL Calcium 8.2 L (8.5-10.1) mg/dL Blood Type A POSITIVE Gel Antibody Screen Negative Crossmatch See Detail Med Orders - Current: Current Medications Acetaminophen (Tylenol) 650 mg PO Q4H PRN PRN Reason: Pain (Mild 1-3)/fever Albuterol (Proventil Neb Soln) 2.5 mg NEB Q1H PRN PRN Reason: Shortness Of Breath/wheezing Albuterol/Ipratropium (Duoneb 3.0-0.5 Mg/3 Ml) 3 ml NEB QIDRT [facility] Last Admin: 12/28/18 14:59 Dose: 3 ml Aripiprazole (Abilify) 10 mg PO DAILY [facility] Last Admin: 12/28/18 09:21 Dose: 10 mg Benzonatate (Tessalon Perles) 100 mg PO TID PRN PRN Reason: Cough Digoxin (Lanoxin) 125 mcg PO DAILY@1300 [facility] Doxazosin Mesylate (Cardura) 2 mg PO DAILY [facility] Last Admin: 12/28/18 09:22 Dose: 2 mg Duloxetine HCl (Cymbalta) 60 mg PO DAILY [facility] Last Admin: 12/28/18 09:23 Dose: 60 mg Guaifenesin/Codeine Phosphate (Robitussin Ac) 10 ml PO Q4H PRN PRN Reason: Cough Hydrochlorothiazide (Hydrochlorothiazide) 25 mg PO DAILY [facility] Last Admin: 12/28/18 09:24 Dose: 25 mg Doxycycline Hyclate 100 mg/ (Sodium Chloride) 100 mls @ 100 mls/hr IV Q12H [facility] Last Admin: 12/28/18 04:04 Dose: 100 mls/hr Pantoprazole Sodium 80 mg/ (Sodium Chloride) 100 mls @ 10 mls/hr IV .Q10H [facility] Last Admin: 12/28/18 12:47 Dose: 10 mls/hr Potassium Cl/Dextrose/Lact Ringer's (D5 Lr With 20 Meq Kcl) 1,000 mls @ 75 mls/ hr IV ASDIRECTED [facility] Last Admin: 12/28/18 13:05 Dose: 75 mls/hr Levothyroxine Sodium (Levothyroxine) 112 mcg PO ACBREAKFAST [facility] Last Admin: 12/28/18 08:01 Dose: 112 mcg Lorazepam (Ativan) 0.5 mg IVPUSH Q4H PRN PRN Reason: Nausea/Vomiting Magnesium Hydroxide (Milk Of Magnesia) 30 ml PO Q12H PRN PRN Reason: Constipation Melatonin (Melatonin) 9 mg PO BEDTIME [facility] Last Admin: 12/27/18 21:35 Dose: 9 mg Methylprednisolone Sodium Succinate (Solu-Medrol) 62.5 mg IVPUSH Q8H [facility] Last Admin: 12/28/18 08:03 Dose: 62.5 mg Morphine Sulfate (Morphine) 2 mg IVPUSH Q2H PRN PRN Reason: Pain (severe 7-10) Stiolto Respimat (Ptom) 0 mcg IH BIDRT [facility] Last Admin: 12/28/18 10:57 Dose: 1 mcg Ondansetron HCl (Zofran Odt) 4 mg PO Q6H PRN PRN Reason: Nausea able to take PO Ondansetron HCl (Zofran) 4 mg IV Q6H PRN PRN Reason: Nausea/Vomiting Last Admin: 12/28/18 13:32 Dose: 4 mg Quetiapine Fumarate (Seroquel Xr) 400 mg PO DAILY [facility] Last Admin: 12/28/18 09:25 Dose: 400 mg Senna/Docusate Sodium (Senna Plus) 1 tab PO BID PRN PRN Reason: Constipation Sodium Chloride (Saline Flush) 10 ml FLUSH ASDIRECTED PRN PRN Reason: Keep Vein Open Last Admin: 12/27/18 13:25 Dose: 10 ml Spironolactone (Aldactone) 25 mg PO DAILY [facility] Last Admin: 12/28/18 09:22 Dose: 25 mg Discontinued Medications Albuterol/Ipratropium (Duoneb 3.0-0.5 Mg/3 Ml) 3 ml NEB ONETIME ONE Stop: 12/27/18 13:03 Last Admin: 12/27/18 13:25 Dose: 3 ml Albuterol/Ipratropium (Duoneb 3.0-0.5 Mg/3 Ml) 3 ml NEB ONETIME ONE Stop: 12/27/18 14:07 Last Admin: 12/27/18 14:23 Dose: 3 ml Albuterol/Ipratropium (Duoneb 3.0-0.5 Mg/3 Ml) 3 ml NEB ONETIME ONE Stop: 12/27/18 14:28 Last Admin: 12/27/18 14:43 Dose: 3 ml Doxycycline Hyclate (Vibramycin) Confirm Administered Dose 100 mg .ROUTE .STK- MED ONE Stop: 12/28/18 03:51 Last Admin: 12/28/18 04:03 Dose: Not Given Enoxaparin Sodium (Lovenox) 40 mg SUBCUT DAILY [facility] Last Admin: 12/28/18 09:24 Dose: 40 mg Doxycycline Hyclate 100 mg/ (Sodium Chloride) 100 mls @ 100 mls/hr IV ONETIME ONE Stop: 12/27/18 17:29 Last Admin: 12/27/18 16:43 Dose: 100 mls/hr Sodium Chloride (Normal Saline) 1,000 mls @ 75 mls/hr IV ASDIRECTED [facility] Last Admin: 12/28/18 05:08 Dose: 75 mls/hr Sodium Chloride (Normal Saline) 500 mls @ 999 mls/hr IV ASDIRECTED [facility] Stop: 12/28/18 13:01 Last Admin: 12/28/18 12:36 Dose: 999 mls/hr Sodium Chloride (Normal Saline) 500 mls @ 999 mls/hr IV ASDIRECTED [facility] Stop: 12/28/18 14:46 Methylprednisolone Sodium Succinate (Solu-Medrol) 125 mg IVPUSH ONETIME ONE Stop: 12/27/18 15:43 Last Admin: 12/27/18 16:08 Dose: 125 mg Pantoprazole Sodium (Protonix) 40 mg PO ACBREAKFAST [facility] Last Admin: 12/28/18 08:01 Dose: 40 mg Pantoprazole Sodium (Protonix Iv) 40 mg IVPUSH ONETIME ONE Stop: 12/28/18 13:01 Last Admin: 12/28/18 12:58 Dose: 40 mg - Exam Quality Assessment: Supplemental Oxygen General: Alert, Oriented, Cooperative, Mild Distress Neck: Supple Lungs: Normal Respiratory Effort, Rhonchi (Diffuse rhonchi especially in the upper lung ramesh), Other (Better air movement today) Cardiovascular: Regular Rhythm, Tachycardia GI/Abdominal Exam: Soft, Non-Tender, No Distention Extremities: No Pedal Edema. No: Increased Warmth Skin: Warm, Dry Psy/Mental Status: Alert, Normal Affect - Problem List & Annotations (1) Acute bronchitis SNOMED Code(s): 69374191 Code(s): J20.9 - ACUTE BRONCHITIS, UNSPECIFIED Status: Acute Current Visit: Yes Qualifiers: Bronchitis organism: unspecified organism Qualified Code(s): J20.9 - Acute bronchitis, unspecified (2) Acute respiratory failure with hypoxia and hypercapnia SNOMED Code(s): 393879751 Code(s): J96.01 - ACUTE RESPIRATORY FAILURE WITH HYPOXIA; J96.02 - ACUTE RESPIRATORY FAILURE WITH HYPERCAPNIA Status: Acute Current Visit: Yes (3) COPD with exacerbation SNOMED Code(s): 125453093 Code(s): J44.1 - CHRONIC OBSTRUCTIVE PULMONARY DISEASE W (ACUTE) EXACERBATION Status: Acute Current Visit: Yes (4) Acute upper gastrointestinal hemorrhage SNOMED Code(s): 08251587 Code(s): K92.2 - GASTROINTESTINAL HEMORRHAGE, UNSPECIFIED Status: Acute Current Visit: Yes - Problem List Review Problem List Initiated/Reviewed/Updated: Yes - My Orders Last 24 Hours: My Active Orders 12/27/18 16:01 EKG Documentation Completion [RC] ASDIRECTED EKG 12 Lead [EK] Urgent 12/27/18 16:04 Resuscitation Status Routine 12/27/18 18:15 Patient Status [ADT] Routine Bedrest Bedside Commode [RC] ASDIRECTED Cardiac Monitoring [RC] Q6H Height and Weight [RC] DAILY Intake and Output [RC] QSHIFT Notify Provider Vital Signs [RC] ASDIRECTED Oxygen Therapy [RC] PRN Pulse Oximetry [RC] CONTINUOUS RT Aerosol Therapy [RC] ASDIRECTED VTE/DVT Education [RC] Per Unit Routine Vital Signs [RC] Q2HR CULTURE RESPIRATORY + SMEAR [RM] Routine Acetaminophen [Tylenol] 650 mg PO Q4H PRN Albuterol [Proventil Neb Soln] 2.5 mg NEB Q1H PRN Benzonatate [Tessalon Perles] 100 mg PO TID PRN Codeine/guaiFENesin [Robitussin AC] 10 ml PO Q4H PRN Docusate Sodium/Sennosides [Senna Plus] 1 tab PO BID PRN LORazepam [Ativan] 0.5 mg IVPUSH Q4H PRN Magnesium Hydroxide [Milk of Magnesia] 30 ml PO Q12H PRN Morphine 2 mg IVPUSH Q2H PRN Ondansetron [Zofran ODT] 4 mg PO Q6H PRN Ondansetron [Zofran] 4 mg IV Q6H PRN 12/27/18 21:00 Albuterol/Ipratropium [DuoNeb 3.0-0.5 MG/3 ML] 3 ml NEB QIDRT Melatonin 9 mg PO BEDTIME 12/27/18 23:30 methylPREDNISolone Sod Succ [Solu-MEDROL] 62.5 mg IVPUSH Q8H 12/28/18 04:00 Doxycycline [Vibramycin] 100 mg Sodium Chloride 0.9% [Normal Saline] 100 ml IV Q12H 12/28/18 07:30 Levothyroxine 112 mcg PO ACBREAKFAST 12/28/18 09:00 ARIPiprazole [Abilify] 10 mg PO DAILY DULoxetine [Cymbalta] 60 mg PO DAILY Doxazosin [Cardura] 2 mg PO DAILY QUEtiapine [SEROquel XR] 400 mg PO DAILY Spironolactone [Aldactone] 25 mg PO DAILY hydroCHLOROthiazide 25 mg PO DAILY 12/28/18 09:35 Convert IV to Saline Lock [OM.PC] Routine 12/28/18 10:00 Tiotropium Br/Olodaterol HCl [Stiolto Respimat Inhal [place]] 0 mcg IH BIDRT 12/28/18 12:17 Consult to Physician [CONS] Routine 12/28/18 12:18 Notify Provider Consults [RC] ASDIRECTED 12/28/18 12:30 Dextrose 5%-Lact Ringers w/KCl [D5 LR with 20 mEq KCl] 1,000 ml IV ASDIRECTED 12/28/18 13:00 Digoxin [Lanoxin] 125 mcg PO DAILY@1300 Sodium Chloride 0.9% [Normal Saline] 100 ml Pantoprazole [ProTONIX IV] 80 mg IV 10 mls/hr 12/28/18 14:45 PATIENT RETYPE [BBK] Routine RED BLOOD CELLS LP [BBK] Routine TYPE AND SCREEN [BBK] Routine 12/28/18 16:00 HEMOGLOBIN [HEME] Routine 12/28/18 Dinner NPO Now [Nothing per Oral Now Diet] [DIET] 12/29/18 05:00 BASIC METABOLIC PANEL,BMP [CHEM] Timed CBC W/O DIFF,HEMOGRAM [HEME] Timed (1) - Plan Plan:: ASSESSMENT AND PLAN - Acute bronchitis - complicated by acute respiratory failure with hypoxia and hypercapnia. She did require noninvasive ventilation overnight but is doing better this morning. Still requiring supplemental oxygen but currently off noninvasive ventilation. -Doxycycline -IV steroids -Scheduled and as needed nebulizers -Noninvasive ventilation if needed -Sputum culture if able Acute upper gastrointestinal hemorrhage - multiple episodes of hematemesis throughout the day. She does have a history of bleeding ulcers. -Repeat hemoglobin this afternoon -Type and cross for 2 units -IV pantoprazole bolus followed by continuous infusion -Consult Dr. 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 Currently requiring supplemental oxygen but no longer requiring NIPPV. -Management as above -Supplement oxygen -Review control her medications prior to discharge Maintenance issues - - DVT prophylaxis - mechanical with active hemorrhage - GI prophylaxis - PPI - Nutrition - regular Disposition - I would anticipate discharge home after the hospital stay Primary care physician - Dr. John Hurd M.D.
[2018-12-29] MEDS: Dextrose 5%-Lact Ringers w/KCl 1,000 ML IV SCH (02:21)
[2018-12-29] MEDS: Doxycycline 100 MG in Sodium Chloride 0.9% 100 ML IV SCH (03:47)
[2018-12-29] MEDS ORDERED: Propofol 200 MG/20 ML SDV ONE (07:06)
[2018-12-29] MEDS: Albuterol/Ipratropium 3.0-0.5 MG/3 ML Neb Soln NEB SCH ×4 (07:10→20:54)
[2018-12-29] MEDS: STIOLTO RESPIMAT IH SCH ×2 (07:11→20:54)
[2018-12-29] MEDS: Sodium Chloride 0.9% 100 ML with Pantoprazole 80 MG IV SCH ×2 (08:15)
[2018-12-29] MEDS: methylPREDNISolone Sodium Succinate 125 MG/2 ML SDV IVPUSH SCH (08:16)
[2018-12-29] MEDS ORDERED: guaiFENesin/Dextromethorphan 100-10 MG/5 ML Soln 10 ML Cup PO PRN (09:43)
--- NOTE | 2018-12-29 09:55 | PCM.PN ---
- General Info Date of Service: 12/29/18 Subjective Update: No bleeding issues overnight and hemoglobin responded well to blood transfusion and has remained stable. No additional episodes of hematemesis. Heart rate slowly trending down. Shortness of breath and cough are better again today. EGD yesterday revealed esophageal ulcer. Functional Status: Reports: Pain Controlled, Tolerating Diet - Review of Systems General: Denies: Fever Pulmonary: Reports: Shortness of Breath Gastrointestinal: Denies: Abdominal Pain - Patient Data Vitals - Most Recent: Last Vital Signs Temp 36.2 C 12/29/18 04:00 Pulse 115 H 12/29/18 07:12 Resp 13 12/29/18 06:00 BP 158/63 H 12/29/18 06:00 Pulse Ox 98 12/29/18 07:12 Weight - Most Recent: 64.41 kg I&O - Last 24 Hours: Intake & Output 12/28/18 12/29/18 12/29/18 22:59 06:59 14:59 Intake Total 2111 989 Balance 2111 989 Lab Results Last 24 Hours: Laboratory Results - last 24 hr 12/28/18 12/28/18 12/28/18 Range/Units 14:45 15:51 23:00 WBC (4.5-11.0) K/uL RBC (3.30-5.50) M/uL Hgb 6.9 L* D 10.1 L D (12.0-15.0) g/dL Hct (36.0-48.0) % MCV (80-98) fL MCH (27-31) pg MCHC (32-36) % Plt Count (150-400) K/uL Sodium (140-148) mmol/L Potassium (3.6-5.2) mmol/L Chloride (100-108) mmol/L Carbon Dioxide (21-32) mmol/L Anion Gap (5.0-14.0) mmol/L BUN (7-18) mg/dL Creatinine (0.6-1.0) mg/dL Est Cr Clr Drug Dosing mL/min Estimated GFR (MDRD) (>60) Glucose (74-106) mg/dL Calcium (8.5-10.1) mg/dL Blood Type A POSITIVE Gel Antibody Screen Negative Crossmatch See Detail 09/28/19 09/28/19 Range/Units 04:30 04:30 WBC 14.9 H (4.5-11.0) K/uL RBC 3.85 (3.30-5.50) M/uL Hgb 10.3 L (12.0-15.0) g/dL Hct 33.5 L (36.0-48.0) % MCV 87 (80-98) fL MCH 27 (27-31) pg MCHC 31 L (32-36) % Plt Count 388 (150-400) K/uL Sodium 142 (140-148) mmol/L Potassium 4.0 (3.6-5.2) mmol/L Chloride 102 (100-108) mmol/L Carbon Dioxide 39 H (21-32) mmol/L Anion Gap 5.0 (5.0-14.0) mmol/L BUN 26 H D (7-18) mg/dL Creatinine 0.6 (0.6-1.0) mg/dL Est Cr Clr Drug Dosing 54.61 mL/min Estimated GFR (MDRD) > 60 (>60) Glucose 133 H (74-106) mg/dL Calcium 8.2 L (8.5-10.1) mg/dL Blood Type Gel Antibody Screen Crossmatch Med Orders - Current: Current Medications Acetaminophen (Tylenol) 650 mg PO Q4H PRN PRN Reason: Pain (Mild 1-3)/fever Albuterol (Proventil Neb Soln) 2.5 mg NEB Q1H PRN PRN Reason: Shortness Of Breath/wheezing Albuterol/Ipratropium (Duoneb 3.0-0.5 Mg/3 Ml) 3 ml NEB QIDRT [facility] Last Admin: 12/29/18 07:10 Dose: 3 ml Aripiprazole (Abilify) 10 mg PO DAILY [facility] Last Admin: 12/28/18 09:21 Dose: 10 mg Benzonatate (Tessalon Perles) 100 mg PO TID PRN PRN Reason: Cough Digoxin (Lanoxin) 125 mcg PO DAILY@1300 [facility] Doxazosin Mesylate (Cardura) 2 mg PO DAILY [facility] Last Admin: 12/28/18 09:22 Dose: 2 mg Doxycycline Hyclate (Vibramycin) 100 mg PO BID [facility] Duloxetine HCl (Cymbalta) 60 mg PO DAILY [facility] Last Admin: 12/28/18 09:23 Dose: 60 mg Guaifenesin/Dextromethorphan (Robitussin Dm) 10 ml PO Q4H PRN PRN Reason: Cough Hydrochlorothiazide (Hydrochlorothiazide) 25 mg PO DAILY [facility] Last Admin: 12/28/18 09:24 Dose: 25 mg Levothyroxine Sodium (Levothyroxine) 112 mcg PO ACBREAKFAST [facility] Last Admin: 12/28/18 08:01 Dose: 112 mcg Lorazepam (Ativan) 0.5 mg IVPUSH Q4H PRN PRN Reason: Nausea/Vomiting Magnesium Hydroxide (Milk Of Magnesia) 30 ml PO Q12H PRN PRN Reason: Constipation Melatonin (Melatonin) 9 mg PO BEDTIME [facility] Last Admin: 12/27/18 21:35 Dose: 9 mg Morphine Sulfate (Morphine) 2 mg IVPUSH Q2H PRN PRN Reason: Pain (severe 7-10) Stiolto Respimat (Ptom) 0 mcg IH BIDRT [facility] Last Admin: 12/29/18 07:11 Dose: 2.5 mcg Ondansetron HCl (Zofran Odt) 4 mg PO Q6H PRN PRN Reason: Nausea able to take PO Ondansetron HCl (Zofran) 4 mg IV Q6H PRN PRN Reason: Nausea/Vomiting Last Admin: 12/28/18 13:32 Dose: 4 mg Pantoprazole Sodium (Protonix) 40 mg PO BIDAC [facility] Prednisone (Prednisone) 20 mg PO BIDAC [facility] Quetiapine Fumarate (Seroquel Xr) 400 mg PO DAILY [facility] Last Admin: 12/28/18 09:25 Dose: 400 mg Senna/Docusate Sodium (Senna Plus) 1 tab PO BID PRN PRN Reason: Constipation Sodium Chloride (Saline Flush) 10 ml FLUSH ASDIRECTED PRN PRN Reason: Keep Vein Open Last Admin: 12/27/18 13:25 Dose: 10 ml Spironolactone (Aldactone) 25 mg PO DAILY [facility] Last Admin: 12/28/18 09:22 Dose: 25 mg Discontinued Medications Albuterol/Ipratropium (Duoneb 3.0-0.5 Mg/3 Ml) 3 ml NEB ONETIME ONE Stop: 12/27/18 13:03 Last Admin: 12/27/18 13:25 Dose: 3 ml Albuterol/Ipratropium (Duoneb 3.0-0.5 Mg/3 Ml) 3 ml NEB ONETIME ONE Stop: 12/27/18 14:07 Last Admin: 12/27/18 14:23 Dose: 3 ml Albuterol/Ipratropium (Duoneb 3.0-0.5 Mg/3 Ml) 3 ml NEB ONETIME ONE Stop: 12/27/18 14:28 Last Admin: 12/27/18 14:43 Dose: 3 ml Doxycycline Hyclate (Vibramycin) Confirm Administered Dose 100 mg .ROUTE .STK- MED ONE Stop: 12/28/18 03:51 Last Admin: 12/28/18 04:03 Dose: Not Given Enoxaparin Sodium (Lovenox) 40 mg SUBCUT DAILY [facility] Last Admin: 12/28/18 09:24 Dose: 40 mg Guaifenesin/Codeine Phosphate (Robitussin Ac) 10 ml PO Q4H PRN PRN Reason: Cough Doxycycline Hyclate 100 mg/ (Sodium Chloride) 100 mls @ 100 mls/hr IV ONETIME ONE Stop: 12/27/18 17:29 Last Admin: 12/27/18 16:43 Dose: 100 mls/hr Doxycycline Hyclate 100 mg/ (Sodium Chloride) 100 mls @ 100 mls/hr IV Q12H [facility] Last Admin: 12/29/18 03:47 Dose: 100 mls/hr Sodium Chloride (Normal Saline) 1,000 mls @ 75 mls/hr IV ASDIRECTED [facility] Last Admin: 12/28/18 05:08 Dose: 75 mls/hr Pantoprazole Sodium 80 mg/ (Sodium Chloride) 100 mls @ 10 mls/hr IV .Q10H [facility] Last Admin: 12/29/18 08:15 Dose: 10 mls/hr Potassium Cl/Dextrose/Lact Ringer's (D5 Lr With 20 Meq Kcl) 1,000 mls @ 75 mls/ hr IV ASDIRECTED [facility] Last Admin: 12/29/18 02:21 Dose: 75 mls/hr Sodium Chloride (Normal Saline) 500 mls @ 999 mls/hr IV ASDIRECTED [facility] Stop: 12/28/18 13:01 Last Admin: 12/28/18 12:36 Dose: 999 mls/hr Sodium Chloride (Normal Saline) 500 mls @ 999 mls/hr IV ASDIRECTED [facility] Stop: 12/28/18 14:46 Methylprednisolone Sodium Succinate (Solu-Medrol) 125 mg IVPUSH ONETIME ONE Stop: 12/27/18 15:43 Last Admin: 12/27/18 16:08 Dose: 125 mg Methylprednisolone Sodium Succinate (Solu-Medrol) 62.5 mg IVPUSH Q8H [facility] Last Admin: 12/29/18 08:16 Dose: 62.5 mg Pantoprazole Sodium (Protonix) 40 mg PO ACBREAKFAST [facility] Last Admin: 12/28/18 08:01 Dose: 40 mg Pantoprazole Sodium (Protonix Iv) 40 mg IVPUSH ONETIME ONE Stop: 12/28/18 13:01 Last Admin: 12/28/18 12:58 Dose: 40 mg Propofol (Diprivan 20 Ml) Confirm Administered Dose 200 mg .ROUTE .STK-MED ONE Stop: 12/29/18 07:07 - Exam Quality Assessment: Supplemental Oxygen General: Alert, Oriented, Cooperative, No Acute Distress Lungs: Clear to Auscultation, Normal Respiratory Effort. No: Wheezing Cardiovascular: Regular Rhythm, Tachycardia GI/Abdominal Exam: Soft, No Distention Extremities: No Pedal Edema Psy/Mental Status: Alert, Normal Affect - Problem List & Annotations (1) Acute bronchitis SNOMED Code(s): 67352368 Code(s): J20.9 - ACUTE BRONCHITIS, UNSPECIFIED Status: Acute Current Visit: Yes Qualifiers: Bronchitis organism: unspecified organism Qualified Code(s): J20.9 - Acute bronchitis, unspecified (2) Acute respiratory failure with hypoxia and hypercapnia SNOMED Code(s): 191116001 Code(s): J96.01 - ACUTE RESPIRATORY FAILURE WITH HYPOXIA; J96.02 - ACUTE RESPIRATORY FAILURE WITH HYPERCAPNIA Status: Acute Current Visit: Yes (3) COPD with exacerbation SNOMED Code(s): 348581514 Code(s): J44.1 - CHRONIC OBSTRUCTIVE PULMONARY DISEASE W (ACUTE) EXACERBATION Status: Acute Current Visit: Yes (4) Acute upper gastrointestinal hemorrhage SNOMED Code(s): 68274086 Code(s): K92.2 - GASTROINTESTINAL HEMORRHAGE, UNSPECIFIED Status: Acute Current Visit: Yes - Problem List Review Problem List Initiated/Reviewed/Updated: Yes - My Orders Last 24 Hours: My Active Orders 12/28/18 09:00 ARIPiprazole [Abilify] 10 mg PO DAILY DULoxetine [Cymbalta] 60 mg PO DAILY Doxazosin [Cardura] 2 mg PO DAILY QUEtiapine [SEROquel XR] 400 mg PO DAILY Spironolactone [Aldactone] 25 mg PO DAILY hydroCHLOROthiazide 25 mg PO DAILY 12/28/18 09:35 Convert IV to Saline Lock [OM.PC] Routine 12/28/18 10:00 Tiotropium Br/Olodaterol HCl [Stiolto Respimat Inhal [place]] 0 mcg IH BIDRT 12/28/18 12:17 Consult to Physician [CONS] Routine 12/28/18 12:18 Notify Provider Consults [RC] ASDIRECTED 12/28/18 13:00 Digoxin [Lanoxin] 125 mcg PO DAILY@1300 12/28/18 14:45 PATIENT RETYPE [BBK] Routine RED BLOOD CELLS LP [BBK] Routine TYPE AND SCREEN [BBK] Routine 12/28/18 15:55 Antiembolic Devices [RC] .Routine SCD [Sequential Compression Device] [OM.PC] Routine 12/28/18 15:58 Transfuse Red Blood Cells [COMM] Routine 12/29/18 09:43 Dextromethorphan/guaiFENesin [Robitussin DM] 10 ml PO Q4H PRN 12/29/18 16:30 Pantoprazole [ProTONIX] 40 mg PO BIDAC predniSONE 20 mg PO BIDAC 12/29/18 21:00 Doxycycline [Vibramycin] 100 mg PO BID 12/30/18 05:00 BASIC METABOLIC PANEL,BMP [CHEM] Timed CBC W/O DIFF,HEMOGRAM [HEME] Timed (1) - Plan Plan:: ASSESSMENT AND PLAN - Acute bronchitis - complicated by acute respiratory failure with hypoxia and hypercapnia. She is still requiring supplemental oxygen but has not required noninvasive ventilation. No fevers. Examination improving and clinically she is feeling better. -Doxycycline -Transition to prednisone -Scheduled and as needed nebulizers -Supplement oxygen as needed Acute upper gastrointestinal hemorrhage - multiple episodes of hematemesis and EGD revealed esophageal ulcer today. This did not appear to be bleeding. Hemoglobin responded well to transfusion and has been stable. 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 Currently requiring supplemental oxygen but no longer requiring NIPPV. -Management as above -Supplement oxygen -Review controller medications prior to discharge Maintenance issues - - DVT prophylaxis - mechanical with recent hemorrhage - GI prophylaxis - PPI - Nutrition - clear liquids today and advance to full tonight if stable Disposition - I would anticipate discharge home after the hospital stay, possibly tomorrow Primary care physician - Dr. John Hurd M.D.
[2018-12-29] MEDS: Digoxin 125 MCG Tab PO SCH (13:37)
[2018-12-29] MEDS: Pantoprazole 40 MG Tab.CR PO SCH (15:53)
[2018-12-29] MEDS: predniSONE 20 MG Tab PO SCH (15:53)
[2018-12-29] MEDS ORDERED: Magnesium Sulfate/Water 2 GM in Premix Bag 1 BAG IV ONE (18:05)
[2018-12-29] MEDS: Benzonatate 100 MG Cap PO PRN (18:25)
[2018-12-29] MEDS: Melatonin 3 MG Tab PO SCH (20:55)
[2018-12-29] MEDS: Doxycycline 100 MG Cap PO SCH (20:55)
[2018-12-30] MEDS: Morphine 2 MG/ML Syringe IVPUSH PRN ×4 (07:14→22:10)
[2018-12-30] MEDS: Benzonatate 100 MG Cap PO PRN (07:14)
[2018-12-30] MEDS: LORazepam 2 MG/ML SDV IVPUSH PRN ×2 (07:16→11:20)
[2018-12-30] MEDS: Albuterol/Ipratropium 3.0-0.5 MG/3 ML Neb Soln NEB SCH ×4 (07:26→19:59)
[2018-12-30] MEDS: STIOLTO RESPIMAT IH SCH ×2 (07:35→19:59)
--- NOTE | 2018-12-30 09:15 | PCM.PN ---
- General Info Date of Service: 12/30/18 Subjective Update: Overnight the patient had increasing shortness of breath and increasing rhonchorous breath sounds. She did have to go back on noninvasive ventilation overnight and is still on this morning. She does not endorse chest pain but does feel short of breath. Heart rate remains elevated in the 120s. Overnight she was telling the nurses and again this morning mentioned that she did not want to be reintubated but when I talked to her about intubation she wanted to be intubated if her respiratory status declined further. She has not had any fevers. There are no new positive culture results. Functional Status: Reports: Pain Controlled - Review of Systems Pulmonary: Reports: Shortness of Breath Cardiovascular: Denies: Chest Pain - Patient Data Vitals - Most Recent: Last Vital Signs Temp 36.5 C 12/30/18 07:50 Pulse 136 H 12/30/18 07:50 Resp 23 H 12/30/18 07:50 BP 177/69 H 12/30/18 07:50 Pulse Ox 93 L 12/30/18 07:50 Weight - Most Recent: 64.41 kg I&O - Last 24 Hours: Intake & Output 12/29/18 12/30/18 12/30/18 22:59 06:59 14:59 Intake Total 900 100 Balance 900 100 Lab Results Last 24 Hours: Laboratory Results - last 24 hr 12/30/18 12/30/18 Range/Units 06:02 06:02 WBC 18.4 H (4.5-11.0) K/uL RBC 3.91 (3.30-5.50) M/uL Hgb 10.4 L (12.0-15.0) g/dL Hct 34.6 L (36.0-48.0) % MCV 89 (80-98) fL MCH 27 (27-31) pg MCHC 30 L (32-36) % Plt Count 378 (150-400) K/uL Sodium 141 (140-148) mmol/L Potassium 3.8 (3.6-5.2) mmol/L Chloride 102 (100-108) mmol/L Carbon Dioxide 38 H (21-32) mmol/L Anion Gap 4.8 L (5.0-14.0) mmol/L BUN 19 H (7-18) mg/dL Creatinine 0.5 L (0.6-1.0) mg/dL Est Cr Clr Drug Dosing 65.53 mL/min Estimated GFR (MDRD) > 60 (>60) Glucose 106 (74-106) mg/dL Calcium 8.4 L (8.5-10.1) mg/dL Med Orders - Current: Current Medications Acetaminophen (Tylenol) 650 mg PO Q4H PRN PRN Reason: Pain (Mild 1-3)/fever Albuterol (Proventil Neb Soln) 2.5 mg NEB Q1H PRN PRN Reason: Shortness Of Breath/wheezing Albuterol/Ipratropium (Duoneb 3.0-0.5 Mg/3 Ml) 3 ml NEB QIDRT [facility] Last Admin: 12/30/18 07:26 Dose: 3 ml Aripiprazole (Abilify) 10 mg PO DAILY [facility] Last Admin: 12/28/18 09:21 Dose: 10 mg Benzonatate (Tessalon Perles) 100 mg PO TID PRN PRN Reason: Cough Last Admin: 12/30/18 07:14 Dose: 100 mg Digoxin (Lanoxin) 125 mcg PO DAILY@1300 [facility] Last Admin: 12/29/18 13:37 Dose: 125 mcg Doxazosin Mesylate (Cardura) 2 mg PO DAILY [facility] Last Admin: 12/28/18 09:22 Dose: 2 mg Doxycycline Hyclate (Vibramycin) 100 mg PO BID [facility] Last Admin: 12/29/18 20:55 Dose: 100 mg Duloxetine HCl (Cymbalta) 60 mg PO DAILY [facility] Last Admin: 12/28/18 09:23 Dose: 60 mg Guaifenesin/Dextromethorphan (Robitussin Dm) 10 ml PO Q4H PRN PRN Reason: Cough Hydrochlorothiazide (Hydrochlorothiazide) 25 mg PO DAILY [facility] Last Admin: 12/28/18 09:24 Dose: 25 mg Levothyroxine Sodium (Levothyroxine) 112 mcg PO ACBREAKFAST [facility] Last Admin: 12/28/18 08:01 Dose: 112 mcg Lorazepam (Ativan) 0.5 mg IVPUSH Q4H PRN PRN Reason: Nausea/Vomiting Last Admin: 12/30/18 07:16 Dose: 0.5 mg Magnesium Hydroxide (Milk Of Magnesia) 30 ml PO Q12H PRN PRN Reason: Constipation Melatonin (Melatonin) 9 mg PO BEDTIME [facility] Last Admin: 12/29/18 20:55 Dose: 9 mg Morphine Sulfate (Morphine) 2 mg IVPUSH Q2H PRN PRN Reason: Pain (severe 7-10) Last Admin: 12/30/18 07:14 Dose: 2 mg Stiolto Respimat (Ptom) 0 mcg IH BIDRT [facility] Last Admin: 12/30/18 07:35 Dose: Not Given Ondansetron HCl (Zofran Odt) 4 mg PO Q6H PRN PRN Reason: Nausea able to take PO Ondansetron HCl (Zofran) 4 mg IV Q6H PRN PRN Reason: Nausea/Vomiting Last Admin: 12/28/18 13:32 Dose: 4 mg Pantoprazole Sodium (Protonix) 40 mg PO BIDAC [facility] Last Admin: 12/29/18 15:53 Dose: 40 mg Prednisone (Prednisone) 20 mg PO BIDAC [facility] Last Admin: 12/29/18 15:53 Dose: 20 mg Quetiapine Fumarate (Seroquel Xr) 400 mg PO DAILY [facility] Last Admin: 12/28/18 09:25 Dose: 400 mg Senna/Docusate Sodium (Senna Plus) 1 tab PO BID PRN PRN Reason: Constipation Sodium Chloride (Saline Flush) 10 ml FLUSH ASDIRECTED PRN PRN Reason: Keep Vein Open Last Admin: 12/27/18 13:25 Dose: 10 ml Spironolactone (Aldactone) 25 mg PO DAILY [facility] Last Admin: 12/28/18 09:22 Dose: 25 mg Discontinued Medications Albuterol/Ipratropium (Duoneb 3.0-0.5 Mg/3 Ml) 3 ml NEB ONETIME ONE Stop: 12/27/18 13:03 Last Admin: 12/27/18 13:25 Dose: 3 ml Albuterol/Ipratropium (Duoneb 3.0-0.5 Mg/3 Ml) 3 ml NEB ONETIME ONE Stop: 12/27/18 14:07 Last Admin: 12/27/18 14:23 Dose: 3 ml Albuterol/Ipratropium (Duoneb 3.0-0.5 Mg/3 Ml) 3 ml NEB ONETIME ONE Stop: 12/27/18 14:28 Last Admin: 12/27/18 14:43 Dose: 3 ml Doxycycline Hyclate (Vibramycin) Confirm Administered Dose 100 mg .ROUTE .STK- MED ONE Stop: 12/28/18 03:51 Last Admin: 12/28/18 04:03 Dose: Not Given Enoxaparin Sodium (Lovenox) 40 mg SUBCUT DAILY [facility] Last Admin: 12/28/18 09:24 Dose: 40 mg Guaifenesin/Codeine Phosphate (Robitussin Ac) 10 ml PO Q4H PRN PRN Reason: Cough Doxycycline Hyclate 100 mg/ (Sodium Chloride) 100 mls @ 100 mls/hr IV ONETIME ONE Stop: 12/27/18 17:29 Last Admin: 12/27/18 16:43 Dose: 100 mls/hr Doxycycline Hyclate 100 mg/ (Sodium Chloride) 100 mls @ 100 mls/hr IV Q12H [facility] Last Admin: 12/29/18 03:47 Dose: 100 mls/hr Sodium Chloride (Normal Saline) 1,000 mls @ 75 mls/hr IV ASDIRECTED [facility] Last Admin: 12/28/18 05:08 Dose: 75 mls/hr Pantoprazole Sodium 80 mg/ (Sodium Chloride) 100 mls @ 10 mls/hr IV .Q10H [facility] Last Admin: 12/29/18 08:15 Dose: 10 mls/hr Potassium Cl/Dextrose/Lact Ringer's (D5 Lr With 20 Meq Kcl) 1,000 mls @ 75 mls/ hr IV ASDIRECTED [facility] Last Admin: 12/29/18 02:21 Dose: 75 mls/hr Sodium Chloride (Normal Saline) 500 mls @ 999 mls/hr IV ASDIRECTED [facility] Stop: 12/28/18 13:01 Last Admin: 12/28/18 12:36 Dose: 999 mls/hr Sodium Chloride (Normal Saline) 500 mls @ 999 mls/hr IV ASDIRECTED [facility] Stop: 12/28/18 14:46 Magnesium Sulfate 2 gm/ Premix 50 mls @ 12.5 mls/hr IV ONETIME ONE Stop: 12/29/18 22:04 Last Admin: 12/29/18 18:17 Dose: 12.5 mls/hr Methylprednisolone Sodium Succinate (Solu-Medrol) 125 mg IVPUSH ONETIME ONE Stop: 12/27/18 15:43 Last Admin: 12/27/18 16:08 Dose: 125 mg Methylprednisolone Sodium Succinate (Solu-Medrol) 62.5 mg IVPUSH Q8H [facility] Last Admin: 12/29/18 08:16 Dose: 62.5 mg Pantoprazole Sodium (Protonix) 40 mg PO ACBREAKFAST [facility] Last Admin: 12/28/18 08:01 Dose: 40 mg Pantoprazole Sodium (Protonix Iv) 40 mg IVPUSH ONETIME ONE Stop: 12/28/18 13:01 Last Admin: 12/28/18 12:58 Dose: 40 mg Propofol (Diprivan 20 Ml) Confirm Administered Dose 200 mg .ROUTE .STK-MED ONE Stop: 12/29/18 07:07 - Exam Quality Assessment: Supplemental Oxygen General: Alert, Oriented, Cooperative, Mild Distress Lungs: Decreased Breath Sounds (throughout ), Wheezing (diffuse exp). No: Normal Respiratory Effort (increased work of breathing ) Cardiovascular: Regular Rhythm, Tachycardia GI/Abdominal Exam: Soft, No Distention Extremities: No Pedal Edema. No: Increased Warmth Skin: Warm, Dry Psy/Mental Status: Alert, Anxious - Problem List & Annotations (1) Acute bronchitis SNOMED Code(s): 71414231 Code(s): J20.9 - ACUTE BRONCHITIS, UNSPECIFIED Status: Acute Current Visit: Yes Qualifiers: Bronchitis organism: unspecified organism Qualified Code(s): J20.9 - Acute bronchitis, unspecified (2) Acute respiratory failure with hypoxia and hypercapnia SNOMED Code(s): 240880724 Code(s): J96.01 - ACUTE RESPIRATORY FAILURE WITH HYPOXIA; J96.02 - ACUTE RESPIRATORY FAILURE WITH HYPERCAPNIA Status: Acute Current Visit: Yes (3) COPD with exacerbation SNOMED Code(s): 167082069 Code(s): J44.1 - CHRONIC OBSTRUCTIVE PULMONARY DISEASE W (ACUTE) EXACERBATION Status: Acute Current Visit: Yes (4) Acute upper gastrointestinal hemorrhage SNOMED Code(s): 12581674 Code(s): K92.2 - GASTROINTESTINAL HEMORRHAGE, UNSPECIFIED Status: Acute Current Visit: Yes - Problem List Review Problem List Initiated/Reviewed/Updated: Yes - My Orders Last 24 Hours: My Active Orders 12/29/18 09:43 Dextromethorphan/guaiFENesin [Robitussin DM] 10 ml PO Q4H PRN 12/29/18 16:30 Pantoprazole [ProTONIX] 40 mg PO BIDAC predniSONE 20 mg PO BIDAC 12/29/18 21:00 Doxycycline [Vibramycin] 100 mg PO BID 12/30/18 09:12 methylPREDNISolone Sod Succ [Solu-MEDROL] 125 mg IVPUSH ONETIME ONE 12/30/18 09:13 ABG [BLOOD GAS ARTERIAL] [BG] Routine 12/30/18 09:14 Ang Chest [CT] Urgent 12/30/18 09:15 Levofloxacin/Dextrose 5%-Water [Levaquin in D5W 750 MG/150 ML] 750 mg Premix Bag 1 bag IV Q24H Piperacillin/Tazobactam [Zosyn] 3.375 gm Sodium Chloride 0.9% [Normal Saline] 50 ml IV Q6H 12/30/18 17:00 methylPREDNISolone Sod Succ [Solu-MEDROL] 62.5 mg IVPUSH Q8H 12/31/18 05:00 BASIC METABOLIC PANEL,BMP [CHEM] Timed CBC W/O DIFF,HEMOGRAM [HEME] Timed (1) MAGNESIUM [CHEM] Timed - Plan Plan:: ASSESSMENT AND PLAN - Acute respiratory failure with hypoxia and hypercapnia - I'm concerned she may have had episode of aspiration during her vomiting a couple of days ago. White blood cell count has been trending up and respiratory status deteriorated last night. She is back on noninvasive ventilation. She has diffuse wheezing and poor air movement. She continues to be tachycardic. -Broad-spectrum antibiotic coverage with levofloxacin and Pip/Tazo -Restart IV steroids -Nebulizers as below -CT scan of the chest Acute bronchitis - complicated by acute respiratory failure with hypoxia and hypercapnia. She was improving from this infection prior to the worsening of her respiratory status as discussed above. -Discontinue Doxycycline and prednisone -Scheduled and as needed nebulizers -Supplement oxygen as needed Acute upper gastrointestinal hemorrhage - EGD revealed esophageal ulcer 12/29. Hemoglobin stable and no recurrence of bleeding. 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 -Management as above -Supplement oxygen -Review controller medications prior to discharge Maintenance issues - - DVT prophylaxis - mechanical with recent hemorrhage - GI prophylaxis - PPI - Nutrition - clear liquids Disposition - I would anticipate discharge home after the hospital stay Primary care physician - Dr. John Hurd M.D.
[2018-12-30] MEDS ORDERED: Sodium Chloride 0.9% 10 ML Syringe FLUSH PRN (09:20)
[2018-12-30] MEDS ORDERED: Iopamidol 755 Mg/ML 100 ML Bottle IV SCH (09:30)
[2018-12-30] MEDS ORDERED: Sodium Chloride 0.9% 100 ML IV SCH (09:30)
[2018-12-30] MEDS ORDERED: methylPREDNISolone Sodium Succinate 125 MG/2 ML SDV IVPUSH ONE (09:45)
[2018-12-30] MEDS: Piperacillin/Tazobactam/Dext 3.375 GM in Premix Bag 1 BAG IV SCH ×3 (09:46→21:46)
[2018-12-30] MEDS: Pantoprazole 40 MG Tab.CR PO SCH (09:58)
[2018-12-30] MEDS: Levothyroxine 112 MCG Tab PO SCH (09:58)
[2018-12-30] MEDS: ARIPiprazole 10 MG Tab PO SCH (09:59)
[2018-12-30] MEDS: Spironolactone 25 MG Tab PO SCH (10:01)
[2018-12-30] MEDS: DULoxetine 30 MG Cap PO SCH (10:01)
[2018-12-30] MEDS: Doxazosin 4 MG Tab PO SCH (10:02)
[2018-12-30] MEDS: QUEtiapine 50 MG Tab.SR PO SCH (10:03)
[2018-12-30] MEDS: Hydrochlorothiazide 25 MG Tab PO SCH (10:03)
[2018-12-30] MEDS: predniSONE 20 MG Tab PO SCH (10:07)
[2018-12-30] MEDS: Doxycycline 100 MG Cap PO SCH (10:07)
[2018-12-30] MEDS: Levofloxacin/Dextrose 5%-Water 750 MG in Premix Bag 1 BAG IV SCH (10:20)
[2018-12-30] MEDS ORDERED: Sodium Chloride 0.9% 500 ML IV SCH (12:30)
--- NOTE | 2018-12-30 13:06 | CRLCT ---
Clinical INDICATION: Respiratory failure tachycardia. Evaluate for pulmonary embolism. TECHNIQUE: Axial intravenously infused CT cuts were performed through the chest during the peak phase of pulmonary arterial contrast opacification. 100 mL of Isovue-370 has been injected intravenously FINDINGS: There are no pulmonary emboli. There is mild cardiomegaly. There are mild atherosclerotic changes of the thoracic aorta with no aneurysm or dissection. There is a large amount of fluid within a dilated esophagus. There is dependent atelectasis in both lower lobes. Some images of the images are obscured by motion artifact. There is a ground-glass opacity in the upper lobes of mild prominence of the interlobular septae day suggestive of CHF/fluid overload. There small bilateral pleural effusions. There is trace of pericardial fluid visible. There are no enlarged hilar, mediastinal or axillary lymph nodes. The visualized liver, spleen, pancreas and the upper poles both kidneys appear normal. Both adrenal glands research bulky. IMPRESSION: 1. Negative for pulmonary emboli. 2. Dilated fluid-filled esophagus. Consider achalasia. 3. Small bilateral effusions. 4. Probable mild fluid overload/congestive heart failure. 5. Bilaterally bulky adrenal glands. Please note that all CT scans at this facility use dose modulation, iterative reconstruction, and/or weight-based dosing when appropriate to reduce radiation dose to as low as reasonably achievable. Dictated by Maxime Alonso MD @ Dec 30 2018 12:55PM Signed by Dr. Maxime Alonso @ Dec 30 2018 1:04PM
[2018-12-30] MEDS: Digoxin 125 MCG Tab PO SCH (13:25)
[2018-12-30] MEDS: methylPREDNISolone Sodium Succinate 125 MG/2 ML SDV IVPUSH SCH (16:36)
[2018-12-30] MEDS: Sodium Chloride 0.9% 1,000 ML IV SCH (17:26)
[2018-12-30] MEDS: Melatonin 3 MG Tab PO SCH (19:59)
[2018-12-30] MEDS: Pantoprazole 40 MG Vial IVPUSH SCH (19:59)
[2018-12-31] MEDS: Morphine 2 MG/ML Syringe IVPUSH PRN ×3 (00:10→04:15)
[2018-12-31] MEDS: LORazepam 2 MG/ML SDV IVPUSH PRN ×2 (00:10→04:15)
[2018-12-31] MEDS: methylPREDNISolone Sodium Succinate 125 MG/2 ML SDV IVPUSH SCH ×3 (01:27→17:30)
[2018-12-31] MEDS: Piperacillin/Tazobactam/Dext 3.375 GM in Premix Bag 1 BAG IV SCH ×4 (03:46→21:01)
[2018-12-31] MEDS: Sodium Chloride 0.9% 1,000 ML IV SCH (03:47)
[2018-12-31] MEDS: Albuterol 0.083% 2.5 MG/3 ML Neb Soln NEB PRN (03:50)
[2018-12-31] MEDS ORDERED: LORazepam 2 MG/ML SDV IVPUSH PRN (05:32)
[2018-12-31] MEDS: Morphine 4 MG/ML Syringe IVPUSH PRN ×2 (05:46→20:43)
[2018-12-31] MEDS: Albuterol/Ipratropium 3.0-0.5 MG/3 ML Neb Soln NEB SCH ×4 (06:58→20:42)
[2018-12-31] MEDS: STIOLTO RESPIMAT IH SCH ×2 (06:59→20:43)
[2018-12-31] MEDS: Levothyroxine 112 MCG Tab PO SCH (08:25)
[2018-12-31] MEDS: Pantoprazole 40 MG Vial IVPUSH SCH ×2 (08:27→20:42)
[2018-12-31] MEDS: Hydrochlorothiazide 25 MG Tab PO SCH (08:44)
[2018-12-31] MEDS: Spironolactone 25 MG Tab PO SCH (08:44)
[2018-12-31] MEDS: Doxazosin 4 MG Tab PO SCH (08:45)
[2018-12-31] MEDS: DULoxetine 30 MG Cap PO SCH (08:46)
[2018-12-31] MEDS: ARIPiprazole 10 MG Tab PO SCH (08:46)
[2018-12-31] MEDS: QUEtiapine 50 MG Tab.SR PO SCH (08:47)
[2018-12-31] MEDS ORDERED: Sodium Chloride 0.9% 1,000 ML IV SCH (10:15)
--- NOTE | 2018-12-31 10:19 | PCM.PN ---
- General Info Date of Service: 12/31/18 Subjective Update: Ms. Baez has remained fairly stable since yesterday, continues to use BiPAP. Saturations drop and she is off of BiPAP or with any exertion she becomes tachycardic. Functional Status: Reports: Urinating - Review of Systems General: Reports: Weakness. Denies: Fever, Chills Pulmonary: Reports: Shortness of Breath, Cough, Wheezing. Denies: Pleuritic Chest Pain, Sputum Cardiovascular: Reports: Dyspnea on Exertion. Denies: Chest Pain, Palpitations , Orthopnea, PND, Edema Gastrointestinal: Reports: No Symptoms - Patient Data Vitals - Most Recent: Last Vital Signs Temp 97.6 F 12/31/18 04:00 Pulse 116 H 12/31/18 06:59 Resp 22 H 12/31/18 06:08 BP 149/74 H 12/31/18 08:45 Pulse Ox 90 L 12/31/18 06:08 Weight - Most Recent: 141 lb 15.996 oz I&O - Last 24 Hours: Intake & Output 12/30/18 12/31/18 12/31/18 22:59 06:59 14:59 Intake Total 935 Balance 935 Lab Results Last 24 Hours: Laboratory Results - last 24 hr 12/30/18 12/31/18 12/31/18 Range/Units 05:00 05:10 05:16 WBC 9.8 (4.5-11.0) K/uL RBC 3.50 (3.30-5.50) M/uL Hgb 9.3 L (12.0-15.0) g/dL Hct 31.9 L (36.0-48.0) % MCV 91 (80-98) fL MCH 27 (27-31) pg MCHC 29 L (32-36) % Plt Count 290 (150-400) K/uL Puncture Site R brachial ABG pH 7.392 (7.350-7.450) ABG pCO2 60.8 H (35.0-42.0) mmHg ABG pO2 69.5 L (75.0-100.0) mmHg ABG HCO3 36.2 H (22.0-26.0) mmol/L ABG Total CO2 33.9 H (21.0-25.0) mmol/L ABG O2 Saturation 94.2 L (95.0-98.0) % ABG O2 Content 12.2 L (15.0-23.0) %vol ABG Base Excess 10.1 mm/L ABG Hemoglobin 9.5 L (12.0-16.0) g/dL ABG Oxyhemoglobin 91.4 % ABG Carboxyhemoglobin 2.1 H (0.0-1.6) % ABG Methemoglobin 0.9 % O2 Delivery Device Bipap Oxygen Flow Rate L Sodium (140-148) mmol/L Potassium (3.6-5.2) mmol/L Chloride (100-108) mmol/L Carbon Dioxide (21-32) mmol/L Anion Gap (5.0-14.0) mmol/L BUN (7-18) mg/dL Creatinine (0.6-1.0) mg/dL Est Cr Clr Drug Dosing mL/min Estimated GFR (MDRD) (>60) Glucose (74-106) mg/dL Calcium (8.5-10.1) mg/dL Magnesium 2.3 (1.8-2.4) mg/dL 12/31/18 Range/Units 05:16 WBC (4.5-11.0) K/uL RBC (3.30-5.50) M/uL Hgb (12.0-15.0) g/dL Hct (36.0-48.0) % MCV (80-98) fL MCH (27-31) pg MCHC (32-36) % Plt Count (150-400) K/uL Puncture Site ABG pH (7.350-7.450) ABG pCO2 (35.0-42.0) mmHg ABG pO2 (75.0-100.0) mmHg ABG HCO3 (22.0-26.0) mmol/L ABG Total CO2 (21.0-25.0) mmol/L ABG O2 Saturation (95.0-98.0) % ABG O2 Content (15.0-23.0) %vol ABG Base Excess mm/L ABG Hemoglobin (12.0-16.0) g/dL ABG Oxyhemoglobin % ABG Carboxyhemoglobin (0.0-1.6) % ABG Methemoglobin % O2 Delivery Device Oxygen Flow Rate L Sodium 141 (140-148) mmol/L Potassium 3.7 (3.6-5.2) mmol/L Chloride 103 (100-108) mmol/L Carbon Dioxide 35 H (21-32) mmol/L Anion Gap 6.7 (5.0-14.0) mmol/L BUN 17 (7-18) mg/dL Creatinine 0.6 (0.6-1.0) mg/dL Est Cr Clr Drug Dosing 54.61 mL/min Estimated GFR (MDRD) > 60 (>60) Glucose 120 H (74-106) mg/dL Calcium 7.8 L (8.5-10.1) mg/dL Magnesium 2.3 (1.8-2.4) mg/dL Med Orders - Current: Current Medications Acetaminophen (Tylenol) 650 mg PO Q4H PRN PRN Reason: Pain (Mild 1-3)/fever Albuterol (Proventil Neb Soln) 2.5 mg NEB Q1H PRN PRN Reason: Shortness Of Breath/wheezing Last Admin: 12/31/18 03:50 Dose: 2.5 mg Albuterol/Ipratropium (Duoneb 3.0-0.5 Mg/3 Ml) 3 ml NEB QIDRT [facility] Last Admin: 12/31/18 06:58 Dose: 3 ml Aripiprazole (Abilify) 10 mg PO DAILY [facility] Last Admin: 12/31/18 08:46 Dose: 10 mg Benzonatate (Tessalon Perles) 100 mg PO TID PRN PRN Reason: Cough Last Admin: 12/30/18 07:14 Dose: 100 mg Digoxin (Lanoxin) 125 mcg PO DAILY@1300 [facility] Last Admin: 12/30/18 13:25 Dose: 125 mcg Doxazosin Mesylate (Cardura) 2 mg PO DAILY [facility] Last Admin: 12/31/18 08:45 Dose: 2 mg Duloxetine HCl (Cymbalta) 60 mg PO DAILY [facility] Last Admin: 12/31/18 08:46 Dose: 60 mg Guaifenesin/Dextromethorphan (Robitussin Dm) 10 ml PO Q4H PRN PRN Reason: Cough Hydrochlorothiazide (Hydrochlorothiazide) 25 mg PO DAILY [facility] Last Admin: 12/31/18 08:44 Dose: 25 mg Levofloxacin/Dextrose 750 mg/ (Premix) 150 mls @ 100 mls/hr IV Q24H [facility] Last Admin: 12/30/18 10:20 Dose: 100 mls/hr Piperacillin/Tazobactam/ (Dextrose 3.375 gm/ Premix) 50 mls @ 100 mls/hr IV Q6HR [facility] Last Admin: 12/31/18 10:11 Dose: 100 mls/hr Sodium Chloride (Normal Saline) 1,000 mls @ 50 mls/hr IV ASDIRECTED [facility] Levothyroxine Sodium (Levothyroxine) 112 mcg PO ACBREAKFAST [facility] Last Admin: 12/31/18 08:25 Dose: 112 mcg Lorazepam (Ativan) 1 mg IVPUSH Q2H PRN PRN Reason: anxiety/air hunger Last Admin: 12/31/18 05:54 Dose: 1 mg Magnesium Hydroxide (Milk Of Magnesia) 30 ml PO Q12H PRN PRN Reason: Constipation Melatonin (Melatonin) 9 mg PO BEDTIME [facility] Last Admin: 12/30/18 19:59 Dose: Not Given Methylprednisolone Sodium Succinate (Solu-Medrol) 62.5 mg IVPUSH Q8H [facility] Last Admin: 12/31/18 08:32 Dose: 62.5 mg Morphine Sulfate (Morphine) 4 mg IVPUSH Q2H PRN PRN Reason: air hunger Last Admin: 12/31/18 05:46 Dose: 4 mg Stiolto Respimat (Ptom) 0 mcg IH BIDRT [facility] Last Admin: 12/31/18 06:59 Dose: Not Given Ondansetron HCl (Zofran Odt) 4 mg PO Q6H PRN PRN Reason: Nausea able to take PO Ondansetron HCl (Zofran) 4 mg IV Q6H PRN PRN Reason: Nausea/Vomiting Last Admin: 12/28/18 13:32 Dose: 4 mg Pantoprazole Sodium (Protonix Iv) 40 mg IVPUSH Q12H [facility] Last Admin: 12/31/18 08:27 Dose: 40 mg Quetiapine Fumarate (Seroquel Xr) 400 mg PO DAILY [facility] Last Admin: 12/31/18 08:47 Dose: 400 mg Senna/Docusate Sodium (Senna Plus) 1 tab PO BID PRN PRN Reason: Constipation Sodium Chloride (Saline Flush) 10 ml FLUSH ASDIRECTED PRN PRN Reason: Keep Vein Open Last Admin: 12/27/18 13:25 Dose: 10 ml Spironolactone (Aldactone) 25 mg PO DAILY [facility] Last Admin: 12/31/18 08:44 Dose: 25 mg Discontinued Medications Albuterol/Ipratropium (Duoneb 3.0-0.5 Mg/3 Ml) 3 ml NEB ONETIME ONE Stop: 12/27/18 13:03 Last Admin: 12/27/18 13:25 Dose: 3 ml Albuterol/Ipratropium (Duoneb 3.0-0.5 Mg/3 Ml) 3 ml NEB ONETIME ONE Stop: 12/27/18 14:07 Last Admin: 12/27/18 14:23 Dose: 3 ml Albuterol/Ipratropium (Duoneb 3.0-0.5 Mg/3 Ml) 3 ml NEB ONETIME ONE Stop: 12/27/18 14:28 Last Admin: 12/27/18 14:43 Dose: 3 ml Doxycycline Hyclate (Vibramycin) Confirm Administered Dose 100 mg .ROUTE .ST- MED ONE Stop: 12/28/18 03:51 Last Admin: 12/28/18 04:03 Dose: Not Given Doxycycline Hyclate (Vibramycin) 100 mg PO BID [facility] Last Admin: 12/30/18 10:07 Dose: Not Given Enoxaparin Sodium (Lovenox) 40 mg SUBCUT DAILY [facility] Last Admin: 12/28/18 09:24 Dose: 40 mg Guaifenesin/Codeine Phosphate (Robitussin Ac) 10 ml PO Q4H PRN PRN Reason: Cough Doxycycline Hyclate 100 mg/ (Sodium Chloride) 100 mls @ 100 mls/hr IV ONETIME ONE Stop: 12/27/18 17:29 Last Admin: 12/27/18 16:43 Dose: 100 mls/hr Doxycycline Hyclate 100 mg/ (Sodium Chloride) 100 mls @ 100 mls/hr IV Q12H [facility] Last Admin: 12/29/18 03:47 Dose: 100 mls/hr Sodium Chloride (Normal Saline) 1,000 mls @ 75 mls/hr IV ASDIRECTED [facility] Last Admin: 12/28/18 05:08 Dose: 75 mls/hr Pantoprazole Sodium 80 mg/ (Sodium Chloride) 100 mls @ 10 mls/hr IV .Q10H [facility] Last Admin: 12/29/18 08:15 Dose: 10 mls/hr Potassium Cl/Dextrose/Lact Ringer's (D5 Lr With 20 Meq Kcl) 1,000 mls @ 75 mls/ hr IV ASDIRECTED [facility] Last Admin: 12/29/18 02:21 Dose: 75 mls/hr Sodium Chloride (Normal Saline) 500 mls @ 999 mls/hr IV ASDIRECTED [facility] Stop: 12/28/18 13:01 Last Admin: 12/28/18 12:36 Dose: 999 mls/hr Sodium Chloride (Normal Saline) 500 mls @ 999 mls/hr IV ASDIRECTED [facility] Stop: 12/28/18 14:46 Magnesium Sulfate 2 gm/ Premix 50 mls @ 12.5 mls/hr IV ONETIME ONE Stop: 12/29/18 22:04 Last Admin: 12/29/18 18:17 Dose: 12.5 mls/hr Sodium Chloride (Normal Saline) 100 mls @ 3.5 mls/sec IV ASDIRECTED [facility] Stop: 12/30/18 09:31 Last Admin: 12/30/18 12:19 Dose: 3.5 mls/sec Sodium Chloride (Normal Saline) 500 mls @ 999 mls/hr IV ASDIRECTED [facility] Stop: 12/30/18 13:01 Last Admin: 12/30/18 12:36 Dose: 999 mls/hr Sodium Chloride (Normal Saline) 1,000 mls @ 100 mls/hr IV ASDIRECTED [facility] Last Admin: 12/31/18 03:47 Dose: 100 mls/hr Iopamidol (Isovue-370 (76%)) 100 ml IV . DIRECTED [facility] Stop: 12/30/18 09:31 Last Admin: 12/30/18 12:18 Dose: 100 ml Lorazepam (Ativan) 0.5 mg IVPUSH Q4H PRN PRN Reason: Nausea/Vomiting Last Admin: 12/31/18 04:15 Dose: 0.5 mg Methylprednisolone Sodium Succinate (Solu-Medrol) 125 mg IVPUSH ONETIME ONE Stop: 12/27/18 15:43 Last Admin: 12/27/18 16:08 Dose: 125 mg Methylprednisolone Sodium Succinate (Solu-Medrol) 62.5 mg IVPUSH Q8H [facility] Last Admin: 12/29/18 08:16 Dose: 62.5 mg Methylprednisolone Sodium Succinate (Solu-Medrol) 125 mg IVPUSH ONETIME ONE Stop: 12/30/18 09:46 Last Admin: 12/30/18 10:04 Dose: 125 mg Morphine Sulfate (Morphine) 2 mg IVPUSH Q2H PRN PRN Reason: Pain (severe 7-10) Last Admin: 12/31/18 04:15 Dose: 2 mg Pantoprazole Sodium (Protonix) 40 mg PO ACBREAKFAST [facility] Last Admin: 12/28/18 08:01 Dose: 40 mg Pantoprazole Sodium (Protonix Iv) 40 mg IVPUSH ONETIME ONE Stop: 12/28/18 13:01 Last Admin: 12/28/18 12:58 Dose: 40 mg Pantoprazole Sodium (Protonix) 40 mg PO BIDAC [facility] Last Admin: 12/30/18 09:58 Dose: 40 mg Prednisone (Prednisone) 20 mg PO BIDAC [facility] Last Admin: 12/30/18 10:07 Dose: Not Given Propofol (Diprivan 20 Ml) Confirm Administered Dose 200 mg .ROUTE .STK-MED ONE Stop: 12/29/18 07:07 Sodium Chloride (Saline Flush) 10 ml FLUSH ONETIME PRN PRN Reason: per radiology protocol Stop: 12/30/18 09:21 Last Admin: 12/30/18 12:19 Dose: 10 ml - Exam Quality Assessment: Supplemental Oxygen, DVT Prophylaxis General: Alert, Oriented, Cooperative, Moderate Distress Lungs: Rhonchi, Wheezing Cardiovascular: Regular Rhythm, No Murmurs, Tachycardia GI/Abdominal Exam: Soft, Non-Tender, No Organomegaly, No Distention Extremities: Non-Tender, No Pedal Edema - Problem List Review Problem List Initiated/Reviewed/Updated: Yes - My Orders Last 24 Hours: My Active Orders 12/31/18 10:15 Sodium Chloride 0.9% @ 50 MLS/HR(1000ml) Sodium Chloride 0.9% [Normal Saline] 1 ,000 ml IV ASDIRECTED 01/01/19 05:00 BASIC METABOLIC PANEL,BMP [CHEM] Timed BLOOD GAS ARTERIAL [BG] Timed - Plan Plan:: ASSESSMENT AND PLAN - Acute respiratory failure with hypoxia and hypercapnia - stable with current management, continues to require use of noninvasive positive pressure ventilation. -Broad-spectrum antibiotic coverage with levofloxacin and Pip/Tazo -Restart IV steroids -Nebulizers as below -Continue noninvasive positive pressure ventilation Acute bronchitis - complicated by acute respiratory failure with hypoxia and hypercapnia. She was improving from this infection prior to the worsening of her respiratory status as discussed above. -Scheduled and as needed nebulizers -Supplement oxygen as needed Acute upper gastrointestinal hemorrhage - EGD revealed esophageal ulcer 12/29. Hemoglobin stable and no recurrence of bleeding. 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 -Management as above -Supplement oxygen -Review controller medications prior to discharge Maintenance issues - - DVT prophylaxis - mechanical with recent hemorrhage - GI prophylaxis - PPI - Nutrition - clear liquids Disposition - I would anticipate discharge home after the hospital stay Primary care physician - Dr. Lopez
[2018-12-31] MEDS: Levofloxacin/Dextrose 5%-Water 750 MG in Premix Bag 1 BAG IV SCH (10:48)
--- NOTE | 2018-12-31 11:03 | PN ---
DATE OF SERVICE: 12/30/2018 The patient has been clinically stable. No signs of further bleeding. Hemoglobin this morning was 10.4 and that has been stable overnight. Otherwise, . The patient should likely be on long-term proton pump inhibitor when discharged. Romel Ortiz MD /[id number]
[2018-12-31] MEDS: Digoxin 125 MCG Tab PO SCH (12:39)
[2018-12-31] MEDS: Melatonin 3 MG Tab PO SCH (20:42)
[2019-01-01] MEDS: Morphine 4 MG/ML Syringe IVPUSH PRN ×3 (00:11→20:00)
[2019-01-01] MEDS: methylPREDNISolone Sodium Succinate 125 MG/2 ML SDV IVPUSH SCH ×2 (00:11→08:14)
[2019-01-01] MEDS: Albuterol 0.083% 2.5 MG/3 ML Neb Soln NEB PRN ×2 (03:38→06:58)
[2019-01-01] MEDS: Piperacillin/Tazobactam/Dext 3.375 GM in Premix Bag 1 BAG IV SCH ×4 (03:38→21:35)
[2019-01-01] MEDS: STIOLTO RESPIMAT IH SCH ×2 (06:59→20:11)
[2019-01-01] MEDS: Albuterol/Ipratropium 3.0-0.5 MG/3 ML Neb Soln NEB SCH ×4 (06:59→20:06)
[2019-01-01] MEDS: Pantoprazole 40 MG Vial IVPUSH SCH (08:08)
[2019-01-01] MEDS: Levothyroxine 112 MCG Tab PO SCH (08:09)
[2019-01-01] MEDS: ARIPiprazole 10 MG Tab PO SCH (08:10)
[2019-01-01] MEDS: Doxazosin 4 MG Tab PO SCH (08:10)
[2019-01-01] MEDS: Spironolactone 25 MG Tab PO SCH (08:10)
[2019-01-01] MEDS: DULoxetine 30 MG Cap PO SCH (08:13)
[2019-01-01] MEDS: Hydrochlorothiazide 25 MG Tab PO SCH (08:14)
[2019-01-01] MEDS: QUEtiapine 50 MG Tab.SR PO SCH (08:14)
[2019-01-01] MEDS: Levofloxacin/Dextrose 5%-Water 750 MG in Premix Bag 1 BAG IV SCH (09:25)
[2019-01-01] MEDS ORDERED: Potassium Chloride 20 MEQ Tab.ER PO ONE ×2 (10:00→17:00)
[2019-01-01] MEDS: Digoxin 125 MCG Tab PO SCH (12:29)
--- NOTE | 2019-01-01 12:38 | PCM.PN ---
- General Info Date of Service: 01/01/19 Subjective Update: Ms. Baez has improved since yesterday with less shortness of breath and cough. She has been using the BiPAP while sleeping, this morning was sitting on the edge of the bed with nasal cannula and adequate oxygenation. Vital signs have been stable and she has remained afebrile. Functional Status: Reports: Tolerating Diet, Urinating - Review of Systems General: Reports: Weakness. Denies: Fever, Chills Pulmonary: Reports: Shortness of Breath, Cough, Wheezing. Denies: Pleuritic Chest Pain, Sputum, Hemoptysis Cardiovascular: Reports: Dyspnea on Exertion. Denies: Chest Pain, Palpitations , Orthopnea, PND, Edema, Lightheadedness Gastrointestinal: Reports: No Symptoms - Patient Data Vitals - Most Recent: Last Vital Signs Temp 97.6 F 01/01/19 07:51 Pulse 122 H 01/01/19 12:29 Resp 19 01/01/19 12:00 BP 183/80 H 01/01/19 10:00 Pulse Ox 96 01/01/19 12:00 Weight - Most Recent: 141 lb 15.996 oz I&O - Last 24 Hours: Intake & Output 12/31/18 01/01/19 01/01/19 22:59 06:59 14:59 Intake Total 1722 683 Output Total 350 Balance 1722 683 -350 Lab Results Last 24 Hours: Laboratory Results - last 24 hr 12/28/18 01/01/19 01/01/19 Range/Units 14:45 06:58 06:58 Puncture Site R radial ABG pH 7.439 (7.350-7.450) ABG pCO2 (35.0-42.0) mmHg ABG pO2 62.4 L (75.0-100.0) mmHg ABG O2 Saturation 92.6 L (95.0-98.0) % ABG O2 Content 11.9 L (15.0-23.0) %vol ABG Hemoglobin 9.5 L (12.0-16.0) g/dL ABG Oxyhemoglobin 89.4 % ABG Carboxyhemoglobin 2.6 H (0.0-1.6) % ABG Methemoglobin 0.9 % Timmy Test Ok O2 Delivery Device Bipap Oxygen Flow Rate L Sodium 139 L (140-148) mmol/L Potassium 3.5 L (3.6-5.2) mmol/L Chloride 100 (100-108) mmol/L Carbon Dioxide 37 H (21-32) mmol/L Anion Gap 5.5 (5.0-14.0) mmol/L BUN 19 H (7-18) mg/dL Creatinine 0.6 (0.6-1.0) mg/dL Est Cr Clr Drug Dosing 54.61 mL/min Estimated GFR (MDRD) > 60 (>60) Glucose 142 H (74-106) mg/dL Calcium 8.1 L (8.5-10.1) mg/dL Crossmatch See Detail Med Orders - Current: Current Medications Acetaminophen (Tylenol) 650 mg PO Q4H PRN PRN Reason: Pain (Mild 1-3)/fever Albuterol (Proventil Neb Soln) 2.5 mg NEB Q1H PRN PRN Reason: Shortness Of Breath/wheezing Last Admin: 01/01/19 06:58 Dose: 2.5 mg Albuterol/Ipratropium (Duoneb 3.0-0.5 Mg/3 Ml) 3 ml NEB QIDRT [facility] Last Admin: 01/01/19 11:00 Dose: 3 ml Aripiprazole (Abilify) 10 mg PO DAILY [facility] Last Admin: 01/01/19 08:10 Dose: 10 mg Benzonatate (Tessalon Perles) 100 mg PO TID PRN PRN Reason: Cough Last Admin: 12/30/18 07:14 Dose: 100 mg Digoxin (Lanoxin) 125 mcg PO DAILY@1300 [facility] Last Admin: 01/01/19 12:29 Dose: 125 mcg Doxazosin Mesylate (Cardura) 2 mg PO DAILY [facility] Last Admin: 01/01/19 08:10 Dose: 2 mg Duloxetine HCl (Cymbalta) 60 mg PO DAILY [facility] Last Admin: 01/01/19 08:13 Dose: 60 mg Guaifenesin/Dextromethorphan (Robitussin Dm) 10 ml PO Q4H PRN PRN Reason: Cough Hydrochlorothiazide (Hydrochlorothiazide) 25 mg PO DAILY [facility] Last Admin: 01/01/19 08:14 Dose: 25 mg Levofloxacin/Dextrose 750 mg/ (Premix) 150 mls @ 100 mls/hr IV Q24H [facility] Last Admin: 01/01/19 09:25 Dose: 100 mls/hr Piperacillin/Tazobactam/ (Dextrose 3.375 gm/ Premix) 50 mls @ 100 mls/hr IV Q6HR [facility] Last Admin: 01/01/19 10:12 Dose: 100 mls/hr Lactobacillus Rhamnosus (Culturelle) 1 cap PO BID [facility] Levothyroxine Sodium (Levothyroxine) 112 mcg PO ACBREAKFAST [facility] Last Admin: 01/01/19 08:09 Dose: 112 mcg Lorazepam (Ativan) 1 mg IVPUSH Q2H PRN PRN Reason: anxiety/air hunger Last Admin: 12/31/18 05:54 Dose: 1 mg Magnesium Hydroxide (Milk Of Magnesia) 30 ml PO Q12H PRN PRN Reason: Constipation Melatonin (Melatonin) 9 mg PO BEDTIME [facility] Last Admin: 12/31/18 20:42 Dose: 9 mg Methylprednisolone Sodium Succinate (Solu-Medrol) 40 mg IVPUSH Q12H [facility] Morphine Sulfate (Morphine) 4 mg IVPUSH Q2H PRN PRN Reason: air hunger Last Admin: 01/01/19 00:11 Dose: 4 mg Stiolto Respimat (Ptom) 0 mcg IH BIDRT [facility] Last Admin: 01/01/19 06:59 Dose: 1 mcg Ondansetron HCl (Zofran Odt) 4 mg PO Q6H PRN PRN Reason: Nausea able to take PO Ondansetron HCl (Zofran) 4 mg IV Q6H PRN PRN Reason: Nausea/Vomiting Last Admin: 12/28/18 13:32 Dose: 4 mg Pantoprazole Sodium (Protonix) 40 mg PO BIDAC [facility] Potassium Chloride (Klor-Con M20) 40 meq PO ONETIME ONE Stop: 01/01/19 17:01 Quetiapine Fumarate (Seroquel Xr) 400 mg PO DAILY [facility] Last Admin: 01/01/19 08:14 Dose: 400 mg Senna/Docusate Sodium (Senna Plus) 1 tab PO BID PRN PRN Reason: Constipation Sodium Chloride (Saline Flush) 10 ml FLUSH ASDIRECTED PRN PRN Reason: Keep Vein Open Last Admin: 12/27/18 13:25 Dose: 10 ml Spironolactone (Aldactone) 25 mg PO DAILY [facility] Last Admin: 01/01/19 08:10 Dose: 25 mg Discontinued Medications Albuterol/Ipratropium (Duoneb 3.0-0.5 Mg/3 Ml) 3 ml NEB ONETIME ONE Stop: 12/27/18 13:03 Last Admin: 12/27/18 13:25 Dose: 3 ml Albuterol/Ipratropium (Duoneb 3.0-0.5 Mg/3 Ml) 3 ml NEB ONETIME ONE Stop: 12/27/18 14:07 Last Admin: 12/27/18 14:23 Dose: 3 ml Albuterol/Ipratropium (Duoneb 3.0-0.5 Mg/3 Ml) 3 ml NEB ONETIME ONE Stop: 12/27/18 14:28 Last Admin: 12/27/18 14:43 Dose: 3 ml Doxycycline Hyclate (Vibramycin) Confirm Administered Dose 100 mg .ROUTE .STK- MED ONE Stop: 12/28/18 03:51 Last Admin: 12/28/18 04:03 Dose: Not Given Doxycycline Hyclate (Vibramycin) 100 mg PO BID [facility] Last Admin: 12/30/18 10:07 Dose: Not Given Enoxaparin Sodium (Lovenox) 40 mg SUBCUT DAILY [facility] Last Admin: 12/28/18 09:24 Dose: 40 mg Guaifenesin/Codeine Phosphate (Robitussin Ac) 10 ml PO Q4H PRN PRN Reason: Cough Doxycycline Hyclate 100 mg/ (Sodium Chloride) 100 mls @ 100 mls/hr IV ONETIME ONE Stop: 12/27/18 17:29 Last Admin: 12/27/18 16:43 Dose: 100 mls/hr Doxycycline Hyclate 100 mg/ (Sodium Chloride) 100 mls @ 100 mls/hr IV Q12H [facility] Last Admin: 12/29/18 03:47 Dose: 100 mls/hr Sodium Chloride (Normal Saline) 1,000 mls @ 75 mls/hr IV ASDIRECTED [facility] Last Admin: 12/28/18 05:08 Dose: 75 mls/hr Pantoprazole Sodium 80 mg/ (Sodium Chloride) 100 mls @ 10 mls/hr IV .Q10H [facility] Last Admin: 12/29/18 08:15 Dose: 10 mls/hr Potassium Cl/Dextrose/Lact Ringer's (D5 Lr With 20 Meq Kcl) 1,000 mls @ 75 mls/ hr IV ASDIRECTED [facility] Last Admin: 12/29/18 02:21 Dose: 75 mls/hr Sodium Chloride (Normal Saline) 500 mls @ 999 mls/hr IV ASDIRECTED [facility] Stop: 12/28/18 13:01 Last Admin: 12/28/18 12:36 Dose: 999 mls/hr Sodium Chloride (Normal Saline) 500 mls @ 999 mls/hr IV ASDIRECTED [facility] Stop: 12/28/18 14:46 Magnesium Sulfate 2 gm/ Premix 50 mls @ 12.5 mls/hr IV ONETIME ONE Stop: 12/29/18 22:04 Last Admin: 12/29/18 18:17 Dose: 12.5 mls/hr Sodium Chloride (Normal Saline) 100 mls @ 3.5 mls/sec IV ASDIRECTED [facility] Stop: 12/30/18 09:31 Last Admin: 12/30/18 12:19 Dose: 3.5 mls/sec Sodium Chloride (Normal Saline) 500 mls @ 999 mls/hr IV ASDIRECTED [facility] Stop: 12/30/18 13:01 Last Admin: 12/30/18 12:36 Dose: 999 mls/hr Sodium Chloride (Normal Saline) 1,000 mls @ 100 mls/hr IV ASDIRECTED [facility] Last Admin: 12/31/18 03:47 Dose: 100 mls/hr Sodium Chloride (Normal Saline) 1,000 mls @ 50 mls/hr IV ASDIRECTED [facility] Last Admin: 12/31/18 20:40 Dose: 50 mls/hr Iopamidol (Isovue-370 (76%)) 100 ml IV . DIRECTED [facility] Stop: 12/30/18 09:31 Last Admin: 12/30/18 12:18 Dose: 100 ml Lorazepam (Ativan) 0.5 mg IVPUSH Q4H PRN PRN Reason: Nausea/Vomiting Last Admin: 12/31/18 04:15 Dose: 0.5 mg Methylprednisolone Sodium Succinate (Solu-Medrol) 125 mg IVPUSH ONETIME ONE Stop: 12/27/18 15:43 Last Admin: 12/27/18 16:08 Dose: 125 mg Methylprednisolone Sodium Succinate (Solu-Medrol) 62.5 mg IVPUSH Q8H [facility] Last Admin: 12/29/18 08:16 Dose: 62.5 mg Methylprednisolone Sodium Succinate (Solu-Medrol) 125 mg IVPUSH ONETIME ONE Stop: 12/30/18 09:46 Last Admin: 12/30/18 10:04 Dose: 125 mg Methylprednisolone Sodium Succinate (Solu-Medrol) 62.5 mg IVPUSH Q8H [facility] Last Admin: 01/01/19 08:14 Dose: 62.5 mg Morphine Sulfate (Morphine) 2 mg IVPUSH Q2H PRN PRN Reason: Pain (severe 7-10) Last Admin: 12/31/18 04:15 Dose: 2 mg Pantoprazole Sodium (Protonix) 40 mg PO ACBREAKFAST [facility] Last Admin: 12/28/18 08:01 Dose: 40 mg Pantoprazole Sodium (Protonix Iv) 40 mg IVPUSH ONETIME ONE Stop: 12/28/18 13:01 Last Admin: 12/28/18 12:58 Dose: 40 mg Pantoprazole Sodium (Protonix) 40 mg PO BIDAC [facility] Last Admin: 12/30/18 09:58 Dose: 40 mg Pantoprazole Sodium (Protonix Iv) 40 mg IVPUSH Q12H [facility] Last Admin: 01/01/19 08:08 Dose: 40 mg Potassium Chloride (Klor-Con M20) 40 meq PO ONETIME ONE Stop: 01/01/19 10:01 Last Admin: 01/01/19 10:10 Dose: 40 meq Prednisone (Prednisone) 20 mg PO BIDAC [facility] Last Admin: 12/30/18 10:07 Dose: Not Given Propofol (Diprivan 20 Ml) Confirm Administered Dose 200 mg .ROUTE .STK-MED ONE Stop: 12/29/18 07:07 Sodium Chloride (Saline Flush) 10 ml FLUSH ONETIME PRN PRN Reason: per radiology protocol Stop: 12/30/18 09:21 Last Admin: 12/30/18 12:19 Dose: 10 ml - Exam Quality Assessment: DVT Prophylaxis General: Alert, Oriented, Cooperative, Mild Distress Lungs: Decreased Breath Sounds, Wheezing. No: Rales, Rhonchi, Rub Cardiovascular: Regular Rhythm, No Murmurs, Tachycardia GI/Abdominal Exam: Soft, Non-Tender, No Organomegaly, No Distention Extremities: Non-Tender, No Pedal Edema - Problem List Review Problem List Initiated/Reviewed/Updated: Yes - My Orders Last 24 Hours: My Active Orders 01/01/19 12:31 Convert IV to Saline Lock [OM.PC] Routine 01/01/19 12:45 Lactobacillus Rhamnosus GG [Culturelle] 1 cap PO BID methylPREDNISolone Sod Succ [Solu-MEDROL] 40 mg IVPUSH Q12H 01/01/19 16:30 Pantoprazole [ProTONIX] 40 mg PO BIDAC 01/01/19 17:00 Potassium Chloride [Klor-Con M20] 40 meq PO ONETIME ONE 01/02/19 05:00 BASIC METABOLIC PANEL,BMP [CHEM] Timed - Plan Plan:: ASSESSMENT AND PLAN - Acute respiratory failure with hypoxia and hypercapnia - stable with current management, improvement from yesterday with less shortness of breath and cough -Broad-spectrum antibiotic coverage with levofloxacin and Pip/Tazo - IV steroids -Nebulizers as below -Continue noninvasive positive pressure ventilation as needed Acute bronchitis - complicated by acute respiratory failure with hypoxia and hypercapnia. She was improving from this infection prior to the worsening of her respiratory status as discussed above. -Scheduled and as needed nebulizers -Supplement oxygen as needed Acute upper gastrointestinal hemorrhage - EGD revealed esophageal ulcer 12/29. Hemoglobin stable and no recurrence of bleeding. 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 -Management as above -Supplement oxygen -Review controller medications prior to discharge Maintenance issues - - DVT prophylaxis - mechanical with recent hemorrhage - GI prophylaxis - PPI - Nutrition - clear liquids Disposition - I would anticipate discharge home after the hospital stay Primary care physician - Dr. Lopez
[2019-01-01] MEDS: Lactobacillus Rhamnosus GG (Probiotic) Cap PO SCH ×2 (13:19→20:06)
[2019-01-01] MEDS: Pantoprazole 40 MG Tab.CR PO SCH (16:00)
[2019-01-01] MEDS: methylPREDNISolone Sodium Succinate 40 MG/1 ML SDV IVPUSH SCH (20:03)
[2019-01-01] MEDS: Melatonin 3 MG Tab PO SCH (20:06)
[2019-01-02] MEDS: Morphine 4 MG/ML Syringe IVPUSH PRN ×2 (01:36→19:47)
[2019-01-02] MEDS: Piperacillin/Tazobactam/Dext 3.375 GM in Premix Bag 1 BAG IV SCH ×4 (03:51→21:34)
[2019-01-02] MEDS: STIOLTO RESPIMAT IH SCH ×2 (06:58→20:20)
[2019-01-02] MEDS: Albuterol/Ipratropium 3.0-0.5 MG/3 ML Neb Soln NEB SCH ×4 (06:58→20:22)
[2019-01-02] MEDS: Levothyroxine 112 MCG Tab PO SCH (08:29)
[2019-01-02] MEDS: methylPREDNISolone Sodium Succinate 40 MG/1 ML SDV IVPUSH SCH ×2 (08:30→19:39)
[2019-01-02] MEDS: Pantoprazole 40 MG Tab.CR PO SCH ×2 (08:30→15:42)
[2019-01-02] MEDS: ARIPiprazole 10 MG Tab PO SCH (08:31)
[2019-01-02] MEDS: Spironolactone 25 MG Tab PO SCH (08:32)
[2019-01-02] MEDS: Doxazosin 4 MG Tab PO SCH (08:32)
[2019-01-02] MEDS: DULoxetine 30 MG Cap PO SCH (08:33)
[2019-01-02] MEDS: Hydrochlorothiazide 25 MG Tab PO SCH (08:33)
[2019-01-02] MEDS: Lactobacillus Rhamnosus GG (Probiotic) Cap PO SCH ×2 (08:33→20:21)
[2019-01-02] MEDS: QUEtiapine 50 MG Tab.SR PO SCH (08:34)
--- NOTE | 2019-01-02 09:28 | PCM.PN ---
- General Info Date of Service: 01/02/19 Subjective Update: Ms. Baez has shown further improvement since yesterday, continues to use BiPAP while sleeping and resting. Reports less shortness of breath and less frequent cough. Functional Status: Reports: Tolerating Diet, Urinating - Review of Systems General: Reports: Weakness. Denies: Fever, Chills Pulmonary: Reports: Shortness of Breath, Cough, Wheezing. Denies: Pleuritic Chest Pain, Sputum, Hemoptysis Cardiovascular: Reports: Dyspnea on Exertion. Denies: Chest Pain, Palpitations , Orthopnea, PND, Edema Gastrointestinal: Reports: No Symptoms - Patient Data Vitals - Most Recent: Last Vital Signs Temp 97.7 F 01/02/19 04:00 Pulse 117 H 01/02/19 06:59 Resp 11 L 01/02/19 06:00 BP 140/69 01/02/19 08:32 Pulse Ox 99 01/02/19 07:25 Weight - Most Recent: 141 lb 15.996 oz I&O - Last 24 Hours: Intake & Output 01/01/19 01/02/19 01/02/19 22:59 06:59 14:59 Intake Total 1228 Output Total 150 200 Balance 1078 -200 Lab Results Last 24 Hours: Laboratory Results - last 24 hr 01/02/19 Range/Units 05:06 Sodium 139 L (140-148) mmol/L Potassium 4.1 (3.6-5.2) mmol/L Chloride 96 L (100-108) mmol/L Carbon Dioxide 39 H (21-32) mmol/L Anion Gap 8.1 (5.0-14.0) mmol/L BUN 15 (7-18) mg/dL Creatinine 0.6 (0.6-1.0) mg/dL Est Cr Clr Drug Dosing 54.61 mL/min Estimated GFR (MDRD) > 60 (>60) Glucose 141 H (74-106) mg/dL Calcium 7.7 L (8.5-10.1) mg/dL Med Orders - Current: Current Medications Acetaminophen (Tylenol) 650 mg PO Q4H PRN PRN Reason: Pain (Mild 1-3)/fever Acetazolamide (Diamox) 500 mg PO BID [facility] Stop: 01/02/19 21:01 Albuterol (Proventil Neb Soln) 2.5 mg NEB Q1H PRN PRN Reason: Shortness Of Breath/wheezing Last Admin: 01/01/19 06:58 Dose: 2.5 mg Albuterol/Ipratropium (Duoneb 3.0-0.5 Mg/3 Ml) 3 ml NEB QIDRT [facility] Last Admin: 01/02/19 06:58 Dose: 3 ml Aripiprazole (Abilify) 10 mg PO DAILY [facility] Last Admin: 01/02/19 08:31 Dose: 10 mg Benzonatate (Tessalon Perles) 100 mg PO TID PRN PRN Reason: Cough Last Admin: 12/30/18 07:14 Dose: 100 mg Digoxin (Lanoxin) 125 mcg PO DAILY@1300 [facility] Last Admin: 01/01/19 12:29 Dose: 125 mcg Doxazosin Mesylate (Cardura) 2 mg PO DAILY [facility] Last Admin: 01/02/19 08:32 Dose: 2 mg Duloxetine HCl (Cymbalta) 60 mg PO DAILY [facility] Last Admin: 01/02/19 08:33 Dose: 60 mg Guaifenesin/Dextromethorphan (Robitussin Dm) 10 ml PO Q4H PRN PRN Reason: Cough Hydrochlorothiazide (Hydrochlorothiazide) 25 mg PO DAILY [facility] Last Admin: 01/02/19 08:33 Dose: 25 mg Levofloxacin/Dextrose 750 mg/ (Premix) 150 mls @ 100 mls/hr IV Q24H [facility] Last Admin: 01/01/19 09:25 Dose: 100 mls/hr Piperacillin/Tazobactam/ (Dextrose 3.375 gm/ Premix) 50 mls @ 100 mls/hr IV Q6HR [facility] Last Admin: 01/02/19 03:51 Dose: 100 mls/hr Lactobacillus Rhamnosus (Culturelle) 1 cap PO BID [facility] Last Admin: 01/02/19 08:33 Dose: 1 cap Levothyroxine Sodium (Levothyroxine) 112 mcg PO ACBREAKFAST [facility] Last Admin: 01/02/19 08:29 Dose: 112 mcg Lorazepam (Ativan) 1 mg IVPUSH Q2H PRN PRN Reason: anxiety/air hunger Last Admin: 12/31/18 05:54 Dose: 1 mg Magnesium Hydroxide (Milk Of Magnesia) 30 ml PO Q12H PRN PRN Reason: Constipation Melatonin (Melatonin) 9 mg PO BEDTIME [facility] Last Admin: 01/01/19 20:06 Dose: 9 mg Methylprednisolone Sodium Succinate (Solu-Medrol) 40 mg IVPUSH Q12H [facility] Last Admin: 01/02/19 08:30 Dose: 40 mg Morphine Sulfate (Morphine) 4 mg IVPUSH Q2H PRN PRN Reason: air hunger Last Admin: 01/02/19 01:36 Dose: 4 mg Stiolto Respimat (Ptom) 0 mcg IH BIDRT [facility] Last Admin: 01/02/19 06:58 Dose: 1 mcg Ondansetron HCl (Zofran Odt) 4 mg PO Q6H PRN PRN Reason: Nausea able to take PO Ondansetron HCl (Zofran) 4 mg IV Q6H PRN PRN Reason: Nausea/Vomiting Last Admin: 12/28/18 13:32 Dose: 4 mg Pantoprazole Sodium (Protonix) 40 mg PO BIDAC [facility] Last Admin: 01/02/19 08:30 Dose: 40 mg Quetiapine Fumarate (Seroquel Xr) 400 mg PO DAILY [facility] Last Admin: 01/02/19 08:34 Dose: 400 mg Senna/Docusate Sodium (Senna Plus) 1 tab PO BID PRN PRN Reason: Constipation Sodium Chloride (Saline Flush) 10 ml FLUSH ASDIRECTED PRN PRN Reason: Keep Vein Open Last Admin: 12/27/18 13:25 Dose: 10 ml Spironolactone (Aldactone) 25 mg PO DAILY [facility] Last Admin: 01/02/19 08:32 Dose: 25 mg Discontinued Medications Albuterol/Ipratropium (Duoneb 3.0-0.5 Mg/3 Ml) 3 ml NEB ONETIME ONE Stop: 12/27/18 13:03 Last Admin: 12/27/18 13:25 Dose: 3 ml Albuterol/Ipratropium (Duoneb 3.0-0.5 Mg/3 Ml) 3 ml NEB ONETIME ONE Stop: 12/27/18 14:07 Last Admin: 12/27/18 14:23 Dose: 3 ml Albuterol/Ipratropium (Duoneb 3.0-0.5 Mg/3 Ml) 3 ml NEB ONETIME ONE Stop: 12/27/18 14:28 Last Admin: 12/27/18 14:43 Dose: 3 ml Doxycycline Hyclate (Vibramycin) Confirm Administered Dose 100 mg .ROUTE .STK- MED ONE Stop: 12/28/18 03:51 Last Admin: 12/28/18 04:03 Dose: Not Given Doxycycline Hyclate (Vibramycin) 100 mg PO BID [facility] Last Admin: 12/30/18 10:07 Dose: Not Given Enoxaparin Sodium (Lovenox) 40 mg SUBCUT DAILY [facility] Last Admin: 12/28/18 09:24 Dose: 40 mg Guaifenesin/Codeine Phosphate (Robitussin Ac) 10 ml PO Q4H PRN PRN Reason: Cough Doxycycline Hyclate 100 mg/ (Sodium Chloride) 100 mls @ 100 mls/hr IV ONETIME ONE Stop: 12/27/18 17:29 Last Admin: 12/27/18 16:43 Dose: 100 mls/hr Doxycycline Hyclate 100 mg/ (Sodium Chloride) 100 mls @ 100 mls/hr IV Q12H [facility] Last Admin: 12/29/18 03:47 Dose: 100 mls/hr Sodium Chloride (Normal Saline) 1,000 mls @ 75 mls/hr IV ASDIRECTED [facility] Last Admin: 12/28/18 05:08 Dose: 75 mls/hr Pantoprazole Sodium 80 mg/ (Sodium Chloride) 100 mls @ 10 mls/hr IV .Q10H [facility] Last Admin: 12/29/18 08:15 Dose: 10 mls/hr Potassium Cl/Dextrose/Lact Ringer's (D5 Lr With 20 Meq Kcl) 1,000 mls @ 75 mls/ hr IV ASDIRECTED [facility] Last Admin: 12/29/18 02:21 Dose: 75 mls/hr Sodium Chloride (Normal Saline) 500 mls @ 999 mls/hr IV ASDIRECTED [facility] Stop: 12/28/18 13:01 Last Admin: 12/28/18 12:36 Dose: 999 mls/hr Sodium Chloride (Normal Saline) 500 mls @ 999 mls/hr IV ASDIRECTED [facility] Stop: 12/28/18 14:46 Magnesium Sulfate 2 gm/ Premix 50 mls @ 12.5 mls/hr IV ONETIME ONE Stop: 12/29/18 22:04 Last Admin: 12/29/18 18:17 Dose: 12.5 mls/hr Sodium Chloride (Normal Saline) 100 mls @ 3.5 mls/sec IV ASDIRECTED [facility] Stop: 12/30/18 09:31 Last Admin: 12/30/18 12:19 Dose: 3.5 mls/sec Sodium Chloride (Normal Saline) 500 mls @ 999 mls/hr IV ASDIRECTED [facility] Stop: 12/30/18 13:01 Last Admin: 12/30/18 12:36 Dose: 999 mls/hr Sodium Chloride (Normal Saline) 1,000 mls @ 100 mls/hr IV ASDIRECTED [facility] Last Admin: 12/31/18 03:47 Dose: 100 mls/hr Sodium Chloride (Normal Saline) 1,000 mls @ 50 mls/hr IV ASDIRECTED [facility] Last Admin: 12/31/18 20:40 Dose: 50 mls/hr Iopamidol (Isovue-370 (76%)) 100 ml IV . DIRECTED [facility] Stop: 12/30/18 09:31 Last Admin: 12/30/18 12:18 Dose: 100 ml Lorazepam (Ativan) 0.5 mg IVPUSH Q4H PRN PRN Reason: Nausea/Vomiting Last Admin: 12/31/18 04:15 Dose: 0.5 mg Methylprednisolone Sodium Succinate (Solu-Medrol) 125 mg IVPUSH ONETIME ONE Stop: 12/27/18 15:43 Last Admin: 12/27/18 16:08 Dose: 125 mg Methylprednisolone Sodium Succinate (Solu-Medrol) 62.5 mg IVPUSH Q8H [facility] Last Admin: 12/29/18 08:16 Dose: 62.5 mg Methylprednisolone Sodium Succinate (Solu-Medrol) 125 mg IVPUSH ONETIME ONE Stop: 12/30/18 09:46 Last Admin: 12/30/18 10:04 Dose: 125 mg Methylprednisolone Sodium Succinate (Solu-Medrol) 62.5 mg IVPUSH Q8H [facility] Last Admin: 01/01/19 08:14 Dose: 62.5 mg Morphine Sulfate (Morphine) 2 mg IVPUSH Q2H PRN PRN Reason: Pain (severe 7-10) Last Admin: 12/31/18 04:15 Dose: 2 mg Pantoprazole Sodium (Protonix) 40 mg PO ACBREAKFAST [facility] Last Admin: 12/28/18 08:01 Dose: 40 mg Pantoprazole Sodium (Protonix Iv) 40 mg IVPUSH ONETIME ONE Stop: 12/28/18 13:01 Last Admin: 12/28/18 12:58 Dose: 40 mg Pantoprazole Sodium (Protonix) 40 mg PO BIDAC [facility] Last Admin: 12/30/18 09:58 Dose: 40 mg Pantoprazole Sodium (Protonix Iv) 40 mg IVPUSH Q12H [facility] Last Admin: 01/01/19 08:08 Dose: 40 mg Potassium Chloride (Klor-Con M20) 40 meq PO ONETIME ONE Stop: 01/01/19 10:01 Last Admin: 01/01/19 10:10 Dose: 40 meq Potassium Chloride (Klor-Con M20) 40 meq PO ONETIME ONE Stop: 01/01/19 17:01 Last Admin: 01/01/19 16:00 Dose: 40 meq Prednisone (Prednisone) 20 mg PO BIDAC [facility] Last Admin: 12/30/18 10:07 Dose: Not Given Propofol (Diprivan 20 Ml) Confirm Administered Dose 200 mg .ROUTE .STK-MED ONE Stop: 12/29/18 07:07 Sodium Chloride (Saline Flush) 10 ml FLUSH ONETIME PRN PRN Reason: per radiology protocol Stop: 12/30/18 09:21 Last Admin: 12/30/18 12:19 Dose: 10 ml - Exam Quality Assessment: Supplemental Oxygen, DVT Prophylaxis General: Alert, Oriented, Cooperative, Mild Distress Lungs: Decreased Breath Sounds, Wheezing. No: Rales, Rhonchi, Rub Cardiovascular: Regular Rate, Regular Rhythm, No Murmurs GI/Abdominal Exam: Soft, Non-Tender, No Organomegaly, No Distention Extremities: Non-Tender, No Pedal Edema - Problem List Review Problem List Initiated/Reviewed/Updated: Yes - My Orders Last 24 Hours: My Active Orders 01/01/19 12:31 Convert IV to Saline Lock [OM.PC] Routine 01/01/19 12:45 Lactobacillus Rhamnosus GG [Culturelle] 1 cap PO BID 01/01/19 16:30 Pantoprazole [ProTONIX] 40 mg PO BIDAC 01/01/19 20:00 methylPREDNISolone Sod Succ [Solu-MEDROL] 40 mg IVPUSH Q12H 01/02/19 09:00 acetaZOLAMIDE [Diamox] 500 mg PO BID 01/03/19 05:00 BASIC METABOLIC PANEL,BMP [CHEM] Timed - Plan Plan:: ASSESSMENT AND PLAN - Acute respiratory failure with hypoxia and hypercapnia - stable with current management, improvement from yesterday with less shortness of breath and cough -Broad-spectrum antibiotic coverage with levofloxacin and Pip/Tazo - IV steroids -Nebulizers as below -Continue noninvasive positive pressure ventilation as needed Acute bronchitis - complicated by acute respiratory failure with hypoxia and hypercapnia. She was improving from this infection prior to the worsening of her respiratory status as discussed above. -Scheduled and as needed nebulizers -Supplement oxygen as needed Acute upper gastrointestinal hemorrhage - EGD revealed esophageal ulcer 12/29. Hemoglobin stable and no recurrence of bleeding. 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 -Management as above -Supplement oxygen -Review controller medications prior to discharge Maintenance issues - - DVT prophylaxis - mechanical with recent hemorrhage - GI prophylaxis - PPI - Nutrition - clear liquids Disposition - I would anticipate discharge home after the hospital stay Primary care physician - Dr. Lopez
[2019-01-02] MEDS: acetaZOLAMIDE 250 MG Tab PO SCH ×2 (10:36→20:21)
[2019-01-02] MEDS: Levofloxacin/Dextrose 5%-Water 750 MG in Premix Bag 1 BAG IV SCH (10:36)
[2019-01-02] MEDS: Digoxin 125 MCG Tab PO SCH (13:18)
[2019-01-02] MEDS: Melatonin 3 MG Tab PO SCH (20:22)
[2019-01-03] MEDS: Morphine 4 MG/ML Syringe IVPUSH PRN ×2 (00:21→04:33)
[2019-01-03] MEDS: Piperacillin/Tazobactam/Dext 3.375 GM in Premix Bag 1 BAG IV SCH (03:19)
[2019-01-03] MEDS: STIOLTO RESPIMAT IH SCH ×2 (06:59→21:52)
[2019-01-03] MEDS: Albuterol/Ipratropium 3.0-0.5 MG/3 ML Neb Soln NEB SCH ×4 (06:59→21:52)
[2019-01-03] MEDS: Levothyroxine 112 MCG Tab PO SCH (08:06)
[2019-01-03] MEDS: Pantoprazole 40 MG Tab.CR PO SCH ×2 (08:06→17:35)
[2019-01-03] MEDS: methylPREDNISolone Sodium Succinate 40 MG/1 ML SDV IVPUSH SCH (08:13)
[2019-01-03] MEDS: DULoxetine 30 MG Cap PO SCH (08:17)
[2019-01-03] MEDS: Doxazosin 4 MG Tab PO SCH (08:19)
[2019-01-03] MEDS: ARIPiprazole 10 MG Tab PO SCH (08:20)
[2019-01-03] MEDS: Lactobacillus Rhamnosus GG (Probiotic) Cap PO SCH ×2 (08:21→21:52)
[2019-01-03] MEDS: Spironolactone 25 MG Tab PO SCH (08:23)
[2019-01-03] MEDS: Hydrochlorothiazide 25 MG Tab PO SCH (08:23)
[2019-01-03] MEDS: QUEtiapine 50 MG Tab.SR PO SCH (08:24)
--- NOTE | 2019-01-03 09:33 | PCM.PN ---
- General Info Date of Service: 01/03/19 Subjective Update: Ms. Baez has been stable over the last 24 hours, use of noninvasive positive pressure ventilation has decreased since yesterday. Currently has adequate saturations on supplemental oxygen via nasal cannula. Denies significant shortness of breath, cough is improved. Functional Status: Reports: Tolerating Diet, Urinating - Review of Systems General: Reports: Weakness. Denies: Fever, Chills Pulmonary: Reports: Shortness of Breath, Cough, Wheezing. Denies: Pleuritic Chest Pain, Sputum, Hemoptysis Cardiovascular: Reports: Dyspnea on Exertion. Denies: Chest Pain, Palpitations , Orthopnea, PND, Edema, Lightheadedness Gastrointestinal: Reports: No Symptoms - Patient Data Vitals - Most Recent: Last Vital Signs Temp 98 F 01/02/19 19:55 Pulse 114 H 01/03/19 06:59 Resp 11 L 01/03/19 05:12 BP 125/57 L 01/03/19 08:19 Pulse Ox 97 01/03/19 05:12 Weight - Most Recent: 159 lb 13.362 oz I&O - Last 24 Hours: Intake & Output 01/02/19 01/03/19 01/03/19 22:59 06:59 14:59 Intake Total 1257 Output Total 550 Balance -550 1257 Lab Results Last 24 Hours: Laboratory Results - last 24 hr 01/03/19 Range/Units 04:21 Sodium 136 L (140-148) mmol/L Potassium 5.1 (3.6-5.2) mmol/L Chloride 99 L (100-108) mmol/L Carbon Dioxide 34 H (21-32) mmol/L Anion Gap 8.1 (5.0-14.0) mmol/L BUN 13 (7-18) mg/dL Creatinine 0.6 (0.6-1.0) mg/dL Est Cr Clr Drug Dosing 54.61 mL/min Estimated GFR (MDRD) > 60 (>60) Glucose 142 H (74-106) mg/dL Calcium 8.3 L (8.5-10.1) mg/dL Med Orders - Current: Current Medications Acetaminophen (Tylenol) 650 mg PO Q4H PRN PRN Reason: Pain (Mild 1-3)/fever Albuterol (Proventil Neb Soln) 2.5 mg NEB Q1H PRN PRN Reason: Shortness Of Breath/wheezing Last Admin: 01/01/19 06:58 Dose: 2.5 mg Albuterol/Ipratropium (Duoneb 3.0-0.5 Mg/3 Ml) 3 ml NEB QIDRT [facility] [place] Last Admin: 01/03/19 06:59 Dose: 3 ml Aripiprazole (Abilify) 10 mg PO DAILY [facility] [place] Last Admin: 01/03/19 08:20 Dose: 10 mg Benzonatate (Tessalon Perles) 100 mg PO TID PRN PRN Reason: Cough Last Admin: 12/30/18 07:14 Dose: 100 mg Digoxin (Lanoxin) 125 mcg PO DAILY@1300 [facility] [place] Last Admin: 01/02/19 13:18 Dose: 125 mcg Doxazosin Mesylate (Cardura) 2 mg PO DAILY [facility] [place] Last Admin: 01/03/19 08:19 Dose: 2 mg Duloxetine HCl (Cymbalta) 60 mg PO DAILY [facility] [place] Last Admin: 01/03/19 08:17 Dose: 60 mg Guaifenesin/Dextromethorphan (Robitussin Dm) 10 ml PO Q4H PRN PRN Reason: Cough Hydrochlorothiazide (Hydrochlorothiazide) 25 mg PO DAILY [facility] [place] Last Admin: 01/03/19 08:23 Dose: 25 mg Lactobacillus Rhamnosus (Culturelle) 1 cap PO BID [facility] [place] Last Admin: 01/03/19 08:21 Dose: 1 cap Levofloxacin (Levaquin) 750 mg PO Q24H [facility] [place] Levothyroxine Sodium (Levothyroxine) 112 mcg PO ACBREAKFAST [facility] [place] Last Admin: 01/03/19 08:06 Dose: 112 mcg Lorazepam (Ativan) 1 mg IVPUSH Q2H PRN PRN Reason: anxiety/air hunger Last Admin: 12/31/18 05:54 Dose: 1 mg Magnesium Hydroxide (Milk Of Magnesia) 30 ml PO Q12H PRN PRN Reason: Constipation Melatonin (Melatonin) 9 mg PO BEDTIME [facility] [place] Last Admin: 01/02/19 20:22 Dose: 9 mg Morphine Sulfate (Morphine) 4 mg IVPUSH Q2H PRN PRN Reason: air hunger Last Admin: 01/03/19 04:33 Dose: 4 mg Stiolto Respimat (Ptom) 0 mcg IH BIDRT [facility] [place] Last Admin: 01/03/19 06:59 Dose: 1 mcg Ondansetron HCl (Zofran Odt) 4 mg PO Q6H PRN PRN Reason: Nausea able to take PO Ondansetron HCl (Zofran) 4 mg IV Q6H PRN PRN Reason: Nausea/Vomiting Last Admin: 12/28/18 13:32 Dose: 4 mg Pantoprazole Sodium (Protonix) 40 [facility] Last Admin: 01/03/19 08:06 Dose: 40 mg Prednisone (Prednisone) 40 mg PO DAILY [facility] [place] Quetiapine Fumarate (Seroquel Xr) 400 mg PO DAILY [facility] [place] Last Admin: 01/03/19 08:24 Dose: 400 mg Senna/Docusate Sodium (Senna Plus) 1 tab PO BID PRN PRN Reason: Constipation Sodium Chloride (Saline Flush) 10 ml FLUSH ASDIRECTED PRN PRN Reason: Keep Vein Open Last Admin: 12/27/18 13:25 Dose: 10 ml Spironolactone (Aldactone) 25 mg PO DAILY [facility] [place] Last Admin: 01/03/19 08:23 Dose: 25 mg Discontinued Medications Acetazolamide (Diamox) 500 mg PO BID [facility] [place] Stop: 01/02/19 21:01 Last Admin: 01/02/19 20:21 Dose: 500 mg Albuterol/Ipratropium (Duoneb 3.0-0.5 Mg/3 Ml) 3 ml NEB ONETIME ONE Stop: 12/27/18 13:03 Last Admin: 12/27/18 13:25 Dose: 3 ml Albuterol/Ipratropium (Duoneb 3.0-0.5 Mg/3 Ml) 3 ml NEB ONETIME ONE Stop: 12/27/18 14:07 Last Admin: 12/27/18 14:23 Dose: 3 ml Albuterol/Ipratropium (Duoneb 3.0-0.5 Mg/3 Ml) 3 ml NEB ONETIME ONE Stop: 12/27/18 14:28 Last Admin: 12/27/18 14:43 Dose: 3 ml Doxycycline Hyclate (Vibramycin) Confirm Administered Dose 100 mg .ROUTE .STK- MED ONE Stop: 12/28/18 03:51 Last Admin: 12/28/18 04:03 Dose: Not Given Doxycycline Hyclate (Vibramycin) 100 mg PO BID [facility] [place] Last Admin: 12/30/18 10:07 Dose: Not Given Enoxaparin Sodium (Lovenox) 40 mg SUBCUT DAILY [facility] [place] Last Admin: 12/28/18 09:24 Dose: 40 mg Guaifenesin/Codeine Phosphate (Robitussin Ac) 10 ml PO Q4H PRN PRN Reason: Cough Doxycycline Hyclate 100 mg/ (Sodium Chloride) 100 mls @ 100 mls/hr IV ONETIME ONE Stop: 12/27/18 17:29 Last Admin: 12/27/18 16:43 Dose: 100 mls/hr Doxycycline Hyclate 100 mg/ (Sodium Chloride) 100 mls @ 100 mls/hr IV Q12H [facility] [place] Last Admin: 12/29/18 03:47 Dose: 100 mls/hr Sodium Chloride (Normal Saline) 1,000 mls @ 75 mls/hr IV ASDIRECTED [facility] [place] Last Admin: 12/28/18 05:08 Dose: 75 mls/hr Pantoprazole Sodium 80 mg/ (Sodium Chloride) 100 mls @ 10 mls/hr IV .Q10H [facility] [place] Last Admin: 12/29/18 08:15 Dose: 10 mls/hr Potassium Cl/Dextrose/Lact Ringer's (D5 Lr With 20 Meq Kcl) 1,000 mls @ 75 mls/ hr IV ASDIRECTED [facility] [place] Last Admin: 12/29/18 02:21 Dose: 75 mls/hr Sodium Chloride (Normal Saline) 500 mls @ 999 mls/hr IV ASDIRECTED [facility] [place] Stop: 12/28/18 13:01 Last Admin: 12/28/18 12:36 Dose: 999 mls/hr Sodium Chloride (Normal Saline) 500 mls @ 999 mls/hr IV ASDIRECTED [facility] [place] Stop: 12/28/18 14:46 Magnesium Sulfate 2 gm/ Premix 50 mls @ 12.5 mls/hr IV ONETIME ONE Stop: 12/29/18 22:04 Last Admin: 12/29/18 18:17 Dose: 12.5 mls/hr Levofloxacin/Dextrose 750 mg/ (Premix) 150 mls @ 100 mls/hr IV Q24H [facility] [place] Last Admin: 01/02/19 10:36 Dose: 100 mls/hr Piperacillin/Tazobactam/ (Dextrose 3.375 gm/ Premix) 50 mls @ 100 mls/hr IV Q6HR [facility] [place] Last Admin: 01/03/19 03:19 Dose: 100 mls/hr Sodium Chloride (Normal Saline) 100 mls @ 3.5 mls/sec IV ASDIRECTED [facility] [place] Stop: 12/30/18 09:31 Last Admin: 12/30/18 12:19 Dose: 3.5 mls/sec Sodium Chloride (Normal Saline) 500 mls @ 999 mls/hr IV ASDIRECTED [facility] [place] Stop: 12/30/18 13:01 Last Admin: 12/30/18 12:36 Dose: 999 mls/hr Sodium Chloride (Normal Saline) 1,000 mls @ 100 mls/hr IV ASDIRECTED [facility] [place] Last Admin: 12/31/18 03:47 Dose: 100 mls/hr Sodium Chloride (Normal Saline) 1,000 mls @ 50 mls/hr IV ASDIRECTED [facility] [place] Last Admin: 12/31/18 20:40 Dose: 50 mls/hr Iopamidol (Isovue-370 (76%)) 100 ml IV . DIRECTED [facility] [place] Stop: 12/30/18 09:31 Last Admin: 12/30/18 12:18 Dose: 100 ml Lorazepam (Ativan) 0.5 mg IVPUSH Q4H PRN PRN Reason: Nausea/Vomiting Last Admin: 12/31/18 04:15 Dose: 0.5 mg Methylprednisolone Sodium Succinate (Solu-Medrol) 125 mg IVPUSH ONETIME ONE Stop: 12/27/18 15:43 Last Admin: 12/27/18 16:08 Dose: 125 mg Methylprednisolone Sodium Succinate (Solu-Medrol) 62.5 mg IVPUSH Q8H [facility] [place] Last Admin: 12/29/18 08:16 Dose: 62.5 mg Methylprednisolone Sodium Succinate (Solu-Medrol) 125 mg IVPUSH ONETIME ONE Stop: 12/30/18 09:46 Last Admin: 12/30/18 10:04 Dose: 125 mg Methylprednisolone Sodium Succinate (Solu-Medrol) 62.5 mg IVPUSH Q8H [facility] [place] Last Admin: 01/01/19 08:14 Dose: 62.5 mg Methylprednisolone Sodium Succinate (Solu-Medrol) 40 mg IVPUSH Q12H [facility] [place] Last Admin: 01/03/19 08:13 Dose: 40 mg Morphine Sulfate (Morphine) 2 mg IVPUSH Q2H PRN PRN Reason: Pain (severe 7-10) Last Admin: 12/31/18 04:15 Dose: 2 mg Pantoprazole Sodium (Protonix) 40 mg PO ACBREAKFAST [facility] [place] Last Admin: 12/28/18 08:01 Dose: 40 mg Pantoprazole Sodium (Protonix Iv) 40 mg IVPUSH ONETIME ONE Stop: 12/28/18 13:01 Last Admin: 12/28/18 12:58 Dose: 40 mg Pantoprazole Sodium (Protonix) 40 mg PO BIDAC [facility] [place] Last Admin: 12/30/18 09:58 Dose: 40 mg Pantoprazole Sodium (Protonix Iv) 40 mg IVPUSH Q12H [facility] [place] Last Admin: 01/01/19 08:08 Dose: 40 mg Potassium Chloride (Klor-Con M20) 40 meq PO ONETIME ONE Stop: 01/01/19 10:01 Last Admin: 01/01/19 10:10 Dose: 40 meq Potassium Chloride (Klor-Con M20) 40 meq PO ONETIME ONE Stop: 01/01/19 17:01 Last Admin: 01/01/19 16:00 Dose: 40 meq Prednisone (Prednisone) 20 mg PO BIDAC [facility] [place] Last Admin: 12/30/18 10:07 Dose: Not Given Propofol (Diprivan 20 Ml) Confirm Administered Dose 200 mg .ROUTE .STK-MED ONE Stop: 12/29/18 07:07 Sodium Chloride (Saline Flush) 10 ml FLUSH ONETIME PRN PRN Reason: per radiology protocol Stop: 12/30/18 09:21 Last Admin: 12/30/18 12:19 Dose: 10 ml - Exam Quality Assessment: Supplemental Oxygen, DVT Prophylaxis General: Alert, Oriented, Cooperative, No Acute Distress Lungs: Clear to Auscultation, Normal Respiratory Effort, Decreased Breath Sounds. No: Rales, Rhonchi, Rub, Wheezing Cardiovascular: Regular Rate, Regular Rhythm, No Murmurs GI/Abdominal Exam: Soft, Non-Tender, No Organomegaly, No Distention Extremities: Non-Tender, No Pedal Edema - Problem List Review Problem List Initiated/Reviewed/Updated: Yes - My Orders Last 24 Hours: My Active Orders 01/03/19 09:19 Patient Status [ADT] Routine 01/03/19 09:30 levoFLOXacin [Levaquin] 750 mg PO Q24H predniSONE 40 mg PO DAILY - Plan Plan:: ASSESSMENT AND PLAN - Acute respiratory failure with hypoxia and hypercapnia - stable with current management, improvement from yesterday with less shortness of breath and cough -Discontinue IV levofloxacin and Zosyn -Levofloxacin 750 mg by mouth daily - Prednisone 40 mg by mouth daily -Nebulizers as below Acute bronchitis -Scheduled and as needed nebulizers -Supplement oxygen as needed Acute upper gastrointestinal hemorrhage - EGD revealed esophageal ulcer 12/29. Hemoglobin stable and no recurrence of bleeding. 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 -Management as above -Supplement oxygen -Review controller medications prior to discharge Maintenance issues - - DVT prophylaxis - mechanical with recent hemorrhage - GI prophylaxis - PPI - Nutrition - clear liquids Disposition - I would anticipate discharge home after the hospital stay Primary care physician - Dr. Lopez
[2019-01-03] MEDS: predniSONE 20 MG Tab PO SCH (09:52)
[2019-01-03] MEDS: Levofloxacin 250 MG Tab PO SCH (09:52)
--- NOTE | 2019-01-03 13:05 | OR ---
DATE OF PROCEDURE: 12/29/2018 SURGEON: Romel Ortiz MD PREOPERATIVE DIAGNOSIS: Recent hematemesis. POSTOPERATIVE DIAGNOSIS: Recent hematemesis associated with resolving ulcerated gastroesophageal reflux disease along with a large hiatal hernia. OPERATIVE PROCEDURE: Esophagogastroduodenoscopy. ANESTHESIA: IV sedation. INDICATION FOR PROCEDURE: A 78-year-old with severe COPD who was admitted for respiratory problems and was noted to have some hematemesis. Plan was to proceed with upper GI endoscopy for diagnostic purposes. Potential risks including bleeding and perforation were discussed, and the patient wishes to proceed. DETAILS OF PROCEDURE: The patient was taken to the operating room and placed in the left lateral decubitus position. IV sedation was administered after which the upper GI endoscope was passed orally through the length of the esophagus into the stomach with retroflexion view of the fundus, and thereafter through the pyloric channel and into the proximal duodenum. Findings included normal hypopharynx, larynx, and upper esophageal sphincter. As one entered the esophagus, the proximal esophagus was unremarkable. In the distal 3rd of the esophagus however there were multiple ulcers. These were presently covered with fibrinous exudate, but were fairly raw in their appearance. This was associated with a quite large hiatal hernia with perhaps a 3rd of the stomach being up in the chest. Beyond that, the remainder of the gastric and duodenal exams were unremarkable. At this point, it was fairly obvious that the patient's bleeding site had been the ulcerated gastroesophageal reflux disease. We elected not to do any biopsies at this time so as to avoid problems with acute bleeding. If at some point in the future, the patient's clinical condition warrants, a repeat upper endoscopy to ascertain healing should be undertaken. Otherwise, would continue the aggressive proton pump inhibitor use, and following discharge, she should be on a lifetime course of proton pump inhibitors. Romel Ortiz MD /[id number]
[2019-01-03] MEDS: Digoxin 125 MCG Tab PO SCH (13:29)
[2019-01-03] MEDS: Melatonin 3 MG Tab PO SCH (21:52)
[2019-01-04] MEDS: STIOLTO RESPIMAT IH SCH (07:15)
[2019-01-04] MEDS: Albuterol/Ipratropium 3.0-0.5 MG/3 ML Neb Soln NEB SCH (07:15)
[2019-01-04] MEDS: Levothyroxine 112 MCG Tab PO SCH (09:03)
[2019-01-04] MEDS: Pantoprazole 40 MG Tab.CR PO SCH (09:04)
[2019-01-04] MEDS: ARIPiprazole 10 MG Tab PO SCH (09:04)
[2019-01-04] MEDS: Doxazosin 4 MG Tab PO SCH (09:05)
[2019-01-04] MEDS: Spironolactone 25 MG Tab PO SCH (09:05)
[2019-01-04] MEDS: Lactobacillus Rhamnosus GG (Probiotic) Cap PO SCH (09:06)
[2019-01-04] MEDS: DULoxetine 30 MG Cap PO SCH (09:06)
[2019-01-04] MEDS: Hydrochlorothiazide 25 MG Tab PO SCH (09:07)
[2019-01-04] MEDS: predniSONE 20 MG Tab PO SCH (09:07)
[2019-01-04] MEDS: QUEtiapine 50 MG Tab.SR PO SCH (09:07)
--- NOTE | 2019-01-04 09:38 | PCM.DCSUM1 ---
Discharge Summary - Hospital Course Brief History: Ms. Baez is a 78-year-old woman who was admitted through the emergency department with hypoxic and hypercapnic respiratory failure, secondary to underlying COPD exacerbation and bronchitis. - Discharge Data Discharge Date: 01/04/19 Discharge Disposition: DC/Tfer to SNF 03 Condition: Fair - Referral to Home Health Primary Care Physician: Rich Lopez Sr, MD - Discharge Diagnosis/Problem(s) (1) Esophageal ulcer with bleeding Status: Acute Current Visit: Yes (2) Acute blood loss anemia SNOMED Code(s): 705071082 ICD Code: D62 - ACUTE POSTHEMORRHAGIC ANEMIA Status: Acute Current Visit : Yes (3) Tachycardia SNOMED Code(s): 4668344 ICD Code: R00.0 - TACHYCARDIA, UNSPECIFIED Status: Acute Current Visit: Yes (4) Acute bronchitis SNOMED Code(s): 84910743 ICD Code: J20.9 - ACUTE BRONCHITIS, UNSPECIFIED Status: Acute Current Visit: Yes Qualifiers: Bronchitis organism: unspecified organism Qualified Code(s): J20.9 - Acute bronchitis, unspecified (5) Acute respiratory failure with hypoxia and hypercapnia SNOMED Code(s): 185192796 ICD Code: J96.01 - ACUTE RESPIRATORY FAILURE WITH HYPOXIA; J96.02 - ACUTE RESPIRATORY FAILURE WITH HYPERCAPNIA Status: Acute Current Visit: Yes (6) COPD with exacerbation SNOMED Code(s): 479279155 ICD Code: J44.1 - CHRONIC OBSTRUCTIVE PULMONARY DISEASE W (ACUTE) EXACERBATION Status: Acute Current Visit: Yes - Patient Summary/Data Consults: Consultations 12/28/18 12:17 Consult to Physician [CONS] Routine Consulting Provider: Romel Ortiz Call Completed to Consulting Physician: Yes Reason for Consult: hematemesis Person Notified: ARMENTA Date Notified: 12/28/18 Special Instructions: EGD in am Hospital Course: Ms. Baez presented to the emergency room with progressive shortness of breath. She was seen in the clinic about 2 weeks ago and started on prednisone. Initially she started to improve but then worsened again. She came to the emergency room 6 days ago and was started on a Medrol Dosepak. Initially she started to improve but then over the past 2 days has worsened. She has been using her respiratory treatments regularly without much improvement. She did have some nausea and a couple episodes of vomiting today. She does have a sick contact with the who has an upper respiratory infection. Workup in the emergency room revealed respiratory distress and sinus tachycardia. Chest x-ray was clear other than hyperinflation. Laboratory studies revealed a normal pH on her blood gases but showed a PCO2 of more than 60 and a PO2 of around 60. She has received several nebulizer treatments as well as IV Solu-Medrol. Respiratory status was labile enough that she was started on noninvasive ventilation. She will be admitted to the intensive care unit for management of bronchitis with a COPD exacerbation and respiratory failure. On admission she was given IV fluids for hydration, IV Solu-Medrol, and IV antibiotic therapy. Cultures remain negative throughout her hospital course. Hospital course was complicated by upper GI bleed she required transfusion of red blood cells. She was started on IV Protonix. EGD was performed and showed evidence of esophageal ulcer which was felt to be the likely source of bleeding. She stabilized and had no further evidence of bleeding. She will be discharged to home on Protonix 40 mg twice daily for 2 weeks then once daily thereafter. Following the episode of GI bleed she developed recurrent respiratory compromise requiring use of noninvasive positive pressure ventilation. And was placed back on IV Solu- Medrol. She had completed course of glucocorticoid therapy by the time of discharge and had also completed a course of antibiotic therapy. Respiratory status was stable and she was close to baseline by the time of discharge. Activity will be as tolerated and she will resume her usual diet. She will be discharged to skilled nursing for restorative physical therapy and occupational therapy. Follow-up care will be at the skilled nursing with her primary care physician. - Patient Instructions Diet: Usual Diet as Tolerated Activity: As Tolerated Other/Special Instructions: Daily PT and OT at the skilled nursing. O2 2-3 liters per min while at the skilled nursing. - Discharge Plan *PRESCRIPTION DRUG MONITORING PROGRAM REVIEWED*: Not Applicable *COPY OF PRESCRIPTION DRUG MONITORING REPORT IN PATIENT URIEL: Not Applicable Prescriptions/Med Rec: Lactobacillus Rhamnosus GG [Culturelle] 1 cap PO BID #60 cap Home Medications: Home Meds ARIPiprazole [Abilify] 10 mg PO DAILY 12/23/15 [History] DULoxetine HCl [Duloxetine HCl] 60 mg PO DAILY 12/23/15 [History] Dexlansoprazole [Dexilant] 60 mg PO DAILY 09/21/16 [History] Ondansetron [IJD: Ondansetron ODT] 4 mg PO .EVERY 6 HOURS PRN 12/23/15 [History] QUEtiapine Fumarate [Seroquel Xr] 400 mg PO DAILY 12/23/15 [History] Tiotropium Br/Olodaterol HCl [Stiolto Respimat Inhal [place]] 2.5 mcg IH BID 10/17 [History] Acetaminophen [Tylenol] 650 mg PO Q4H PRN tablet 10/30/18 [Rx] Albuterol [Proventil Neb Soln] 2.5 mg NEB Q4H PRN neb 10/30/18 [Rx] Albuterol/Ipratropium [DuoNeb 3.0-0.5 MG/3 ML] 3 ml NEB QIDRT neb 10/30/18 [Rx] Doxazosin [Cardura] 2 mg PO DAILY tablet 10/30/18 [Rx] Levothyroxine 112 mcg PO ACBREAKFAST tablet 10/30/18 [Rx] Potassium Chloride [Klor-Con M20] 40 meq PO DAILY tab.er 10/30/18 [Rx] Digoxin 1 tab PO DAILY 12/27/18 [History] Spironolact/Hydrochlorothiazid [Spironolactone-HCTZ 25-25] 1 tab PO DAILY [History] Lactobacillus Rhamnosus GG [Culturelle] 1 cap PO BID #60 cap 01/04/19 [Rx] Pantoprazole [ProTONIX] 40 mg PO BID #60 tab.cr 01/04/19 [Rx] Referrals: Rich Lopez Sr, MD [Primary Care Provider] - - Discharge Summary/Plan Comment DC Time >30 min.: No - Patient Data Vitals - Most Recent: Last Vital Signs Temp 96.8 F 01/04/19 07:50 Pulse 101 H 01/04/19 07:50 Resp 18 01/04/19 07:50 BP 118/96 H 01/04/19 09:05 Pulse Ox 93 L 01/04/19 07:50 Weight - Most Recent: 159 lb 13.362 oz I&O - Last 24 hours: Intake & Output 01/03/19 01/04/19 01/04/19 22:59 06:59 14:59 Intake Total 320 Output Total 1200 600 350 Balance -880 -600 -350 Lab Results - Last 24 hrs: Laboratory Results - last 24 hr 01/04/19 Range/Units 04:10 WBC 12.8 H (4.5-11.0) K/uL RBC 3.48 (3.30-5.50) M/uL Hgb 9.4 L (12.0-15.0) g/dL Hct 31.2 L (36.0-48.0) % MCV 90 (80-98) fL MCH 27 (27-31) pg MCHC 30 L (32-36) % Plt Count 289 (150-400) K/uL Neut % (Auto) 86 H (36-66) % Lymph % (Auto) 8 L (24-44) % [place] % (Auto) 6 (2-6) % Eos % (Auto) 0 L (2-4) % Baso % (Auto) 0 (0-1) % Med Orders - Current: Current Medications Acetaminophen (Tylenol) 650 mg PO Q4H PRN PRN Reason: Pain (Mild 1-3)/fever Albuterol (Proventil Neb Soln) 2.5 mg NEB Q1H PRN PRN Reason: Shortness Of Breath/wheezing Last Admin: 01/01/19 06:58 Dose: 2.5 mg Albuterol/Ipratropium (Duoneb 3.0-0.5 Mg/3 Ml) 3 ml NEB QIDRT [facility] Last Admin: 01/04/19 07:15 Dose: 3 ml Aripiprazole (Abilify) 10 mg PO DAILY [facility] Last Admin: 01/04/19 09:04 Dose: 10 mg Benzonatate (Tessalon Perles) 100 mg PO TID PRN PRN Reason: Cough Last Admin: 12/30/18 07:14 Dose: 100 mg Digoxin (Lanoxin) 125 mcg PO DAILY@1300 [facility] Last Admin: 01/03/19 13:29 Dose: 125 mcg Doxazosin Mesylate (Cardura) 2 mg PO DAILY [facility] Last Admin: 01/04/19 09:05 Dose: 2 mg Duloxetine HCl (Cymbalta) 60 mg PO DAILY [facility] Last Admin: 01/04/19 09:06 Dose: 60 mg Guaifenesin/Dextromethorphan (Robitussin Dm) 10 ml PO Q4H PRN PRN Reason: Cough Hydrochlorothiazide (Hydrochlorothiazide) 25 mg PO DAILY [facility] Last Admin: 01/04/19 09:07 Dose: 25 mg Lactobacillus Rhamnosus (Culturelle) 1 cap PO BID [facility] Last Admin: 01/04/19 09:06 Dose: 1 cap Levofloxacin (Levaquin) 750 mg PO Q24H [facility] Last Admin: 01/03/19 09:52 Dose: 750 mg Levothyroxine Sodium (Levothyroxine) 112 mcg PO ACBREAKFAST [facility] Last Admin: 01/04/19 09:03 Dose: 112 mcg Lorazepam (Ativan) 1 mg IVPUSH Q2H PRN PRN Reason: anxiety/air hunger Last Admin: 12/31/18 05:54 Dose: 1 mg Magnesium Hydroxide (Milk Of Magnesia) 30 ml PO Q12H PRN PRN Reason: Constipation Melatonin (Melatonin) 9 mg PO BEDTIME [facility] Last Admin: 01/03/19 21:52 Dose: 9 mg Morphine Sulfate (Morphine) 4 mg IVPUSH Q2H PRN PRN Reason: air hunger Last Admin: 01/03/19 04:33 Dose: 4 mg Stiolto Respimat (Ptom) 0 mcg IH BIDRT [facility] Last Admin: 01/04/19 07:15 Dose: 1 mcg Ondansetron HCl (Zofran Odt) 4 mg PO Q6H PRN PRN Reason: Nausea able to take PO Ondansetron HCl (Zofran) 4 mg IV Q6H PRN PRN Reason: Nausea/Vomiting Last Admin: 12/28/18 13:32 Dose: 4 mg Pantoprazole Sodium (Protonix) 40 mg PO BIDAC [facility] Last Admin: 01/04/19 09:04 Dose: 40 mg Quetiapine Fumarate (Seroquel Xr) 400 mg PO DAILY [facility] Last Admin: 01/04/19 09:07 Dose: 400 mg Senna/Docusate Sodium (Senna Plus) 1 tab PO BID PRN PRN Reason: Constipation Sodium Chloride (Saline Flush) 10 ml FLUSH ASDIRECTED PRN PRN Reason: Keep Vein Open Last Admin: 12/27/18 13:25 Dose: 10 ml Spironolactone (Aldactone) 25 mg PO DAILY [facility] Last Admin: 01/04/19 09:05 Dose: 25 mg Discontinued Medications Acetazolamide (Diamox) 500 mg PO BID [facility] Stop: 01/02/19 21:01 Last Admin: 01/02/19 20:21 Dose: 500 mg Albuterol/Ipratropium (Duoneb 3.0-0.5 Mg/3 Ml) 3 ml NEB ONETIME ONE Stop: 12/27/18 13:03 Last Admin: 12/27/18 13:25 Dose: 3 ml Albuterol/Ipratropium (Duoneb 3.0-0.5 Mg/3 Ml) 3 ml NEB ONETIME ONE Stop: 12/27/18 14:07 Last Admin: 12/27/18 14:23 Dose: 3 ml Albuterol/Ipratropium (Duoneb 3.0-0.5 Mg/3 Ml) 3 ml NEB ONETIME ONE Stop: 12/27/18 14:28 Last Admin: 12/27/18 14:43 Dose: 3 ml Doxycycline Hyclate (Vibramycin) Confirm Administered Dose 100 mg .ROUTE .STK- MED ONE Stop: 12/28/18 03:51 Last Admin: 12/28/18 04:03 Dose: Not Given Doxycycline Hyclate (Vibramycin) 100 mg PO BID [facility] Last Admin: 12/30/18 10:07 Dose: Not Given Enoxaparin Sodium (Lovenox) 40 mg SUBCUT DAILY [facility] Last Admin: 12/28/18 09:24 Dose: 40 mg Guaifenesin/Codeine Phosphate (Robitussin Ac) 10 ml PO Q4H PRN PRN Reason: Cough Doxycycline Hyclate 100 mg/ (Sodium Chloride) 100 mls @ 100 mls/hr IV ONETIME ONE Stop: 12/27/18 17:29 Last Admin: 12/27/18 16:43 Dose: 100 mls/hr Doxycycline Hyclate 100 mg/ (Sodium Chloride) 100 mls @ 100 mls/hr IV Q12H [facility] Last Admin: 12/29/18 03:47 Dose: 100 mls/hr Sodium Chloride (Normal Saline) 1,000 mls @ 75 mls/hr IV ASDIRECTED [facility] Last Admin: 12/28/18 05:08 Dose: 75 mls/hr Pantoprazole Sodium 80 mg/ (Sodium Chloride) 100 mls @ 10 mls/hr IV .Q10H [facility] Last Admin: 12/29/18 08:15 Dose: 10 mls/hr Potassium Cl/Dextrose/Lact Ringer's (D5 Lr With 20 Meq Kcl) 1,000 mls @ 75 mls/ hr IV ASDIRECTED [facility] Last Admin: 12/29/18 02:21 Dose: 75 mls/hr Sodium Chloride (Normal Saline) 500 mls @ 999 mls/hr IV ASDIRECTED [facility] Stop: 12/28/18 13:01 Last Admin: 12/28/18 12:36 Dose: 999 mls/hr Sodium Chloride (Normal Saline) 500 mls @ 999 mls/hr IV ASDIRECTED [facility] Stop: 12/28/18 14:46 Magnesium Sulfate 2 gm/ Premix 50 mls @ 12.5 mls/hr IV ONETIME ONE Stop: 12/29/18 22:04 Last Admin: 12/29/18 18:17 Dose: 12.5 mls/hr Levofloxacin/Dextrose 750 mg/ (Premix) 150 mls @ 100 mls/hr IV Q24H [facility] Last Admin: 01/02/19 10:36 Dose: 100 mls/hr Piperacillin/Tazobactam/ (Dextrose 3.375 gm/ Premix) 50 mls @ 100 mls/hr IV Q6HR [facility] Last Admin: 01/03/19 03:19 Dose: 100 mls/hr Sodium Chloride (Normal Saline) 100 mls @ 3.5 mls/sec IV ASDIRECTED [facility] Stop: 12/30/18 09:31 Last Admin: 12/30/18 12:19 Dose: 3.5 mls/sec Sodium Chloride (Normal Saline) 500 mls @ 999 mls/hr IV ASDIRECTED [facility] Stop: 12/30/18 13:01 Last Admin: 12/30/18 12:36 Dose: 999 mls/hr Sodium Chloride (Normal Saline) 1,000 mls @ 100 mls/hr IV ASDIRECTED [facility] Last Admin: 12/31/18 03:47 Dose: 100 mls/hr Sodium Chloride (Normal Saline) 1,000 mls @ 50 mls/hr IV ASDIRECTED [facility] Last Admin: 12/31/18 20:40 Dose: 50 mls/hr Influenza Virus Vaccine (Pharmacy To Dose - Influenza Vaccine) 1 each IM ONETIME ONE Stop: 01/04/19 05:53 Influenza Virus Vaccine (Fluzone High-Dose 2019-20 Syringe) 180 mcg IM .ONCE ONE Stop: 01/04/19 08:01 Iopamidol (Isovue-370 (76%)) 100 ml IV . DIRECTED [facility] Stop: 12/30/18 09:31 Last Admin: 12/30/18 12:18 Dose: 100 ml Lorazepam (Ativan) 0.5 mg IVPUSH Q4H PRN PRN Reason: Nausea/Vomiting Last Admin: 12/31/18 04:15 Dose: 0.5 mg Methylprednisolone Sodium Succinate (Solu-Medrol) 125 mg IVPUSH ONETIME ONE Stop: 12/27/18 15:43 Last Admin: 12/27/18 16:08 Dose: 125 mg Methylprednisolone Sodium Succinate (Solu-Medrol) 62.5 mg IVPUSH Q8H [facility] Last Admin: 12/29/18 08:16 Dose: 62.5 mg Methylprednisolone Sodium Succinate (Solu-Medrol) 125 mg IVPUSH ONETIME ONE Stop: 12/30/18 09:46 Last Admin: 12/30/18 10:04 Dose: 125 mg Methylprednisolone Sodium Succinate (Solu-Medrol) 62.5 mg IVPUSH Q8H [facility] Last Admin: 01/01/19 08:14 Dose: 62.5 mg Methylprednisolone Sodium Succinate (Solu-Medrol) 40 mg IVPUSH Q12H [facility] Last Admin: 01/03/19 08:13 Dose: 40 mg Morphine Sulfate (Morphine) 2 mg IVPUSH Q2H PRN PRN Reason: Pain (severe 7-10) Last Admin: 12/31/18 04:15 Dose: 2 mg Pantoprazole Sodium (Protonix) 40 mg PO ACBREAKFAST [facility] Last Admin: 12/28/18 08:01 Dose: 40 mg Pantoprazole Sodium (Protonix Iv) 40 mg IVPUSH ONETIME ONE Stop: 12/28/18 13:01 Last Admin: 12/28/18 12:58 Dose: 40 mg Pantoprazole Sodium (Protonix) 40 mg PO BIDAC [facility] Last Admin: 12/30/18 09:58 Dose: 40 mg Pantoprazole Sodium (Protonix Iv) 40 mg IVPUSH Q12H [facility] Last Admin: 01/01/19 08:08 Dose: 40 mg Potassium Chloride (Klor-Con M20) 40 meq PO ONETIME ONE Stop: 01/01/19 10:01 Last Admin: 01/01/19 10:10 Dose: 40 meq Potassium Chloride (Klor-Con M20) 40 meq PO ONETIME ONE Stop: 01/01/19 17:01 Last Admin: 01/01/19 16:00 Dose: 40 meq Prednisone (Prednisone) 20 mg PO BIDAC [facility] Last Admin: 12/30/18 10:07 Dose: Not Given Prednisone (Prednisone) 40 mg PO DAILY [facility] Last Admin: 01/04/19 09:07 Dose: 40 mg Propofol (Diprivan 20 Ml) Confirm Administered Dose 200 mg .ROUTE .STK-MED ONE Stop: 12/29/18 07:07 Sodium Chloride (Saline Flush) 10 ml FLUSH ONETIME PRN PRN Reason: per radiology protocol Stop: 12/30/18 09:21 Last Admin: 12/30/18 12:19 Dose: 10 ml - Exam General: Reports: Alert, Oriented, Cooperative, No Acute Distress Lungs: Reports: Decreased Breath Sounds. Denies: Rales, Rhonchi, Wheezing Cardiovascular: Reports: Regular Rhythm, No Murmurs, Tachycardia GI/Abdominal Exam: Soft, Non-Tender, No Organomegaly, No Distention Extremities: Non-Tender, No Pedal Edema
[2019-01-04] MEDS: Levofloxacin 250 MG Tab PO SCH (10:09)
== END 2019-01-04 11:09 | DRG 189 ==
LOC: JP.ED 12:03 → JP.ICU 16:02 → JP.MS 01-03 11:43
PROVIDERS: ADMIT Internal Medicine; ATTEND Hospitalist
PROC: 0DJ08ZZ Inspection of Upper Intestinal Tract, Via Natural or Artificial Opening Endoscopic (ICD-10-PCS; 2018-12-29)
PROC: 5A09457 Assistance with Respiratory Ventilation, 24-96 Consecutive Hours, Continuous Positive Airway Pressure (ICD-10-PCS; principal; 2018-12-31)
DX: J96.01 Acute respiratory failure with hypoxia (principal); R00.0 Tachycardia, unspecified; K22.11 Ulcer of esophagus with bleeding; Z99.81 Dependence on supplemental oxygen; Z79.01 Long term (current) use of anticoagulants; J44.0 Chronic obstructive pulmonary disease with (acute) lower respiratory infection; J44.1 Chronic obstructive pulmonary disease with (acute) exacerbation; K92.2 Gastrointestinal hemorrhage, unspecified; D62 Acute posthemorrhagic anemia; J96.02 Acute respiratory failure with hypercapnia; H54.7 Unspecified visual loss; F41.9 Anxiety disorder, unspecified; F32.9 Major depressive disorder, single episode, unspecified; M19.91 Primary osteoarthritis, unspecified site; J20.9 Acute bronchitis, unspecified; K21.9 Gastro-esophageal reflux disease without esophagitis; K44.9 Diaphragmatic hernia without obstruction or gangrene; Z79.899 Other long term (current) drug therapy; Z90.710 Acquired absence of both cervix and uterus; Z87.891 Personal history of nicotine dependence
CPT/HCPCS: 36415; 36430; 36600; 71046; 71275; 80048; 80053; 80162; 82803; 83735; 84484; 85018; 85025; 85027; 86850; 86900; 86901; 86920; 86922; 90662; 93005; 93306; 94640; 94660; 99285-25; A9270-GY; C9113; G0008; J1650; J1956; J2060; J2270; J2405; J2543; J2704; J2920; J2930; J3475; J3480; J3490; J7030; J7620-GY; P9016; Q9967

== ENCOUNTER 2019-01-09 05:20 | Inpatient (IN) | payer MEDICARE, OTHER ==
[2019-01-09] MEDS ORDERED: Albuterol/Ipratropium 3.0-0.5 MG/3 ML Neb Soln NEB ONE (05:24)
[2019-01-09] MEDS ORDERED: Sodium Chloride 0.9% 10 ML Syringe FLUSH PRN (05:25)
--- NOTE | 2019-01-09 05:37 | EDM.PDOC ---
ED HPI GENERAL MEDICAL PROBLEM - General Chief Complaint: Respiratory Problem Stated Complaint: FALL VIA MEDICAL Time Seen by Provider: 01/09/19 05:20 Source of Information: Reports: EMS, Old Records, Other (patient nonconversant) History Limitations: Reports: No Limitations - History of Present Illness INITIAL COMMENTS - FREE TEXT/NARRATIVE: 78 yo female brought in this am after she fell at [facility] and injured her L elbow. EMS noted noisy respirations and increased her oxygen from the 2 liters/min of oxygen per nc that she is normally on. Staff stated that her breathing has sounded like this since she returned from a [facility] follow up clinic visit. Had a recent visit here at [facility] for COPD exacerbation. Also during her last hospitalization it was discovered that she had a GI bleed requiring transfusion, esophageal ulcer was identified. Onset: Unknown/Unsure Location: Reports: Chest, Upper Extremity, Left Quality: Reports: Other (uncertain.) Severity: Mild (elbow) Improves with: Reports: None Worsens with: Reports: None Context: Reports: Trauma (elbow), Other (respiratory difficulty also) Associated Symptoms: Reports: Shortness of Breath. 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 (see below) (none) - Related Data Allergies Allergy/AdvReac Type Severity Reaction Status Date / Time No Known Allergies Allergy Verified 01/09/19 05:36 Home Meds: Home Meds ARIPiprazole [Abilify] 10 mg PO DAILY 12/23/15 [History] DULoxetine HCl [Duloxetine HCl] 60 mg PO DAILY 12/23/15 [History] Dexlansoprazole [Dexilant] 60 mg PO DAILY 12/23/15 [History] Ondansetron [IJD: Ondansetron ODT] 4 mg PO .EVERY 6 HOURS PRN 12/23/15 [History] QUEtiapine Fumarate [Seroquel Xr] 400 mg PO DAILY 12/23/15 [History] Tiotropium Br/Olodaterol HCl [Stiolto Respimat Inhal [place]] 2.5 mcg IH BID 10/17 [History] Acetaminophen [Tylenol] 650 mg PO Q4H PRN tablet 10/30/18 [Rx] Albuterol [Proventil Neb Soln] 2.5 mg NEB Q4H PRN neb 10/30/18 [Rx] Albuterol/Ipratropium [DuoNeb 3.0-0.5 MG/3 ML] 3 ml NEB QIDRT neb 10/30/18 [Rx] Doxazosin [Cardura] 2 mg PO DAILY tablet 10/30/18 [Rx] Levothyroxine 112 mcg PO ACBREAKFAST tablet 10/30/18 [Rx] Potassium Chloride [Klor-Con M20] 40 meq PO DAILY tab.er 10/30/18 [Rx] Digoxin 1 tab PO DAILY 12/27/18 [History] Spironolact/Hydrochlorothiazid [Spironolactone-HCTZ 25-25] 1 tab PO DAILY [History] Lactobacillus Rhamnosus GG [Culturelle] 1 cap PO BID #60 cap 01/04/19 [Rx] Pantoprazole [ProTONIX] 40 mg PO BID #60 tab.cr 01/04/19 [Rx] Past Medical History HEENT History: Reports: Impaired Vision Respiratory History: Reports: COPD, SOB Musculoskeletal History: Reports: Arthritis Psychiatric History: Reports: Anxiety, Depression - Infectious Disease History Infectious Disease History: Reports: Chicken Pox, Measles, Mumps - Past Surgical History Head Surgeries/Procedures: Reports: None Female Surgical History: Reports: Section, Hysterectomy Musculoskeletal Surgical History: Reports: Shoulder Surgery, Other (See Below) Other Musculoskeletal Surgeries/Procedures:: toe surgery Social & Family History - Family History Respiratory: Reports: COPD - Caffeine Use Caffeine Use: Reports: Coffee ED ROS GENERAL - Review of Systems Review Of Systems: See Below Constitutional: Reports: No Symptoms HEENT: Reports: No Symptoms Respiratory: Reports: Shortness of Breath, Other (noisy respirations) Cardiovascular: Reports: No Symptoms GI/Abdominal: Reports: No Symptoms : Reports: No Symptoms Musculoskeletal: Reports: Other (reported L elbow injury) Skin: Reports: No Symptoms Neurological: Reports: Other (nonverbal) ED EXAM, GENERAL - Physical Exam Exam: See Below Exam Limited By: No Limitations General Appearance: Alert, WD/WN, Moderate Distress (nonverbal with noisy respirations) Eye Exam: Bilateral Eye: Normal Inspection Ears: Normal External Exam, Normal Canal Ear Exam: Bilateral Ear: Auricle Normal, Canal Normal Nose: Normal Inspection, No Blood Throat/Mouth: Normal Inspection, Normal Lips, Normal Oropharynx, Normal Voice, No Airway Compromise Head: Atraumatic, Normocephalic Neck: Normal Inspection Respiratory/Chest: Decreased Breath Sounds, Other (noisy respirations) Cardiovascular: Regular Rate, Rhythm (HR was 101 at discharge from the hospital. ), No Edema, Tachycardia (130/min now) GI/Abdominal: Normal Bowel Sounds, Soft, Non-Tender, No Distention Back Exam: Normal Inspection. No: CVA Tenderness (R), CVA Tenderness (L) Extremities: Normal Inspection, Normal Range of Motion, Non-Tender, No Pedal Edema Neurological: Alert, Oriented, CN II-XII Intact, Normal Cognition, No Motor/ Sensory Deficits Psychiatric: Normal Affect, Normal Mood Skin Exam: Warm, Dry, Intact, Normal Color, No Rash EKG INTERPRETATION EKG Date: 01/09/19 Time: 06:20 Rhythm: NSR Rate (Beats/Min): 138 [place]: RAD-Right [place] Deviation P-Wave: Present QRS: Normal ST-T: Normal QT: Normal Comparison: Change From Previous EKG (rate increase from 121 to 138/min.) Course - Vital Signs Text/Narrative:: Dr. Lopez called @ 0619h Placed on BiPAP for CO2 retention. Last Recorded V/S: Last Vital Signs Temp 36.2 C 01/09/19 21:25 Pulse 125 H 01/09/19 21:25 Resp 24 H 01/09/19 21:25 BP 106/44 L 01/09/19 21:25 Pulse Ox 96 01/09/19 21:25 - Orders/Labs/Meds Labs: Laboratory Tests 01/09/19 01/09/19 01/09/19 Range/Units 05:25 05:45 05:45 WBC 15.9 H (4.5-11.0) K/uL RBC 3.49 (3.30-5.50) M/uL Hgb 9.3 L (12.0-15.0) g/dL Hct 33.4 L (36.0-48.0) % MCV 96 (80-98) fL MCH 27 (27-31) pg MCHC 28 L (32-36) % Plt Count 447 H (150-400) K/uL D-Dimer, Quantitative (0.0-400.0) ng/mL Puncture Site Lt radial ABG pH 7.308 L (7.350-7.450) ABG pCO2 92.4 H* (35.0-42.0) mmHg ABG pO2 107.0 H (75.0-100.0) mmHg ABG HCO3 44.9 H (22.0-26.0) mmol/L ABG Total CO2 42.9 H (21.0-25.0) mmol/L ABG O2 Saturation 98.3 H (95.0-98.0) % ABG O2 Content 12.8 L (15.0-23.0) %vol ABG Base Excess 16.1 mm/L ABG Hemoglobin 9.4 L (12.0-16.0) g/dL ABG Oxyhemoglobin 95.0 % ABG Carboxyhemoglobin 2.3 H (0.0-1.6) % ABG Methemoglobin 1.1 % Timmy Test Passed O2 Delivery Device Simple mask Oxygen Flow Rate 5 L Sodium 141 (140-148) mmol/L Potassium 4.5 (3.6-5.2) mmol/L Chloride 96 L (100-108) mmol/L Carbon Dioxide 43 H (21-32) mmol/L Anion Gap 6.5 (5.0-14.0) mmol/L BUN 13 (7-18) mg/dL Creatinine 0.4 L (0.6-1.0) mg/dL Est Cr Clr Drug Dosing 98.48 mL/min Estimated GFR (MDRD) > 60 (>60) Glucose 131 H (74-106) mg/dL Calcium 8.9 (8.5-10.1) mg/dL Troponin I 0.190 H* (0.000-0.056) ng/mL Urine Color (YELLOW) Urine Appearance (CLEAR) Urine pH (5.0-8.0) Ur Specific [place] (1.008-1.030) Urine Protein (NEGATIVE) mg/dL Urine Glucose (UA) (NEGATIVE) mg/dL Urine Ketones (NEGATIVE) mg/dL Urine Occult Blood (NEGATIVE) Urine Nitrite (NEGATIVE) Urine Bilirubin (NEGATIVE) Urine Urobilinogen (0.2-1.0) EU/dL Ur Leukocyte Esterase (NEGATIVE) Urine RBC (0-5) Urine WBC (0-5) Ur Epithelial Cells Amorphous Sediment Urine Bacteria Urine Mucus Urine Other 01/09/19 01/09/19 Range/Units 05:59 06:26 WBC (4.5-11.0) K/uL RBC (3.30-5.50) M/uL Hgb (12.0-15.0) g/dL Hct (36.0-48.0) % MCV (80-98) fL MCH (27-31) pg MCHC (32-36) % Plt Count (150-400) K/uL D-Dimer, Quantitative 668 H (0.0-400.0) ng/mL Puncture Site ABG pH (7.350-7.450) ABG pCO2 (35.0-42.0) mmHg ABG pO2 (75.0-100.0) mmHg ABG HCO3 (22.0-26.0) mmol/L ABG Total CO2 (21.0-25.0) mmol/L ABG O2 Saturation (95.0-98.0) % ABG O2 Content (15.0-23.0) %vol ABG Base Excess mm/L ABG Hemoglobin (12.0-16.0) g/dL ABG Oxyhemoglobin % ABG Carboxyhemoglobin (0.0-1.6) % ABG Methemoglobin % Timmy Test O2 Delivery Device Oxygen Flow Rate L Sodium (140-148) mmol/L Potassium (3.6-5.2) mmol/L Chloride (100-108) mmol/L Carbon Dioxide (21-32) mmol/L Anion Gap (5.0-14.0) mmol/L BUN (7-18) mg/dL Creatinine (0.6-1.0) mg/dL Est Cr Clr Drug Dosing mL/min Estimated GFR (MDRD) (>60) Glucose (74-106) mg/dL Calcium (8.5-10.1) mg/dL Troponin I (0.000-0.056) ng/mL Urine Color Yellow (YELLOW) Urine Appearance Slightly cloudy A (CLEAR) Urine pH 5.5 (5.0-8.0) Ur Specific [place] >= 1.030 (1.008-1.030) Urine Protein 100 H (NEGATIVE) mg/dL Urine Glucose (UA) Negative (NEGATIVE) mg/dL Urine Ketones Negative (NEGATIVE) mg/dL Urine Occult Blood Trace-intact H (NEGATIVE) Urine Nitrite Negative (NEGATIVE) Urine Bilirubin Small H (NEGATIVE) Urine Urobilinogen 0.2 (0.2-1.0) EU/dL Ur Leukocyte Esterase Negative (NEGATIVE) Urine RBC 0-5 (0-5) Urine WBC 0-5 (0-5) Ur Epithelial Cells Moderate Amorphous Sediment Few Urine Bacteria Few Urine Mucus Few Urine Other See note Meds: Medications Discontinued Medications Generic Name Dose Route Start Last Admin Trade Name Freq PRN Reason Stop Dose Admin Acetaminophen 650 mg 01/09/19 08:29 Tylenol PO Q4H PRN Pain Albuterol 2.5 mg 01/09/19 08:29 01/09/19 17:31 Proventil Neb Soln NEB 2.5 mg Q4H PRN Administration Cough Albuterol/Ipratropium 3 ml 01/09/19 05:24 01/09/19 05:27 Duoneb 3.0-0.5 Mg/3 Ml NEB 01/09/19 05:25 3 ml ONETIME ONE Administration Albuterol/Ipratropium 3 ml 01/09/19 08:20 Duoneb 3.0-0.5 Mg/3 Ml INH 01/09/19 14:00 ONETIME PRN Shortness Of Breath/wheezing Albuterol/Ipratropium 3 ml 01/09/19 11:00 Duoneb 3.0-0.5 Mg/3 Ml NEB QIDRT [facility] Aripiprazole 10 mg 01/09/19 09:00 01/09/19 10:51 Abilify PO Not Given DAILY [facility] Digoxin 125 mcg 01/09/19 09:00 Lanoxin PO DAILY [facility] Digoxin 125 mcg 01/09/19 13:00 01/09/19 12:32 Lanoxin PO Not Given DAILY@1300 [facility] Diltiazem HCl 20 mg 01/09/19 06:26 01/09/19 06:34 Diltiazem IVPUSH 01/09/19 06:27 20 mg ONETIME ONE Administration Doxazosin Mesylate 2 mg 01/09/19 09:00 01/09/19 10:52 Cardura PO Not Given DAILY [facility] Duloxetine HCl 60 mg 01/09/19 09:00 01/09/19 10:52 Cymbalta PO Not Given DAILY [facility] Glycopyrrolate/Indacaterol 1 each 01/09/19 09:00 01/09/19 21:15 Utibron Neohaler 27.5-15.6 Mcg IH Not Given BID [facility] Hydrochlorothiazide 25 mg 01/09/19 09:00 01/09/19 10:52 Hydrochlorothiazide PO Not Given DAILY [facility] Diltiazem HCl 125 mg/ Sodium 125 mls @ 5 mls/hr 01/09/19 06:45 01/09/19 08:28 Chloride IV 0 mg/hr TITRATE OLAMIDE 0 mls/hr Infusion 5 MG/HR Sodium Chloride 1,000 mls @ 75 mls/hr 01/09/19 08:30 01/09/19 10:11 Normal Saline IV 01/09/19 21:30 75 mls/hr ASDIRECTED OLAMIDE Administration Lactobacillus Rhamnosus 1 cap 01/09/19 09:00 01/09/19 21:15 Culturelle PO Not Given BID [facility] Levothyroxine Sodium 112 mcg 01/10/19 07:30 Levothyroxine PO ACBREAKFAST [facility] Lorazepam 0.5 mg 01/09/19 08:31 Ativan PO Q6H PRN Anxiety Lorazepam 1 mg 01/09/19 09:38 Ativan IVPUSH Q2H PRN Anxiety Morphine Sulfate 4 mg 01/09/19 09:39 01/10/19 00:46 Morphine IVPUSH 4 mg Q2H PRN Administration Anxiety Morphine Sulfate Confirm 01/09/19 09:49 01/09/19 13:23 Morphine Administered 01/09/19 09:50 Not Given Dose 4 mg .ROUTE .STK-MED ONE Non-Formulary Medication 60 mg 01/09/19 09:00 Dexlansoprazole [Dexilant] PO DAILY [facility] Ondansetron HCl 4 mg 01/09/19 08:29 Zofran Odt PO Q6H PRN Nausea Pantoprazole Sodium 40 mg 01/09/19 09:00 01/09/19 21:15 Protonix PO Not Given BIDAC [facility] Quetiapine Fumarate 400 mg 01/09/19 09:00 01/09/19 10:52 Seroquel Xr PO Not Given DAILY [facility] Sodium Chloride 10 ml 01/09/19 05:25 01/09/19 05:27 Saline Flush FLUSH 10 ml ASDIRECTED PRN Administration Keep Vein Open Spironolactone 25 mg 01/09/19 09:00 01/09/19 10:52 Aldactone PO Not Given DAILY [facility] Departure - Departure Time of Disposition: 07:20 Disposition: Admitted As Inpatient 65 Condition: Serious Clinical Impression: Respiratory failure Qualifiers: Chronicity: acute on chronic Respiratory failure complication: hypercapnia Qualified Code(s): J96.22 - Acute and chronic respiratory failure with hypercapnia - Discharge Information *PRESCRIPTION DRUG MONITORING PROGRAM REVIEWED*: No *COPY OF PRESCRIPTION DRUG MONITORING REPORT IN PATIENT URIEL: No
[2019-01-09] MEDS ORDERED: Diltiazem 25 MG/5 ML SDV IVPUSH ONE (06:26)
[2019-01-09] MEDS ORDERED: Diltiazem 125 MG in Sodium Chloride 0.9% 100 ML IV SCH (06:45)
[2019-01-09] MEDS ORDERED: Albuterol/Ipratropium 3.0-0.5 MG/3 ML Neb Soln INH PRN (08:20)
[2019-01-09] MEDS ORDERED: Ondansetron 4 MG Tab.DIS PO PRN (08:29)
[2019-01-09] MEDS ORDERED: Acetaminophen 325 MG Tab PO PRN (08:29)
[2019-01-09] MEDS ORDERED: Sodium Chloride 0.9% 1,000 ML IV SCH (08:30)
[2019-01-09] MEDS ORDERED: LORazepam 0.5 MG Tab PO PRN (08:31)
--- NOTE | 2019-01-09 08:38 | PCM.HP.2 ---
H&P History of Present Illness - General Date of Service: 01/09/19 Admit Problem/Dx: Admission Diagnosis/Problem Admission Diagnosis/Problem Respiratory distress Source of Information: EMS, Retirement Records History Limitations: Reports: Altered Mental Status - History of Present Illness Initial Comments - Free Text/Narative: Admitted from the Retirement after falling to the floor and was in respiratory distress and transferred to the ER for evaluation. CO2 was 93% and non verbal. The family has requested Hospice consult and DNR/DNI. She is on bi -pap at the present time. Onset of Symptoms: Reports: Gradual Duration of Symptoms: Reports: Chronic Associated Symptoms: Reports: Weakness - Related Data Allergies/Adverse Reactions: Allergies Allergy/AdvReac Type Severity Reaction Status Date / Time No Known Allergies Allergy Verified 01/09/19 05:36 Home Medications: Home Meds ARIPiprazole [Abilify] 10 mg PO DAILY 12/23/15 [History] DULoxetine HCl [Duloxetine HCl] 60 mg PO DAILY 12/23/15 [History] Dexlansoprazole [Dexilant] 60 mg PO DAILY 12/23/15 [History] Ondansetron [IJD: Ondansetron ODT] 4 mg PO .EVERY 6 HOURS PRN 12/23/15 [History] QUEtiapine Fumarate [Seroquel Xr] 400 mg PO DAILY 12/23/15 [History] Tiotropium Br/Olodaterol HCl [Stiolto Respimat Inhal [place]] 2.5 mcg IH BID 10/17 [History] Acetaminophen [Tylenol] 650 mg PO Q4H PRN tablet 10/30/18 [Rx] Albuterol [Proventil Neb Soln] 2.5 mg NEB Q4H PRN neb 10/30/18 [Rx] Albuterol/Ipratropium [DuoNeb 3.0-0.5 MG/3 ML] 3 ml NEB QIDRT neb 10/30/18 [Rx] Doxazosin [Cardura] 2 mg PO DAILY tablet 10/30/18 [Rx] Levothyroxine 112 mcg PO ACBREAKFAST tablet 10/30/18 [Rx] Potassium Chloride [Klor-Con M20] 40 meq PO DAILY tab.er 10/30/18 [Rx] Digoxin 1 tab PO DAILY 12/27/18 [History] Spironolact/Hydrochlorothiazid [Spironolactone-HCTZ 25-25] 1 tab PO DAILY [History] Lactobacillus Rhamnosus GG [Culturelle] 1 cap PO BID #60 cap 01/04/19 [Rx] Pantoprazole [ProTONIX] 40 mg PO BID #60 tab.cr 01/04/19 [Rx] Past Medical History HEENT History: Reports: Impaired Vision Respiratory History: Reports: COPD, SOB Musculoskeletal History: Reports: Arthritis Psychiatric History: Reports: Anxiety, Depression - Infectious Disease History Infectious Disease History: Reports: Chicken Pox, Measles, Mumps - Past Surgical History Head Surgeries/Procedures: Reports: None Female Surgical History: Reports: Section, Hysterectomy Musculoskeletal Surgical History: Reports: Shoulder Surgery, Other (See Below) Other Musculoskeletal Surgeries/Procedures:: toe surgery Social & Family History - Family History Respiratory: Reports: COPD - Tobacco Use Smoking Status *Q: Unknown Ever Smoked - Caffeine Use Caffeine Use: Reports: Coffee H&P Review of Systems - Review of Systems: Review Of Systems: See Below General: Reports: Weakness, Fatigue Pulmonary: Reports: Shortness of Breath Cardiovascular: Reports: No Symptoms Gastrointestinal: Reports: No Symptoms Genitourinary: Reports: No Symptoms Musculoskeletal: Reports: Leg Pain Exam - Exam Exam: See Below - Vital Signs Vital Signs: Last Vital Signs Temp 97.7 F 01/09/19 05:30 Pulse 111 H 01/09/19 06:31 Resp 25 H 01/09/19 07:30 BP 146/61 H 01/09/19 07:30 Pulse Ox 92 L 01/09/19 07:30 Weight: 140 lb - Exam General: Lethargic HEENT: PERRLA, Hearing Intact Neck: Supple, Trachea Midline, 2 Lungs: Rub Cardiovascular: Tachycardia (Female) Exam: Normal External Exam Extremities: Mottled Peripheral Pulses: 1+: Radial (L), Radial (R) Skin: Warm, Dry Neuro Extensive - Mental Status: Opens Eyes to Commands DTR: 1+: Bicep (L), Bicep (R) Psychiatric: Labile Mood - Patient Data Lab Results Last 24 hrs: Laboratory Results - last 24 hr 01/09/19 01/09/19 01/09/19 Range/Units 05:25 05:45 05:45 WBC 15.9 H (4.5-11.0) K/uL RBC 3.49 (3.30-5.50) M/uL Hgb 9.3 L (12.0-15.0) g/dL Hct 33.4 L (36.0-48.0) % MCV 96 (80-98) fL MCH 27 (27-31) pg MCHC 28 L (32-36) % Plt Count 447 H (150-400) K/uL D-Dimer, Quantitative (0.0-400.0) ng/mL Puncture Site Lt radial ABG pH 7.308 L (7.350-7.450) ABG pCO2 92.4 H* (35.0-42.0) mmHg ABG pO2 107.0 H (75.0-100.0) mmHg ABG HCO3 44.9 H (22.0-26.0) mmol/L ABG Total CO2 42.9 H (21.0-25.0) mmol/L ABG O2 Saturation 98.3 H (95.0-98.0) % ABG O2 Content 12.8 L (15.0-23.0) %vol ABG Base Excess 16.1 mm/L ABG Hemoglobin 9.4 L (12.0-16.0) g/dL ABG Oxyhemoglobin 95.0 % ABG Carboxyhemoglobin 2.3 H (0.0-1.6) % ABG Methemoglobin 1.1 % Timmy Test Passed O2 Delivery Device Simple mask Oxygen Flow Rate 5 L Sodium 141 (140-148) mmol/L Potassium 4.5 (3.6-5.2) mmol/L Chloride 96 L (100-108) mmol/L Carbon Dioxide 43 H (21-32) mmol/L Anion Gap 6.5 (5.0-14.0) mmol/L BUN 13 (7-18) mg/dL Creatinine 0.4 L (0.6-1.0) mg/dL Est Cr Clr Drug Dosing 98.48 mL/min Estimated GFR (MDRD) > 60 (>60) Glucose 131 H (74-106) mg/dL Calcium 8.9 (8.5-10.1) mg/dL Troponin I 0.190 H* (0.000-0.056) ng/mL Urine Color (YELLOW) Urine Appearance (CLEAR) Urine pH (5.0-8.0) Ur Specific [place] (1.008-1.030) Urine Protein (NEGATIVE) mg/dL Urine Glucose (UA) (NEGATIVE) mg/dL Urine Ketones (NEGATIVE) mg/dL Urine Occult Blood (NEGATIVE) Urine Nitrite (NEGATIVE) Urine Bilirubin (NEGATIVE) Urine Urobilinogen (0.2-1.0) EU/dL Ur Leukocyte Esterase (NEGATIVE) Urine RBC (0-5) Urine WBC (0-5) Ur Epithelial Cells Amorphous Sediment Urine Bacteria Urine Mucus Urine Other 01/09/19 01/09/19 Range/Units 05:59 06:26 WBC (4.5-11.0) K/uL RBC (3.30-5.50) M/uL Hgb (12.0-15.0) g/dL Hct (36.0-48.0) % MCV (80-98) fL MCH (27-31) pg MCHC (32-36) % Plt Count (150-400) K/uL D-Dimer, Quantitative 668 H (0.0-400.0) ng/mL Puncture Site ABG pH (7.350-7.450) ABG pCO2 (35.0-42.0) mmHg ABG pO2 (75.0-100.0) mmHg ABG HCO3 (22.0-26.0) mmol/L ABG Total CO2 (21.0-25.0) mmol/L ABG O2 Saturation (95.0-98.0) % ABG O2 Content (15.0-23.0) %vol ABG Base Excess mm/L ABG Hemoglobin (12.0-16.0) g/dL ABG Oxyhemoglobin % ABG Carboxyhemoglobin (0.0-1.6) % ABG Methemoglobin % Timmy Test O2 Delivery Device Oxygen Flow Rate L Sodium (140-148) mmol/L Potassium (3.6-5.2) mmol/L Chloride (100-108) mmol/L Carbon Dioxide (21-32) mmol/L Anion Gap (5.0-14.0) mmol/L BUN (7-18) mg/dL Creatinine (0.6-1.0) mg/dL Est Cr Clr Drug Dosing mL/min Estimated GFR (MDRD) (>60) Glucose (74-106) mg/dL Calcium (8.5-10.1) mg/dL Troponin I (0.000-0.056) ng/mL Urine Color Yellow (YELLOW) Urine Appearance Slightly cloudy A (CLEAR) Urine pH 5.5 (5.0-8.0) Ur Specific [place] >= 1.030 (1.008-1.030) Urine Protein 100 H (NEGATIVE) mg/dL Urine Glucose (UA) Negative (NEGATIVE) mg/dL Urine Ketones Negative (NEGATIVE) mg/dL Urine Occult Blood Trace-intact H (NEGATIVE) Urine Nitrite Negative (NEGATIVE) Urine Bilirubin Small H (NEGATIVE) Urine Urobilinogen 0.2 (0.2-1.0) EU/dL Ur Leukocyte Esterase Negative (NEGATIVE) Urine RBC 0-5 (0-5) Urine WBC 0-5 (0-5) Ur Epithelial Cells Moderate Amorphous Sediment Few Urine Bacteria Few Urine Mucus Few Urine Other See note Result Diagrams: 01/09/19 05:45 01/09/19 05:45 Problem List Initiated/Reviewed/Updated: Yes Orders Last 24hrs: Active Orders 24 hr Category Date Time Status Patient Status [ADT] Routine ADT 01/09/19 08:20 Ordered BIPAP Adult [RT BiPAP/CPAP] [RC] ASDIRECTED Care 01/09/19 05:48 Active EKG Documentation Completion [RC] ASDIRECTED Care 01/09/19 06:16 Active [place] Catheter Insertion [Insert Urinary Catheter] [OM. Care 01/09/19 06:30 Ordered PC] Q24H Oxygen Therapy [RC] PRN Care 01/09/19 08:20 Ordered RT Aerosol Therapy [RC] ASDIRECTED Care 01/09/19 05:24 Active RT Aerosol Therapy [RC] ASDIRECTED Care 01/09/19 08:27 Ordered Urinary Catheter Assessment [RC] ASDIRECTED Care 01/09/19 06:30 Active VTE/DVT Education [RC] Per Unit Routine Care 01/09/19 08:20 Ordered Vital Signs [RC] Q4H Care 01/09/19 08:20 Ordered Consult to Spiritual Care [CONS] Routine Cons 01/09/19 08:20 Ordered Regular Diet [DIET] Diet 01/09/19 Lunch Ordered ARIPiprazole [Abilify] Med 01/09/19 09:00 Ordered 10 mg PO DAILY Acetaminophen [Tylenol] Med 01/09/19 08:29 Ordered 650 mg PO Q4H PRN Albuterol [Proventil Neb Soln] Med 01/09/19 08:29 Ordered 2.5 mg NEB Q4H PRN Albuterol/Ipratropium [DuoNeb 3.0-0.5 MG/3 ML] Med 01/09/19 08:20 Ordered 3 ml INH ONETIME PRN Albuterol/Ipratropium [DuoNeb 3.0-0.5 MG/3 ML] Med 01/09/19 11:00 Ordered 3 ml NEB QIDRT DULoxetine HCl [Duloxetine HCl] Med 01/09/19 09:00 Ordered 60 mg PO DAILY Dexlansoprazole [Dexilant] Med 01/09/19 09:00 Ordered 60 mg PO DAILY Digoxin [Lanoxin] Med 01/09/19 09:00 Ordered 125 mcg PO DAILY Diltiazem 125 mg Med 01/09/19 06:45 Active Sodium Chloride 0.9% [Normal Saline] 100 ml IV TITRATE Doxazosin [Cardura] Med 01/09/19 09:00 Ordered 2 mg PO DAILY LORazepam [Ativan] Med 01/09/19 08:31 Ordered 0.5 mg PO Q6H PRN Lactobacillus Rhamnosus GG [Culturelle] Med 01/09/19 09:00 Ordered 1 cap PO BID Levothyroxine Med 01/10/19 07:30 Ordered 112 mcg PO ACBREAKFAST Ondansetron [Zofran ODT] Med 01/09/19 08:29 Ordered 4 mg PO .EVERY 6 HOURS PRN Pantoprazole [ProTONIX] Med 01/09/19 09:00 Ordered 40 mg PO BID QUEtiapine Fumarate [Seroquel Xr] Med 01/09/19 09:00 Ordered 400 mg PO DAILY Sodium Chloride 0.9% [Normal Saline] 1,000 ml Med 01/09/19 08:30 Ordered IV ASDIRECTED Sodium Chloride 0.9% [Saline Flush] Med 01/09/19 05:25 Active 10 ml FLUSH ASDIRECTED PRN Spironolact/Hydrochlorothiazid [Spironolactone-HCTZ 25- Med 01/09/19 09:00 Ordered 25] 1 tab PO DAILY Tiotropium Br/Olodaterol HCl [Stiolto Respimat Inhal Med 01/09/19 09:00 Ordered [place]] 2.5 mcg IH BID Saline Lock Insert [OM.PC] Routine Oth 01/09/19 05:25 Ordered Resuscitation Status Routine Resus Stat 01/09/19 08:20 Ordered EKG 12 Lead [EK] Routine Ther 01/09/19 06:15 Ordered Medication Orders Acetaminophen (Tylenol) 650 mg PO Q4H PRN PRN Reason: Pain Albuterol (Proventil Neb Soln) 2.5 mg NEB Q4H PRN PRN Reason: Cough Albuterol/Ipratropium (Duoneb 3.0-0.5 Mg/3 Ml) 3 ml INH ONETIME PRN PRN Reason: Shortness Of Breath/wheezing Albuterol/Ipratropium (Duoneb 3.0-0.5 Mg/3 Ml) 3 ml NEB QIDRT [facility] Aripiprazole (Abilify) 10 mg PO DAILY [facility] Digoxin (Lanoxin) 125 mcg PO DAILY [facility] Doxazosin Mesylate (Cardura) 2 mg PO DAILY [facility] Diltiazem HCl 125 mg/ Sodium (Chloride) 125 mls @ 5 mls/hr IV TITRATE OLAMIDE Last Infusion: 01/09/19 08:28 Dose: 0 mg/hr, 0 mls/hr Infusion: 01/09/19 07:38 Dose: 10 mg/hr, 10 mls/hr Admin: 01/09/19 06:50 Dose: 5 mg/hr, 5 mls/hr Sodium Chloride (Normal Saline) 1,000 mls @ 75 mls/hr IV ASDIRECTED OLAMIDE Lactobacillus Rhamnosus (Culturelle) 1 cap PO BID OLAMIDE Levothyroxine Sodium (Levothyroxine) 112 mcg PO ACBREAKFAST [facility] Lorazepam (Ativan) 0.5 mg PO Q6H PRN PRN Reason: Anxiety Stop: 01/10/19 02:46 Non-Formulary Medication (Dexlansoprazole [Dexilant]) 60 mg PO DAILY [facility] Non-Formulary Medication (Duloxetine Hcl [Duloxetine Hcl]) 60 mg PO DAILY [facility] Non-Formulary Medication (Quetiapine Fumarate [Seroquel Xr]) 400 mg PO DAILY [facility] Non-Formulary Medication (Spironolact/Hydrochlorothiazid [Spironolactone-Hctz 25 -25]) 1 tab PO DAILY [facility]AM[facility] Non-Formulary Medication (Tiotropium Br/Olodaterol Hcl [Stiolto Respimat Inhal [place]]) 2.5 mcg IH BID OLAMIDE Ondansetron HCl (Zofran Odt) 4 mg PO .EVERY 6 HOURS PRN PRN Reason: Nausea Pantoprazole Sodium (Protonix) 40 mg PO BID OLAMIDE Sodium Chloride (Saline Flush) 10 ml FLUSH ASDIRECTED PRN PRN Reason: Keep Vein Open Last Admin: 01/09/19 05:27 Dose: 10 ml Assessment/Plan Comment:: Assessment/Plan #1. Respiratory distress COPD/restrictive lung disease ( Emphysema). Will admit to the hospital and consult hospice and continue with the bi-pap at 40% 12.5 pressure. 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 #2. Tachycardia: This is a chronic condition #3. Anxiety: will give Ativan for comfort. #4. HTN: Blood pressure is 146/61 will continue with the meds as before. #5. Hypothyroidism: continue with meds. #6. Bipolar disorder #7. Degenerative Joint Disease Left Hip
[2019-01-09] MEDS ORDERED: Non-Formulary Medication 1 Each (Dexlansoprazole [Dexilant] 60 MG) PO SCH (09:00)
[2019-01-09] MEDS ORDERED: QUEtiapine 50 MG Tab.SR PO SCH (09:00)
[2019-01-09] MEDS ORDERED: Spironolactone 25 MG Tab PO SCH (09:00)
[2019-01-09] MEDS ORDERED: Doxazosin 4 MG Tab PO SCH (09:00)
[2019-01-09] MEDS ORDERED: ARIPiprazole 10 MG Tab PO SCH (09:00)
[2019-01-09] MEDS ORDERED: Digoxin 125 MCG Tab PO SCH ×2 (09:00→13:00)
[2019-01-09] MEDS ORDERED: DULoxetine 30 MG Cap PO SCH (09:00)
[2019-01-09] MEDS ORDERED: Hydrochlorothiazide 25 MG Tab PO SCH (09:00)
[2019-01-09] MEDS ORDERED: LORazepam 2 MG/ML SDV IVPUSH PRN (09:38)
[2019-01-09] MEDS: Albuterol 0.083% 2.5 MG/3 ML Neb Soln NEB PRN ×2 (09:42→17:31)
[2019-01-09] MEDS ORDERED: Morphine 4 MG/ML Syringe ONE (09:49)
[2019-01-09] MEDS: Morphine 4 MG/ML Syringe IVPUSH PRN (10:08)
[2019-01-09] MEDS: Lactobacillus Rhamnosus GG (Probiotic) Cap PO SCH ×2 (10:52→21:15)
[2019-01-09] MEDS: Pantoprazole 40 MG Tab.CR PO SCH ×2 (10:52→21:15)
[2019-01-09] MEDS ORDERED: Albuterol/Ipratropium 3.0-0.5 MG/3 ML Neb Soln NEB SCH (11:00)
[2019-01-09] MEDS: Indacaterol/Glycopyrrolate 1 EA Cap.W.Dev Kit of 6 IH SCH ×2 (13:23→21:15)
--- NOTE | 2019-01-09 19:44 | PCM.PN ---
- General Info Date of Service: 01/09/19 Subjective Update: Unresponsive most of the day and this evening needing more oxygen. - Review of Systems General: Reports: Weakness HEENT: Reports: No Symptoms Pulmonary: Reports: Shortness of Breath, Other (severe respiratory distress) Cardiovascular: Reports: No Symptoms Gastrointestinal: Reports: No Symptoms Genitourinary: Reports: No Symptoms, Other (badillo cath) Musculoskeletal: Reports: No Symptoms Skin: Reports: No Symptoms Psychiatric: Reports: Other (unresponsive) - Patient Data Vitals - Most Recent: Last Vital Signs Temp 97.7 F 01/09/19 17:29 Pulse 126 H 01/09/19 18:24 Resp 20 01/09/19 17:29 BP 169/75 H 01/09/19 17:29 Pulse Ox 80 L 01/09/19 18:24 Weight - Most Recent: 140 lb I&O - Last 24 Hours: Intake & Output 01/09/19 01/09/19 01/09/19 06:59 14:59 22:59 Intake Total 576 Output Total 300 Balance 276 Lab Results Last 24 Hours: Laboratory Results - last 24 hr 01/09/19 01/09/19 01/09/19 Range/Units 05:25 05:45 05:45 WBC 15.9 H (4.5-11.0) K/uL RBC 3.49 (3.30-5.50) M/uL Hgb 9.3 L (12.0-15.0) g/dL Hct 33.4 L (36.0-48.0) % MCV 96 (80-98) fL MCH 27 (27-31) pg MCHC 28 L (32-36) % Plt Count 447 H (150-400) K/uL D-Dimer, Quantitative (0.0-400.0) ng/mL Puncture Site Lt radial ABG pH 7.308 L (7.350-7.450) ABG pCO2 92.4 H* (35.0-42.0) mmHg ABG pO2 107.0 H (75.0-100.0) mmHg ABG HCO3 44.9 H (22.0-26.0) mmol/L ABG Total CO2 42.9 H (21.0-25.0) mmol/L ABG O2 Saturation 98.3 H (95.0-98.0) % ABG O2 Content 12.8 L (15.0-23.0) %vol ABG Base Excess 16.1 mm/L ABG Hemoglobin 9.4 L (12.0-16.0) g/dL ABG Oxyhemoglobin 95.0 % ABG Carboxyhemoglobin 2.3 H (0.0-1.6) % ABG Methemoglobin 1.1 % Timmy Test Passed O2 Delivery Device Simple mask Oxygen Flow Rate 5 L Sodium 141 (140-148) mmol/L Potassium 4.5 (3.6-5.2) mmol/L Chloride 96 L (100-108) mmol/L Carbon Dioxide 43 H (21-32) mmol/L Anion Gap 6.5 (5.0-14.0) mmol/L BUN 13 (7-18) mg/dL Creatinine 0.4 L (0.6-1.0) mg/dL Est Cr Clr Drug Dosing 98.48 mL/min Estimated GFR (MDRD) > 60 (>60) Glucose 131 H (74-106) mg/dL Calcium 8.9 (8.5-10.1) mg/dL Troponin I 0.190 H* (0.000-0.056) ng/mL Urine Color (YELLOW) Urine Appearance (CLEAR) Urine pH (5.0-8.0) Ur Specific [place] (1.008-1.030) Urine Protein (NEGATIVE) mg/dL Urine Glucose (UA) (NEGATIVE) mg/dL Urine Ketones (NEGATIVE) mg/dL Urine Occult Blood (NEGATIVE) Urine Nitrite (NEGATIVE) Urine Bilirubin (NEGATIVE) Urine Urobilinogen (0.2-1.0) EU/dL Ur Leukocyte Esterase (NEGATIVE) Urine RBC (0-5) Urine WBC (0-5) Ur Epithelial Cells Amorphous Sediment Urine Bacteria Urine Mucus Urine Other 01/09/19 01/09/19 Range/Units 05:59 06:26 WBC (4.5-11.0) K/uL RBC (3.30-5.50) M/uL Hgb (12.0-15.0) g/dL Hct (36.0-48.0) % MCV (80-98) fL MCH (27-31) pg MCHC (32-36) % Plt Count (150-400) K/uL D-Dimer, Quantitative 668 H (0.0-400.0) ng/mL Puncture Site ABG pH (7.350-7.450) ABG pCO2 (35.0-42.0) mmHg ABG pO2 (75.0-100.0) mmHg ABG HCO3 (22.0-26.0) mmol/L ABG Total CO2 (21.0-25.0) mmol/L ABG O2 Saturation (95.0-98.0) % ABG O2 Content (15.0-23.0) %vol ABG Base Excess mm/L ABG Hemoglobin (12.0-16.0) g/dL ABG Oxyhemoglobin % ABG Carboxyhemoglobin (0.0-1.6) % ABG Methemoglobin % Timmy Test O2 Delivery Device Oxygen Flow Rate L Sodium (140-148) mmol/L Potassium (3.6-5.2) mmol/L Chloride (100-108) mmol/L Carbon Dioxide (21-32) mmol/L Anion Gap (5.0-14.0) mmol/L BUN (7-18) mg/dL Creatinine (0.6-1.0) mg/dL Est Cr Clr Drug Dosing mL/min Estimated GFR (MDRD) (>60) Glucose (74-106) mg/dL Calcium (8.5-10.1) mg/dL Troponin I (0.000-0.056) ng/mL Urine Color Yellow (YELLOW) Urine Appearance Slightly cloudy A (CLEAR) Urine pH 5.5 (5.0-8.0) Ur Specific [place] >= 1.030 (1.008-1.030) Urine Protein 100 H (NEGATIVE) mg/dL Urine Glucose (UA) Negative (NEGATIVE) mg/dL Urine Ketones Negative (NEGATIVE) mg/dL Urine Occult Blood Trace-intact H (NEGATIVE) Urine Nitrite Negative (NEGATIVE) Urine Bilirubin Small H (NEGATIVE) Urine Urobilinogen 0.2 (0.2-1.0) EU/dL Ur Leukocyte Esterase Negative (NEGATIVE) Urine RBC 0-5 (0-5) Urine WBC 0-5 (0-5) Ur Epithelial Cells Moderate Amorphous Sediment Few Urine Bacteria Few Urine Mucus Few Urine Other See note Med Orders - Current: Current Medications Acetaminophen (Tylenol) 650 mg PO Q4H PRN PRN Reason: Pain Albuterol (Proventil Neb Soln) 2.5 mg NEB Q4H PRN PRN Reason: Cough Last Admin: 01/09/19 17:31 Dose: 2.5 mg Aripiprazole (Abilify) 10 mg PO DAILY [facility] Last Admin: 01/09/19 10:51 Dose: Not Given Digoxin (Lanoxin) 125 mcg PO DAILY@1300 [facility] Last Admin: 01/09/19 12:32 Dose: Not Given Doxazosin Mesylate (Cardura) 2 mg PO DAILY [facility] Last Admin: 01/09/19 10:52 Dose: Not Given Duloxetine HCl (Cymbalta) 60 mg PO DAILY [facility] Last Admin: 01/09/19 10:52 Dose: Not Given Glycopyrrolate/Indacaterol (Utibron Neohaler 27.5-15.6 Mcg) 1 each IH BID [facility] Last Admin: 01/09/19 13:23 Dose: Not Given Hydrochlorothiazide (Hydrochlorothiazide) 25 mg PO DAILY [facility] Last Admin: 01/09/19 10:52 Dose: Not Given Sodium Chloride (Normal Saline) 1,000 mls @ 75 mls/hr IV ASDIRECTED [facility] Last Admin: 01/09/19 10:11 Dose: 75 mls/hr Lactobacillus Rhamnosus (Culturelle) 1 cap PO BID [facility] Last Admin: 01/09/19 10:52 Dose: Not Given Levothyroxine Sodium (Levothyroxine) 112 mcg PO ACBREAKFAST [facility] Lorazepam (Ativan) 0.5 mg PO Q6H PRN PRN Reason: Anxiety Lorazepam (Ativan) 1 mg IVPUSH Q2H PRN PRN Reason: Anxiety Morphine Sulfate (Morphine) 4 mg IVPUSH Q2H PRN PRN Reason: Anxiety Last Admin: 01/09/19 10:08 Dose: 4 mg Non-Formulary Medication (Dexlansoprazole [Dexilant]) 60 mg PO DAILY [facility] Ondansetron HCl (Zofran Odt) 4 mg PO Q6H PRN PRN Reason: Nausea Pantoprazole Sodium (Protonix) 40 mg PO BIDAC [facility] Last Admin: 01/09/19 10:52 Dose: Not Given Quetiapine Fumarate (Seroquel Xr) 400 mg PO DAILY [facility] Last Admin: 01/09/19 10:52 Dose: Not Given Sodium Chloride (Saline Flush) 10 ml FLUSH ASDIRECTED PRN PRN Reason: Keep Vein Open Last Admin: 01/09/19 05:27 Dose: 10 ml Spironolactone (Aldactone) 25 mg PO DAILY [facility] Last Admin: 01/09/19 10:52 Dose: Not Given Discontinued Medications Albuterol/Ipratropium (Duoneb 3.0-0.5 Mg/3 Ml) 3 ml NEB ONETIME ONE Stop: 01/09/19 05:25 Last Admin: 01/09/19 05:27 Dose: 3 ml Albuterol/Ipratropium (Duoneb 3.0-0.5 Mg/3 Ml) 3 ml INH ONETIME PRN PRN Reason: Shortness Of Breath/wheezing Stop: 01/09/19 14:00 Albuterol/Ipratropium (Duoneb 3.0-0.5 Mg/3 Ml) 3 ml NEB QIDRT [facility] Digoxin (Lanoxin) 125 mcg PO DAILY [facility] Diltiazem HCl (Diltiazem) 20 mg IVPUSH ONETIME ONE Stop: 01/09/19 06:27 Last Admin: 01/09/19 06:34 Dose: 20 mg Diltiazem HCl 125 mg/ Sodium (Chloride) 125 mls @ 5 mls/hr IV TITRATE [facility] Last Infusion: 01/09/19 08:28 Dose: 0 mg/hr, 0 mls/hr Morphine Sulfate (Morphine) Confirm Administered Dose 4 mg .ROUTE .STK-MED ONE Stop: 01/09/19 09:50 Last Admin: 01/09/19 13:23 Dose: Not Given - Exam General: Obtunded HEENT: Pupils Equal Lungs: Decreased Breath Sounds, Other (agnonal breathing) Cardiovascular: Tachycardia GI/Abdominal Exam: Distended Extremities: Pedal Edema Peripheral Pulses: 1+: Radial (L), Radial (R) Skin: Warm, Dry, Intact Psy/Mental Status: Other (unresponsive) - Problem List Review Problem List Initiated/Reviewed/Updated: Yes - My Orders Last 24 Hours: My Active Orders 01/09/19 08:20 Patient Status [ADT] Routine Oxygen Therapy [RC] PRN VTE/DVT Education [RC] Per Unit Routine Consult to Spiritual Care [CONS] Routine Resuscitation Status Routine 01/09/19 08:27 RT Aerosol Therapy [RC] ASDIRECTED 01/09/19 08:29 Acetaminophen [Tylenol] 650 mg PO Q4H PRN Albuterol [Proventil Neb Soln] 2.5 mg NEB Q4H PRN Ondansetron [Zofran ODT] 4 mg PO Q6H PRN 01/09/19 08:30 Sodium Chloride 0.9% [Normal Saline] 1,000 ml IV ASDIRECTED 01/09/19 08:31 LORazepam [Ativan] 0.5 mg PO Q6H PRN 01/09/19 08:55 Consult to Hospice [CONS] Routine 01/09/19 09:00 ARIPiprazole [Abilify] 10 mg PO DAILY DULoxetine [Cymbalta] 60 mg PO DAILY Dexlansoprazole [Dexilant] 60 mg PO DAILY Doxazosin [Cardura] 2 mg PO DAILY Indacaterol/Glycopyrrolate [Utibron Neohaler 27.5-15.6 MCG] 1 each IH BID Lactobacillus Rhamnosus GG [Culturelle] 1 cap PO BID Pantoprazole [ProTONIX] 40 mg PO BIDAC QUEtiapine [SEROquel XR] 400 mg PO DAILY Spironolactone [Aldactone] 25 mg PO DAILY hydroCHLOROthiazide 25 mg PO DAILY 01/09/19 09:38 LORazepam [Ativan] 1 mg IVPUSH Q2H PRN 01/09/19 09:39 Morphine 4 mg IVPUSH Q2H PRN 01/09/19 13:00 Digoxin [Lanoxin] 125 mcg PO DAILY@1300 01/09/19 Lunch Regular Diet [DIET] 01/10/19 07:30 Levothyroxine 112 mcg PO ACBREAKFAST - Plan Plan:: Assessment/Plan #1. Respiratory distress COPD/restrictive lung disease ( Emphysema). DNR/DNI Just removed the b-pap on nasal canula as there is no change of recovery and has had a nonproductive life for several weeks. Her request was not to be on a machine with intubation to keep her breathing. The family is present and requests removing the BiPAP which has been done. #2. Tachycardia: This is a chronic condition #3. Anxiety: Ativan given and morphine for comfort. #4. HTN: Blood pressure is stable #5. Hypothyroidism: #6. Bipolar disorder #7. Degenerative Joint Disease Left Hip Recovery is not possible. Expect soon.
[2019-01-10] MEDS: Morphine 4 MG/ML Syringe IVPUSH PRN (00:46)
[2019-01-10] MEDS ORDERED: Levothyroxine 112 MCG Tab PO SCH (07:30)
--- NOTE | 2019-01-10 18:09 | PCM.DCSUM1 ---
Discharge Summary - Hospital Course HPI Initial Comments: Josep came in from [facility] in respiratory distress and was unresponsive initially. I was called to admit her and she would respond very slightly but no verbal communication she was admitted in respiratory distress on a BiPAP. She has a significant history of respiratory distress suffering from emphysema as well as chronic obstructive pulmonary disease. She had a long history of smoking. Diagnosis: Stroke: No - Discharge Data Discharge Date: 01/10/19 Discharge Disposition: 20 Preliminary Cause of *Q: Respiratory Failure Condition: - Referral to Home Health Primary Care Physician: PCP None - Patient Summary/Data Consults: Consultations 01/09/19 08:20 Consult to Spiritual Care [CONS] Routine 01/09/19 08:55 Consult to Hospice [CONS] Routine Comment: Physician Instructions: Hospital Course: Aafter admission from the emergency room she was admitted to second floor bed and the BiPAP was continued. Through the afternoon she became increasingly in respiratory distress needing more more oxygen until the option was increased to 70% and still had periods of apnea and had agonal breathing. The family was called and they reiterated that she did not want to be on a machine and did not want to have intubation. With that decision being made and she was made a DNR/ DNI upon admission the family decided to take off the BiPAP and place her on nasal cannula. At 2:42 AM on 01/10/2019 she . The family was called. This was expected. - Discharge Plan Home Medications: Home Meds ARIPiprazole [Abilify] 10 mg PO DAILY 12/23/15 [History] DULoxetine HCl [Duloxetine HCl] 60 mg PO DAILY 12/23/15 [History] Dexlansoprazole [Dexilant] 60 mg PO DAILY 12/23/15 [History] Ondansetron [IJD: Ondansetron ODT] 4 mg PO .EVERY 6 HOURS PRN 12/23/15 [History] QUEtiapine Fumarate [Seroquel Xr] 400 mg PO DAILY 12/23/15 [History] Tiotropium Br/Olodaterol HCl [Stiolto Respimat Inhal [place]] 2.5 mcg IH BID 10/17 [History] Acetaminophen [Tylenol] 650 mg PO Q4H PRN tablet 10/30/18 [Rx] Albuterol [Proventil Neb Soln] 2.5 mg NEB Q4H PRN neb 10/30/18 [Rx] Albuterol/Ipratropium [DuoNeb 3.0-0.5 MG/3 ML] 3 ml NEB QIDRT neb 10/30/18 [Rx] Doxazosin [Cardura] 2 mg PO DAILY tablet 10/30/18 [Rx] Levothyroxine 112 mcg PO ACBREAKFAST tablet 10/30/18 [Rx] Potassium Chloride [Klor-Con M20] 40 meq PO DAILY tab.er 10/30/18 [Rx] Digoxin 1 tab PO DAILY 12/27/18 [History] Spironolact/Hydrochlorothiazid [Spironolactone-HCTZ 25-25] 1 tab PO DAILY [History] Lactobacillus Rhamnosus GG [Culturelle] 1 cap PO BID #60 cap 01/04/19 [Rx] Pantoprazole [ProTONIX] 40 mg PO BID #60 tab.cr 01/04/19 [Rx] Forms: ED Department Discharge Referrals: PCP,None [Primary Care Provider] - - Discharge Summary/Plan Comment DC Time >30 min.: Yes - Patient Data Vitals - Most Recent: Last Vital Signs Temp 97.2 F 01/09/19 21:25 Pulse 125 H 01/09/19 21:25 Resp 24 H 01/09/19 21:25 BP 106/44 L 01/09/19 21:25 Pulse Ox 96 01/09/19 21:25 Weight - Most Recent: 140 lb Med Orders - Current: Current Medications Discontinued Medications Acetaminophen (Tylenol) 650 mg PO Q4H PRN PRN Reason: Pain Albuterol (Proventil Neb Soln) 2.5 mg NEB Q4H PRN PRN Reason: Cough Last Admin: 01/09/19 17:31 Dose: 2.5 mg Albuterol/Ipratropium (Duoneb 3.0-0.5 Mg/3 Ml) 3 ml NEB ONETIME ONE Stop: 01/09/19 05:25 Last Admin: 01/09/19 05:27 Dose: 3 ml Albuterol/Ipratropium (Duoneb 3.0-0.5 Mg/3 Ml) 3 ml INH ONETIME PRN PRN Reason: Shortness Of Breath/wheezing Stop: 01/09/19 14:00 Albuterol/Ipratropium (Duoneb 3.0-0.5 Mg/3 Ml) 3 ml NEB QIDRT [facility] Aripiprazole (Abilify) 10 mg PO DAILY [facility] Last Admin: 01/09/19 10:51 Dose: Not Given Digoxin (Lanoxin) 125 mcg PO DAILY [facility] Digoxin (Lanoxin) 125 mcg PO DAILY@1300 [facility] Last Admin: 01/09/19 12:32 Dose: Not Given Diltiazem HCl (Diltiazem) 20 mg IVPUSH ONETIME ONE Stop: 01/09/19 06:27 Last Admin: 01/09/19 06:34 Dose: 20 mg Doxazosin Mesylate (Cardura) 2 mg PO DAILY [facility] Last Admin: 01/09/19 10:52 Dose: Not Given Duloxetine HCl (Cymbalta) 60 mg PO DAILY [facility] Last Admin: 01/09/19 10:52 Dose: Not Given Glycopyrrolate/Indacaterol (Utibron Neohaler 27.5-15.6 Mcg) 1 each IH BID [facility] Last Admin: 01/09/19 21:15 Dose: Not Given Hydrochlorothiazide (Hydrochlorothiazide) 25 mg PO DAILY [facility] Last Admin: 01/09/19 10:52 Dose: Not Given Diltiazem HCl 125 mg/ Sodium (Chloride) 125 mls @ 5 mls/hr IV TITRATE [facility] Last Infusion: 01/09/19 08:28 Dose: 0 mg/hr, 0 mls/hr Sodium Chloride (Normal Saline) 1,000 mls @ 75 mls/hr IV ASDIRECTED [facility] Stop: 01/09/19 21:30 Last Admin: 01/09/19 10:11 Dose: 75 mls/hr Lactobacillus Rhamnosus (Culturelle) 1 cap PO BID [facility] Last Admin: 01/09/19 21:15 Dose: Not Given Levothyroxine Sodium (Levothyroxine) 112 mcg PO ACBREAKFAST [facility] Lorazepam (Ativan) 0.5 mg PO Q6H PRN PRN Reason: Anxiety Lorazepam (Ativan) 1 mg IVPUSH Q2H PRN PRN Reason: Anxiety Morphine Sulfate (Morphine) 4 mg IVPUSH Q2H PRN PRN Reason: Anxiety Last Admin: 01/10/19 00:46 Dose: 4 mg Morphine Sulfate (Morphine) Confirm Administered Dose 4 mg .ROUTE .STK-MED ONE Stop: 01/09/19 09:50 Last Admin: 01/09/19 13:23 Dose: Not Given Non-Formulary Medication (Dexlansoprazole [Dexilant]) 60 mg PO DAILY [facility] Ondansetron HCl (Zofran Odt) 4 mg PO Q6H PRN PRN Reason: Nausea Pantoprazole Sodium (Protonix) 40 mg PO BIDAC [facility] Last Admin: 01/09/19 21:15 Dose: Not Given Quetiapine Fumarate (Seroquel Xr) 400 mg PO DAILY [facility] Last Admin: 01/09/19 10:52 Dose: Not Given Sodium Chloride (Saline Flush) 10 ml FLUSH ASDIRECTED PRN PRN Reason: Keep Vein Open Last Admin: 01/09/19 05:27 Dose: 10 ml Spironolactone (Aldactone) 25 mg PO DAILY [facility] Last Admin: 01/09/19 10:52 Dose: Not Given
== END 2019-01-10 02:54 | disposition expired | DRG 189 ==
LOC: JP.ED 05:20 → JP.MS 08:20
PROVIDERS: ADMIT Internal Medicine; ATTEND Internal Medicine
PROC: 5A09357 Assistance with Respiratory Ventilation, Less than 24 Consecutive Hours, Continuous Positive Airway Pressure (ICD-10-PCS; principal; 2019-01-09)
DX: R06.02 Shortness of breath (principal); R41.82 Altered mental status, unspecified; R53.1 Weakness; M25.522 Pain in left elbow; J44.9 Chronic obstructive pulmonary disease, unspecified; J96.21 Acute and chronic respiratory failure with hypoxia; J43.9 Emphysema, unspecified; Z66 Do not resuscitate; H54.7 Unspecified visual loss; F41.9 Anxiety disorder, unspecified; E03.9 Hypothyroidism, unspecified; F31.9 Bipolar disorder, unspecified; M16.12 Unilateral primary osteoarthritis, left hip; R00.0 Tachycardia, unspecified; I10 Essential (primary) hypertension; Z79.899 Other long term (current) drug therapy; Z90.710 Acquired absence of both cervix and uterus; Z98.890 Other specified postprocedural states; Z87.891 Personal history of nicotine dependence; Z91.81 History of falling; Z99.81 Dependence on supplemental oxygen; Z79.890 Hormone replacement therapy
CPT/HCPCS: 36415; 80048; 81001; 82803; 84484; 85027; 85379; 93005; 94640; 94660; J3490 ×2; J7030; 36600; 93010; 99285; A9270-GY; J2270; J7620-GY